=== PATIENT | male | born 1955 | race Caucasian/White ===

== ENCOUNTER 2016-08-16 13:54 | Inpatient (IN) | payer OTHER, BC ==
[~2016-08-16] VITALS: Ht 177.8 cm; Wt 93.9 kg
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
--- NOTE | ~2016-08-16 | HC ---
[facility] [place] [address] CONSULTATION Name: PATRICIA FLYNN Room #: 421-P ADM IN M.R.#: [id number] Admission: 08/16/16 Attend Phys: Arian Mcgowan MD Discharge: Date of : 57 Report #: [id number] THIS REPORT FOR: //name// CC: Arian Mcgowan DATE OF SERVICE: 08/17/2016 INFECTIOUS DISEASE CONSULTATION HISTORY OF PRESENT ILLNESS: A 61-year-old white man recently discharged from [facility] after an hospitalization for possible UTI. The patient did receive treatment with broad spectrum antibiotics and subsequently discharged on Bactrim and Augmentin orally. The patient relates that once IV antibiotics were off, the patient started feeling unwell with chills, headaches, nausea, abdominal pain, muscle aches and pains. I checked the patient's laboratory information on computer yesterday and started the patient back on combination antibiotics consistent of Unasyn and gentamicin. I also ordered a set of ESR and CRP to assess possibility of these symptoms not being associated to infectious process, but possibly due to withdrawal from narcotics. As it turns how the patient tells me he haste to be on the narcotics and he had been using some "100 mg" possible oxycodone, but he elected to discontinue those. We discussed about findings of fairly normal white blood cell count, absolutely normal CRP and ESR that goes against the possibility of infection and I bring to the patient the fact that withdrawal from narcotics may manifest itself with the symptoms he is relating to us. PAST MEDICAL HISTORY: Chronic back pain. Cauda equina. Suprapubic cystostomy. History of sacral osteomyelitis requiring extensive surgical interventions of his back. Hypertension. DVT. Pulmonary embolism. History of sacral decubitus, complicated, but osteomyelitis requiring prolonged parenteral antibiotic treatment and extensive surgical intervention. DRUG ALLERGIES: Intolerant has included Zosyn, morphine, hydrocodone, fentanyl, and meropenem. MEDICATIONS: Currently the patient on treatment with gentamicin 400 mg IV daily, Unasyn 1.5 grams IV every 8 hours, docusate, pantoprazole, duloxetine 30 mg daily, amlodipine, metoprolol, fluticasone propionate, promethazine, hydromorphone 2 mg IV every 3 hours if needed, Benadryl p.r.n., acetaminophen p.r.n., ondansetron p.r.n. SOCIAL HISTORY: See H and P, old records, and as above. FAMILY HISTORY: See H and P, old records, and as above. REVIEW OF SYSTEMS: See H and P, old records, and as above. [address] [address] CONSULTATION Name: PATRICIA FLYNN Room #: 421-P [facility] IN M.R.#: [id number] Admission: 08/16/16 Attend Phys: Arian Mcgowan MD Discharge: Date of : 57 Report #: [id number] PHYSICAL EXAMINATION: GENERAL: A well-developed, overweight man, not toxic-looking, no distress, afebrile since admission. VITAL SIGNS: Presenting following vital signs, temperature 97.7, pulse 67, respirations 18, BP 112/69. HEENMT: Within range. NECK: Supple, no thyromegaly or lymphadenopathy. CHEST: Revealed right-sided Port-A-Cath. LUNGS: Clear. HEART: S1, S2. ABDOMEN: Soft, no masses or megaly. Suprapubic cystostomy in place. Right hip decubitus dressings intact. EXTREMITIES: Atrophy of muscle group. NEUROLOGIC: Paraplegia. BACK: Extensive scar from previous surgery. LABORATORY DATA: BMP normal. Liver function tests normal. CRP 2.6 mg/L, the lowest ever on this patient. WBC 11.5, hemoglobin 15.7, platelets 273,000 with a fairly normal differential. The sedimentation rate only 10 mm per hour. Urinalysis revealed trace ketones, 1+ leukocyte esterase, as well as squamous epithelial cells and bacteriuria. Not an unusual finding in patients with suprapubic cystostomy. ASSESSMENT: 1. Malaise, body aches, and pains, nausea, question withdrawal from narcotics since the patient volunteer he haste to be on the high dose of narcotics he had been using before. 2. Suprapubic cystostomy. 3. Cauda equina. SUGGESTIONS: Recommend discontinuation of antibiotics. Discussed with Dr. Mcgowan. We will address the issue of possibility of withdrawal from narcotics. Recommend tapering down narcotics and discussed at length with the patient the possibility of suffering withdrawal not only from narcotics but from any psychoactive medications the patient might be using. Dr. Mcgowan, thank you for requesting my suggestion. <ELECTRONICALLY SIGNED> By: Kenny Mckenna MD 08/18/16 1108 [id number] 1807 Kenny Mckenna MD /nt
[~2016-08-16 13:54] MED LIST: ALLEGRA-D 12 H1 EAC1 PO; ALPRAZOLAM PO; ALPRAZOLAM1 M1 PO; AMBIEN 10 MG TA10 MG PO; AMITRIPTYLINE H10 M3 PO; AMOXICILLIN 50500 M1 PO; ANTIVERT25 MG PO; ASCRIPTIN 325325 MG PO; ASPIRIN325 PO; AUGMENTIN 875-1 EACH PO; AUGMENTIN 875875 M1; Alprazolam PO; B12INJ IM; BACLOFEN 10MG T10 MG PO; BACTRIM DS TAB1 EACH PO; BENADRYL25 MG PO; BISACODYL SUPP10 MG RECTAL; CEFDINIR; CEFDINIR PO; CEFDINIR300 MG PO; CEFPODOXIME PR200 M1 PO; CEFTIN 250 MG250 MG PO; CEFTIN PO; CEFUROXIME500 MG PO; CEPHALEXIN 500500 M1 PO; CIPRO500 MG PO; CIPROFLOXACIN500 M1 PO; CIPROFLOXACIN500 M3 PO; CIPROFLOXACIN750 MG PO; CYMBALTA30 MG PO; CYMBALTA60 MG PO; DEPO-TESTO100 MG/1 M IM; DEPO-TESTO200 MG/1 M IM; DEXILANT30 MG PO; DILAUDID 2 MG TA2 MG PO; DILAUDID2 M1 PO; DIPHENHIST25 M2 PO; DITROPAN XL10 M1 PO; DOLOPHINE HCL10 MG PO; EFFEXOR XR PO; FISH OIL 1,0001 EAC7 PO; FISH OIL 500 M1 EACH PO; FLAGYL500 MG PO; FLONASE 0.05%50 MCG NASAL; FLORANEX TABLE1 EACH PO; FLUCONAZOLE 10100 MG PO; HYDROCODON-ACE1 EAC5 PO; KEFLEX500 MG PO; LEVAQUIN 500 M500 M2 PO; LIORESAL 10 MG10 MG PO; LOPRESSOR 50 MG50 M1 PO; LOPRESSOR50 PO; MACROBID 100 M100 M1 PO; MACROBID 100 M100 MG PO; MERREM 500500 MG/12 IV; METHADONE HCL 110 M1 PO; METOPROLOL SUCC50 MG PO; MIRALAX255 GM PO; MUCINEX TA600 MG/TA1 PO; MULTIVITAMINS PO; NEXIUM40 MG PO; NORVASC 5 MG TAB5 MG PO; NORVASC10 MG PO; OMEPRAZOLE40 MG PO; OPANA ER5 M1 PO; OXYCODONE HCL 55 MG PO; OXYCODONE HCL15 MG PO; OXYCODONE PO; OXYCODONE-ACET1 EACH PO; OXYCONTIN20 M1 PO; PAXIL10 MG; PERCOCET 10-321 EACH PO; PHENERGAN 25 MG25 M1 PO; PREDNISONE 10 M10 M1; PREVACID 30MG C30 M1 PO; PROAIR HFA8.5 GM INH; PROTONIX40 M2 PO; REMERON15 MG PO; ROXICODONE15 M1 PO; ROXICODONE5 M1 PO; SENNA PO; SENOKOT-S1 TA1 PO; SLOW FE 160MG160 MG PO; STRESSTABS1 EACH PO; TAB-A-VITE1 EACH PO; TOPROL XL50 MG PO; TRIMETHOBENZAM300 M1 PO; TYLENOL325 MG PO; VALIUM10 MG PO; VALIUM5 MG PO; VITAMIN B PO; VITAMIN B12 IM; VITAMIN C1000 MG PO; VITAMIN D-32000 UNIT PO; VITAMIN D1000 UNI2 PO; VITAMIN D1000 UNIT PO; VITAMIN D32000 UNIT PO; VITAMIN D35000 UNI1 PO; WELLBUTRIN XL300 M1 PO; XANAX 0.5 MG0.5 M1 PO; XANAX 0.5 MG0.5 MG PO; XANAX XR1 MG PO; XANAX1 MG PO; ZINC SULFATE 2220 MG PO; ZOFRAN ODT4 MG PO; ZOLOFT100 MG PO; [UNRECOGNIZED DRUG - OTHER]; [UNRECOGNIZED DRUG - OTHER]; [UNRECOGNIZED DRUG - OTHER] PO; [UNRECOGNIZED DRUG - REMARK]
[2016-08-16 13:57] VITALS: BP 148/93
[2016-08-16] MEDS ORDERED: PREVACID30 MG PO (14:28)
[2016-08-16] MEDS ORDERED: ZYRTEC10 M5 PO (14:28)
[2016-08-16 15:03] LABS: ABSOLUTE NEUTROPHILS 8.3 thou/uL (1.4-8.2); BASOPHILS 0.6 % (0.0-2.0); EOSINOPHILS 4.7 % (0.0-3.0); HEMATOCRIT 45.7 % (42.0-52.0); HEMOGLOBIN 15.7 gm/dL (14.0-18.0); LYMPHOCYTES 16.1 % (24.0-44.0); MCH 30.3 pg (26.0-34.0); MCHC 34.4 % (28.0-37.0); MCV 88.2 fL (80.0-100.0); MONOCYTES 6.8 % (1.0-8.0); PLATELET COUNT 273 thou/uL (150-400); POLYS 71.8 % (36.0-66.0); RBC 5.18 mil/uL (4.50-6.00); WBC 11.5 thou/uL (4.0-11.0)
[2016-08-16 15:05] LABS: URINE BILIRUBIN NEGATIVE (Negative); URINE BLOOD NEGATIVE (Negative); URINE COLOR YELLOW; URINE GLUCOSE-RANDOM* NEGATIVE (Negative); URINE KETONES TRACE (Negative); URINE LEUKOCYTES-REFLEX 1+ (Negative); URINE PROTEIN (DIPSTICK) NEGATIVE (Negative); URINE SPECIFIC GRAVITY 1.015 (1.003-1.035); URINE UROBILINOGEN 0.2 E.U./dl (0.2-1.0)
[2016-08-16 15:08] LABS: MANUAL DIFF NO
[2016-08-16 15:13] LABS: CASTS None Seen /LPF (None Seen); CRYSTALS None Seen /LPF (None Seen); SQUAMOUS 4-10 Moderate /LPF (0-3); URINE RBC 0-2 Rare /HPF (0-2); URINE WBC-REFLEX 0-5 Rare /HPF (0-5)
[2016-08-16 15:14] LABS: CALCIUM 9.1 mg/dL (8.5-10.1); CREATININE 0.8 mg/dL (0.6-1.3)
[2016-08-16 15:31] LABS: ALBUMIN 3.4 g/dL (3.4-5.0); TOTAL BILIRUBIN 0.4 mg/dL (<0.1-1.0); TOTAL PROTEIN 7.2 g/dL (6.4-8.2)
[2016-08-16 17:03] VITALS: BP 124/88
[2016-08-16 17:15] VITALS: BP 148/82
[2016-08-16 20:00] VITALS: BP 112/69
[2016-08-17 07:23] VITALS: BP 112/69
[2016-08-17 18:53] LABS: MAGNESIUM 1.6 mg/dL (1.8-2.4); PHOSPHORUS 4.8 mg/dL (2.5-4.9)
[2016-08-17 20:00] VITALS: BP 113/81
[2016-08-18 04:00] VITALS: BP 135/73
[2016-08-18 08:00] VITALS: BP 136/71
[2016-08-18] MEDS ORDERED: METHADONE HCL 110 M1 PO (08:43)
[2016-08-18 11:01] VITALS: BP 136/71
[2016-08-18 12:31] VITALS: BP 136/71
== END 2016-08-18 13:15 | disposition home health service (06) | DRG 854 ==
LOC: ER 13:54 → EROBS 16:03 → 4E 16:03
PROVIDERS: Internal Medicine Infectious Disease; Physician Assistant
PROC: 0JBL0ZZ Excision of Right Upper Leg Subcutaneous Tissue and Fascia, Open Approach (ICD-10-PCS; principal; 2016-08-18)
DX: A41.9 Sepsis, unspecified organism (principal); N39.0 Urinary tract infection, site not specified; G82.20 Paraplegia, unspecified; F11.23 Opioid dependence with withdrawal; K21.9 Gastro-esophageal reflux disease without esophagitis; S70.211A Abrasion, right hip, initial encounter; F41.9 Anxiety disorder, unspecified; I10 Essential (primary) hypertension; G89.4 Chronic pain syndrome; Z96.698 Presence of other orthopedic joint implants; R53.81 Other malaise; Z79.899 Other long term (current) drug therapy; Z86.718 Personal history of other venous thrombosis and embolism; Z86.711 Personal history of pulmonary embolism; Z86.14 Personal history of Methicillin resistant Staphylococcus aureus infection; Z87.891 Personal history of nicotine dependence; Z98.890 Other specified postprocedural states; Z88.6 Allergy status to analgesic agent; Z88.1 Allergy status to other antibiotic agents; Z93.50 Unspecified cystostomy status
CPT/HCPCS: 10084

== ENCOUNTER → 2016-11-15 | Outpatient (CLI) | payer OTHER ==
[~2016-11-15] MED LIST changes: +PREVACID30 MG PO; +ZYRTEC10 M5 PO
[2016-11-15 12:13] LABS: ABSOLUTE NEUTROPHILS 10.1 thou/uL (1.4-8.2); BASOPHILS 0.8 % (0.0-2.0); EOSINOPHILS 5.2 % (0.0-3.0); HEMATOCRIT 50.5 % (42.0-52.0); HEMOGLOBIN 16.9 gm/dL (14.0-18.0); LYMPHOCYTES 13.7 % (24.0-44.0); MCH 29.1 pg (26.0-34.0); MCHC 33.5 g/dL (28.0-37.0); MCV 86.9 fL (80.0-100.0); PLATELET COUNT 231 thou/uL (150-400); POLYS 70.3 % (36.0-66.0); RDW 14.9 % (10.5-14.5); WBC 14.3 thou/uL (4.0-11.0)
[2016-11-15 12:19] LABS: MANUAL DIFF NO
[2016-11-15 12:30] LABS: ANION GAP 9 mmol/L (7-16); BUN 16 mg/dL (7-18); CHLORIDE 100 mmol/L (98-107); CO2 24 mmol/L (21-32); POTASSIUM 4.7 mmol/L (3.5-5.1); SODIUM 133 mmol/L (136-145)
[2016-11-15 12:31] LABS: ALBUMIN 3.5 g/dL (3.4-5.0); ALKALINE PHOSPHATASE 65 U/L (46-116); CALCIUM 9.4 mg/dL (8.5-10.1); CHOLESTEROL 173 mg/dL (<200); CREATININE 0.8 mg/dL (0.7-1.3); GLUCOSE 81 mg/dL (74-106); HDL CHOLESTEROL 32 mg/dL (>40); LDL CHOLESTEROL 110 mg/dL (<100); SGOT 18 U/L (15-37); SGPT 22 U/L (30-65); TC:HDL 5.4 Ratio (Not establshd); TOTAL BILIRUBIN 0.4 mg/dL (<0.1-1.0); TRIGLYCERIDE 156 mg/dL (<150); VLDL 31 mg/dL (<40)
[2016-11-15 22:06] LABS: PSA 1.2 ng/mL (0.0-4.0)
[2016-11-16 01:06] LABS: HEPATITIS C VIRUS AB <0.1 (0.0-0.9); TESTOSTERONE* > 1500 ng/dL (348-1197)
== END | disposition home or self-care (01) ==
LOC: OPONC 07:52
PROVIDERS: Family Medicine
DX: Z45.2 Encounter for adjustment and management of vascular access device (principal)

== ENCOUNTER 2016-11-21 20:55 | Inpatient (IN) | payer OTHER ==
[~2016-11-21] VITALS: Ht 177.8 cm; Wt 90.3 kg
--- NOTE | ~2016-11-21 | H ---
[facility] [place] [address] [place] [address] HISTORY AND PHYSICAL Name: PATRICIA FLYNN Room #: 463-P ADM IN M.R.#: [id number] Admission: 11/21/16 Attend Phys: Arian Mcgowan MD Discharge: Date of : 57 Report #: [id number] THIS REPORT FOR: //name// CC: Arian Mcgowan DATE OF SERVICE: 11/22/2016 CHIEF COMPLAINT: Weakness and fatigue. HISTORY OF PRESENT ILLNESS: The patient is a 61-year-old male well known to me with paraplegia. He has had recurrent UTIs. He states he feels like he does when he gets some bladder infections. He has also been admitted for narcotic withdrawal in the past, but he states he has not stopped his narcotics at this time. He just has general malaise, fatigue. He states that he has not had he is aware of. PAST MEDICAL HISTORY: Fairly significant. See prior documentation, includes multiple UTIs, chronic pain syndrome, prior spinal cord injury in 1985, hypertension, DVT, PE, numerous back surgeries for his wound and spinal stabilization, reflux, chronic incontinence with a suprapubic catheter. MEDICATIONS: Include methadone 10 mg b.i.d., Cymbalta 30 mg daily, Benadryl p.r.n., Valium mg q. 8 p.r.n., Prevacid 30 mg a day, Zyrtec 10 mg a day, amlodipine 5 mg a day, testosterone for 2 weeks, vitamin D daily, metoprolol 50 mg a day, B12 daily. ALLERGIES: HYDROCODONE, MEROPENEM, ZOSYN, MORPHINE and FENTANYL. REVIEW OF SYSTEMS: CONSTITUTIONAL: Positive for generalized malaise or fevers. HEENT: No headaches or visual changes. CHEST: No chest pain, tightness in chest, shortness of breath, cough or sputum production. GASTROINTESTINAL: Complains of nausea, no vomiting or diarrhea. GENITOURINARY: No urinary symptoms, but he does have suprapubic catheter and his urine looks cloudy. PHYSICAL EXAMINATION: VITAL SIGNS: In the ER, blood pressure 167/107, pulse is 90, respirations 20. He is afebrile. GENERAL: He is awake and alert. He appears weak. HEENT: His mucous membranes are dry. NECK: Supple. No adenopathy, thyromegaly or bruits. CHEST: Clear to auscultation. CARDIOVASCULAR: Regular, no murmur. ABDOMEN: Soft, no masses. He is obese. Bowel sounds are active. [address] [address] HISTORY AND PHYSICAL Name: PATRICIA FLYNN Room #: [address] [place] [address] IN M.R.#: [id number] Admission: 11/21/16 Attend Phys: Arian Mcgowan MD Discharge: Date of : 57 Report #: [id number] EXTREMITIES: No changes. He has got chronic atrophy from his prior spinal cord injury. LABORATORY DATA: Sodium 135, potassium 3.7, chloride 100, bicarbonate 26, BUN 9, creatinine 0.8, glucose 96, calcium 9.2. WBC is 9.9, hemoglobin 16.5, hematocrit 48.8, platelet count 250, 61 segs, 21 lymphs, 11 monos. Urinalysis shows specific gravity less than 1.005, 2+ blood, 3+ white cells and many bacteria. ASSESSMENT AND PLAN: Urinary tract infection, presumed. He got a dose of gentamicin in the ER. We had a culture. We will not redose until we get a culture back. He has oftentimes has had colonization, so we will make sure he has got a true infection, treat symptoms otherwise with medications. Renew his home meds as above. By: [id number] Arian Mcgowan MD /nt
[2016-11-21 20:59] VITALS: BP 167/107
[2016-11-21 21:29] LABS: URINE BILIRUBIN NEGATIVE (Negative); URINE BLOOD 2+ (Negative); URINE COLOR YELLOW; URINE GLUCOSE-RANDOM* NEGATIVE (Negative); URINE KETONES NEGATIVE (Negative); URINE NITRITE NEGATIVE (Negative); URINE PROTEIN (DIPSTICK) NEGATIVE (Negative); URINE SPECIFIC GRAVITY <= 1.005 (1.003-1.035); URINE UROBILINOGEN 0.2 E.U./dl (0.2-1.0)
[2016-11-21 21:39] LABS: ABSOLUTE NEUTROPHILS 6.1 thou/uL (1.4-8.2); BASOPHILS 1.2 % (0.0-2.0); EOSINOPHILS 4.6 % (0.0-3.0); HEMATOCRIT 48.8 % (42.0-52.0); HEMOGLOBIN 16.5 gm/dL (14.0-18.0); LYMPHOCYTES 21.6 % (24.0-44.0); MCH 29.3 pg (26.0-34.0); MCHC 33.7 g/dL (28.0-37.0); MCV 86.9 fL (80.0-100.0); MONOCYTES 11.2 % (1.0-8.0); PLATELET COUNT 250 thou/uL (150-400); POLYS 61.4 % (36.0-66.0); RBC 5.61 mil/uL (4.50-6.00); RDW 15.2 % (10.5-14.5); WBC 9.9 thou/uL (4.0-11.0)
[2016-11-21 21:40] LABS: BACTERIA >30 Many /HPF (None Seen); CASTS None Seen /LPF (None Seen); CRYSTALS None Seen /LPF (None Seen); SQUAMOUS None Seen /LPF (0-3); URINE RBC 0-2 Rare /HPF (0-2); URINE WBC >25 Many /HPF (0-5)
[2016-11-21 21:42] LABS: MANUAL DIFF NO
[2016-11-21 21:49] LABS: CALCIUM 9.2 mg/dL (8.5-10.1); CREATININE 0.8 mg/dL (0.7-1.3); POTASSIUM 3.7 mmol/L (3.5-5.1)
[2016-11-21 23:50] VITALS: BP 131/89
[2016-11-22 07:07] LABS: HEMATOCRIT 45.7 % (42.0-52.0); HEMOGLOBIN 15.5 gm/dL (14.0-18.0); MCH 29.6 pg (26.0-34.0); MCHC 33.9 g/dL (28.0-37.0); MCV 87.1 fL (80.0-100.0); RBC 5.24 mil/uL (4.50-6.00); RDW 15.3 % (10.5-14.5); WBC 8.2 thou/uL (4.0-11.0)
[2016-11-22 07:21] LABS: CALCIUM 8.9 mg/dL (8.5-10.1); CREATININE 0.8 mg/dL (0.7-1.3); POTASSIUM 4.1 mmol/L (3.5-5.1)
[2016-11-22 08:00] VITALS: BP 172/95
[2016-11-22 12:00] VITALS: BP 140/93
[2016-11-22 16:00] VITALS: BP 133/90
[2016-11-22 20:09] VITALS: BP 113/56
[2016-11-23 06:05] VITALS: BP 167/94
[2016-11-23 07:00] VITALS: BP 173/92
[2016-11-23 11:29] VITALS: BP 136/75
[2016-11-23 15:35] VITALS: BP 120/66
[2016-11-23 19:45] VITALS: BP 130/59
[2016-11-24 03:46] VITALS: BP 123/64
[2016-11-24 08:12] VITALS: BP 102/66
[2016-11-24 16:00] VITALS: BP 124/63
[2016-11-24 20:00] VITALS: BP 132/58
[2016-11-25 04:00] VITALS: BP 154/77
[2016-11-25 07:24] VITALS: BP 135/60
[2016-11-25 12:41] VITALS: BP 135/60
[2016-11-25 15:23] VITALS: BP 115/64
[2016-11-25 19:15] VITALS: BP 124/84
[2016-11-26 03:22] VITALS: BP 132/70
[2016-11-26 08:35] VITALS: BP 125/81
[2016-11-26 12:30] VITALS: BP 130/59
[2016-11-26 15:30] VITALS: BP 132/54
[2016-11-26 19:26] VITALS: BP 126/62
[2016-11-27 05:05] VITALS: BP 148/77
[2016-11-27 08:15] LABS: CALCIUM 8.9 mg/dL (8.5-10.1); CREATININE 0.8 mg/dL (0.7-1.3); POTASSIUM 4.3 mmol/L (3.5-5.1)
[2016-11-27 08:49] VITALS: BP 125/67
[2016-11-27 09:04] LABS: HEMATOCRIT 45.9 % (42.0-52.0); HEMOGLOBIN 15.2 gm/dL (14.0-18.0); MCH 29.1 pg (26.0-34.0); RBC 5.22 mil/uL (4.50-6.00); RDW 15.2 % (10.5-14.5); WBC 7.2 thou/uL (4.0-11.0)
[2016-11-27 15:16] VITALS: BP 105/54
[2016-11-27 19:42] VITALS: BP 122/63
[2016-11-28 02:54] VITALS: BP 123/64
[2016-11-28 07:26] VITALS: BP 132/74
[2016-11-28 11:27] VITALS: BP 116/60
[2016-11-28] MEDS ORDERED: CEFDINIR300 MG PO (12:51)
[2016-11-28] MEDS ORDERED: MACROBID 100 M100 M2 PO (12:52)
[2016-11-28 13:28] VITALS: BP 135/60
== END 2016-11-28 15:30 | disposition home or self-care (01) | DRG 690 ==
LOC: ER 20:55 → 4W 22:00 → ER 22:00 → EROBS 22:00 → 4W 23:56
PROVIDERS: Emergency Medicine; Family Medicine
DX: N39.0 Urinary tract infection, site not specified (principal); I10 Essential (primary) hypertension; G89.4 Chronic pain syndrome; K21.9 Gastro-esophageal reflux disease without esophagitis; F41.9 Anxiety disorder, unspecified; B96.20 Unspecified Escherichia coli [E. coli] as the cause of diseases classified elsewhere; B96.5 Pseudomonas (aeruginosa) (mallei) (pseudomallei) as the cause of diseases classified elsewhere; Z86.718 Personal history of other venous thrombosis and embolism; Z86.711 Personal history of pulmonary embolism; Z88.6 Allergy status to analgesic agent; Z88.1 Allergy status to other antibiotic agents; Z88.8 Allergy status to other drugs, medicaments and biological substances; Z87.891 Personal history of nicotine dependence
CPT/HCPCS: 10040

== ENCOUNTER 2016-12-26 21:12 | Emergency (ER) | payer OTHER, BC ==
[~2016-12-26] VITALS: Ht 177.8 cm; Wt 86.2 kg
[~2016-12-26 21:12] MED LIST changes: +MACROBID 100 M100 M2 PO
[2016-12-26 22:37] LABS: HEMATOCRIT 45.8 % (42.0-52.0); HEMOGLOBIN 15.4 gm/dL (14.0-18.0); MCH 29.6 pg (26.0-34.0); MCHC 33.6 g/dL (28.0-37.0); MCV 88.3 fL (80.0-100.0); PLATELET COUNT 210 thou/uL (150-400); RBC 5.19 mil/uL (4.50-6.00); RDW 15.3 % (10.5-14.5); WBC 8.8 thou/uL (4.0-11.0)
[2016-12-26 22:42] LABS: CALCIUM 8.9 mg/dL (8.5-10.1); CREATININE 0.8 mg/dL (0.7-1.3); POTASSIUM 4.2 mmol/L (3.5-5.1)
[2016-12-26 22:44] LABS: MANUAL DIFF YES
[2016-12-26 22:47] LABS: ALBUMIN 3.4 g/dL (3.4-5.0); TOTAL BILIRUBIN 0.3 mg/dL (<0.1-1.0); TOTAL PROTEIN 6.9 g/dL (6.4-8.2)
[2016-12-26 23:01] LABS: URINE BILIRUBIN NEGATIVE (Negative); URINE BLOOD 2+ (Negative); URINE COLOR YELLOW; URINE GLUCOSE-RANDOM* NEGATIVE (Negative); URINE KETONES NEGATIVE (Negative); URINE LEUKOCYTES-REFLEX 3+ (Negative); URINE PROTEIN (DIPSTICK) 1+ (Negative); URINE SPECIFIC GRAVITY 1.015 (1.003-1.035)
[2016-12-26 23:17] LABS: ABSOLUTE NEUTROPHILS 4.4 thou/uL (1.4-8.2); ATYPICAL LYMPHS 1 %; TOTAL CELL COUNT 100
[2016-12-26 23:21] LABS: AMORPHOUS URATES Moderate /LPF (None Seen); CASTS None Seen /LPF (None Seen); CRYSTALS None Seen /LPF (None Seen); SQUAMOUS None Seen /LPF (0-3); URINE WBC-REFLEX >25 Many /HPF (0-5); WBC CLUMPS Moderate (None Seen)
[2016-12-26] MEDS ORDERED: AUGMENTIN 875-1 EACH PO (23:31)
[2016-12-27 00:46] VITALS: BP 144/98
== END 2016-12-27 00:50 | disposition home or self-care (01) ==
LOC: ER 21:12
PROVIDERS: Emergency Medicine
DX: N39.0 Urinary tract infection, site not specified (principal); G89.29 Other chronic pain; M54.9 Dorsalgia, unspecified; G82.20 Paraplegia, unspecified; K21.9 Gastro-esophageal reflux disease without esophagitis; I10 Essential (primary) hypertension; Z96.0 Presence of urogenital implants; Z86.14 Personal history of Methicillin resistant Staphylococcus aureus infection; Z88.5 Allergy status to narcotic agent; Z88.8 Allergy status to other drugs, medicaments and biological substances; Z87.891 Personal history of nicotine dependence

== ENCOUNTER 2017-02-27 16:14 | Emergency (ER) | payer OTHER, BC ==
[~2017-02-27] VITALS: Ht 180.3 cm; Wt 86.2 kg
[2017-02-27 18:02] LABS: URINE BILIRUBIN NEGATIVE (Negative); URINE BLOOD NEGATIVE (Negative); URINE COLOR YELLOW; URINE GLUCOSE-RANDOM* NEGATIVE (Negative); URINE KETONES 1+ (Negative); URINE NITRITE POSITIVE (Negative); URINE PROTEIN (DIPSTICK) NEGATIVE (Negative); URINE SPECIFIC GRAVITY <= 1.005 (1.003-1.035); URINE UROBILINOGEN 0.2 E.U./dl (0.2-1.0)
[2017-02-27 18:07] LABS: SQUAMOUS None Seen /LPF (0-3); URINE RBC None Seen /HPF (0-2); URINE WBC 6-15 Few /HPF (0-5)
[2017-02-27 18:08] LABS: BACTERIA 1-9 Few /HPF (None Seen); CASTS None Seen /LPF (None Seen); CRYSTALS None Seen /LPF (None Seen)
[2017-02-27 18:55] LABS: ABSOLUTE NEUTROPHILS 7.5 thou/uL (1.4-8.2); BASOPHILS 0.5 % (0.0-2.0); EOSINOPHILS 2.7 % (0.0-3.0); HEMOGLOBIN 17.3 gm/dL (14.0-18.0); MCH 29.6 pg (26.0-34.0); MCHC 33.9 g/dL (28.0-37.0); MCV 87.2 fL (80.0-100.0); MONOCYTES 9.3 % (1.0-8.0); PLATELET COUNT 213 thou/uL (150-400); POLYS 73.5 % (36.0-66.0); RBC 5.85 mil/uL (4.50-6.00); RDW 15.7 % (10.5-14.5); WBC 10.2 thou/uL (4.0-11.0)
[2017-02-27 18:56] LABS: MANUAL DIFF NO
[2017-02-27 19:05] LABS: CALCIUM 9.2 mg/dL (8.5-10.1); CREATININE 0.8 mg/dL (0.7-1.3); POTASSIUM 4.4 mmol/L (3.5-5.1)
[2017-02-27 19:10] LABS: ALBUMIN 3.7 g/dL (3.4-5.0); DIRECT BILIRUBIN 0.1 mg/dL (<0.1-0.3); TOTAL BILIRUBIN 0.4 mg/dL (<0.1-1.0); TOTAL PROTEIN 7.2 g/dL (6.4-8.2)
[2017-02-27] MEDS ORDERED: PHENERGAN 25 MG25 M1 PO (20:02)
[2017-02-27] MEDS ORDERED: PROMS25 WY RECTAL (20:02)
[2017-02-27 20:29] VITALS: BP 152/88
== END 2017-02-27 20:30 | disposition home or self-care (01) ==
LOC: ER 16:14
PROVIDERS: Nurse Practitioner
DX: R10.13 Epigastric pain (principal); G89.29 Other chronic pain; I10 Essential (primary) hypertension; K21.9 Gastro-esophageal reflux disease without esophagitis; Z98.890 Other specified postprocedural states; Z86.718 Personal history of other venous thrombosis and embolism; Z88.5 Allergy status to narcotic agent; Z88.1 Allergy status to other antibiotic agents; Z88.4 Allergy status to anesthetic agent; Z88.8 Allergy status to other drugs, medicaments and biological substances; Z87.891 Personal history of nicotine dependence; R11.2 Nausea with vomiting, unspecified

== ENCOUNTER 2017-03-01 01:38 | Inpatient (IN) | payer OTHER, BC ==
[~2017-03-01] VITALS: Ht 180.3 cm; Wt 86.2 kg
[~2017-03-01 01:38] MED LIST changes: +PROMS25 WY RECTAL
[2017-03-01 01:39] VITALS: BP 153/88
[2017-03-01 03:02] LABS: ABSOLUTE NEUTROPHILS 8.2 thou/uL (1.4-8.2); BASOPHILS 0.7 % (0.0-2.0); HEMATOCRIT 45.4 % (42.0-52.0); HEMOGLOBIN 15.4 gm/dL (14.0-18.0); LYMPHOCYTES 15.8 % (24.0-44.0); MCH 28.9 pg (26.0-34.0); PLATELET COUNT 235 thou/uL (150-400); POLYS 69.5 % (36.0-66.0); RBC 5.34 mil/uL (4.50-6.00); RDW 15.3 % (10.5-14.5); WBC 11.8 thou/uL (4.0-11.0)
[2017-03-01 03:06] LABS: MANUAL DIFF NO
[2017-03-01 03:10] LABS: CALCIUM 9.5 mg/dL (8.5-10.1); CREATININE 0.9 mg/dL (0.7-1.3); POTASSIUM 4.1 mmol/L (3.5-5.1)
[2017-03-01 03:17] LABS: AMP/METHAMP Negative (Negative); BARBITURATES Negative (Negative); BENZODIAZEPINES POSITIVE (Negative); COCAINE Negative (Negative); METHADONE POSITIVE (Negative); OPIATES POSITIVE (Negative); PCP Negative (Negative); THC Negative (Negative)
[2017-03-01 05:08] VITALS: BP 140/83
[2017-03-01 05:30] VITALS: BP 138/84
[2017-03-01 07:59] VITALS: BP 153/85
[2017-03-01 17:26] VITALS: BP 128/74
[2017-03-01 20:55] VITALS: BP 141/86
[2017-03-02 06:15] VITALS: BP 129/71
[2017-03-02 06:37] LABS: HEMATOCRIT 46.3 % (42.0-52.0); HEMOGLOBIN 15.7 gm/dL (14.0-18.0); MANUAL DIFF YES; MCH 29.5 pg (26.0-34.0); MCHC 33.9 g/dL (28.0-37.0); MCV 87.2 fL (80.0-100.0); PLATELET COUNT 218 thou/uL (150-400); RBC 5.31 mil/uL (4.50-6.00); RDW 15.6 % (10.5-14.5); WBC 7.5 thou/uL (4.0-11.0)
[2017-03-02 07:37] LABS: ABSOLUTE NEUTROPHILS 4.7 thou/uL (1.4-8.2); TOTAL CELL COUNT 100
[2017-03-02 07:39] LABS: ANISOCYTOSIS SLIGHT
[2017-03-02 08:00] VITALS: BP 122/77
[2017-03-02 16:00] VITALS: BP 146/91
[2017-03-02 20:00] VITALS: BP 156/77
[2017-03-03 04:00] VITALS: BP 126/86
[2017-03-03 08:00] VITALS: BP 162/94
[2017-03-03 15:00] VITALS: BP 162/94
== END 2017-03-03 15:23 | disposition home or self-care (01) | DRG 552 ==
LOC: ER 01:38 → EROBS 04:21 → 3N 04:21
PROVIDERS: Emergency Medicine; Family Medicine
DX: M54.9 Dorsalgia, unspecified (principal); G82.20 Paraplegia, unspecified; G89.4 Chronic pain syndrome; K21.9 Gastro-esophageal reflux disease without esophagitis; F17.290 Nicotine dependence, other tobacco product, uncomplicated; D72.829 Elevated white blood cell count, unspecified; T50.905A Adverse effect of unspecified drugs, medicaments and biological substances, initial encounter; M79.1 Myalgia; I10 Essential (primary) hypertension; Z86.718 Personal history of other venous thrombosis and embolism; Z86.711 Personal history of pulmonary embolism; Z86.14 Personal history of Methicillin resistant Staphylococcus aureus infection; Z88.6 Allergy status to analgesic agent; Z88.1 Allergy status to other antibiotic agents; Z79.899 Other long term (current) drug therapy; Z79.891 Long term (current) use of opiate analgesic; Z90.79 Acquired absence of other genital organ(s)
CPT/HCPCS: 10094

== ENCOUNTER 2017-04-08 21:04 | Observation (INO) | payer OTHER, BC ==
[~2017-04-08] VITALS: Ht 177.8 cm; Wt 86.2 kg
--- NOTE | ~2017-04-08 | HC ---
[facility] [place] [address] CONSULTATION Name: PATRICIA FLYNN Room #: 409-P [facility]#: [id number] Admission: 04/08/17 Attend Phys: Emilio Hester DO Discharge: 04/12/17 Date of : 57 Report #: [id number] THIS REPORT FOR: //name// CC: Emilio Mcgowan CHIEF COMPLAINT: Right shoulder pain. HISTORY OF PRESENT ILLNESS: This 61-year-old gentleman with a previous severe spinal injury is chronically paraplegic. He is fully independent and uses a wheelchair and uses upper extremities exclusively for transfers and mobilization. He has had some mild shoulder symptoms in the past on the right side. I believe he has had a previous left shoulder injury with previous rotator cuff tear and surgical repair. He is somewhat frustrated with that process and his previous surgery and notes he would like to remain very conservative with regard to any future shoulder symptoms. Recently, he had a fall when his arm rest on the chair broke as he was transferring and twisted the right shoulder dramatically. He required assistance and has been admitted to the hospital for further assessment. He has had significant right shoulder discomfort with a rather limited strength and limited range of motion, which obviously is a major problem for this gentleman who is entirely dependent upon his upper extremities for mobilization. He has already had x-rays and CT scan, which reveals some degenerative change at both the glenohumeral joint and the acromioclavicular joint, but no evidence of fracture nor displacement. No other areas of injury were identified. At the time of my initial evaluation, the right shoulder demonstrates no significant bruising or swelling. He does have limited range of motion with complaints of discomfort on both the internal and external rotation and particularly pain with elevation above 90 degrees. The shoulder seems stable. Biceps and triceps function seemed to be normal. The forearm, wrist and hand are normal. He has no other areas of upper extremity injuries or complaints. He seems to have unchanged movement and strength in the left shoulder. At the time of my initial evaluation, he was already scheduled for an MRI study and he has continued conservative management in the interim. 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 There is evidence of some fraying and partial thickness tearing in the supraspinatus portion of the rotator cuff; however, the rest of the cuff seems to be intact and there is no evidence of a significant new injury nor displaced or retracted rotator cuff tear. The rest of the findings appear to be rather normal and consistent with only minor degenerative change. In summary, this gentleman's findings are consistent with moderate chronic [facility] [address] [place] [address] CONSULTATION Name: PATRICIA FLYNN Room #: 409-P [facility]#: [id number] Admission: 04/08/17 Attend Phys: Emilio Hesetr DO Discharge: 04/12/17 Date of : 57 Report #: [id number] overuse symptoms of the right shoulder required by his paraplegia and need to use both arms in a very aggressive repetitive fashion for transfers. I believe he does have some chronic rotator cuff tendinosis and some degenerative change at the shoulder as a result of this chronic overuse. I believe his recent fall probably resulted in a new shoulder sprain and may have aggravated the rotator cuff tendinosis and certainly have aggravated the joint itself. However, I do not see evidence of a significant large retracted rotator cuff tear. Consequently, I do not see anything which would require surgical intervention or repair at this point, which would obviously be a very difficult process for this gentleman given his requirements. I think it is reasonable to continue conservative management. I understand he will remain in the hospital today, but plans for discharge home tomorrow. I have discussed with him that he may advance his activities as comfort and strength will allow. I am happy to see him back in my office periodically for followup. If he should have ongoing shoulder symptoms, he might benefit from an occasional shoulder injection, which would be reasonable. I suspect we will both hope to avoid surgery if possible as this would be very difficult for this gentleman in terms of recovery and limited activity during the recovery period. I am okay with his discharge whenever he is medically ready and I am happy to see him back in the office for followup visit at any point if symptoms require. <ELECTRONICALLY SIGNED> By: Armando Blevins MD 04/13/17 0949 1051 1401 Armando Blevins MD /nt
[2017-04-08 21:06] VITALS: BP 157/84
[2017-04-08 23:04] VITALS: BP 162/70
[2017-04-08 23:33] VITALS: BP 149/71
[2017-04-09] MEDS ORDERED: REQUIP 1 MG TABL1 M1 PO (00:48)
[2017-04-09 04:53] VITALS: BP 125/64
[2017-04-09 10:20] VITALS: BP 134/68
[2017-04-09 16:54] VITALS: BP 134/85
[2017-04-09 20:17] VITALS: BP 101/69
[2017-04-10 07:31] LABS: HEMATOCRIT 45.3 % (42.0-52.0); HEMOGLOBIN 15.3 gm/dL (14.0-18.0); MCH 29.9 pg (26.0-34.0); MCHC 33.8 g/dL (28.0-37.0); MCV 88.4 fL (80.0-100.0); PLATELET COUNT 196 thou/uL (150-400); RBC 5.12 mil/uL (4.50-6.00); RDW 16.6 % (10.5-14.5); WBC 8.2 thou/uL (4.0-11.0)
[2017-04-10 07:32] LABS: MANUAL DIFF YES
[2017-04-10 07:37] LABS: ALBUMIN 3.1 g/dL (3.4-5.0); CALCIUM 9.4 mg/dL (8.5-10.1); CREATININE 0.8 mg/dL (0.7-1.3); POTASSIUM 4.6 mmol/L (3.5-5.1); TOTAL BILIRUBIN 0.3 mg/dL (<0.1-1.0); TOTAL PROTEIN 6.5 g/dL (6.4-8.2)
[2017-04-10 09:05] VITALS: BP 116/79
[2017-04-10 09:39] LABS: ABSOLUTE NEUTROPHILS 5.3 thou/uL (1.4-8.2); ANISOCYTOSIS 1+; TOTAL CELL COUNT 100
[2017-04-10 19:18] VITALS: BP 164/82
[2017-04-11 03:20] VITALS: BP 169/78
[2017-04-11 20:06] VITALS: BP 133/66
[2017-04-12 04:10] VITALS: BP 142/73
[2017-04-12] MEDS ORDERED: METHADONE HCL 110 M1 PO (07:55)
[2017-04-12 08:25] VITALS: BP 147/84
[2017-04-12 10:41] VITALS: BP 147/84
[2017-04-12 12:42] LABS: URINE BILIRUBIN NEGATIVE (Negative); URINE BLOOD 2+ (Negative); URINE COLOR YELLOW; URINE GLUCOSE-RANDOM* NEGATIVE (Negative); URINE KETONES NEGATIVE (Negative); URINE PROTEIN (DIPSTICK) TRACE (Negative); URINE SPECIFIC GRAVITY 1.015 (1.003-1.035); URINE UROBILINOGEN 0.2 E.U./dl (0.2-1.0)
[2017-04-12 12:43] LABS: URINE LEUKOCYTES-REFLEX 3+ (Negative)
[2017-04-12 12:57] LABS: CASTS None Seen /LPF (None Seen)
[2017-04-12 12:58] LABS: SQUAMOUS None Seen /LPF (0-3); URINE WBC-REFLEX >25 Many /HPF (0-5); WBC CLUMPS Few (None Seen)
[2017-04-12 13:00] LABS: AMORPHOUS PHOSPHATES Moderate /LPF (None Seen); URINE RBC 3-10 Few /HPF (0-2)
[2017-04-12 14:09] LABS: TESTOSTERONE* 1362 ng/dL (264-916)
== END 2017-04-12 15:04 | disposition home or self-care (01) ==
LOC: ER 21:04 → EROBS 22:09 → 4N 23:07
PROVIDERS: Family Medicine; Internal Medicine Endocrinology, Diabetes & Metabolism
DX: M25.511 Pain in right shoulder (principal); G82.20 Paraplegia, unspecified; I10 Essential (primary) hypertension; G89.4 Chronic pain syndrome; K21.9 Gastro-esophageal reflux disease without esophagitis; Z91.81 History of falling; Z79.899 Other long term (current) drug therapy; Z98.890 Other specified postprocedural states; Z86.718 Personal history of other venous thrombosis and embolism; Z86.711 Personal history of pulmonary embolism; Z87.891 Personal history of nicotine dependence

== ENCOUNTER 2017-05-11 20:27 | Observation (INO) | payer OTHER, BC ==
[~2017-05-11] VITALS: Ht 177.8 cm; Wt 84.4 kg
[~2017-05-11 20:27] MED LIST changes: +REQUIP 1 MG TABL1 M1 PO
[2017-05-11 23:25] VITALS: BP 146/82
[2017-05-12 00:08] VITALS: BP 142/91
[2017-05-12 02:30] LABS: URINE BILIRUBIN NEGATIVE (Negative); URINE BLOOD TRACE (Negative); URINE COLOR YELLOW; URINE GLUCOSE-RANDOM* NEGATIVE (Negative); URINE KETONES NEGATIVE (Negative); URINE PROTEIN (DIPSTICK) NEGATIVE (Negative); URINE SPECIFIC GRAVITY <= 1.005 (1.003-1.035); URINE UROBILINOGEN 0.2 E.U./dl (0.2-1.0)
[2017-05-12 02:38] LABS: URINE LEUKOCYTES-REFLEX 2+ (Negative)
[2017-05-12 03:03] LABS: CASTS None Seen /LPF (None Seen); SQUAMOUS None Seen /LPF (0-3)
[2017-05-12 03:04] LABS: CRYSTALS None Seen /LPF (None Seen); URINE RBC 0-2 Rare /HPF (0-2); URINE WBC-REFLEX 0-5 Rare /HPF (0-5)
[2017-05-12 04:11] VITALS: BP 117/65
[2017-05-12 08:21] VITALS: BP 120/80
[2017-05-12 17:53] VITALS: BP 130/74
[2017-05-13 03:30] VITALS: BP 106/79
[2017-05-13 08:00] VITALS: BP 105/65
[2017-05-13 11:00] VITALS: BP 105/65
== END 2017-05-13 13:22 | disposition home or self-care (01) ==
LOC: ER 20:27 → EROBS 22:38 → 4N 23:29
PROVIDERS: Family Medicine
DX: M54.2 Cervicalgia (principal); M25.519 Pain in unspecified shoulder; I10 Essential (primary) hypertension; G89.4 Chronic pain syndrome; K21.9 Gastro-esophageal reflux disease without esophagitis; F32.9 Major depressive disorder, single episode, unspecified; Z98.890 Other specified postprocedural states; Z86.718 Personal history of other venous thrombosis and embolism; Z87.891 Personal history of nicotine dependence

== ENCOUNTER 2017-05-17 14:58 | Inpatient (IN) | payer OTHER, BC ==
[~2017-05-17] VITALS: Ht 172.7 cm; Wt 86.5 kg
[2017-05-17 15:00] VITALS: BP 148/66
[2017-05-17 16:34] VITALS: BP 131/85
[2017-05-17 16:47] VITALS: BP 131/85
[2017-05-17 17:00] VITALS: BP 145/76
[2017-05-17 19:07] VITALS: BP 118/57
[2017-05-17 19:18] VITALS: BP 143/67
[2017-05-18 03:24] VITALS: BP 131/78
[2017-05-18 09:05] VITALS: BP 150/70
[2017-05-18 16:00] VITALS: BP 124/64
[2017-05-18 20:10] VITALS: BP 140/68
[2017-05-19 04:50] VITALS: BP 141/68
[2017-05-19 08:05] VITALS: BP 135/71
[2017-05-19] MEDS ORDERED: OXYCODONE HCL15 MG PO (14:06)
[2017-05-19] MEDS ORDERED: METHADONE HCL 110 M1 PO (14:06)
[2017-05-19] MEDS ORDERED: VALIUM5 MG PO (14:07)
[2017-05-19 16:53] VITALS: BP 129/58
[2017-05-19 20:20] VITALS: BP 142/71
[2017-05-20 03:45] VITALS: BP 112/64
[2017-05-20 08:03] VITALS: BP 143/73
== END 2017-05-20 13:06 | DRG 914 ==
LOC: ER 14:58 → 4S 15:46 → EROBS 15:46 → 4S 16:48
DX: S09.90XA Unspecified injury of head, initial encounter (principal); G82.20 Paraplegia, unspecified; S16.1XXA Strain of muscle, fascia and tendon at neck level, initial encounter; F07.81 Postconcussional syndrome; F41.9 Anxiety disorder, unspecified; G83.9 Paralytic syndrome, unspecified; K21.9 Gastro-esophageal reflux disease without esophagitis; G89.4 Chronic pain syndrome; I10 Essential (primary) hypertension; Z86.718 Personal history of other venous thrombosis and embolism; Z86.711 Personal history of pulmonary embolism; Z86.14 Personal history of Methicillin resistant Staphylococcus aureus infection; Z88.6 Allergy status to analgesic agent; Z88.1 Allergy status to other antibiotic agents; Z88.8 Allergy status to other drugs, medicaments and biological substances; Z87.891 Personal history of nicotine dependence; Z79.899 Other long term (current) drug therapy; Z28.21 Immunization not carried out because of patient refusal; V49.88XA Car occupant (driver) (passenger) injured in other specified transport accidents, initial encounter; Y93.89 Activity, other specified; Y92.89 Other specified places as the place of occurrence of the external cause; Y99.8 Other external cause status
CPT/HCPCS: 10100

== ENCOUNTER → 2017-08-18 | Outpatient (CLI) | payer OTHER, BC ==
[~2017-08-18] MED LIST changes: +ALPRAZOLAM 0.50.5 M1 PO; +KEFLEX500 M1 PO; +METHADONE HCL 110 MG PO; +MIRAPEX0.25 MG PO; +PROZAC20 MG PO; +REGLAN 10 MG TA10 MG PO; +ROPINIROLE HCL3 MG PO; +VIBRAMYCIN 100100 MG PO
[2017-08-18 13:28] LABS: HEMATOCRIT 49.7 % (42.0-52.0); HEMOGLOBIN 17.2 gm/dL (14.0-18.0); MCH 31.9 pg (26.0-34.0); MCHC 34.7 g/dL (28.0-37.0); MCV 91.9 fL (80.0-100.0); RBC 5.41 mil/uL (4.50-6.00); RDW 14.8 % (10.5-14.5); WBC 10.7 thou/uL (4.0-11.0)
[2017-08-18 13:40] LABS: ALBUMIN 3.6 g/dL (3.4-5.0); CALCIUM 9.3 mg/dL (8.5-10.1); CREATININE 0.8 mg/dL (0.7-1.3); POTASSIUM 4.1 mmol/L (3.5-5.1); TOTAL BILIRUBIN 0.6 mg/dL (<0.1-1.0); TOTAL PROTEIN 6.7 g/dL (6.4-8.2)
== END ==
LOC: OPONC 08:36
PROVIDERS: Family Medicine
DX: M54.12 Radiculopathy, cervical region (principal); M25.511 Pain in right shoulder; Z87.891 Personal history of nicotine dependence

== ENCOUNTER → 2017-11-21 | Outpatient (CLI) | payer OTHER, BC ==
[~2017-11-21] MED LIST changes: -ALPRAZOLAM 0.50.5 M1 PO; -PROZAC20 MG PO; -VIBRAMYCIN 100100 MG PO
[2017-11-21 12:12] LABS: ABSOLUTE NEUTROPHILS 11.4 thou/uL (1.4-8.2); BASOPHILS 0.6 % (0.0-2.0); EOSINOPHILS 2.6 % (0.0-3.0); HEMOGLOBIN 15.8 gm/dL (14.0-18.0); MCH 30.3 pg (26.0-34.0); MCHC 33.6 g/dL (28.0-37.0); MCV 90.1 fL (80.0-100.0); MONOCYTES 6.1 % (1.0-8.0); PLATELET COUNT 298 thou/uL (150-400); POLYS 80.7 % (36.0-66.0); RBC 5.22 mil/uL (4.50-6.00); RDW 13.4 % (10.5-14.5); WBC 14.1 thou/uL (4.0-11.0)
[2017-11-21 12:27] LABS: ALBUMIN 3.5 g/dL (3.4-5.0); CALCIUM 9.7 mg/dL (8.5-10.1); CREATININE 0.8 mg/dL (0.7-1.3); TOTAL BILIRUBIN 0.3 mg/dL (<0.1-1.0); TOTAL PROTEIN 7.4 g/dL (6.4-8.2)
== END ==
LOC: OPONC 07:54
PROVIDERS: Family Medicine
DX: N30.01 Acute cystitis with hematuria (principal)

== ENCOUNTER 2017-11-23 08:58 | Inpatient (IN) | payer OTHER, BC ==
[~2017-11-23] VITALS: Ht 177.8 cm; Wt 82.6 kg
--- NOTE | ~2017-11-23 | HC ---
[facility] [place] [address] CONSULTATION Name: PATRICIA FLYNN Room #: 449-I [facility] IN M.R.#: [id number] Admission: 11/23/17 Attend Phys: Arian Mcgowan MD Discharge: 11/25/17 Date of : 57 Report #: [id number] THIS REPORT FOR: //name// CC: Arian Mcgowan DATE OF SERVICE: 11/24/2017 WOUND CARE CONSULTATION PERSONAL PHYSICIAN: Arian Mcgowan M.D. CHIEF COMPLAINT: Right flank wound. HISTORY OF PRESENT ILLNESS: This is a 62-year-old white male who has had a history of multiple decubitus ulcers in the past, who states that several days ago, he had a scab over his right superior iliac crest, which he says he was concerned about because it was bleeding. The patient states that he is currently in the hospital for flank pain and UTI. The patient denies any other associated ulcerations at this time. PAST MEDICAL HISTORY: Significant for multiple decubitus ulcers, chronic pain syndrome, recurrent UTIs and paraplegia. DRUG ALLERGIES: ZOSYN. CURRENT MEDICATIONS: Multiple. Reviewed the patient's medication list. SOCIAL HISTORY: The patient has a remote history of smoking. FAMILY HISTORY: Not pertinent to current medical condition. REVIEW OF SYSTEMS: CONSTITUTIONAL: The patient denies fever or chills. NEUROLOGIC: The patient has overall malaise, but no isolated weakness in the arms or legs. The patient is paralyzed in his lower extremities. EYES: No complaints. ENT: No complaints. CARDIAC: The patient denies chest pain, palpitations or peripheral edema. RESPIRATORY: The patient denies shortness of breath, cough or wheezes. GASTROINTESTINAL: The patient denies nausea, vomiting or abdominal pain. GENITOURINARY: The patient is currently being treated for UTI. MUSCULOSKELETAL: The patient has generalized myalgias. SKIN: There is a decubitus ulcer over the right superior iliac crest, on the posterior aspect near his flank. PHYSICAL EXAMINATION: [facility] [address] [place] [address] CONSULTATION Name: PATRICIA FLYNN Room #: 449-I [facility] IN [facility].#: [id number] Admission: 11/23/17 Attend Phys: Arian Mcgowan MD Discharge: 11/25/17 Date of : 57 Report #: [id number] VITAL SIGNS: Stable. The patient is afebrile. GENERAL: This is alert and oriented x 3, pleasant white male who is in absolutely no distress. HEENT: Normocephalic, atraumatic. Mucous membranes are dry. Pupils are round. Sclerae white. LUNGS: Clear. HEART: Regular. ABDOMEN: Soft, nontender. EXTREMITIES: Evaluation of the right posterior superior iliac crest reveals a stage 3 decubitus ulcer, which is fairly clean and granulating, without signs of infection. Lupe-ulcer is otherwise intact without erythema, warmth or signs of cellulitis. There is no tunneling, tracking or undermining. There is minimal bloody drainage without odor. EXTREMITIES: The patient has movement of the upper extremities, with no spontaneous movement in the lower extremities. His bilateral heels are intact. NEUROLOGIC: Cranial nerves 2-12 grossly intact. Motor and sensory grossly intact. LABORATORY DATA: White count 14.1, hemoglobin 15.8. Albumin 3.3. IMPRESSION: 1. Chronic decubitus ulceration, right posterior superior iliac crest, stage 3. 2. Paraplegia. 3. Protein-calorie malnutrition - mild, with an albumin of 3.3. 4. History of urinary tract infection. PLAN: At this time, we will use a foam dressing over the ulceration to be changed Monday, Monday and Monday. The patient's plan is possibly to discharge home. The patient has a water bed at home that he uses for offloading. The patient states he will eat a protein-rich diet for healing. We will continue to follow the patient while he is here in the hospital. Otherwise, the patient will follow up in my clinic in 2 weeks. By: [id number] Maciej Russell MD /justin
[~2017-11-23 08:58] MED LIST changes: -KEFLEX500 M1 PO
[2017-11-23 11:56] LABS: HEMATOCRIT 44.7 % (42.0-52.0); HEMOGLOBIN 15.6 gm/dL (14.0-18.0); MCH 31.2 pg (26.0-34.0); MCHC 34.8 g/dL (28.0-37.0); MCV 89.5 fL (80.0-100.0); RBC 4.99 mil/uL (4.50-6.00); RDW 13.7 % (10.5-14.5); WBC 9.8 thou/uL (4.0-11.0)
[2017-11-23 12:10] LABS: ALBUMIN 3.3 g/dL (3.4-5.0); CALCIUM 9.7 mg/dL (8.5-10.1); CREATININE 0.9 mg/dL (0.7-1.3); POTASSIUM 4.1 mmol/L (3.5-5.1); TOTAL BILIRUBIN 0.3 mg/dL (<0.1-1.0); TOTAL PROTEIN 7.3 g/dL (6.4-8.2)
[2017-11-23 16:00] VITALS: BP 131/83
[2017-11-23 16:05] VITALS: BP 120/75
[2017-11-23 20:36] VITALS: BP 125/71
[2017-11-24 03:53] VITALS: BP 132/62
[2017-11-24 09:14] VITALS: BP 134/74
[2017-11-24 15:50] VITALS: BP 146/80
[2017-11-24 20:28] VITALS: BP 135/77
[2017-11-25 03:30] VITALS: BP 138/76
[2017-11-25 07:17] VITALS: BP 128/76
[2017-11-25] MEDS ORDERED: ZOFRAN ODT4 MG PO (09:05)
[2017-11-25] MEDS ORDERED: KEFLEX500 M1 PO (09:05)
[2017-11-25 13:30] VITALS: BP 128/76
== END 2017-11-25 14:12 | disposition home or self-care (01) | DRG 689 ==
LOC: 4W 08:58
PROVIDERS: Family Medicine
DX: N39.0 Urinary tract infection, site not specified (principal); L89.153 Pressure ulcer of sacral region, stage 3; G82.20 Paraplegia, unspecified; E44.1 Mild protein-calorie malnutrition; M79.1 Myalgia; G89.4 Chronic pain syndrome; I10 Essential (primary) hypertension; K21.9 Gastro-esophageal reflux disease without esophagitis; Z68.26 Body mass index [BMI] 26.0-26.9, adult; Z86.718 Personal history of other venous thrombosis and embolism; Z86.711 Personal history of pulmonary embolism; Z87.891 Personal history of nicotine dependence; Z86.14 Personal history of Methicillin resistant Staphylococcus aureus infection; Z79.899 Other long term (current) drug therapy; Z88.5 Allergy status to narcotic agent; Z88.8 Allergy status to other drugs, medicaments and biological substances
CPT/HCPCS: 10047

== ENCOUNTER → 2017-11-29 | Outpatient (CLI) | payer OTHER, BC ==
[~2017-11-29] MED LIST changes: +KEFLEX500 M1 PO
== END ==
LOC: HYPER 07:48
DX: L89.132 Pressure ulcer of right lower back, stage 2 (principal); E78.5 Hyperlipidemia, unspecified; M86.8X8 Other osteomyelitis, other site; K21.9 Gastro-esophageal reflux disease without esophagitis; G82.21 Paraplegia, complete; F41.9 Anxiety disorder, unspecified; F32.9 Major depressive disorder, single episode, unspecified; Z87.891 Personal history of nicotine dependence

== ENCOUNTER → 2017-12-13 | Outpatient (CLI) | payer OTHER, BC | LOC: HYPER 09:48 | DX: L89.132 Pressure ulcer of right lower back, stage 2 (principal); G82.21 Paraplegia, complete; F41.9 Anxiety disorder, unspecified; F32.9 Major depressive disorder, single episode, unspecified; K21.9 Gastro-esophageal reflux disease without esophagitis; E78.5 Hyperlipidemia, unspecified; I10 Essential (primary) hypertension; M86.68 Other chronic osteomyelitis, other site; Z87.891 Personal history of nicotine dependence ==

== ENCOUNTER 2017-12-27 21:36 | Inpatient (IN) | payer OTHER, BC ==
[~2017-12-27] VITALS: Ht 182.9 cm; Wt 83.9 kg
--- NOTE | ~2017-12-27 | HC ---
[facility] [place] [address] CONSULTATION Name: PATRICIA FLYNN Room #: 416-P [facility] IN M.R.#: [id number] Admission: 12/27/17 Attend Phys: Arian Mcgowan MD Discharge: Date of : 57 Report #: [id number] THIS REPORT FOR: //name// CC: Arian Mcgowan DATE OF SERVICE: 12/28/2017 CHIEF COMPLAINT: Right iliac crest pressure ulceration and paraplegia. HISTORY OF PRESENT ILLNESS: This is a 62-year-old white male patient who is very familiar to our service, who was admitted to the hospital with ongoing urinary tract infection. The patient is noted to have a pressure ulcer to his right iliac crest. I have been asked to see him with regard to wound care. PAST MEDICAL HISTORY: Positive for history of multiple decubitus ulcers and chronic pain syndrome, paraplegia secondary to spinal cord injury and multiple recurrent urinary tract infections. ALLERGIES: ZOSYN. MEDICATIONS: Reviewed. SOCIAL HISTORY: Remote history of smoking. FAMILY HISTORY: Not pertinent to his current medical condition. REVIEW OF SYSTEMS: CONSTITUTIONAL: The patient denies fever, chills or weight loss. ENT: The patient denies earache, nasal drainage or sore throat. CARDIOVASCULAR: The patient denies chest pain, palpitation or diaphoresis. PULMONARY: The patient denies cough or shortness of breath. GASTROINTESTINAL: The patient denies nausea, vomiting, diarrhea or abdominal pain. ORTHOPEDIC: The patient denies pain, swelling and limitation in both extremities, other than his usual paraplegia secondary to spinal cord injury. Other systems in a 14-point review of systems are negative. PHYSICAL EXAMINATION: VITAL SIGNS: At this time include temperature 36.4, pulse rate 60, respiratory rate of 20 and blood pressure 132/76. GENERAL: This is a chronically ill-appearing male patient who appears to be in no distress. HEENT: Head normocephalic. Nose and throat clear. NECK: Supple. LUNGS: Clear. ABDOMEN: Soft, nontender. [facility] [address] [place] [address] CONSULTATION Name: PATRICIA FLYNN Room #: 416-[facility] IN .R.#: [id number] Admission: 12/27/17 Attend Phys: Arian Mcgowan MD Discharge: Date of : 57 Report #: [id number] EXTREMITIES: The pelvic region demonstrates a stage 3 pressure ulcer in the right iliac crest. It is quite small, superficial, clean and granulating, not infected, with no exposed deep structures. The patient is a paraplegic and no changes noted. LABORATORY DATA: Sodium is 129, potassium 4.1, chloride 95, CO2 of 28, BUN 19 and creatinine 0.9. White blood cell count 10.4 with a hemoglobin of 15.6. Prealbumin is 27. Sed rate 12. CLINICAL IMPRESSION: 1. Stage 3 pressure ulcer in the right iliac crest, which is much improved. 2. Urinary tract infection. 3. Paraplegia secondary to spinal cord injury. RECOMMENDATIONS: At this point in time, we will continue with a bordered foam to the iliac crest. Turning and repositioning would be appropriate, antibiotics for his urinary tract infection and aggressive nutritional support for ongoing wound healing. Overall, this is doing quite well and well on the way to healing. I appreciate being asked to see the patient in consultation. <ELECTRONICALLY SIGNED> By: Bakari Contreras MD 12/29/17 0831 1738 [id number] Bakari Contreras MD /nt
[2017-12-27 21:37] VITALS: BP 131/78
[2017-12-27] MEDS ORDERED: CEFDINIR300 MG PO (21:45)
[2017-12-27 22:34] LABS: ABSOLUTE NEUTROPHILS 6.9 thou/uL (1.4-8.2); BASOPHILS 0.9 % (0.0-2.0); EOSINOPHILS 6.6 % (0.0-3.0); HEMATOCRIT 45.3 % (42.0-52.0); HEMOGLOBIN 15.6 gm/dL (14.0-18.0); LYMPHOCYTES 17.4 % (24.0-44.0); MCH 30.8 pg (26.0-34.0); MCHC 34.5 g/dL (28.0-37.0); MCV 89.4 fL (80.0-100.0); MONOCYTES 8.3 % (1.0-8.0); PLATELET COUNT 232 thou/uL (150-400); POLYS 66.8 % (36.0-66.0); RBC 5.07 mil/uL (4.50-6.00); RDW 14.1 % (10.5-14.5); WBC 10.4 thou/uL (4.0-11.0)
[2017-12-27 22:39] LABS: CALCIUM 9.6 mg/dL (8.5-10.1); CREATININE 0.9 mg/dL (0.7-1.3); POTASSIUM 4.1 mmol/L (3.5-5.1)
[2017-12-27 22:46] LABS: URINE BILIRUBIN NEGATIVE (Negative); URINE BLOOD NEGATIVE (Negative); URINE CLARITY CLEAR; URINE COLOR YELLOW; URINE GLUCOSE-RANDOM* NEGATIVE (Negative); URINE KETONES NEGATIVE (Negative); URINE PROTEIN (DIPSTICK) NEGATIVE (Negative); URINE SPECIFIC GRAVITY <= 1.005 (1.005-1.035); URINE UROBILINOGEN 0.2 E.U./dl (0.2-1.0)
[2017-12-27 23:05] LABS: URINE LEUKOCYTES-REFLEX TRACE (Negative); URINE NITRITE-REFLEX POSITIVE (Negative)
[2017-12-27 23:06] LABS: CASTS None Seen /LPF (None Seen); MUCUS None Seen strn/LPF (None Seen); SQUAMOUS None Seen /LPF (0-3); URINE RBC None Seen /HPF (0-2); URINE WBC-REFLEX None Seen /HPF (0-5)
[2017-12-27 23:07] LABS: BACTERIA-REFLEX 1-9 Few /HPF (None Seen); CRYSTALS None Seen /LPF (None Seen)
[2017-12-28 00:02] VITALS: BP 139/83
[2017-12-28 00:24] VITALS: BP 149/87
[2017-12-28 05:17] VITALS: BP 136/72
[2017-12-28 07:40] VITALS: BP 132/76
[2017-12-28 16:36] VITALS: BP 143/83
[2017-12-28 20:31] VITALS: BP 126/70
[2017-12-29 04:00] VITALS: BP 119/54
[2017-12-29 09:02] VITALS: BP 140/77
[2017-12-29 17:43] VITALS: BP 113/71
[2017-12-29 19:51] VITALS: BP 132/71
[2017-12-30 04:01] VITALS: BP 111/60
[2017-12-30 07:54] VITALS: BP 129/78
[2017-12-30 11:00] VITALS: BP 114/66
[2017-12-30 11:25] VITALS: BP 165/76
[2017-12-30 20:00] VITALS: BP 118/37
[2017-12-31 04:25] VITALS: BP 124/69
[2017-12-31 07:00] VITALS: BP 120/71
[2017-12-31 15:00] VITALS: BP 120/56
[2017-12-31 20:00] VITALS: BP 146/65
[2018-01-01 04:30] VITALS: BP 121/62
[2018-01-01] MEDS ORDERED: LEVAQUIN 500 M500 M2 PO (07:34)
[2018-01-01] MEDS ORDERED: METHADONE HCL 110 M1 PO (07:35)
[2018-01-01] MEDS ORDERED: OXYCODONE HCL15 MG PO (07:35)
[2018-01-01 10:31] VITALS: BP 121/62
[2018-01-01 10:39] VITALS: BP 121/62
[2018-01-01 11:02] VITALS: BP 121/62
== END 2018-01-01 11:43 | disposition home health service (06) | DRG 689 ==
LOC: ER 21:36 → 4N 23:27 → EROBS 23:27 → 4N 12-28 00:12 → 4E 12-30 16:34
PROVIDERS: Emergency Medicine; Physician Assistant
DX: N39.0 Urinary tract infection, site not specified (principal); L89.213 Pressure ulcer of right hip, stage 3; G82.20 Paraplegia, unspecified; E46 Unspecified protein-calorie malnutrition; I10 Essential (primary) hypertension; G89.4 Chronic pain syndrome; K21.9 Gastro-esophageal reflux disease without esophagitis; M54.9 Dorsalgia, unspecified; T14.8XXA Other injury of unspecified body region, initial encounter; L89.159 Pressure ulcer of sacral region, unspecified stage; F41.9 Anxiety disorder, unspecified; K59.09 Other constipation; R33.9 Retention of urine, unspecified; E78.5 Hyperlipidemia, unspecified; B96.4 Proteus (mirabilis) (morganii) as the cause of diseases classified elsewhere; Z68.25 Body mass index [BMI] 25.0-25.9, adult; Z86.718 Personal history of other venous thrombosis and embolism; Z86.711 Personal history of pulmonary embolism; Z88.6 Allergy status to analgesic agent; Z88.8 Allergy status to other drugs, medicaments and biological substances; Z87.891 Personal history of nicotine dependence; Z79.899 Other long term (current) drug therapy; X58.XXXA Exposure to other specified factors, initial encounter; Y93.89 Activity, other specified; Y92.89 Other specified places as the place of occurrence of the external cause; Y99.8 Other external cause status
CPT/HCPCS: 10084; 10091

== ENCOUNTER 2018-01-17 12:22 | Inpatient (IN) | payer OTHER, BC ==
[~2018-01-17] VITALS: Ht 182.9 cm; Wt 80.7 kg
[2018-01-17 12:50] VITALS: BP 143/67
[2018-01-17 16:06] VITALS: BP 157/82
[2018-01-17 21:45] VITALS: BP 146/70
[2018-01-18 01:03] VITALS: BP 142/59
[2018-01-18 07:22] VITALS: BP 145/63
[2018-01-18 07:32] VITALS: BP 144/69
[2018-01-18 14:49] VITALS: BP 149/69
[2018-01-18 19:03] VITALS: BP 142/17
[2018-01-19 04:11] VITALS: BP 126/60
[2018-01-19] MEDS ORDERED: MACROBID 100 M100 M1 PO (07:15)
[2018-01-19] MEDS ORDERED: OXYCODONE HCL15 MG PO (07:16)
[2018-01-19 07:18] VITALS: BP 152/83
[2018-01-19 15:41] VITALS: BP 151/75
[2018-01-19 16:11] VITALS: BP 151/75
== END 2018-01-19 18:17 | disposition home health service (06) | DRG 690 ==
LOC: 4W 12:22
DX: N39.0 Urinary tract infection, site not specified (principal); G82.20 Paraplegia, unspecified; I10 Essential (primary) hypertension; G89.4 Chronic pain syndrome; K21.9 Gastro-esophageal reflux disease without esophagitis; B96.20 Unspecified Escherichia coli [E. coli] as the cause of diseases classified elsewhere; B95.2 Enterococcus as the cause of diseases classified elsewhere; F41.9 Anxiety disorder, unspecified; L89.159 Pressure ulcer of sacral region, unspecified stage; Z88.6 Allergy status to analgesic agent; Z88.8 Allergy status to other drugs, medicaments and biological substances; Z86.718 Personal history of other venous thrombosis and embolism; Z86.711 Personal history of pulmonary embolism; Z87.891 Personal history of nicotine dependence
CPT/HCPCS: 10047

== ENCOUNTER → 2018-02-15 | Outpatient (CLI) | payer OTHER, BC | LOC: CAT 08:35 | DX: J32.8 Other chronic sinusitis (principal); G44.221 Chronic tension-type headache, intractable; R53.82 Chronic fatigue, unspecified ==

== ENCOUNTER → 2018-03-23 | Outpatient (CLI) | payer OTHER, BC ==
[~2018-03-23] MED LIST changes: +ALPRAZOLAM 0.50.5 M1 PO; +PROZAC20 MG PO; +VIBRAMYCIN 100100 MG PO
[2018-03-23 13:57] LABS: ABSOLUTE NEUTROPHILS 7.9 thou/uL (1.4-8.2); BASOPHILS 1.1 % (0.0-2.0); EOSINOPHILS 6.4 % (0.0-3.0); HEMATOCRIT 50.2 % (42.0-52.0); HEMOGLOBIN 17.4 gm/dL (14.0-18.0); LYMPHOCYTES 13.9 % (24.0-44.0); MCH 31.3 pg (26.0-34.0); MCHC 34.7 g/dL (28.0-37.0); MONOCYTES 9.4 % (1.0-8.0); PLATELET COUNT 307 thou/uL (150-400); POLYS 69.2 % (36.0-66.0); RBC 5.58 mil/uL (4.50-6.00); RDW 13.5 % (10.5-14.5); WBC 11.4 thou/uL (4.0-11.0)
[2018-03-23 14:05] LABS: CALCIUM 9.1 mg/dL (8.5-10.1); CREATININE 0.8 mg/dL (0.7-1.3); POTASSIUM 4.1 mmol/L (3.5-5.1)
== END ==
LOC: OPONC 00:17
PROVIDERS: Family Medicine
DX: Z45.2 Encounter for adjustment and management of vascular access device (principal); E86.0 Dehydration

== ENCOUNTER → 2018-04-03 | Outpatient (CLI) | payer OTHER, BC ==
[~2018-04-03] MED LIST changes: -ALPRAZOLAM 0.50.5 M1 PO; -PROZAC20 MG PO; -VIBRAMYCIN 100100 MG PO
== END ==
LOC: HYPER 07:00
DX: L89.133 Pressure ulcer of right lower back, stage 3 (principal); I10 Essential (primary) hypertension; M86.8X8 Other osteomyelitis, other site; E78.5 Hyperlipidemia, unspecified; K21.9 Gastro-esophageal reflux disease without esophagitis; G82.21 Paraplegia, complete; F41.9 Anxiety disorder, unspecified; F32.9 Major depressive disorder, single episode, unspecified; Z87.891 Personal history of nicotine dependence

== ENCOUNTER → 2018-05-08 | Outpatient (CLI) | payer OTHER, BC ==
[2018-04-26 12:23] LABS: HEMATOCRIT 48.1 % (42.0-52.0); MCH 32.3 pg (26.0-34.0); MCHC 35.4 g/dL (28.0-37.0); MCV 91.3 fL (80.0-100.0); RBC 5.26 mil/uL (4.50-6.00); RDW 13.6 % (10.5-14.5); WBC 10.3 thou/uL (4.0-11.0)
[2018-04-26 12:25] LABS: CALCIUM 9.6 mg/dL (8.5-10.1); CREATININE 0.8 mg/dL (0.7-1.3); POTASSIUM 4.3 mmol/L (3.5-5.1)
[2018-04-26 18:10] LABS: TESTOSTERONE* > 1500 ng/dL (264-916)
[~2018-05-08] MED LIST changes: +PROZAC20 MG PO; +VIBRAMYCIN 100100 MG PO
== END ==
LOC: HYPER 01-10 08:44
PROVIDERS: Family Medicine
DX: L89.153 Pressure ulcer of sacral region, stage 3 (principal); L89.132 Pressure ulcer of right lower back, stage 2; M86.8X8 Other osteomyelitis, other site; E78.5 Hyperlipidemia, unspecified; G82.21 Paraplegia, complete; I10 Essential (primary) hypertension; K21.9 Gastro-esophageal reflux disease without esophagitis; F41.9 Anxiety disorder, unspecified; F32.9 Major depressive disorder, single episode, unspecified; Z87.891 Personal history of nicotine dependence

== ENCOUNTER 2018-05-18 14:47 | Emergency (ER) | payer OTHER, BC ==
[~2018-05-18] VITALS: Ht 177.8 cm; Wt 79.4 kg
[~2018-05-18 14:47] MED LIST changes: -PROZAC20 MG PO; -VIBRAMYCIN 100100 MG PO
[2018-05-18 15:55] LABS: ABSOLUTE NEUTROPHILS 10.3 thou/uL (1.4-8.2); BASOPHILS 0.8 % (0.0-2.0); EOSINOPHILS 3.7 % (0.0-3.0); HEMATOCRIT 49.8 % (42.0-52.0); HEMOGLOBIN 17.5 gm/dL (14.0-18.0); LYMPHOCYTES 9.1 % (24.0-44.0); MCH 32.2 pg (26.0-34.0); MCHC 35.1 g/dL (28.0-37.0); MCV 91.9 fL (80.0-100.0); MONOCYTES 8.3 % (1.0-8.0); PLATELET COUNT 239 thou/uL (150-400); POLYS 78.1 % (36.0-66.0); RBC 5.42 mil/uL (4.50-6.00); RDW 14.1 % (10.5-14.5); WBC 13.2 thou/uL (4.0-11.0)
[2018-05-18 16:06] LABS: URINE BILIRUBIN NEGATIVE (Negative); URINE BLOOD 2+ (Negative); URINE CLARITY CLEAR; URINE COLOR YELLOW; URINE GLUCOSE-RANDOM* NEGATIVE (Negative); URINE KETONES NEGATIVE (Negative); URINE NITRITE-REFLEX NEGATIVE (Negative); URINE PROTEIN (DIPSTICK) NEGATIVE (Negative); URINE SPECIFIC GRAVITY <= 1.005 (1.005-1.035); URINE UROBILINOGEN 0.2 E.U./dl (0.2-1.0)
[2018-05-18 16:07] LABS: CALCIUM 9.6 mg/dL (8.5-10.1); CREATININE 0.7 mg/dL (0.7-1.3); POTASSIUM 4.8 mmol/L (3.5-5.1)
[2018-05-18 16:09] LABS: URINE LEUKOCYTES-REFLEX 2+ (Negative)
[2018-05-18 16:21] LABS: SQUAMOUS None Seen /LPF (0-3); URINE RBC 3-10 Few /HPF (0-2); URINE WBC-REFLEX 6-15 Few /HPF (0-5)
[2018-05-18 16:22] LABS: BACTERIA-REFLEX 1-9 Few /HPF (None Seen); CASTS None Seen /LPF (None Seen); CRYSTALS None Seen /LPF (None Seen)
[2018-05-18] MEDS ORDERED: VIBRAMYCIN 100100 MG PO (18:16)
[2018-05-18 19:14] VITALS: BP 153/75
== END 2018-05-18 19:15 | disposition home or self-care (01) ==
LOC: ER 14:47
PROVIDERS: Emergency Medicine
DX: S31.000A Unspecified open wound of lower back and pelvis without penetration into retroperitoneum, initial encounter (principal); D72.829 Elevated white blood cell count, unspecified; I10 Essential (primary) hypertension; G89.4 Chronic pain syndrome; K21.9 Gastro-esophageal reflux disease without esophagitis; Z86.718 Personal history of other venous thrombosis and embolism; Z87.891 Personal history of nicotine dependence; Z88.8 Allergy status to other drugs, medicaments and biological substances; Z88.5 Allergy status to narcotic agent; Z88.4 Allergy status to anesthetic agent; Z90.89 Acquired absence of other organs; Z87.442 Personal history of urinary calculi; Z86.14 Personal history of Methicillin resistant Staphylococcus aureus infection; X58.XXXA Exposure to other specified factors, initial encounter; Y92.89 Other specified places as the place of occurrence of the external cause; Y93.89 Activity, other specified; Y99.8 Other external cause status

== ENCOUNTER 2018-05-28 06:57 | Inpatient (IN) | payer OTHER, BC ==
[~2018-05-28] VITALS: Ht 180.3 cm; Wt 69.1 kg
--- NOTE | ~2018-05-28 | HC ---
[facility] [place] [address] CONSULTATION Name: PATRICIA FLYNN Room #: 423-1 ADM IN M.R.#: [id number] Admission: 05/28/18 Attend Phys: Maciej Russell MD Discharge: Date of : 57 Report #: [id number] THIS REPORT FOR: //name// CC: Arian Russell DATE OF SERVICE: 05/29/2018 CHIEF COMPLAINT: Sacral and iliac crest pressure ulcerations. HISTORY OF PRESENT ILLNESS: This is a 63-year-old male patient with a history of paraplegia, well known to the wound care service. He is admitted to the hospital with general debility and recent significant weight loss and some symptoms of depression. He has developed increasing pressure ulcers over the last several months, increasing pain, believes that he also has a urinary tract infection. He is admitted and I have been asked to see him with regard to wound care. PAST MEDICAL HISTORY: Significant for multiple back surgeries for spinal stabilization, history of paraplegia secondary to spinal cord injury in 1985, hypertension, DVT, pulmonary emboli, neurogenic bladder with suprapubic catheter, previous smoker, recurrent urinary tract infections. SOCIAL HISTORY: Negative for current alcohol or tobacco use. FAMILY HISTORY: Noncontributory. REVIEW OF SYSTEMS: CONSTITUTIONAL: The patient does complain of recent weight loss. Denies fever or chills. EYES: The patient denies visual changes, redness, or drainage. ENT: The patient denies earache, nasal drainage or sore throat. CARDIOVASCULAR: The patient denies chest pain, palpitations or diaphoresis. PULMONARY: The patient denies cough or shortness of breath. GASTROINTESTINAL: The patient denies nausea, vomiting or abdominal pain. ORTHOPEDIC: The patient does note pressure ulcerations detailed above. NEUROLOGIC: The patient has paraplegia. No new focal weakness, numbness or tingling. Other systems in a 14-point review of systems are negative. PHYSICAL EXAMINATION: VITAL SIGNS: At this time include, pulse 63, respiratory rate 18, blood pressure 151/72, temperature 97.8. GENERAL: This is a chronically ill-appearing male patient who appears to be in minimal distress. HEENT: Head normocephalic. Nose and throat are clear. [address] [address] CONSULTATION Name: PATRICIA FLYNN Room #: 423-1 ADM IN M.R.#: [id number] Admission: 05/28/18 Attend Phys: Maciej Russell MD Discharge: Date of : 57 Report #: [id number] NECK: Supple. LUNGS: Clear. HEART: . ABDOMEN: Soft. Bowel sounds present. Examination of the abdomen demonstrated suprapubic catheter is in place. EXTREMITIES: The sacral gluteal region demonstrates stage 3 pressure ulcerations to the right posterior iliac crest as well as the sacral region. There is a tunnel of approximately 1 cm over the sacrococcygeal ulceration. NEUROLOGIC: The patient is paraplegic. No new weakness noted. LABORATORY DATA: Sodium 133, potassium 3.8, chloride 99, CO2 of 29, BUN 20, creatinine is 0.9, glucose 133. Albumin is low at 3.1. CT scan demonstrates chronic changes, no acute abscess or bony destructive change, previous L5-S1 listhesis. CLINICAL IMPRESSION: 1. Stage 3 pressure ulcerations to the sacrococcygeal region as well as right posterior iliac crest. 2. Recent ongoing weight loss. 3. Paraplegia secondary to spinal cord injury in 1985. 4. Moderate protein-calorie malnutrition. 5. Hypertension. 6. Recurrent urinary tract infection. RECOMMENDATIONS: At this point in time, I think we will consult Surgery for surgical debridement of the ulcerations and then definitive wound care, either wound VAC or other dressings pending outcome of that debridement. Recommend empiric antibiotic therapy at present. A culture has been taken from the sacrococcygeal ulceration. I have reviewed extensively with the patient current circumstances and he is agreeable at this time and does wish to proceed along the lines of surgical debridement. I appreciate being asked to see the patient in consultation. <ELECTRONICALLY SIGNED> By: Bakari Contreras MD 05/31/182038 27 1437 Bakari Contreras MD /nt
--- NOTE | ~2018-05-28 | PATH ---
[facility] [place] [address] PATHOLOGY RPT PROCEDURE Name: PATRICIA FLYNN Room #: 423-1 ADM IN M.R.#: [id number] Admission: 05/28/18 Date of : 57 Discharge: Report #: [id number] Path Case #: [id number] [facility] Accession Number: [id number] . 01 Material submitted: . PART A: BX INFLAMED PYLORUS, R/O H. PYLORI PART B: BX PROXIMAL STOMACH, R/O H. PYLORI . 01 Clinical history: . Pre-OP DX: Weight loss, early satiety Post-OP DX: Gastritis, inflamed pylorus . 02 Diagnosis: A. "BX inflamed pylorus R/O H. pylori", biopsy: - Gastric antral-type mucosa with mild reactive changes and mild chronic inflammation. - Negative H. pylori immunohistochemical stain (block A1); control reacted appropriately. . B. "BX proximal stomach R/O H. pylori", biopsy: - Gastric body-type mucosa with mild reactive changes and mild chronic inflammation. - Negative H. pylori immunohistochemical stain (block B1); control reacted appropriately. (CLW:ty; 06/01/2018) QMS/06/01/2018 . 02 Comment: Due to some of the focal reactive changes within specimen B, an additional immunohistochemical stain is pending and will be reported as an addendum. (CLW:ty; 06/01/2018) . 02 Addendum: . An additional properly controlled immunohistochemical stain is performed. . AE1/AE3 (block B1): No abnormal staining. . . The final diagnosis remains unchanged. . (CLW:ty; 06/04/2018) . . . Professional services performed by [facility] at [address] [place] [address]. Technical services performed by [facility] at [address] [place] [address], [facility] [address], [place] [address]. [place] [address] PATHOLOGY RPT PROCEDURE Name: FLYNN,PATRICIA RAMSES Room #: 423-1 ADM IN M.R.#: [id number] Admission: 05/28/18 Date of : 57 Discharge: Report #: [id number] Path Case #: [id number] QTP/06/04/2018 Addendum Electronically Signed by Laura Linda MD, Pathologist . 02 Electronically signed: . Laura Linda MD, Pathologist NPI- [id number] . 01 Gross description: . A. Received in formalin labeled "Patricia Flynn BX inflamed pylorus, " are 3 segments of pugh soft tissue measuring 1.1 x 0.9 x 0.3 cm in aggregate dimensions and ranging from 0.4 to 0.6 cm in maximum dimension. The specimen is submitted entirely in cassette A1. . B. Received in formalin labeled "Patricia Flynn, HERRERA proximal stomach," is a single segment of of pugh soft tissue measuring 0.5 cm in maximum dimension. The specimen is submitted entirely in cassette B1. (TSD; 05/31/2018) TOB/TOB . 02 Pathologist provided ICD-10: K29.50, R63.4 . 02 CPT . 769565, 877362, T96293, L46169 Specimen Comment: A courtesy copy of this report has been sent to Specimen Comment: [phone], , . Specimen Comment: Report sent to ,DR JUNG / DR EDWARD Performed at: [address] [facility], [place], [place] [id number] MD Chito Betts MD Phone: [phone] Performed at: [address] [facility] [id number] MD Kate De Los Santos MD Phone: [phone]
--- NOTE | ~2018-05-28 | HC ---
[facility] [place] [address] CONSULTATION Name: PATRICIA FLYNN Room #: 423-1 ADM IN M.R.#: [id number] Admission: 05/28/18 Attend Phys: Maciej Russell MD Discharge: Date of : 57 Report #: [id number] THIS REPORT FOR: //name// CC: Arian Russell MD DATE OF SERVICE: 05/30/[address] Maciej Russell and Dr. Arian Mcgowan. CHIEF COMPLAINT: This is a very pleasant 63-year-old male who I am asked to evaluate for possible etiologies of a stabbing midepigastric pain that radiates straight through to his back. He has had a loss of appetite and he has been losing weight. He says he has been feeling poorly since November of this year when he had a urinary tract infection. He again has a urinary tract infection with Staph aureus, I believe. He is currently on a third generation cephalosporin and this may need to be changed. The patient in addition complains of early satiety and dysphagia to bread and red meat and sometimes liquids. PAST MEDICAL HISTORY: Quite extensive and it involves an accident that left him paraplegic. He had post-concussion syndrome. He has a suprapubic catheter. He has a history of arthralgias, back pain that has been chronic. He fell from a wheelchair recently. He has had nausea without vomiting. He has history of a sacral decubitus ulcer, stage 4. He lives alone. He takes care of himself. He experiences vertigo occasionally. ALLERGIES: SEVERAL THINGS. HYDROCODONE, MEROPENEM, ZOSYN, MORPHINE AND FENTANYL. MEDICATIONS: Prior to admission included acetaminophen, Norvasc, vitamin C, vitamin D3, Valium, Diphenhist, Vibramycin, Prozac, Prevacid, methadone, Lopressor, multiple vitamins, Zofran, OxyIR, Depo testosterone and vitamin B12. SOCIAL HISTORY: He smokes about 4-5 cigarettes per day. He does not drink alcohol. He had a blood transfusion in 1985 when his original spinal injury occurred. FAMILY HISTORY: Significant for colon polyps in his sister. Several family members have had gallbladder disease. There is no history of Crohn's disease or ulcerative colitis. There is no history of colon cancer. REVIEW OF SYSTEMS: He denies any odynophagia, but he has been having dysphagia to both solids and liquids and feels as if he gets food bolus impactions that temporarily lodge and then eventually move on. He also complains of [facility] [address] [address] CONSULTATION Name: PATRICIA FLYNN Room #: [address] [place] [address] IN M.R.#: [id number] Admission: 05/28/18 Attend Phys: Maciej Russell MD Discharge: Date of : 56 Report #: [id number] gastroesophageal reflux and takes Prilosec for this he says. He has no history of a hiatal hernia or peptic ulcer disease, says his weight has gone down approximately 20 pounds. He denies any hematemesis, hematochezia or melena. He has had no vomiting. He does have occasional constipation and he manages that with medication. He complains of a knife-like stabbing pain in the mid epigastrium that radiates straight through to his back. The patient states he still has his gallbladder and in fact had a PIPIDA scan this morning that was normal. He says he feels exhausted all the time. His fatigue is quite severe. He is listless and this is a huge change from the way he usually is. He thinks it may be related to his urinary tract infection. He denies any history of jaundice, hepatitis, cholelithiasis, cholecystitis or pancreatitis. PHYSICAL EXAMINATION: GENERAL: Reveals a well-developed, well-nourished 63-year-old white male in no apparent distress at the time of the examination, he is awake, alert, oriented x 4 and cooperative and very pleasant to converse with. VITAL SIGNS: Blood pressure 126/62, temperature 97.4, pulse 63, respirations are 14. His weight today on admission was 152.3 pounds and his height is 5 feet 11 inches. HEENT: He is normocephalic and atraumatic and anicteric. HEART: Rate and rhythm are regular with a normal S1 and S2. LUNGS: Clear bilaterally. ABDOMEN: Soft, bowel sounds present in all 4 quadrants. There is no palpable organomegaly or mass. There is tenderness in the mid epigastrium, but no rebound or guarding. EXTREMITIES: Warm and dry. I did not test him neurologically. SIGNIFICANT LABORATORY DATA: Sodium 133, BUN 20, glucose was 133 on admission. Albumin 3.1. CBC was normal. Urinalysis done on the shows no abnormalities, but urine cultures on the showed Pseudomonas aeruginosa in the urine. Repeat culture on the showed no growth, so I think it has been successfully treated. CT scan of the abdomen done 05/29/2018 showed the gallbladder appeared normal. There was stable destruction of the lower lumbar spine at the lumbosacral junction where there was advanced anterolisthesis of the sacrum in relation to the lumbar spine. There is diffuse thickening of the soft tissues in the gluteal fold extending to the level of the anus. There was associated subcutaneous edema and skin thickening more inferiorly and on the left. This probably is a result of chronic inflammation and cellulitis. This is unchanged compared to the previous study. IMPRESSION: 1. Stabbing epigastric pain radiating through to the back. 2. Early satiety. [facility] [address] [place] [address] CONSULTATION Name: PATRICIA FLYNN Room #: 423-1 [facility] IN .R.#: [id number] Admission: 05/28/18 Attend Phys: Maciej Russell MD Discharge: Date of : 57 Report #: [id number] 3. Dysphagia to liquids and solids. 4. Gastroesophageal reflux. 5. Nausea. 6. Paraplegia. 7. Urinary tract infection, resolved. RECOMMENDATIONS: For him to have a PIPIDA scan, which he has had this morning already. He is going to have an EGD to follow that to evaluate for possible peptic ulcer disease. I will continue his proton pump inhibitors at this time. Thank you very much once again for allowing me to participate in his care. <ELECTRONICALLY SIGNED> By: Nancy Vargas DO 06/01/18 0711 1310 0112 Nancy Vargas DO /nt
--- NOTE | ~2018-05-28 | PATH ---
[facility] [address] [place] [address] PATHOLOGY RPT PROCEDURE Name: PATRICIA FLYNN Room #: 423-1 ADM IN M.R.#: [id number] Admission: 05/28/18 Date of : 57 Discharge: Report #: [id number] Path Case #: [id number] [facility] Accession Number: [id number] . 01 Material submitted: . SACRAL WOUND TISSUE . 01 Clinical history: . UTI recurrent, sacral and lower back decubitus . 02 Diagnosis: Skin, sacrum and lower back decubitus: - Verruciform hyperkeratotic skin revealing changes consistent with a verruca. - A wound is not identified. . (SHA:[facility]; 06/06/2018) MBR/06/06/2018 . 02 Comment: Suggest clinical correlation. This case was discussed with Dr. Sonia Chong on 06/06/2018 at 1pm. There is no evidence of atypia or malignancy. . (SHA:epic director; 06/06/2018) . 02 Electronically signed: . Attila Garcia MD, Pathologist NPI- [id number] . 01 Gross description: . The specimen is received in formalin, labeled "Patricia Flynn, sacral wound tissue", is a roughly oval mcduffie-white rubbery tissue measuring 1.8 x 1.0 x 0.2 cm, longitudinally serially section and entirely submitted in A1. ([facility]; 06/05/2018) SHS/SHS . 02 Pathologist provided ICD-10: B07.9 . 02 CPT . 957511 Specimen Comment: A courtesy copy of this report has been sent to Specimen Comment: [phone], , . Specimen Comment: Report sent to ,DR JUNG / DR EDWARD Performed at: [address] [address] PATHOLOGY RPT PROCEDURE Name: PATRICIA FLYNN Room #: [facility] ADM IN M.R.#: [id number] Admission: 05/28/18 Date of : 57 Discharge: Report #: [id number] Path Case #: [id number] [address] [address], [place], [place] [id number] MD Chito Betts MD Phone: [phone] Performed at: [address] [facility] [address] [id number] MD Kate De Los Santos MD Phone: [phone]
[~2018-05-28 06:57] MED LIST changes: +VIBRAMYCIN 100100 MG PO
[2018-05-28 16:28] VITALS: BP 120/69
[2018-05-28] MEDS ORDERED: PROZAC20 MG PO (16:41)
[2018-05-28 17:15] LABS: URINE BILIRUBIN NEGATIVE (Negative); URINE BLOOD NEGATIVE (Negative); URINE CLARITY CLEAR; URINE COLOR YELLOW; URINE GLUCOSE-RANDOM* NEGATIVE (Negative); URINE KETONES NEGATIVE (Negative); URINE NITRITE-REFLEX NEGATIVE (Negative); URINE PROTEIN (DIPSTICK) NEGATIVE (Negative); URINE SPECIFIC GRAVITY 1.025 (1.005-1.035); URINE UROBILINOGEN 0.2 E.U./dl (0.2-1.0)
[2018-05-28 17:23] LABS: URINE LEUKOCYTES-REFLEX 1+ (Negative)
[2018-05-28 17:24] LABS: BACTERIA-REFLEX 1-9 Few /HPF (None Seen); CASTS None Seen /LPF (None Seen); CRYSTALS None Seen /LPF (None Seen); SQUAMOUS None Seen /LPF (0-3); URINE RBC None Seen /HPF (0-2); URINE WBC-REFLEX 0-5 Rare /HPF (0-5)
[2018-05-28 18:42] LABS: HEMATOCRIT 49.1 % (42.0-52.0); HEMOGLOBIN 16.9 gm/dL (14.0-18.0); MCH 31.3 pg (26.0-34.0); MCHC 34.5 g/dL (28.0-37.0); MCV 90.8 fL (80.0-100.0); RBC 5.41 mil/uL (4.50-6.00); RDW 13.6 % (10.5-14.5); WBC 10.2 thou/uL (4.0-11.0)
[2018-05-28 18:58] LABS: ALBUMIN 3.1 g/dL (3.4-5.0); CREATININE 0.9 mg/dL (0.7-1.3); POTASSIUM 3.8 mmol/L (3.5-5.1); TOTAL BILIRUBIN 0.7 mg/dL (<0.1-1.0)
[2018-05-28 20:48] VITALS: BP 140/67
[2018-05-29 05:39] VITALS: BP 120/58
[2018-05-29 07:36] VITALS: BP 106/48
[2018-05-29 17:22] VITALS: BP 117/64
[2018-05-29 19:38] VITALS: BP 151/72
[2018-05-30 06:00] VITALS: BP 148/77
[2018-05-30 07:45] VITALS: BP 122/66
[2018-05-30 16:51] VITALS: BP 142/75
[2018-05-30 19:27] VITALS: BP 149/63
[2018-05-31 03:40] VITALS: BP 108/58
[2018-05-31 07:23] VITALS: BP 126/62
[2018-05-31 19:30] VITALS: BP 125/66
[2018-06-01 04:23] VITALS: BP 125/51
[2018-06-01 07:56] VITALS: BP 148/70
[2018-06-01 20:00] VITALS: BP 136/67
[2018-06-02 09:12] VITALS: BP 127/65
[2018-06-02 10:42] VITALS: BP 127/65
[2018-06-02 17:42] VITALS: BP 128/74
[2018-06-02 19:53] VITALS: BP 109/57
[2018-06-03 03:20] VITALS: BP 133/66
[2018-06-03 08:20] VITALS: BP 134/61
[2018-06-03 10:13] LABS: HEMATOCRIT 46.1 % (42.0-52.0); HEMOGLOBIN 15.8 gm/dL (14.0-18.0); MCH 31.6 pg (26.0-34.0); MCHC 34.3 g/dL (28.0-37.0); MCV 92.1 fL (80.0-100.0); RDW 13.4 % (10.5-14.5); WBC 8.1 thou/uL (4.0-11.0)
[2018-06-03 10:23] LABS: ALBUMIN 2.8 g/dL (3.4-5.0); CALCIUM 9.3 mg/dL (8.5-10.1); POTASSIUM 4.5 mmol/L (3.5-5.1); TOTAL BILIRUBIN 0.4 mg/dL (<0.1-1.0); TOTAL PROTEIN 6.7 g/dL (6.4-8.2)
[2018-06-03 11:45] VITALS: BP 134/61
[2018-06-03 20:03] VITALS: BP 113/68
[2018-06-03 20:21] VITALS: BP 143/58
[2018-06-04 03:56] VITALS: BP 126/72
[2018-06-04 07:28] VITALS: BP 126/70
[2018-06-04 15:57] VITALS: BP 125/72
[2018-06-04 20:58] VITALS: BP 109/55
[2018-06-05 05:25] VITALS: BP 109/59
[2018-06-05 07:37] VITALS: BP 133/64
[2018-06-05 08:57] VITALS: BP 116/64
[2018-06-05 16:31] VITALS: BP 134/61
[2018-06-05 19:53] VITALS: BP 143/63
[2018-06-06 07:32] VITALS: BP 130/67
[2018-06-06 16:43] VITALS: BP 148/64
[2018-06-06 20:03] VITALS: BP 136/80
[2018-06-07 04:38] VITALS: BP 153/80
[2018-06-07] MEDS ORDERED: ALPRAZOLAM 0.50.5 M1 PO (07:25)
[2018-06-07] MEDS ORDERED: LEVAQUIN 500 M500 M2 PO (07:26)
[2018-06-07 08:23] VITALS: BP 138/82
[2018-06-07 10:08] VITALS: BP 138/82
== END 2018-06-07 13:51 | DRG 570 ==
LOC: HYPER 06:57 → 4E 15:34
PROVIDERS: Family Medicine
PROC: 0D737ZZ Dilation of Lower Esophagus, Via Natural or Artificial Opening (ICD-10-PCS; 2018-05-28)
PROC: 0JB70ZZ Excision of Back Subcutaneous Tissue and Fascia, Open Approach (ICD-10-PCS; principal; 2018-06-05)
PROC: 0DB78ZX Excision of Stomach, Pylorus, Via Natural or Artificial Opening Endoscopic, Diagnostic (ICD-10-PCS; 2018-06-05)
DX: L89.153 Pressure ulcer of sacral region, stage 3 (principal); E43 Unspecified severe protein-calorie malnutrition; N39.0 Urinary tract infection, site not specified; G82.20 Paraplegia, unspecified; I10 Essential (primary) hypertension; M54.9 Dorsalgia, unspecified; F17.210 Nicotine dependence, cigarettes, uncomplicated; R68.81 Early satiety; R13.10 Dysphagia, unspecified; K21.9 Gastro-esophageal reflux disease without esophagitis; G89.4 Chronic pain syndrome; K29.90 Gastroduodenitis, unspecified, without bleeding; K29.70 Gastritis, unspecified, without bleeding; Z87.828 Personal history of other (healed) physical injury and trauma; Z79.899 Other long term (current) drug therapy; Z86.718 Personal history of other venous thrombosis and embolism; Z86.711 Personal history of pulmonary embolism; Z83.71 Family history of colonic polyps; Z83.79 Family history of other diseases of the digestive system; Z68.21 Body mass index [BMI] 21.0-21.9, adult; Z88.6 Allergy status to analgesic agent; Z88.8 Allergy status to other drugs, medicaments and biological substances; Z23 Encounter for immunization
CPT/HCPCS: 10783; 50010; 50101; 50386; 50403; 62110; 62900; 70005

== ENCOUNTER → 2018-07-19 | Outpatient (CLI) | payer OTHER, BC ==
[~2018-07-19] MED LIST changes: +ALPRAZOLAM 0.50.5 M1 PO; +PROZAC20 MG PO
== END ==
LOC: HYPER 07:10
DX: L89.133 Pressure ulcer of right lower back, stage 3 (principal); L89.153 Pressure ulcer of sacral region, stage 3; G82.21 Paraplegia, complete; M86.8X8 Other osteomyelitis, other site; E78.5 Hyperlipidemia, unspecified; I10 Essential (primary) hypertension; K21.9 Gastro-esophageal reflux disease without esophagitis; F41.9 Anxiety disorder, unspecified; F32.9 Major depressive disorder, single episode, unspecified; Z87.891 Personal history of nicotine dependence

== ENCOUNTER → 2018-08-23 | Outpatient (CLI) | payer OTHER, BC | LOC: HYPER 08-08 06:58 | DX: L89.153 Pressure ulcer of sacral region, stage 3 (principal); L89.133 Pressure ulcer of right lower back, stage 3; E78.5 Hyperlipidemia, unspecified; I10 Essential (primary) hypertension; M86.8X8 Other osteomyelitis, other site; K21.9 Gastro-esophageal reflux disease without esophagitis; G82.21 Paraplegia, complete; F41.9 Anxiety disorder, unspecified; F32.9 Major depressive disorder, single episode, unspecified; Z87.891 Personal history of nicotine dependence ==

== ENCOUNTER 2018-09-04 12:03 | Inpatient (IN) | payer OTHER, BC ==
[~2018-09-04] VITALS: Ht 182.9 cm; Wt 79.4 kg
[~2018-09-04 12:03] MED LIST changes: -NORVASC 5 MG TAB5 MG PO; +NORVASC5 MG PO
[2018-09-04 12:39] VITALS: BP 125/88
[2018-09-04] MEDS ORDERED: VALIUM5 MG PO (14:16)
[2018-09-04] MEDS ORDERED: PROTONIX40 M1 PO (14:18)
[2018-09-04] MEDS ORDERED: ZINC SULFATE 2220 M1 PO (14:22)
[2018-09-04] MEDS ORDERED: OXYCODONE HCL10 MG PO (14:24)
[2018-09-04] MEDS ORDERED: [UNRECOGNIZED DRUG - OTHER] (14:43)
--- NOTE | 2018-09-04 17:04 | NUR ---
WOUND CONSULT: PT. WAS SEEN TODAY BY DR. LUNDBERG AND MYSELF. PT. IS WELL KNOWN TO THE WOUND CARE TEAM. PT. HAS RESOLVING STAGE 3 PRESSURE ULCERS TO HIS LOWER BACK AND SACRUM. RECOMMENDATIONS: WOUND CARE TO ALL SITES: GENTLY CLEANSE AREA WITH WOUND CLEANSER OR NORMAL SALINE, APPLY PURACOL AG TO WOUND BED, COVER WITH OPTIFOAM, COMPLETE CARES DAILY AND PRN. PT. AND STAFF NURSE WERE INSTRUCTED ON PLAN OF CARE.
[2018-09-04 17:14] LABS: HEMATOCRIT 38.5 % (42.0-52.0); MCH 30.2 pg (26.0-34.0); MCHC 33.8 g/dL (28.0-37.0); MCV 89.2 fL (80.0-100.0); RBC 4.31 mil/uL (4.50-6.00); RDW 15.8 % (10.5-14.5); WBC 13.1 thou/uL (4.0-11.0)
[2018-09-04 17:28] LABS: ALBUMIN 2.2 g/dL (3.4-5.0); CALCIUM 9.5 mg/dL (8.5-10.1); CREATININE 0.7 mg/dL (0.7-1.3); POTASSIUM 4.2 mmol/L (3.5-5.1); TOTAL BILIRUBIN 0.3 mg/dL (<0.1-1.0); TOTAL PROTEIN 7.3 g/dL (6.4-8.2)
[2018-09-04 19:20] VITALS: BP 134/75
--- NOTE | 2018-09-04 19:46 | NUR ---
PT ADMITTED TO 422 BY DIRECT ADMIT. POTRTA CATH IN L CHEST ACCESSED BY VASCULAR TEAM, WOUND CARE PICTURES TAKEN, CULTURE OF WOUND AND LABS SENT TO LAB. PT ORIENTED TO ROOM*/CALL LIGHT, ANTIBIOTICS STARTED.
--- NOTE | 2018-09-04 23:59 | NUR ---
ASSUMED PT CARE 1900. ALERT AND ORIENTED X4. VSS. CHEST PORT DRESSING C/D/I. LLE RED, SWOLLEN, WARM TO TOUCH. CONTINUING Q2 TURNS. PT REPORTS MODERATE PAIN. DRESSINGS TO SACRAL WOUNDS C/D/I. WILL CONTINUE POC UNTIL EOS.
[2018-09-05 05:19] VITALS: BP 137/78
--- NOTE | 2018-09-05 06:15 | NUR ---
Assumed pt care at approx 0130.Pt A&Ox4, able to make needs known. Q2hr turn and reposition, specialty mattress and offloading as much as possible. DRSGs to sacrum C/D/I. Medicated per orders for c/o joint pain with some relief verbalized. Continues on IV abx. LLE continues to be warm, red and swollen. Pt currently resting in bed, call light within reach, will continue to be monitored.
[2018-09-05 08:00] VITALS: BP 134/79
--- NOTE | 2018-09-05 10:26 | HC ---
[facility] [place] [address] CONSULTATION Name: PATRICIA FLYNN Room #: 422-P [facility] IN M.R.#: [id number] Admission: 09/04/18 Attend Phys: Arian Mcgowan MD Discharge: Date of : 57 Report #: [id number] THIS REPORT FOR: //name// CC: Arian Mcgowan DATE OF SERVICE: 09/04/2018 ATTENDING PHYSICIAN: Dr. Mcgowan. REASON FOR CONSULTATION: Left leg cellulitis. HISTORY OF PRESENT ILLNESS: The patient is a 63-year-old white man, known to me for many years, admitted with painful swelling and redness in left leg of several days' duration. No obvious fevers. He comes directly from Dr. Mcgowan's office. PAST MEDICAL HISTORY:. History of paraplegia secondary to cauda equina. History of sacral osteomyelitis, extensive back surgery, debridement and flap closure, open wound for several months. Chronic pain syndrome. Asymptomatic bacteriuria secondary to suprapubic cystostomy. Chronic pain syndrome, on supposedly methadone. DRUG ALLERGIES: MEROPENEM, ZOSYN, MORPHINE, FENTANYL, HYDROCODONE. MEDICATIONS: The patient on treatment with duloxetine, diazepam, cetirizine, testosterone supplementation, metoprolol, methadone, which he tells me he is just using every now and then. SOCIAL HISTORY: See H and P, old records. FAMILY HISTORY: See H and P, old records. REVIEW OF SYSTEMS: Painful swelling and redness left leg. No associated fever. For remainder see H and P. PHYSICAL EXAMINATION: GENERAL: A well-developed, overweight man. VITAL SIGNS: Height 6 feet, weight 174, BP 125/88. Temperature 98.1, respirations 19, O2 saturation 100% on room air. HEENMT: Within range. NECK: Supple, no thyromegaly. LUNGS: Clear to auscultation. Left-sided Port-A-Cath site looks okay. HEART: S1, S2. No gallop or murmur. ABDOMEN: Suprapubic cystostomy surgical scars, midline soft, no masses or megaly. BACK: Multiple surgical scars on this lumbosacral area. Small area of skin [facility] [address] [place] [address] CONSULTATION Name: PATRICIA FLYNN Room #: 422-P ADM IN M.R.#: [id number] Admission: 09/04/18 Attend Phys: Arian Mcgowan MD Discharge: Date of : 57 Report #: [id number] breakdown, stage 2-3. No exposed deep structures. NEUROLOGIC: Paraplegia. EXTREMITIES: Redness, swelling in left leg and foot compatible with cellulitis, increased temperature, left lower extremity as compared to right. LABORATORY DATA: None available so far. ASSESSMENT: 1. Cellulitis, left leg and foot, likely streptococcus, Staphylococcus. No open wounds. 2. Paraplegia secondary to cauda equina. 3. History of sacral osteomyelitis, Pseudomonas aeruginosa infection, status post debridement and flap closure some 10-15 years ago. 4. Multiple drug allergies. 5. Chronic pain syndrome. SUGGESTIONS: Recommend proceed with CBC, CMP, ESR, CRP and blood cultures, start vancomycin intravenously. Dr. Mcgowan, thank you for requesting my suggestions. <ELECTRONICALLY SIGNED> By: Kenny Mckenna MD 09/05/18 1026 1413 1628 Kenny Mckenna MD /nt
--- NOTE | 2018-09-05 15:37 | NUR ---
PT ADMITTED RELATED TO UTI, CELLULITIS. CM REVEIWED CHART. PT IS FAMILIAR FOR CM FROM PREVIOUS ADMISSION. PT RESIDES IN A HOUSE ALONE WITH RAMP ACCESS. PT HAD SUPPORTIVE CHILDREN AND SIBLINGS. PT IS PARAPLEGIC AND HAS ALL NEEDED DME. PT HAS BEEN ON SERVICE WITH [facility] IN THE PAST AND HAD MOST RECENTLY GONE TO [facility]. CM TO FOLLOW INDICATED WITH DC PLANNING.
[2018-09-05 17:08] VITALS: BP 125/66
[2018-09-05 19:21] VITALS: BP 121/61
--- NOTE | 2018-09-06 02:45 | NUR ---
Pt A&Ox4, able to make needs known. Turn and reposition Q2hrs and offloading as tolerated. Wounds tx per orders d/t old drsg falling off. Pt requests medication as often as ordered for pain, reports joint and LLE pain, some relief verbalized. LLE remains edematous, red and warm to touch. Pt currently resting in bed, call light within reach, will continue to be monitored.
[2018-09-06 03:16] VITALS: BP 143/81
[2018-09-06 07:20] VITALS: BP 131/77
--- NOTE | 2018-09-06 11:27 | HC ---
[facility] [place] [address] CONSULTATION Name: PATRICIA FLYNN Room #: 422-P [facility] IN M.R.#: [id number] Admission: 09/04/18 Attend Phys: Arian Mcgowan MD Discharge: Date of : 57 Report #: [id number] THIS REPORT FOR: //name// CC: Arian Mcgowan DATE OF SERVICE: 09/04/2018 CHIEF COMPLAINT: Left iliac crest and sacral pressure ulcerations. HISTORY OF PRESENT ILLNESS: This is a 63-year-old male patient with whom I am familiar. He has a history of paraplegia following a spinal cord injury. He was admitted to the hospital with a urinary tract infection. He also has persistent pressure ulcerations to his left iliac crest and sacral region. I have been asked to see him in regard to ongoing wound care. In discussion with the patient, he is generally compliant; he is eating lots of protein, including 90 grams of protein supplementation per day. He, however, is not offloading very well at home stating that it is difficult for him or uncomfortable for him to lay on his side or stomach. We did have a long discussion regarding the need for offloading. CURRENT ALLERGIES: INCLUDE HYDROCODONE, MEROPENEM, ZOSYN, MORPHINE, FENTANYL. MEDICATIONS: Include methadone, oxycodone, alprazolam, ondansetron, Prozac, cyanocobalamin, multivitamin, vitamin C, Prevacid, Norvasc, cholecalciferol, Tylenol. PAST MEDICAL HISTORY: Positive for paraplegia secondary to spinal cord injury from 1985. He has history of hypertension, previous DVT and pulmonary emboli. He has chronic pain syndrome, neurogenic bladder with a suprapubic catheter. He is a previous smoker. He has had surgical debridement of his sacral and iliac crest ulcers. He has had no evidence of any bone infection thus far. SOCIAL HISTORY: The patient is a former smoker, currently denies alcohol or drug use. FAMILY HISTORY: Noncontributory. REVIEW OF SYSTEMS: CONSTITUTIONAL: The patient does complain of chills, denies fever. ENT: The patient denies earache, nasal drainage, sore throat. CARDIOVASCULAR: The patient denies chest pain or palpitations or diaphoresis. PULMONARY: The patient denies cough or shortness of breath. GASTROINTESTINAL: The patient denies nausea, vomiting, diarrhea or abdominal pain. ORTHOPEDIC: The patient is aware of the ulcerations on the sacrum and left iliac crest. [facility] [address] [place] [address] CONSULTATION Name: PATRICIA FLYNN Room #: 422-P [facility] IN [facility].#: [id number] Admission: 09/04/18 Attend Phys: Arian Mcgowan MD Discharge: Date of : 57 Report #: [id number] PSYCHIATRIC: The patient does complain of some anxiety and depression that has improved since he was last here. Other systems in a 14-point review of systems are negative. PHYSICAL EXAMINATION: VITAL SIGNS: At this time include pulse 82, respiratory rate of 18, blood pressure 134/70, temperature 97.7. GENERAL: This is a chronically ill-appearing male patient who appears to be in minimal distress. HEENT: Head normocephalic. Nose and throat clear. NECK: Supple. LUNGS: Clear. HEART: Regular. ABDOMEN: Soft. Bowel sounds present. Suprapubic catheter is noted. PELVIC REGION: Demonstrates stage 3 pressure ulcerations to the sacrum and left iliac crest. These appear similar to when he left the hospital last time. They are clean, granulating. There is no exposure of deep structures and these do not appear clinically to be infected. NEUROLOGIC: He is alert and oriented. Has a flaccid paraplegia with no new changes. LABORATORY DATA: At this time includes sodium 135, potassium 4.2, chloride 100, CO2 of 30, BUN 18, creatinine 0.7, glucose of 84, total protein is 7.2, albumin is a little bit low at 2.2. CRP is markedly elevated at 337. White blood cell count is 13.1, hemoglobin 13.0, hematocrit 38.5. MRI of the foot demonstrates no evidence of osteomyelitis or focal abscess. MRI of the sacrum demonstrates red marrow replacement consistent with paraplegia. No focal fluid collection, no evidence to suggest osteomyelitis or stress fracture. CLINICAL IMPRESSION: 1. Stage 3 pressure ulceration of the sacrum. 2. Stage 3 pressure of the left posterior iliac crest. 3. Moderate protein calorie malnutrition. 4. Paraplegia secondary to spinal cord injury in 1985. 5. Chronic pain syndrome. RECOMMENDATIONS: At this point in time, the patient will be placed on a low air loss mattress. He will need q.2 hour turning and positioning. Myself and the wound nurse have demonstrated to him proper positioning in bed. It is imperative that he offload these areas, otherwise we do not expect him to heal. We have discussed sleeping on his stomach both here in the hospital and once he returns home. At this point in time, the patient is agreeable to it and will comply as much as possible. He will need additional nutritional support as well to enhance wound healing. We will recommend a topical dressing to consist of [facility] [address] [place] [address] CONSULTATION Name: PATRICIA FLYNN Room #: 422-P ADM IN M.R.#: [id number] Admission: 09/04/18 Attend Phys: Arian Mcgowan MD Discharge: Date of : 57 Report #: [id number] Fibracol and bordered foam. We will change it daily for now. We will recommend continuing his antibiotics for his UTI and other medications. I appreciate being asked to see him in consultation. <ELECTRONICALLY SIGNED> By: Bakari Contreras MD 09/06/18 1127 [id number] [id number] Bakari Contreras MD /nt
[2018-09-06 12:16] VITALS: BP 136/73
--- NOTE | 2018-09-06 13:26 | NUR ---
WOUND FOLLOW UP: PT. WAS SEEN TODAY BY DR. LUNDBERG AND MYSELF. PT. WOUNDS ARE RESPONDING WELL TO CURRENT THERPY. SPENT TIME RE-EDUCATING PT. ON THE IMPORTANCE OF TURNING. PT. STATES THAT HE UNDERSTANDS. RECOMMENDATIONS: CONTINUE WITH CURRENT PLAN OF CARE. PT. AND STAFF NURSE WERE INSTRUCTED ON PLAN OF CARE.
[2018-09-06 16:13] VITALS: BP 125/69
[2018-09-06 19:19] VITALS: BP 119/70
--- NOTE | 2018-09-06 20:44 | NUR ---
ASSUMED CARE OF PT AT 11:00. AGREE WITH PREVIOUS ASSESSMENT. A&O,X4. C/O GENERALIZED PAIN AND LEFT LOWER EXTREMITY PAIN, PAIN MEDS GIVEN ORDERED. PT REFUSED HOME MED METHADONE. LEFT LOWER EXTREMITY EDEMATOUS, PINK, WARM, AND TENDER. WOUND ON BOTTOM NOTED, DRESSING CHANGED TODAY BY WOUND CARE TEAM ORDERED. LEFT CHEST PORT, CATH FLOW ADMINISTERED BY IV TEAM TODAY, BLOOD RETURNED NOTED. SUPRAPUBIC CATHETER IN PLACE, GOOD LIGHT CLEAR YELLOW OUTPUT NOTED. DIGITAL DISIMPACTION PERFORMED PER BOWEL REGIMEN, LARGE AMOUNT HARD BROWN STOOL REMOVED. ANTIANXIETY MEDS GIVEN ORDERED. PT STATES NO CONCERNS. PT IN STABLE CONDITION. END OF SHIFT.
[2018-09-07 03:28] VITALS: BP 128/66
--- NOTE | 2018-09-07 04:32 | NUR ---
Assumed care of pt at 1900. Pt a&o x4. Q2h reposition. Pt requests pain meds q3h. Left LE is red and warm to touch. Suprapubic catheter in place. Blood cultures came back gram negative rods. Infectious DrNeha and admitting DrNeha notified. Onetime dose of Levaquin administered. Levaquin showed interaction with metadone. Pt refuses methadone. Pharmacists states it is ok to give dose of Levaquin since pt is not taking methadone regularly 3 times a day. Provider aware. Pt calls appropriately. Will continue to monitor.
[2018-09-07 07:20] VITALS: BP 141/64
--- NOTE | 2018-09-07 16:48 | NUR ---
IT PT IS TO DISCHARGE HOME OVER THE WEEKEND NOTIFY [facility] AND FAX ORDERS TO .
[2018-09-07 20:18] VITALS: BP 135/66
[2018-09-08 05:00] VITALS: BP 140/69
--- NOTE | 2018-09-08 05:27 | NUR ---
A/O, calm and pleasant. C/o pain generalized, pain medication given and pain relieved. Patient refused Methdone in the evening but asked for it in the morning of 09/08; urine leaking, bed changed; VSS, afebrile; no n/v. Will keep monitoring.
[2018-09-08 07:20] VITALS: BP 136/54
--- NOTE | 2018-09-08 13:05 | NUR ---
PT A&OX4, NON AMB. IS A PARAPLEGIC. FORD CATH INTACT IN L CHEST, L FT IS RED, WARM TO TOUCH AND EDEMATOUS, DRSG TO SACRAL AREA X2 HAV BEEN CHANGED. PT HAD MED SOFT BM WITH ASSIST. C/O GENERALIZED PAIN AND L LOWER EXTREM. PAIN. SUPRAPUBIC CATH IS LEAKING, 22F ORDERED.
[2018-09-08 16:25] VITALS: BP 120/57
[2018-09-08 19:27] VITALS: BP 130/68
--- NOTE | 2018-09-09 01:13 | NUR ---
Assumed care of pt at 1900. Pt alert and oriented x4. Prn pain meds administered q3h per pt request. Suprapubic catheter changed. Dressing on pressure wounds clean and intact. Lt lower extremity edematous but not as red as previous days. Bowel movement with digital stimulation. Large formed stool removed. Pt calls appropriately. Will continue to monitor.
[2018-09-09 05:14] VITALS: BP 156/68
[2018-09-09 07:10] VITALS: BP 129/57
--- NOTE | 2018-09-09 07:30 | NUR ---
ASSUMED CARE OF PT AT APPROX 0345.PT ASLEEP IN BED AT THE TIME.PT REFUSED HIS METHADONE THIS AM.
[2018-09-09 09:40] LABS: HEMATOCRIT 40.4 % (42.0-52.0); MCH 29.1 pg (26.0-34.0); MCHC 32.3 g/dL (28.0-37.0); MCV 90.2 fL (80.0-100.0); RBC 4.48 mil/uL (4.50-6.00); RDW 15.5 % (10.5-14.5); WBC 8.4 thou/uL (4.0-11.0)
[2018-09-09 09:51] LABS: ALBUMIN 2.4 g/dL (3.4-5.0); CALCIUM 9.2 mg/dL (8.5-10.1); CREATININE 0.9 mg/dL (0.7-1.3); POTASSIUM 3.9 mmol/L (3.5-5.1); TOTAL BILIRUBIN 0.3 mg/dL (<0.1-1.0); TOTAL PROTEIN 7.1 g/dL (6.4-8.2)
--- NOTE | 2018-09-09 12:44 | NUR ---
PT A&OX4, L CHEST FORD CATH INTAC, PT IS A PARA TURNS SELF IN BED. SACRAL WOUNDS CHANGED, BOWEL PROGRAM PERFORMED WITH MED FORMED STOOL. ECHO AND ECG COMPLETE NOTIFIED OF ABNORMALITY. L LE IS WARM TO TOUCH, RED AND EDEMA.
--- NOTE | 2018-09-09 12:50 | NUR ---
PT A&OX4, L CHEST FORD CATH INTACT, PT IS A PARA NON AMB., SACRAL WOUND DRSG'S CHANGED, BOWEL PROGRAM PERFORMED WITH RESULT OF MED BROWN FORMED STOOL. ECHO AND ECG COMPLETE NOTIFIED OF ABNORMAL FINDINGS.
--- NOTE | 2018-09-09 12:54 | NUR ---
L FOOT IS RED WARM TO TOUCH WITH GROSS NON PITTING EDEMA. LLE ELEVATED WITH PILLOW FOOT OF BED RAISED.
[2018-09-09 16:10] VITALS: BP 129/64
[2018-09-09 19:25] VITALS: BP 129/49
--- NOTE | 2018-09-10 01:39 | NUR ---
PT C/O GEN PAIN,MANAGED WITH PO AND IV MED.L FOOT SWOLLEN,RED AND WARM TO TOUCH.SUPRAPUBIC CATH TO DD.PT WITH GOOD UPPER BODY STRENGTH ABLE TO REPOSITION SELF IN BED.PT CONT ON IV ABX ORDERED.PT ABLE TO MAKE HIS NEEDS KNOWN.CALL LIGHT WITHIN REACH.
[2018-09-10 03:37] VITALS: BP 136/61
[2018-09-10 07:15] VITALS: BP 135/62
--- NOTE | 2018-09-10 08:45 | EKG ---
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: : [id number] Requested By: Slime Vicente Order Number: [id number] MD: Carter Dykes Measurements Intervals [place] Rate: 63 P: 45 WI: 217 QRS: 82 QRSD: 95 T: 36 QT: 364 QTc: 373 Interpretive Statements Sinus rhythm Borderline prolonged WI interval Borderline right axis deviation Compared to ECG 02/02/2016 13:11:53 T-wave abnormality no longer present Electronically Signed On 09-10-2018 8:45:50 [employer]TLE [employer]UCK [employer] by Carter Dykes [email or web address] <ELECTRONICALLY SIGNED> By: Carter Dykes MD, [facility] 09/10/18 0845 Carter Dykes MD, [facility] /EPI
--- NOTE | 2018-09-10 09:33 | NUR ---
Followup: wound care continues to follow. PAD left leg, pending angiography. Has pietro ordered which he will drink. Also has zinc sulfate and vitamin C. Change nutrition status to low risk with nutrition interventions in place.
--- NOTE | 2018-09-10 11:38 | 2DMMODE ---
[facility] [employer] [place] [address] 2 D/M-MODE ECHOCARDIOGRAM Name: RINAPATRICIA PEARCE Room #: 422-P [facility] IN M.R.#: [id number] Admission: 09/04/18 Attend Phys: Arian Mcgowan, Discharge: Date of : 57 Date of Service: 09/10/18 1137 Report #: [id number] THIS REPORT FOR: //name// APPROVED REPORT Study performed: 09/10/2018 09:33:28 EXAM: Comprehensive 2D, Doppler, and color-flow Echocardiogram Patient Location: Bedside Room #: [facility] Status: routine BSA: 2.01 HR: 61 bpm BP: 135/62 mmHg Rhythm: NSR Other Information Study Quality: Fair Indications Hypertension/HDD Hx. Endocarditis. Family Hx. CAD 2D Dimensions RVDd: 44.83 mm IVSd: 15.90 (7-11mm) LVOT Diam: 25.29 (18-24mm) LVDd: 49.65 mm PWd: 13.42 (7-11mm) Ascending Ao: 34.81 (22-36mm) LVDs: 37.76 (25-40mm) Aortic Root: 45.39 mm IVC: 17.00 mm Volumes Left Atrial Volume (Systole) Single Plane 4CH: 60.85 mL Single Plane 2CH: 69.40 mL LA ESV Index: 33.67 mL/m2 Aortic Valve AoV Peak Andrea.: 1.10 m/s AO Peak Gr.: 4.84 mmHg LVOT Max P.52 mmHg LVOT Max V: 0.79 m/s SMILEY Vmax: 3.61 cm2 Mitral Valve E/A Ratio: 1.5 MV Decel. Time: 251.51 ms MV E Max Andrea.: 0.96 m/s [facility] [employer] [place] [address] 2 D/M-MODE ECHOCARDIOGRAM Name: PATRICIA FLYNN RAMSES Room #: 422-P [facility] IN M.R.#: [id number] Admission: 09/04/18 Attend Phys: Arian Mcgowan, Discharge: Date of : 57 Date of Service: 09/10/18 1137 Report #: [id number] MV A Andrea.: 0.63 m/s MV PHT: 72.94 ms IVRT: 124.57 ms Pulmonary Valve PV Peak Andrea.: 0.84 m/s PV Peak Gr.: 2.85 mmHg Pulmonary Vein P Vein S: 0.42 m/s P Vein A: 0.20 m/s P Vein D: 0.63 m/s P Vein A Dur.: 179.9 msec P Vein S/D Ratio: 0.67 Tricuspid Valve TR Peak Andrea.: 2.22 m/s RAP Estimate: 5.00 mmHg TR Peak Gr.: 19.66 mmHg PA Pressure: 25.00 mmHg Left Ventricle The left ventricle is normal size. There is normal LV segmental wall motion. Moderate concentric left ventricular hypertrophy. The left ventricular systolic function is normal. The left ventricular ejection fraction is within the normal range. LVEF is 55-60%. Moderate diastolic dysfunction is present (pseudonormal filling). Right Ventricle The right ventricle is normal size. The right ventricular systolic function is normal. Atria The left atrium size is normal. The right atrium size is normal. Aortic Valve The aortic valve is normal in structure. No aortic regurgitation is present. There is no aortic valvular stenosis. Mitral Valve The mitral valve is normal in structure. Trace mitral regurgitation. No evidence of mitral valve stenosis. Tricuspid Valve The tricuspid valve is normal in structure. Trace tricuspid regurgitation. Estimated PAP [facility] [address] [place] [address] 2 D/M-MODE ECHOCARDIOGRAM Name: RINAPATRICIA PEARCE Room #: 422-P [facility] IN ..#: [id number] Admission: 09/04/18 Attend Phys: Arian Mcgowan, Discharge: Date of : 57 Date of Service: 09/10/18 1137 Report #: [id number] of 25 mmHg. Pulmonic Valve Pulmonic valve is not well visualized. Trace to mild pulmonic regurgitation. Great Vessels Aortic root is severely dilated. The ascending aorta is normal in size. IVC is normal in size and collapses >50% with inspiration. Pericardium There is no pericardial effusion. <Conclusion> The left ventricular systolic function is normal. There is normal LV segmental wall motion. LVEF is 55-60%. Moderate diastolic dysfunction The aortic valve is normal in structure. No aortic regurgitation or stenosis The mitral valve is normal in structure. Trace mitral regurgitation. Trace tricuspid regurgitation. Estimated pulmonary artery pressure of 25 mmHg. There is no pericardial effusion. <ELECTRONICALLY SIGNED> By: Carter Dykes MD, [facility] 09/10/18 1137 1137 113 Carter Dykes MD, FACC /INF
--- NOTE | 2018-09-10 14:17 | NUR ---
WOUND FOLLOW UP: PT. WAS SEEN TODAY BY DR. JUNG AND MYSELF. PT. WOUNDS TO HIS SACRUM AND LOWER BACK ARE RESPONDING WELL TO CURRENT THERAPY. CELLULITIS TO LEFT LEG IS CLINICALLY BETTER AT THIS TIME. RECOMMENDATIONS: CONTINUE WITH CURRENT PLAN OF CARE. PT. AND STAFF NURSE WERE INSTRUCTED ON PLAN OF CARE.
[2018-09-10 16:42] VITALS: BP 138/61
--- NOTE | 2018-09-10 17:10 | NUR ---
PT PROGRESSING WELL. LT LOWER LEG MUCH LESS EDEMATOUS AND REDDNESS GONE. DISCOLORED AREA ON LT PLANTAR MUCH BETTER. PLAN FOR IR TO DO ANGIO W/ POSSIBLE STENT ON MONDAY. MEDS FOR PAIN Q 3HRS PER REQUEST. RECTUM DIGITALLY DISIMPACTED THIS AFTERNOON W/ LARGE AMT OF HARD BROWN STOOL. PT EATING AND DRINKING VERY WELL.
[2018-09-10 19:58] VITALS: BP 130/65
[2018-09-11 04:10] VITALS: BP 117/54
--- NOTE | 2018-09-11 05:18 | NUR ---
Assumed care of pt at 1900. Q2h turn. Pt requests prn pain meds q3h. Call light within reach. Dressings on wounds clean and intact. Pt calls appropriately.
--- NOTE | 2018-09-11 09:36 | NUR ---
WOUND FOLLOW UP: PT. WAS SEEN TODAY BY DR. BURNS AND MYSELF. PT. WOUNDS ARE RESOLVING WELL. RECOMMENDATIONS: CONTINUE WITH CURRENT PLAN OF CARE. PT. AND STAFF NURSE WERE INSTRUCTED ON PLAN OF CARE.
--- NOTE | 2018-09-11 14:42 | NUR ---
PT ASSESSED AT START OF SHIFT. PT SEEN BY DRS. RICHARDSON AM. CAREPLAN REVIEWED W/ PT. TRYING TO STRETCH TIME OUT BETWEEN IV MED PER DR. EDWARD RECOMMENDATION. EATING AND DRINKING WELL. URINE CLEAR, YELLOW. PLAN FOR HEART CATH AND AND POSSIBLE LLE STENT ON MONDAY BY DRS. STANLEY AND JOSLYN.
[2018-09-11 20:05] VITALS: BP 151/75
--- NOTE | 2018-09-12 04:12 | NUR ---
A/O, calm and cooperative, patient concentratd on pain control. Pain medication given according to the order and to the patient's request. Patient was cleaned and encouraged to turn every two hours for the well-being of the bottom pressure ulcer. VSS, afebrile. Lab reviewed, patient bed rest now, will keep monitoring.
[2018-09-12 04:39] VITALS: BP 125/69
[2018-09-12 07:40] VITALS: BP 139/54
--- NOTE | 2018-09-12 13:46 | NUR ---
WOUND FOLLOW UP: PT. WAS SEEN TODAY BY DR. JUNG AND MYSELF. PT. WOUNDS ARE CLINICALLY BETTER TODAY. RECOMMENDATIONS: CONTINUE WITH CURRENT PLAN OF CARE. PT. AND STAFF NURSE WERE INSTRUCTED ON PLAN OF CARE.
[2018-09-12 14:25] VITALS: BP 116/63
--- NOTE | 2018-09-12 14:54 | NUR ---
PT TO HAVE ANGIOGRAM TOMORROW AND ALSO HEART CATH WITH PROBABLE NEED FOR STENT PLACEMENTS. FOLLOWING.
[2018-09-12 20:17] VITALS: BP 117/57
--- NOTE | 2018-09-13 02:18 | NUR ---
PT ASSESSED AT START OF SHIFT.L FOOT CELLULITIS STIL RED,SHINY & WARM TO TOUCH.C/O PAIN ON HIS BACK,MANAGED WITH IV AND PO MED.WOUND DRSG C/D/I.PT NPO AT THIS TIME FOR A PROCEDURE IN THE AM.REPOSITIONED OER PT'S REQUEST.IV ABX ORDERED.PT RESTING ON HIS BED AT THIS TIME.CALL LIGHT WITHIN REACH.
[2018-09-13 04:27] VITALS: BP 120/57
[2018-09-13 07:25] VITALS: BP 123/70
[2018-09-13 07:27] LABS: HEMATOCRIT 39.7 % (42.0-52.0); HEMOGLOBIN 12.8 gm/dL (14.0-18.0); MCHC 32.2 g/dL (28.0-37.0); RBC 4.4 mil/uL (4.50-6.00); RDW 15.6 % (10.5-14.5)
[2018-09-13 07:51] LABS: CALCIUM 9.2 mg/dL (8.5-10.1); CREATININE 0.7 mg/dL (0.7-1.3); POTASSIUM 4.3 mmol/L (3.5-5.1)
--- NOTE | 2018-09-13 12:43 | CATHLAB ---
[facility] [place] [address] INVASIVE PROCEDURE REPORT Name: PATRICIA FLYNN Room #: 422-P [facility] IN M.R.#: [id number] Admission: 09/04/18 Attend Phys: Arian Mcgowan, Discharge: Date of : 57 Date of Service: 09/13/18 1242 Report #: [id number] THIS REPORT FOR: //name// APPROVED REPORT Study performed: 09/13/2018 10:14:00 Patient Details Patient Status: In-Patient Room #: The patient is a 63 year-old male Event Personnel Cristopher Edge Reed Polisher, Natalio Herrera RN RN, Armando Fernandez Monitor, Molly Kincaid RTR, PLUG MAKING OPERATOR Scrub Procedures Performed Left Heart Cath w/or w/o Coronaries [id number] [facility] Indication Chest pain Procedure Narrative A PINNACLE 6FR Sheath #[id number] sheath was inserted into the RFA^. Coronary angiography was performed using coronary diagnostic catheters. The right coronary system was accessed and visualized with a JR4 catheter. The left coronary system was accessed and visualized with a JL4 catheter. The left ventricle was accessed and visualized with a PIGTAIL catheter. Left ventriculogram was performed in 30 degree projection. Closure device was deployed with a 6 Fr [id number] 6/7F [id number]. The patient tolerated the procedure well and there were no complications associated with the procedure. There was no hematoma. Intraoperative Conscious Sedation Sedation start time: 10.46 Case end Time: 11.00 Fentanyl mcg Versed mg Fluoro Time: 1.40 minutes Dose: DAP 2143 cGycm2 252 mGy Contrast Type and Amount: Omnipaque 60 ml [facility] [place] [address] INVASIVE PROCEDURE REPORT Name: RINAPATRICIA PEARCE Room #: 422-P [facility] IN [facility].#: [id number] Admission: 09/04/18 Attend Phys: Arian Mcgowan, Discharge: Date of : 57 Date of Service: 09/13/18 1242 Report #: [id number] Hemodynamics The aortic pressure is 162/75 mmHg with a mean of 107 mmHg. The left ventricular pressure is 202/10 mmHg with a mean of mmHg. PCI Technique Lesion Percutaneous coronary intervention was performed on the Unspecified. Conclusion #1 normal left ventricular size and systolic function EF 60-65% #2 left main is free of disease giving rise to LAD and circumflex #3 LAD is mildly disease in the proximal segment 40 and 50% irregularities in the and a preserved distal to thirds of the LAD and diagonal system are widely patent. #4 small nondominant circumflex no occlusive disease #5 there is a large dominant right coronary artery eccentric proximal lesion of 50% the remainder of the vessel within the PDA and MICHAEL are large and well-preserved. Recommendations and plan: We'll continue aggressive risk factor modification. Aggressive hypertensive and lipid control. We'll follow the LAD and RCA lesions. Follow post peripheral stent protocol. See Dr. Hebert's dictation regarding the peripheral intervention. <ELECTRONICALLY SIGNED> By: Cristopher Edge MD, FACC 09/13/18 1242 1242 1242 Cristopher Edge MD, FACC /INF
--- NOTE | 2018-09-13 13:22 | NUR ---
WOUND FOLLOW UP: PT. WAS SEEN TODAY BY DR. JUNG AND MYSELF. PT. HAD JUST RETURNED FROM HAVING HIS ANGIOGRAM COMPLETED. UNABLE TO TURN PT. AT THIS TIME. PT. WAS IN GOOD SPIRITS TODAY. WILL FOLLOW UP TOMORROW. RECOMMENDATIONS: CONTINUE WITH CURRENT PLAN OF CARE. PT. AND STAFF NURSE WERE INSTRUCTED ON PLAN OF CARE.
--- NOTE | 2018-09-13 15:02 | NUR ---
PT RETURNED FROM IR AT APPROX. 1215, A&OX4, DRSG TO R GROIN C/D/I. FORD CATH IN LEFT CHEST, ORDERS FOR PT TO LIE STRAIGHT FOR [address] CATH IN PL[address].PT C/O PAIN AT 02/20. IV PAIN MED GIVEN, PERFOMED BOWEL PROGRAM, DRSGS TO SACRUM CHANGED.
[2018-09-13 16:26] VITALS: BP 136/59
[2018-09-13 19:40] VITALS: BP 131/63
--- NOTE | 2018-09-14 04:36 | NUR ---
REQUIRED Q3HRS PRN IV DILAUDID FOR LEFT LE PAIN. ABLE TO REST,SLEEP AFTER PAIN MED GIVEN. STENT PLACED IN IR TODAY. NO S/S BLEEDING, GROIN DRESSING INTACT. ABLE TO ASSIST SELF WITH REPOSITIONING. TO BE DISCHARGED HOME TODAY.
[2018-09-14 05:31] VITALS: BP 129/55
[2018-09-14] MEDS ORDERED: ATORVASTATIN CA40 MG PO (09:37)
[2018-09-14] MEDS ORDERED: ASPIRIN325 PO (09:37)
[2018-09-14] MEDS ORDERED: PLAVIX 75 MG TA75 M1 PO (09:37)
--- NOTE | 2018-09-14 09:46 | NUR ---
WOUND FOLLOW UP: PT. WAS SEEN TODAY BY DR. JUNG AND MYSELF. PT. WOUNDS ARE CLINICALLY BETTER THIS VISIT. PT. IS IN GOOD SPIRITS AND PLAN IS FOR DISCHARGE HOME TODAY. DISCHARGE PLANNING WAS DISCUSSED AT THIS TIME. RECOMMENDAITONS: CONTINUE WITH CURRENT PLAN OF CARE. PT. AND STAFF NURSE WERE INSTRUCTED ON PLAN OF CARE.
[2018-09-14] MEDS ORDERED: ASA5UEC PO (11:54)
[2018-09-14] MEDS ORDERED: OXYCODONE HCL10 MG PO (11:55)
[2018-09-14] MEDS ORDERED: DOXYCYCLINE 10100 MG PO (11:56)
[2018-09-14 12:59] VITALS: BP 120/55
--- NOTE | 2018-09-14 13:03 | NUR ---
PT. DISCHARGING TODAY TO HOME WITH [facility]. FAXED DC ORDERS/SUMMARY TO [facility] AND SPOKE WITH SAQIB IN ADM. SHE RECEIVED DC ORDERS AND WILL NOTIFY PT OF TIME OF VISITS.
--- NOTE | 2018-09-14 16:38 | NUR ---
DC ORDERS RECEIVED, DC INSTRUCTIONS, SCRIPTS AND F/U APPOINT. REVIEWED WITH PT. PERFORMED BOWEL REMOVAL THIS AM, HARD STOOL REMOVED, MIRALAX WAS GIVEN PRN. L CHEST PORT CATH WAS DEACCESSED. PT WHELLED HIMSELF WITH OWN W/C, SON IN LAW IN FOR HIS TRANSPORTATION.
== END 2018-09-14 15:45 | disposition home health service (06) | DRG 853 ==
LOC: 4E 12:03
PROVIDERS: Nurse Practitioner Gerontology; ADMIT Family Medicine
PROC: 4A023N7 Measurement of Cardiac Sampling and Pressure, Left Heart, Percutaneous Approach (ICD-10-PCS; principal; 2018-09-13)
PROC: 04CL3ZZ Extirpation of Matter from Left Femoral Artery, Percutaneous Approach (ICD-10-PCS; principal; 2018-09-13)
PROC: B41D1ZZ Fluoroscopy of Aorta and Bilateral Lower Extremity Arteries using Low Osmolar Contrast (ICD-10-PCS; principal; 2018-09-13)
PROC: 047L3Z1 Dilation of Left Femoral Artery using Drug-Coated Balloon, Percutaneous Approach (ICD-10-PCS; principal; 2018-09-13)
PROC: B2111ZZ Fluoroscopy of Multiple Coronary Arteries using Low Osmolar Contrast (ICD-10-PCS; principal; 2018-09-13)
PROC: B2151ZZ Fluoroscopy of Left Heart using Low Osmolar Contrast (ICD-10-PCS; principal; 2018-09-13)
PROC: 047N3Z1 Dilation of Left Popliteal Artery using Drug-Coated Balloon, Percutaneous Approach (ICD-10-PCS; principal; 2018-09-13)
PROC: B4181ZZ Fluoroscopy of Bilateral Renal Arteries using Low Osmolar Contrast (ICD-10-PCS; principal; 2018-09-13)
PROC: 04CN3ZZ Extirpation of Matter from Left Popliteal Artery, Percutaneous Approach (ICD-10-PCS; principal; 2018-09-13)
DX: A41.50 Gram-negative sepsis, unspecified (principal); L89.223 Pressure ulcer of left hip, stage 3; E43 Unspecified severe protein-calorie malnutrition; L89.153 Pressure ulcer of sacral region, stage 3; G82.20 Paraplegia, unspecified; N39.0 Urinary tract infection, site not specified; L03.116 Cellulitis of left lower limb; K21.9 Gastro-esophageal reflux disease without esophagitis; I10 Essential (primary) hypertension; N31.9 Neuromuscular dysfunction of bladder, unspecified; I73.9 Peripheral vascular disease, unspecified; G89.4 Chronic pain syndrome; Z88.6 Allergy status to analgesic agent; Z88.8 Allergy status to other drugs, medicaments and biological substances; Z86.718 Personal history of other venous thrombosis and embolism; Z87.891 Personal history of nicotine dependence; Z82.49 Family history of ischemic heart disease and other diseases of the circulatory system; Z68.23 Body mass index [BMI] 23.0-23.9, adult
CPT/HCPCS: 10783

== ENCOUNTER → 2018-10-04 | Outpatient (CLI) | payer OTHER, BC ==
[~2018-10-04] MED LIST changes: +ASA5UEC PO; +ATORVASTATIN CA40 MG PO; +DOXYCYCLINE 10100 MG PO; +OXYCODONE HCL10 MG PO; +PLAVIX 75 MG TA75 M1 PO; +PROTONIX40 M1 PO; +ZINC SULFATE 2220 M1 PO; +[UNRECOGNIZED DRUG - OTHER]
== END ==
LOC: HYPER 07:02
DX: L89.133 Pressure ulcer of right lower back, stage 3 (principal); L89.153 Pressure ulcer of sacral region, stage 3; L84 Corns and callosities; M86.8X8 Other osteomyelitis, other site; E78.5 Hyperlipidemia, unspecified; G82.21 Paraplegia, complete; I10 Essential (primary) hypertension; K21.9 Gastro-esophageal reflux disease without esophagitis; F41.9 Anxiety disorder, unspecified; F32.9 Major depressive disorder, single episode, unspecified; Z87.891 Personal history of nicotine dependence

== ENCOUNTER 2018-10-09 12:15 | Inpatient (IN) | payer OTHER, BC ==
[~2018-10-09] VITALS: Ht 185.4 cm; Wt 88.3 kg
[2018-10-09 12:19] VITALS: BP 152/83
[2018-10-09 12:54] LABS: ABSOLUTE NEUTROPHILS 9.6 thou/uL (1.4-8.2); BASOPHILS 0.7 % (0.0-2.0); EOSINOPHILS 5.7 % (0.0-3.0); HEMATOCRIT 45.6 % (42.0-52.0); HEMOGLOBIN 15.2 gm/dL (14.0-18.0); LYMPHOCYTES 16.1 % (24.0-44.0); MCH 29.2 pg (26.0-34.0); MCHC 33.3 g/dL (28.0-37.0); MCV 87.6 fL (80.0-100.0); MONOCYTES 8.1 % (1.0-8.0); PLATELET COUNT 279 thou/uL (150-400); POLYS 69.4 % (36.0-66.0); RDW 14.9 % (10.5-14.5); WBC 13.9 thou/uL (4.0-11.0)
[2018-10-09 13:02] LABS: CALCIUM 9.2 mg/dL (8.5-10.1); CREATININE 0.7 mg/dL (0.7-1.3); POTASSIUM 4.5 mmol/L (3.5-5.1)
[2018-10-09 13:08] LABS: ALBUMIN 3.3 g/dL (3.4-5.0); TOTAL BILIRUBIN 0.4 mg/dL (<0.1-1.0); TOTAL PROTEIN 7.8 g/dL (6.4-8.2)
[2018-10-09 13:21] LABS: URINE BILIRUBIN NEGATIVE (Negative); URINE BLOOD NEGATIVE (Negative); URINE CLARITY CLEAR; URINE COLOR YELLOW; URINE GLUCOSE-RANDOM* NEGATIVE (Negative); URINE KETONES NEGATIVE (Negative); URINE NITRITE-REFLEX NEGATIVE (Negative); URINE PROTEIN (DIPSTICK) NEGATIVE (Negative); URINE UROBILINOGEN 0.2 E.U./dl (0.2-1.0)
[2018-10-09 13:23] LABS: URINE LEUKOCYTES-REFLEX 3+ (Negative)
[2018-10-09 13:32] LABS: BACTERIA-REFLEX None Seen /HPF (None Seen); CASTS None Seen /LPF (None Seen); CRYSTALS None Seen /LPF (None Seen); SQUAMOUS 0-3 Few /LPF (0-3); URINE RBC 0-2 Rare /HPF (0-2)
[2018-10-09 13:39] LABS: URINE WBC-REFLEX 6-15 Few /HPF (0-5)
[2018-10-09] MEDS ORDERED: TESTOSTERO200 MG/11 IM (14:32)
[2018-10-10 00:38] VITALS: BP 149/65
[2018-10-10 05:49] LABS: HEMATOCRIT 43.8 % (42.0-52.0); HEMOGLOBIN 14.9 gm/dL (14.0-18.0); MCH 29.5 pg (26.0-34.0); MCHC 33.9 g/dL (28.0-37.0); MCV 86.9 fL (80.0-100.0); RBC 5.04 mil/uL (4.50-6.00); RDW 15.2 % (10.5-14.5)
[2018-10-10 06:03] LABS: CALCIUM 9.4 mg/dL (8.5-10.1); CREATININE 0.8 mg/dL (0.7-1.3); MAGNESIUM 1.9 mg/dL (1.8-2.4); POTASSIUM 4.4 mmol/L (3.5-5.1)
--- NOTE | 2018-10-10 06:35 | NUR ---
PT IN ED HOLDING AREA. ASSESSMENT CHARTED. PT'S PAIN IS PARTIAL RELEIVED BY HYDROMORPHONE & OXYCODONE. PT IS SELF TURNING FOR COMFORT. PLANS ARE CASEMANAGMENT TO HELP PLACE IN NURSING FACILITY PER PATIENT UNTIL NEXT FOLLOW UP VISIT WITH KENDELL. ALL NEEDS ADDRESSED. CONTINUE WITH PLAN OF CARE.
--- NOTE | 2018-10-10 13:39 | NUR ---
WOUND CONSULT: PT. WAS SEEN TODAY BY DR. LUNDBERG AND MYSELF. PT. IS WELL KNOWN TO THE WOUND CARE TEAM. PT. HAS RESOLVING STAGE 3 PRESSURE ULCERS TO HIS MID LOWER BACK AND SACRUM. SKIN SUBS WERE APPLIED TO THESE WOUNDS ON MONDAY IN CLINIC. SILAS WERE REMOVED AT TODAYS VISIT. WOUNDS BEDS ARE HEALTHY IN APPEARENCE. RECOMMENDATIONS: WOUND CARE TO MID LOWER BACK AND SACRUM: GENTLY CLEANSE AREA WITH WOUND CLEANSER OR NORMAL SALINE, APPLY PURACOL AG TO WOUND BED, COVER WITH OPTIFOAM, COMPLETE CARES M/W/F AND PRN. PT. AND STAFF NURSE WERE INSTRUCTED ON PLAN OF CARE.
[2018-10-10 13:56] VITALS: BP 168/72
[2018-10-10 14:25] VITALS: BP 120/68
[2018-10-10 14:36] VITALS: BP 168/78
--- NOTE | 2018-10-10 14:37 | NUR ---
DISCHAGED TO ICU POD 3 VIA BED. REPORT CALLED TO ICU NURSE JULIE. HAYNES
[2018-10-10 19:30] VITALS: BP 126/62
[2018-10-10 21:54] VITALS: BP 126/62
[2018-10-11 00:06] VITALS: BP 117/76
[2018-10-11 04:02] VITALS: BP 118/57
--- NOTE | 2018-10-11 04:45 | NUR ---
PT IS STILL IN ALOT OF PAIN AND IS HAVING FREQUENT PAIN MEDICATION FOR TOLERANCE. ASSESSMENT CHARTED. WAITING FOR POSSIBLE PLACEMENT TO NURSING FACILITY PER PATIENT BUT NO WORD YET FROM PROVIDERS OR CASEWORKERS. WOUND PICTURES TAKEN TODAY AND PLACED IN CHART. CALL LIGHT IN REACH. CONTINUE WITH PLAN OF CARE.
[2018-10-11 05:55] LABS: HEMATOCRIT 43.4 % (42.0-52.0); HEMOGLOBIN 14.1 gm/dL (14.0-18.0); MCH 28.4 pg (26.0-34.0); MCHC 32.4 g/dL (28.0-37.0); MCV 87.7 fL (80.0-100.0); RBC 4.96 mil/uL (4.50-6.00); RDW 15.4 % (10.5-14.5); WBC 8.9 thou/uL (4.0-11.0)
[2018-10-11 06:05] LABS: CALCIUM 8.5 mg/dL (8.5-10.1); CREATININE 0.7 mg/dL (0.7-1.3); MAGNESIUM 1.5 mg/dL (1.8-2.4)
[2018-10-11 08:00] VITALS: BP 128/68
--- NOTE | 2018-10-11 08:47 | NUR ---
Assess due to notification of wounds. Pt with multiple admissions. Hx spinal cord injury, paralysis. Chronic wounds, followed by wound care-stage III to lower back and sacrum which were noted to have healthy wound beds. Wts typically stable around 185 lb. On zinc sulfate. Prefers pietro for oral supplement. Low nutrition risk.
--- NOTE | 2018-10-11 10:16 | HC ---
[facility] [place] [address] CONSULTATION Name: PATRICIA FLYNN Room #: 248-P [facility] Chanell#: [id number] Admission: 10/09/18 ������������������ Attend Phys: Bryan Foote MD Discharge: ������������������ Date of : 57 Report #: [id number] THIS REPORT FOR: //name// CC: Bryan Mcgowan DATE OF SERVICE: 10/10/2018 CHIEF COMPLAINT: Right posterior superior iliac crest ulceration and sacral ulceration. HISTORY OF PRESENT ILLNESS: This is a 63-year-old male patient with a history of paraplegia following a spinal cord injury. He has had multiple urinary tract infections and persistent ulcerations to his left iliac crest and sacral region. He is having ongoing urinary leakage and increasing weakness at home and is admitted for further evaluation and treatment. The patient has limited ability to offload at home and was having increasing difficulty caring for himself. ALLERGIES: INCLUDE HYDROCODONE, MEROPENEM, ZOSYN, MORPHINE AND FENTANYL. MEDICATIONS: Include methadone, oxycodone, alprazolam, ondansetron, Prozac, cyanocobalamin, multivitamin, vitamin C, Prevacid, Norvasc, cholecalciferol and Tylenol. PAST MEDICAL HISTORY: Positive for paraplegia secondary to spinal cord injury in 1985. He has a history of hypertension, previous DVT and pulmonary emboli, chronic pain syndrome, neurogenic bladder with both suprapubic catheter and Gaxiola catheter in place. He is a previous smoker. He has had surgical debridement of his sacral and iliac crest ulcerations. SOCIAL HISTORY: The patient is a former smoker and currently he denies alcohol or tobacco use. FAMILY HISTORY: Noncontributory. REVIEW OF SYSTEMS: CONSTITUTIONAL: The patient denies fever, chills or weight loss. Does complain of some generalized weakness. NEUROLOGICAL: The patient denies new focal weakness. He does have paraplegia. ENT: The patient denies earache, nasal drainage or sore throat. CARDIOVASCULAR: The patient denies chest pain, palpitations or diaphoresis. PULMONARY: No cough, shortness of breath. GASTROINTESTINAL: The patient denies nausea, vomiting, diarrhea or abdominal pain. GENITOURINARY: The patient does complain of urinary leakage and persistent moisture on the sacral region. [address] [address] CONSULTATION Name: PATRICIA FLYNN Room #: [address] [place] [address] Chanell#: [id number] Admission: 10/09/18 ������������������ Attend Phys: Bryan Foote MD Discharge: ������������������ Date of : 56 Report #: [id number] ORTHOPEDIC: The patient is aware of the ulcerations of the sacrum and left iliac crest. Other systems in a 14-point review of systems are negative. PHYSICAL EXAMINATION: VITAL SIGNS: At this time include temperature 36.6, pulse 62, respiratory rate of 18, blood pressure 168/78. GENERAL: This is a chronically ill-appearing male patient who appears to be in minimal distress. HEENT: Head normocephalic. Nose and throat are clear. NECK: Supple. LUNGS: Clear. HEART: ____. ABDOMEN: Bowel sounds are present. Suprapubic catheter is noted. Examination of the sacral gluteal region demonstrates stage 4 pressure ulceration of the right posterior superior iliac crest and sacral ulceration. These are clean and granulating. There is evidence for recent PriMatrix skin substitute in place. The ulcers are improved since I last saw him. There are anita that are in place. These are removed. NEUROLOGIC: The patient is paraplegic. No new changes. LABORATORY DATA: Includes white blood cell count 13.9 with hemoglobin 15.2, hematocrit of 45.6 and platelet count 279,000. Sodium 134, potassium 4.5, chloride 98, CO2 of 28, BUN 29 and creatinine 0.7. Albumin is 3.3. CLINICAL IMPRESSION: 1. Stage 4 pressure ulcerations to the right posterior superior iliac crest, status post previous debridement and placement of skin substitute. 2. Stage 4 pressure ulceration of the sacrum, status post surgical debridement and placement of skin substitute 3. Paraplegia secondary to spinal cord injury. 4. Persistent urinary leakage with suprapubic catheter and Gaxiola catheter in place. RECOMMENDATIONS: At this point in time, the patient is admitted to the hospital. I recommend a Fibracol collagen dressing to both of the pressure ulcerations followed by bordered foam dressings to be changed on a Monday, Monday and Monday basis and as needed. He will need a low air loss mattress, q. 2 hour turning and positioning. He may need placement for longer term care I appreciate being asked to see him in consultation. ��������������������������������������������� <ELECTRONICALLY SIGNED> ���������������������������������������� By: Bakari Contreras MD ��������������������������������������������� 10/11/18 1016 [id number] Bakari Contreras MD /nt
--- NOTE | 2018-10-11 12:47 | NUR ---
INITIAL ASSESSMENT: JOHN reviewed chart and spoke with nursing and attending physician. Pt was admitted as observation status. Pt with hx of paraplegia and chronic wounds. Pt has a suprapubic catheter in place. Pt uses his w/c and is able to use his upper body strength to transfer and do ADLs. Pt was recently discharged home with [facility] on 09/14. Pt requesting placement due to inability to take care of himself at this time. [facility] came to evaluate pt yesterday while pt was in the ER. Director of Case Mgmt contacted [facility] as pt has been there in the past. [facility] is unable to accept pt. Director of also contacted [facility] liaison, who states they will not have a bed available until at least Monday, 10/15. JOHN met with pt at bedside. Introduced role of JOHN. Pt is alert/orientated x 4. Pt reports he has been able to take care of himself until recently. Pt states he is urinating constantly and is unable to do anything for himself, and his wounds are becoming saturated with urine. Pt's HH RN comes M-W-. JOHN discussed options for post-acute placement. Pt states that he would prefer to go to [facility]. SW explained that there are not any beds available until next Monday. JOHN provided pt with list of alternate SNFs for review. Pt requests referral to be sent to [facility] for review. Pt's wound care doctor goes to [facility], and pt may be able to move to [facility] when a bed is available. community planner faxed referral to [facility] and [facility] for review. Awaiting input from [facility] at this time. JOHN is following to assist as needed with discharge planning.
--- NOTE | 2018-10-11 12:53 | NUR ---
DISCHARGE PLANNING. PATIENT IS READY FOR DISCHARGE TODAY. POST ACUTE CARE RECOMMENDED. REFERRAL FAXED TO [facility] AND [facility]. REFERRAL FAXED TO BOTH ADMISSIONS COORDINATORS. CALL PLACED TO THEM. [facility] WILL NOT HAVE BED AVAILABLE UNTIL MONDAY. [facility] WILL NOT HAVE BED AVAILABLE TODAY, POSSIBLY TOMORROW. UNIT SW NOTIFIED. FOLLOWING TO ASSIST WITH DISCHARGE NEEDS.
[2018-10-11 16:00] VITALS: BP 115/62
--- NOTE | 2018-10-11 16:02 | NUR ---
WOUND FOLLOW UP: PT. WAS SEEN TODAY BY DR. LUNDBERG AND MYSELF. PT. WOUNDS ARE STABLE AT THIS TIME AND FREE OF ANY SIGNS OR SYMPTOMS OF INFECTION. RECOMMENDAITONS: CONTINUE WITH CURRENT PLAN OF CARE. PT. AND STAFF NURSE WERE INSTRUCTED ON PLAN OF CARE.
[2018-10-11 19:39] VITALS: BP 124/69
--- NOTE | 2018-10-11 20:32 | NUR ---
PT LEFT ICU VIA W/C WITH STABLE CONDITIONS . HE IS ACCOMPANIED WITH NDT INSPECTOR TO ROOM 422. [facility] HAS BEEN SENT WITH PT. REPORT CALLED TO [facility].
[2018-10-11 20:49] VITALS: BP 138/69
--- NOTE | 2018-10-12 03:08 | NUR ---
PT WAS TRANSFERRED FROM ICU AT [facility] IN A STABLE CONDITION.PT C/O PAIN ON HIA BACK,MANGED WITH PRN PO AND IV MEDS.PT WITH GOOD UPPER BODY STRENGTH,ABLE TO REPOSITION SELF IN BED.DRSG ON HIS LOWER BACK REINFORCED,OTHER BLANK C/D.EDEMA TO BLE.SUPRAPUBIC CATH IN PLACE.PT ABLE TO MAKE HIS NEEDS KNOWN.CALL LIGHT WITHIN REACH.
[2018-10-12 04:00] VITALS: BP 121/65
[2018-10-12 07:06] LABS: HEMATOCRIT 43.8 % (42.0-52.0); HEMOGLOBIN 14.6 gm/dL (14.0-18.0); MCH 29.2 pg (26.0-34.0); MCHC 33.2 g/dL (28.0-37.0); MCV 87.7 fL (80.0-100.0); RBC 4.99 mil/uL (4.50-6.00); RDW 15.2 % (10.5-14.5); WBC 7.3 thou/uL (4.0-11.0)
[2018-10-12 07:10] LABS: CALCIUM 9.5 mg/dL (8.5-10.1); CREATININE 0.8 mg/dL (0.7-1.3); MAGNESIUM 1.7 mg/dL (1.8-2.4); POTASSIUM 4.3 mmol/L (3.5-5.1)
[2018-10-12 09:25] VITALS: BP 128/69
--- NOTE | 2018-10-12 13:47 | NUR ---
Assessment completed.vss.Pt in bed c/o back and generalized pain. Pain med given as ordered with relief.Pt wanted digital deimpaction prior to dc [place] today.radiology services manager arranged for transport and pt notified about merchandise pickup/receiving associate time.Will continue to monitor.
--- NOTE | 2018-10-12 15:14 | NUR ---
WOUND FOLLOW UP: PT. WAS SEEN TODAY BY DR. JUNG AND MYSELF. PT. WOUNDS ARE CLINICALLY BETTER WITH EACH VISIT. RECOMMENDATIONS: CONTINUE WITH CURRENT PLAN OF CARE. PT. AND STAFF NURSE WERE INSTRUCTED ON PLAN OF CARE.
--- NOTE | 2018-10-12 16:01 | NUR ---
PT. DISCHARGEING TODAY TO [facility]. SPOKE WITH ALEKSANDAR IN ADM. AND SHE RECEIVED DC ORDERS AND ARRANGED TRANSPORTATION VIA [facility] AT 1730 TODAY. PT. NOTIFIED HIS FAMILY OF DC AND TIME OF TRANSPORT. UNIT NOTIFIED AND CHART COPY PER US. RN TO CALL REPORT TO [phone].
--- NOTE | 2018-10-12 16:21 | NUR ---
CM SPOKE WITH ALEKSANDAR IN ADMISSIONS AT [facility] AND THEY ARE ABLE TO ACCEPT PT FOR ADMISSION THIS DAY. ORDERS WERE FAXED. CHART COPY MADE. REPORT TO BE CALLED TO [phone]. [facility] TRANSPORT SET FOR 1730. PT IS AWARE AND AGREEABLE. NO OTHER CM INTERVENTION INDICATED AT THIS TIME. CASE CLOSED.
== END 2018-10-12 18:57 | DRG 593 ==
LOC: ER 12:15 → EROBS 14:25 → ICU 10-10 15:22 → 4E 10-11 11:29
PROVIDERS: Nurse Practitioner Family; ADMIT Internal Medicine
DX: L89.214 Pressure ulcer of right hip, stage 4 (principal); G82.20 Paraplegia, unspecified; E44.0 Moderate protein-calorie malnutrition; L89.153 Pressure ulcer of sacral region, stage 3; I10 Essential (primary) hypertension; G89.4 Chronic pain syndrome; D72.829 Elevated white blood cell count, unspecified; T14.8XXA Other injury of unspecified body region, initial encounter; K59.00 Constipation, unspecified; K21.9 Gastro-esophageal reflux disease without esophagitis; Z86.718 Personal history of other venous thrombosis and embolism; Z86.711 Personal history of pulmonary embolism; Z88.6 Allergy status to analgesic agent; Z88.8 Allergy status to other drugs, medicaments and biological substances; Z87.891 Personal history of nicotine dependence; Z86.14 Personal history of Methicillin resistant Staphylococcus aureus infection; Z82.49 Family history of ischemic heart disease and other diseases of the circulatory system; Z79.899 Other long term (current) drug therapy; X58.XXXA Exposure to other specified factors, initial encounter; Y93.89 Activity, other specified; Y92.89 Other specified places as the place of occurrence of the external cause; Y99.8 Other external cause status
CPT/HCPCS: 10084

== ENCOUNTER 2018-11-24 17:24 | Emergency (ER) | payer OTHER, BC ==
[~2018-11-24] VITALS: Ht 177.8 cm; Wt 86.2 kg
[~2018-11-24 17:24] MED LIST changes: +TESTOSTERO200 MG/11 IM
[2018-11-24 18:57] LABS: ABSOLUTE NEUTROPHILS 6.7 thou/uL (1.4-8.2); BASOPHILS 0.7 % (0.0-2.0); EOSINOPHILS 5.1 % (0.0-3.0); HEMOGLOBIN 15.6 gm/dL (14.0-18.0); LYMPHOCYTES 16.6 % (24.0-44.0); MCH 28.3 pg (26.0-34.0); MCHC 33.9 g/dL (28.0-37.0); MCV 83.6 fL (80.0-100.0); MONOCYTES 9.8 % (1.0-8.0); PLATELET COUNT 216 thou/uL (150-400); POLYS 67.8 % (36.0-66.0); RDW 15.5 % (10.5-14.5); WBC 9.8 thou/uL (4.0-11.0)
[2018-11-24 19:06] LABS: CALCIUM 9.7 mg/dL (8.5-10.1); CREATININE 0.7 mg/dL (0.7-1.3); POTASSIUM 4.5 mmol/L (3.5-5.1)
[2018-11-24 19:12] LABS: ALBUMIN 3.5 g/dL (3.4-5.0); TOTAL BILIRUBIN 0.2 mg/dL (<0.1-1.0); TOTAL PROTEIN 7.4 g/dL (6.4-8.2)
[2018-11-24] MEDS ORDERED: BACTRIM DS TAB1 EACH PO (20:53)
[2018-11-24 21:46] VITALS: BP 141/75
== END 2018-11-24 21:47 | disposition home or self-care (01) ==
LOC: ER 17:24
PROVIDERS: Physician Assistant
DX: T81.30XA Disruption of wound, unspecified, initial encounter (principal); I10 Essential (primary) hypertension; K21.9 Gastro-esophageal reflux disease without esophagitis; Z87.891 Personal history of nicotine dependence; Z88.5 Allergy status to narcotic agent; Z88.8 Allergy status to other drugs, medicaments and biological substances

== ENCOUNTER 2018-12-17 13:11 | Inpatient (IN) | payer OTHER, BC ==
[~2018-12-17] VITALS: Ht 175.3 cm; Wt 90.7 kg
[2018-12-17 13:15] VITALS: BP 146/93
[2018-12-17 14:13] LABS: ABSOLUTE NEUTROPHILS 6.1 thou/uL (1.4-8.2); BASOPHILS 0.7 % (0.0-2.0); EOSINOPHILS 3.8 % (0.0-3.0); HEMATOCRIT 48.5 % (42.0-52.0); HEMOGLOBIN 16.3 gm/dL (14.0-18.0); LYMPHOCYTES 16.7 % (24.0-44.0); MCH 28.8 pg (26.0-34.0); MCHC 33.6 g/dL (28.0-37.0); MCV 85.6 fL (80.0-100.0); MONOCYTES 10.3 % (1.0-8.0); PLATELET COUNT 198 thou/uL (150-400); POLYS 68.5 % (36.0-66.0); RBC 5.67 mil/uL (4.50-6.00); RDW 17.5 % (10.5-14.5); WBC 8.9 thou/uL (4.0-11.0)
[2018-12-17 14:22] LABS: URINE BILIRUBIN NEGATIVE (Negative); URINE BLOOD NEGATIVE (Negative); URINE CLARITY CLEAR; URINE COLOR YELLOW; URINE GLUCOSE-RANDOM* NEGATIVE (Negative); URINE KETONES NEGATIVE (Negative); URINE LEUKOCYTES-REFLEX NEGATIVE (Negative); URINE NITRITE-REFLEX NEGATIVE (Negative); URINE PROTEIN (DIPSTICK) NEGATIVE (Negative); URINE SPECIFIC GRAVITY <= 1.005 (1.005-1.035); URINE UROBILINOGEN 0.2 E.U./dl (0.2-1.0)
[2018-12-17 14:23] LABS: ANION GAP 8 mmol/L (7-16); BUN 28 mg/dL (7-18); CALCIUM 9.5 mg/dL (8.5-10.1); CHLORIDE 98 mmol/L (98-107); CO2 27 mmol/L (21-32); CREATININE 0.8 mg/dL (0.7-1.3); GLUCOSE 103 mg/dL (74-106); POTASSIUM 4.5 mmol/L (3.5-5.1); SODIUM 133 mmol/L (136-145)
[2018-12-17 14:33] LABS: ALBUMIN 3.6 g/dL (3.4-5.0); LIPASE 107 U/L (73-393); SGOT 19 U/L (15-37); SGPT 30 U/L (30-65); TOTAL BILIRUBIN 0.5 mg/dL (<0.1-1.0); TOTAL PROTEIN 7.6 g/dL (6.4-8.2); TROPONIN-I <0.06 ng/mL (<0.06)
[2018-12-17 15:43] LABS: AMP/METHAMP Negative (Negative); BARBITURATES Negative (Negative); BENZODIAZEPINES POSITIVE (Negative); COCAINE Negative (Negative); METHADONE POSITIVE (Negative); OPIATES Negative (Negative); PCP Negative (Negative)
[2018-12-17 16:08] VITALS: BP 150/84
--- NOTE | 2018-12-17 16:13 | NUR ---
ATTEMPTED TO CALL REPORT; ADVISED THAT NURSE IS BUSY DISCHARGING PEOPLE SO CAN SHE CALL YOU BACK?"
[2018-12-17 16:37] VITALS: BP 146/86
[2018-12-17 17:20] VITALS: BP 161/92
[2018-12-17 19:35] VITALS: BP 126/78
--- NOTE | 2018-12-17 20:19 | NUR ---
Admitted in Rm 461, patient came in via bed complaining of weakness, N + V. transfered to bed safely. With port at L chest. Patient complained of pain, due medication given thru port. ED staff handed over that patient came in with pressure sores at buttocks, wound nurse put in for consult. Pt seen by Dr. Mcgowan; PT/OT consult ordered. Pt requested to have Tylenol, Xanax instead of valium and for laxatives as he has not opened his bowels for [address] Mcgowan informed and put in orders. With Gaxiola catheter- draining well. Patient paraplegic, no movement on both legs but with 90% sensation. Patient came in with Home health.
[2018-12-18 03:06] VITALS: BP 113/77
[2018-12-18 03:07] VITALS: BP 113/77
[2018-12-18 07:35] VITALS: BP 115/77
--- NOTE | 2018-12-18 08:13 | EKG ---
[place] [address] [facility] [facility] [place] [address] ELECTROCARDIOGRAM REPORT Name: PATRICIA FLYNN Room #: 463-P ADM IN M.R.#: [id number] ������������������ Admission: 12/17/18 ������������������ Attend Phys: Arian Mcgowan MD Discharge: ������������������ Date of : 57 Report #: [id number] ����������������������������������������������������������������� [id number] THIS REPORT FOR: //name// [facility] ED Test Date: 2018-12-17 Test Time: 14:08:06 Pat Name: PATRICIA FLYNN Department: Room: 463 Gender: M Media Analytics Manager: Amie RODRIGUEZ RN : [id number] Requested By: Yisel Mcgee Order Number: [id number] MD: Carter Dykes Measurements Intervals [place] Rate: 74 P: 56 OR: 206 QRS: 105 QRSD: 97 T: 35 QT: 353 QTc: 392 Interpretive Statements Sinus rhythm Abnormal R-wave progression, late transition Minimal diffuse ST segment elevation, consider early repolarization Compared to ECG 09/09/2018 09:04:48 No significant change was found Electronically Signed On 12-18-2018 8:13:38 CDT by Carter Dykes [email or web address] ��������������������������������������������� <ELECTRONICALLY SIGNED> ���������������������������������������� By: Carter Dykes MD, [facility] ��������������������������������������������� 12/18/18 0813 1408 1408 Carter Dykes MD, [facility] /EPI
[2018-12-18 13:58] VITALS: BP 122/72
--- NOTE | 2018-12-18 16:43 | NUR ---
PT ADMITTED RELATED TO UTI, WEAKNESS, NV. CM REVIEWED CHART AND SPOKE WITH CARE TEAM. CM MET WITH PT AT BEDSIDE THIS DAY. PT IS A&O X4. CM ROLE INTRODUCED. PT INDICATED HE LIVES IN A HOUSE ALONE WITH A RAMP TO ENTER. PT USES A WHEELCHAIR TO ASSIST WITH MOBILITY. PT HAS MOST RECENTLY HAD [facility] . PT INDICATED THAT HE IS INTERESTED IN POST ACUTE CARE STAY AT [facility] CHOICE AND THEN [facility]. CM REQUESTED THAT [facility] [employer] [facility] SEND RERFERRAL. CM TO FOLLOW INDICATED WITH DC PLANNING.
[2018-12-18 20:25] VITALS: BP 159/72
--- NOTE | 2018-12-18 20:32 | NUR ---
ASSUMED CARE 0700. A/OX4 FROM HOME AND HH. PAIN MANAGED WITH MEDICATIONS. WOUND CARE ROUNDED NO ORDERS DUE TO HEALED WOUNDS.COMPLAIN SO BLADDER SPASMS [id number] SPONGE DRESSING AROUND CATHETER. PARAPELIGIC/ ABLE TO TURN AND READJUST HIMSELF IN BED. CALLS APPROPRIATLY. FALL PRECAUTIONS IN PLACE
[2018-12-18] MEDS ORDERED: PLAVIX 75 MG TA75 M1 PO (23:05)
[2018-12-19 04:25] VITALS: BP 145/67
--- NOTE | 2018-12-19 07:36 | NUR ---
progress pt reports pain of a 6 to 8 taking dilaudid 2 mg q3hrs and zofran q3hrs with some effect pt stated pain got down to a 6 which is the lowest hes been in awhile. assists in repositioning self, had 1 small soft stool and 1 hard small stool. suprapubic catheter intact draining yellow urine still leaking dressing changed twice. continue to monitor.
[2018-12-19 07:38] VITALS: BP 133/75
--- NOTE | 2018-12-19 08:41 | NUR ---
WOUND CONSULT: PT. WAS SEEN ON 12/18/[address] LUNDBERG AND MYSELF. PT. IS WELL KNOWN TO THE WOUND CARE TEAM. PT. HAS A HEALING STAGE 3 PRESSURE ULCER TO HIS LOWER BACK. ALL OTHER WOUNDS HAVE RESOLVED AT THIS TIME. RECOMMENDATIONS: WOUND CARE TO LOWER BACK: GENTLY CLEANSE AREA WITH WOUND CLEANSER OR NORMAL SALINE, APPLY PURACOL AG TO WOUND BED, COVER WITH OPTIFOAM, COMPLETE CARES DAILY AND PRN. PT. AND STAFF NURSE WERE INSTRUCTED ON PLAN OF CARE.
--- NOTE | 2018-12-19 09:58 | NUR ---
DISCHARGE PLANNING. ANTICIPATED DISCHARGE PLANNED FOR MONDAY. POST ACUTE CARE RECOMMENDED AT DISCHARGE. PATIENT AGREEABLE AND REQUESTS REFERRAL SENT TO [facility], FOR DISCHARGE NEEDS. PATIENT HAS BEEN TO [facility] IN THE PAST. REFERRAL FAXED TO [facility] AD[facility]. CALL PLACED TO BOTH TO NOTIFY OF REFERRAL AND PATIENTS DISCHARGE NEEDS. ALE[facility] TO REVIEW REFERRAL AND NOTIFY CM ONCE COMPLETE. FOLLOWING TO ASSIST WITH DISCHARGE NEEDS.
--- NOTE | 2018-12-19 13:19 | NUR ---
TOWARDS POC PT A/O X4, VSS, AFEBRILE, PAIN MANAGED BY MEDS. PT PENDING DC AWAITING FOR PLACEMENT. WILL CONTINUE TO MONITOR.
[2018-12-19 14:10] VITALS: BP 129/69
--- NOTE | 2018-12-19 16:56 | NUR ---
WOUND FOLLOW UP: PT. WAS SEEN TODAY BY DR. LUNDBERG AND MYSELF. PT. WOUND IS CLINICALLY BETTER TODAY. RECOMMENDATIONS: CONTINUE WITH CURRENT PLAN OF CARE. PT. AND STAFF NURSE WERE INSTRUCTED ON PLAN OF CARE.
[2018-12-19 19:16] VITALS: BP 146/60
[2018-12-20 03:31] VITALS: BP 122/62
--- NOTE | 2018-12-20 07:46 | NUR ---
PROGRESS PT RATING PAIN A 9 AT START OF SHIFT TAKING 2 MG DILAUDID Q3HRS IV PUSH, ZOFRAN GIVING WITH DILAUDID. 2 DOSES OF OXYCODONE GIVEN TO GET PT'S PAIN UNDER CONTROL. DRANK A VERY LARGE AMOUNT OF WATER AND HAD OVER 4000CC'S OUT IN CATHETER. ASSISTS IN REPOSITIONING SELF IN BED, DRESSING TO MID BACK C/D/I WOUND UNDERNEATH NOT VISUALIZED. CONTINUE POC.
[2018-12-20 08:13] VITALS: BP 140/65
[2018-12-20 14:16] VITALS: BP 141/67
--- NOTE | 2018-12-20 15:16 | NUR ---
WOUND FOLLOW UP: PT. WAS SEEN TODAY BY DR. LUNDBERG AND MYSELF. PT. WOUND CONTINUES TO SHOW SIGNS OF CLINICALL IMPROVEMENT WITH EACH VISIT. RECOMMENDATIONS: CONTINUE WITH CURRENT PLAN OF CARE. PT. AND STAFF NURSE WERE INSTRUCTED ON PLAN OF CARE.
--- NOTE | 2018-12-20 16:51 | NUR ---
[facility] CAN ACCEPT PT ONCE MEDICALLY STABLE IT IS ANTICPATED THAT PT WILL LIKELY DC TOMORROW. CM TO FOLLOW INDICATED WITH DC PLANNING.
[2018-12-20 19:49] VITALS: BP 151/72
--- NOTE | 2018-12-20 20:13 | NUR ---
Received awake on bed. Due medications given as prescribed. On room air. With kiara-cath at left chest, patent, dressing intact. With healing pressure wounds at back and sacrum, patient turned regularly every 2 hours, wound nurse came today to change dressing and assess wound. Patient complained of pain, medications given as prescibed with partial to adequate pain control. Vital signs stable. patient complained unable to open bowels, glycerin supp given, able to open bowels afterwards. With suprapubic catheter in situ, bag changed as it was leaking, draining well. Patient had KUB xray today d/t constipation.
[2018-12-21 07:45] VITALS: BP 163/71
[2018-12-21 08:22] VITALS: BP 163/71
--- NOTE | 2018-12-21 10:43 | NUR ---
progress pt a/o x4 repositioned q2 with pt's assistance. taking 2 mg dilaudid and 4 mg zofran q3hrs for pain and nausea prevention one dose of oxycodone given to get pain under control. tolerating diet had a medium soft bm passed a large amount of flatus stated he doesn't feel as bloated as he had. continue to monitor.
--- NOTE | 2018-12-21 16:09 | NUR ---
WOUND FOLLOW UP: PT. WAS SEEN TODAY BY DR. LUNDBERG AND MYSELF. PT. WOUND IS CLINICALLY BETTER AND ALMOST RESOLVED. RECOMMENDATIONS: CONTINUE WITH CURRENT PLAN OF CARE. PT. AND STAFF NURSE WERE INSTRUCTED ON PLAN OF CARE.
--- NOTE | 2018-12-22 10:13 | HC ---
[facility] [place] [address] CONSULTATION Name: PATRICIA FLYNN Room #: 463-P [facility] IN M.R.#: [id number] Admission: 12/17/18 ������������������ Attend Phys: Arian Mcgowan MD Discharge: 12/21/18 ������������������ Date of : 57 Report #: [id number] THIS REPORT FOR: //name// CC: Arian Mcgowan DATE OF SERVICE: 12/18/2018 CHIEF COMPLAINT: Iliac crest and sacral pressure ulcerations. HISTORY OF PRESENT ILLNESS: The patient is a 63-year-old patient with whom I am familiar due to prior hospitalizations who was admitted to the hospital with urinary tract infection. He is noted to have recurrent or persistent pressure ulcerations to the sacral region as well as to the right posterior iliac crest and I have been asked to see him with regard to wound care. The patient states he feels sick as he typically will do when he has a urinary tract infection. He is concerned about the pressure ulcerations. He states he has done better when he is hospitalized and cared for in a care facility, but seems to not have much success and repositioning himself in the home setting. Once again, we have had a lengthy discussion during this evaluation regarding appropriate offloading. CURRENT ALLERGIES: INCLUDE HYDROCODONE, MEROPENEM, ZOSYN, MORPHINE, AND FENTANYL. CURRENT MEDICATIONS: Include methadone, oxycodone, alprazolam, ondansetron, Prozac, cyanocobalamin, multivitamin, vitamin C, Pepcid, Norvasc, cholecalciferol, and Tylenol. PAST MEDICAL HISTORY: Positive for history of paraplegia secondary to spinal cord injury in 1985. He has history of hypertension, previous DVT and pulmonary emboli, chronic pain syndrome, neurogenic bladder. He has a suprapubic catheter. SOCIAL HISTORY: The patient is a previous smoker, currently denies alcohol or tobacco use. FAMILY HISTORY: Noncontributory. REVIEW OF SYSTEMS: CONSTITUTIONAL: The patient does complain of chills. Denies fever or weight loss. ENT: The patient denies earache, nasal drainage, sore throat. CARDIOVASCULAR: The patient denies chest pain, palpitations or diaphoresis. PULMONARY: The patient denies cough or shortness of breath. GASTROINTESTINAL: The patient denies nausea, vomiting, diarrhea, or abdominal pain. ORTHOPEDIC: The patient is aware of the ulcerations to the sacrum and the right [facility] [address] [place] [address] CONSULTATION Name: PATRICIA FLYNN Room #: 463-P [facility] IN [facility]#: [id number] Admission: 12/17/18 ������������������ Attend Phys: Arian Mcgowan MD Discharge: 12/21/18 ������������������ Date of : 57 Report #: [id number] posterior iliac crest. PSYCHIATRIC: The patient does complain of some anxiety. Other systems in a 14-point review of systems are negative. PHYSICAL EXAMINATION: VITAL SIGNS: At this time include temperature 36.7, pulse 66, respiratory rate 18, blood pressure 122/72. GENERAL: This is a chronically ill-appearing male patient who appears to be in minimal discomfort. HEENT: Head normocephalic. Nose and throat clear. NECK: Supple. LUNGS: Clear. HEART: Regular rhythm. ABDOMEN: Soft. Bowel sounds present. Suprapubic catheter is noted. He has a surgical incision in the perineal region that appears to be now epithelialized. The sacral region demonstrates what appears to be a hard callus. I have pared this back with a #15 blade scalpel revealing intact soft epithelium. The right posterior iliac crest ulceration is clean, granulating and about the size of a pencil eraser approximately 0.4 cm in diameter. There is no exposure of deep structures. NEUROLOGIC: The patient has paraplegia. He is otherwise awake, alert and oriented. LABORATORY DATA: Include sodium 133, potassium 4.5, chloride 98, CO2 27, BUN 28, creatinine 0.8. White blood cell count 8.9 with a hemoglobin of 16.3, hematocrit of 48.5. CLINICAL IMPRESSION: 1. Stage 3 pressure ulceration of the right posterior iliac crest. 2. Prior coccygeal pressure ulcer, which is closed. 3. Perineal surgical wound, which is closed. 4. Paraplegia secondary to spinal cord injury. 5. Urinary tract infection. RECOMMENDATIONS: At this point in time, we will recommend Fibracol and border foam to the iliac crest ulcer b.i.d. He will need a low air loss mattress and q. 2 hour turning and repositioning, aggressive nutritional support, continuation of current medications. I appreciate being asked to see him in consultation. ��������������������������������������������� <ELECTRONICALLY SIGNED> ���������������������������������������� By: Bakari Contreras MD ��������������������������������������������� 12/22/18 1013 0747 28 Bakari Contreras MD /nt
== END 2018-12-21 16:44 | DRG 593 ==
LOC: ER 13:11 → EROBS 15:26 → 4W 15:26
PROVIDERS: Physician Assistant; ADMIT Family Medicine
DX: L89.213 Pressure ulcer of right hip, stage 3 (principal); G82.20 Paraplegia, unspecified; N39.0 Urinary tract infection, site not specified; I10 Essential (primary) hypertension; G89.4 Chronic pain syndrome; K21.9 Gastro-esophageal reflux disease without esophagitis; T14.8XXA Other injury of unspecified body region, initial encounter; K59.00 Constipation, unspecified; Z88.6 Allergy status to analgesic agent; Z88.8 Allergy status to other drugs, medicaments and biological substances; Z86.718 Personal history of other venous thrombosis and embolism; Z86.711 Personal history of pulmonary embolism; Z86.14 Personal history of Methicillin resistant Staphylococcus aureus infection; Z82.49 Family history of ischemic heart disease and other diseases of the circulatory system; Z80.9 Family history of malignant neoplasm, unspecified; X58.XXXA Exposure to other specified factors, initial encounter; Y93.89 Activity, other specified; Y92.89 Other specified places as the place of occurrence of the external cause; Y99.8 Other external cause status
CPT/HCPCS: 10047; 55322

== ENCOUNTER → 2019-02-06 | Outpatient (CLI) | payer OTHER, BC ==
--- NOTE | 2019-02-06 12:35 | NUR ---
PT IN FOR ROUTINE PORT FLUSH. PORT ACCESSED AND FLUSHED WITH EASE. GREAT BLOOD FLOW WHEN PT TURNS HEAD TO R. LABS ORDERED BY DR. EDWARD [facility] AND SENT TO [facility] PER THE REQUISITION SLIP PT HAD. PORT FLUSHED PER PROTOCOL AND DEACCESSED. PT REPORTS DOING WELL OTHER THAN LOW ENERGY LEVEL. DISMISSED IN STABLE CONDITION. WILL CALL WHEN READY TO RETURN.
== END ==
LOC: OPONC 04:58
DX: Z45.2 Encounter for adjustment and management of vascular access device (principal)

== ENCOUNTER → 2019-04-09 | Outpatient (CLI) | payer OTHER, BC | LOC: HYPER 06:49 | DX: L89.153 Pressure ulcer of sacral region, stage 3 (principal); L89.132 Pressure ulcer of right lower back, stage 2; L84 Corns and callosities; M86.8X8 Other osteomyelitis, other site; E78.5 Hyperlipidemia, unspecified; G82.20 Paraplegia, unspecified; R26.2 Difficulty in walking, not elsewhere classified; I10 Essential (primary) hypertension; K59.2 Neurogenic bowel, not elsewhere classified; K21.9 Gastro-esophageal reflux disease without esophagitis; F41.9 Anxiety disorder, unspecified; F32.9 Major depressive disorder, single episode, unspecified; Z87.891 Personal history of nicotine dependence ==

== ENCOUNTER → 2019-04-18 | Outpatient (CLI) | payer OTHER, BC | LOC: HYPER | DX: L89.153 Pressure ulcer of sacral region, stage 3 (principal); L89.103 Pressure ulcer of unspecified part of back, stage 3; M86.8X8 Other osteomyelitis, other site; E78.5 Hyperlipidemia, unspecified; G82.20 Paraplegia, unspecified; R26.2 Difficulty in walking, not elsewhere classified; I10 Essential (primary) hypertension; K59.2 Neurogenic bowel, not elsewhere classified; K21.9 Gastro-esophageal reflux disease without esophagitis; F41.9 Anxiety disorder, unspecified; F32.9 Major depressive disorder, single episode, unspecified; Z87.891 Personal history of nicotine dependence ==

== ENCOUNTER → 2019-04-26 | Outpatient (CLI) | payer OTHER, BC ==
--- NOTE | 2019-04-26 14:00 | NUR ---
HERE FOR MONTHLY PORT FLUSH. REPORTS NOT FEELING GREAT, THINKS HE MAY HAVE A UTI. ADDITIONALLY STATES HE IS GOING TO BE SCHEDULED FOR SURGERY SOON FOR NONHEALING COCCYX WOUND. ON HIS WAY TO DR. EDWARD'S FOR EVAL. THINKS HE MAY NEED LABS RUN TO [facility], MARKED AND SENT WITH PT TO TAKE WITH HIM TO DR. EDWARD'S OFFICE IN THE EVENT HE WANTS TO ORDER SOMEHTING. PORT ACCESSED AND DEACCESSED WITH EASE, BRISK BLOOD RETURN. DISMISSED IN STABLE CONDITION. WILL CALL WHEN READY TO RETURN.
== END ==
LOC: OPONC 01:32
DX: Z45.2 Encounter for adjustment and management of vascular access device (principal)

== ENCOUNTER 2019-05-08 06:48 | Inpatient (IN) | payer OTHER, BC ==
[~2019-05-08] VITALS: Ht 182.9 cm; Wt 91.2 kg
--- NOTE | 2019-05-08 13:55 | NUR ---
INITIAL ASSESSMENT: Pt evaluated for d/c planning needs. Reviewed chart and spoke with nurse and pt. Pt is alert and oriented. Pt is well know to CM from previous admissions. Pt has history of paraplegia and lives alone in house. Pt uses w/c for ambulation and was independent with ADL's prior to admission. Pt has had [facility] in the past. On previous admissions, pt has discharged to [facility] and [facility]. Pt plans on returning home on d/c from hospital. Will remain available to assist as needed.
[2019-05-08 16:20] LABS: ABSOLUTE NEUTROPHILS 7.1 thou/uL (1.4-8.2); BASOPHILS 0.8 % (0.0-2.0); EOSINOPHILS 4.6 % (0.0-3.0); HEMOGLOBIN 15.9 gm/dL (14.0-18.0); LYMPHOCYTES 16.4 % (24.0-44.0); MCH 30.4 pg (26.0-34.0); MCHC 33.9 g/dL (28.0-37.0); MCV 89.8 fL (80.0-100.0); MONOCYTES 10.8 % (1.0-8.0); PLATELET COUNT 289 thou/uL (150-400); POLYS 67.4 % (36.0-66.0); RBC 5.23 mil/uL (4.50-6.00); RDW 14.4 % (10.5-14.5); WBC 10.5 thou/uL (4.0-11.0)
[2019-05-08 16:33] LABS: ALBUMIN 2.9 g/dL (3.4-5.0); CALCIUM 9.3 mg/dL (8.5-10.1); CREATININE 0.9 mg/dL (0.7-1.3); POTASSIUM 4.4 mmol/L (3.5-5.1); TOTAL BILIRUBIN 0.2 mg/dL (<0.1-1.0)
--- NOTE | 2019-05-08 18:30 | NUR ---
PT RECEIVED FROM THE WOUND CLINIC DIRECT ADMIT TO RM 418. PT ALERT AND IN NO ACUTE DISTRESS. ADMISSION ORDERS RECEIVED. CONSULTS NOTIFIED. PT NOT FEELING WELL FOR SEVERAL DAYS. UA SENT TO LAB. EATING AND DRINKING WELL.
[2019-05-08 19:01] VITALS: BP 120/67
--- NOTE | 2019-05-09 03:11 | NUR ---
ASSUMED CARE OF PT @1900 PT ASSESSED AT START OF SHIFT WITH C/O OF GENERALIZED PAIN. PAIN MEDS GIVEN SEE EMAR. ABX AND FLUIDS INFUSING. SACRAL WOUND NOTED, PICTURE TAKEN AND CULTURE SENT TO THE LAB. PT PARAPALEGIC, FOLLEY CATHETHER INATCT AND YELLOW URINE NOTED. WILL CONT WITH POC TILL EOS.
[2019-05-09 03:45] VITALS: BP 127/68
[2019-05-09 07:11] VITALS: BP 124/78
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
--- NOTE | 2019-05-09 13:00 | NUR ---
FAXED REFERRAL TO [facility] SPOKE WITH PATTI IN ADM SHE RECEIVED REFERRAL AND WILL REVIEW. DCP TO FOLLOW.
--- NOTE | 2019-05-09 14:02 | NUR ---
ASSUMED PATIENT CARE AT 7 AM. THE CLIENT IS AWAKE AND ORIENTED X 4, CALM, COOPERATIVE, AND PLEASANT. CLIENT REPORTED PAIN A 9 AND RECEIVED DILAUDID FOR PAIN AND OXYCODONE. CLIENT STATED THE PAIN WAS PARTIALLY RELIEVED WITH THE MEDICATION. THE PATIENT WAS ABLE TO GIVE HIMSELF A BATH EXCEPT FOR HIS BACK AND LOWER EXTREMITIES IN WHICH HE REQUIRED ASSISTANCE. THE PATIENT WAS SET UP TO SHAVE AND WAS ABLE TO SHAVE HIMSELF. THE PATIENT REPORTED POOR REST AND INABILITY TO SLEEP SINCE ADMISSION. THE PATIENT'S OUTPUT IS VERY HIGH AND CLEAR LIGHT YELLOW URINE IS DRAINED FROM HIS SUPRAPUBIC CATHETER. EMPTIED PATIENT BOWELS THROUGH DIGITAL STIMULATION AROUND 10 AM. CLIENT REQUESTED PUDDING AND APPLESAUCE AFTER DISCUSSING THE NEED TO HAVE AN ADEQUATE DIET THIS MORNING WITH ANOTHER MEMBER OF THE HEALTHCARE TEAM. THE CLIENT IS ABLE TO TURN HIMSELF IN BED AND IS ABLE TO SHIFT HIS WEIGHT OCCASSIONALLY. ANTIBIOTICS WERE ADMINISTERED. THE CLIENT IS WEARING SCD'S WHEN IN HIS ROOM. THE CLIENT IS CURRENTLY GETTING A MRI. WILL CONTINUE TO MONITOR.
[2019-05-09 16:38] VITALS: BP 131/78
[2019-05-09 18:15] VITALS: BP 92/40
[2019-05-09 19:35] VITALS: BP 137/55
[2019-05-10 00:31] LABS: URINE BILIRUBIN NEGATIVE (Negative); URINE BLOOD 3+ (Negative); URINE CLARITY CLEAR; URINE COLOR YELLOW; URINE GLUCOSE-RANDOM* NEGATIVE (Negative); URINE KETONES NEGATIVE (Negative); URINE LEUKOCYTES 2+ (Negative); URINE NITRITE NEGATIVE (Negative); URINE PROTEIN (DIPSTICK) NEGATIVE (Negative); URINE UROBILINOGEN 0.2 E.U./dl (0.2-1.0)
[2019-05-10 00:48] LABS: BACTERIA 1-9 Few /HPF (None Seen); CASTS None Seen /LPF (None Seen); CRYSTALS None Seen /LPF (None Seen); MUCUS 0-3 Light strn/LPF (None Seen); SQUAMOUS 0-3 Few /LPF (0-3); URINE WBC 6-15 Few /HPF (0-5)
--- NOTE | 2019-05-10 02:19 | NUR ---
ASSESSMENT COMPLETED.PT C/O GEN PAIN,MANAGED WITH MED.PT'S SUPRAPUBIC CATH WAS CHANGED THIS SHIFT,UA SENT TO THE LAB.IVF AND ABX INFUSINE ORDERED.PT WITH ADEQUATE URINE OUTPUT.PT ABLE TO TURN SELF IN BED.WOUND DRSG DONE TO HIS COCCYX.PT RESTING ON HIS BED AT THIS TIME.FALL PRECAUTIONS IN PLACE,CALL LIGHT WITHIN REACH.
[2019-05-10 02:50] VITALS: BP 115/62
[2019-05-10 07:58] VITALS: BP 155/73
--- NOTE | 2019-05-10 11:43 | NUR ---
Assumed pt care at 7am.Pt in bed sound asleep till 830 am.Assessment completed.vss.Pt c/o generalized body ache and requested for pain med.Dilaudid iv and zofran ivp given with relief.Garcia here,no new order noted. Received call from operating room, updates given.Pt will be leaving at 1300 for surgery.Will continue to monitor.
--- NOTE | 2019-05-10 15:11 | HC ---
[facility] [place] [address] CONSULTATION Name: PATRICIA FLYNN Room #: 418-P [facility] IN M.R.#: [id number] Admission: 05/08/19 Attend Phys: Arian Mcgowan MD Discharge: Date of : 57 Report #: [id number] THIS REPORT FOR: //name// CC: Arian Jesushens DATE OF SERVICE: 05/08/2019 GENERAL SURGERY CONSULTATION REFERRING PROVIDER: Arian Mcgowan MD REASON FOR CONSULTATION: Sacral ischial decubitus wounds. HISTORY OF PRESENT ILLNESS: The patient is a 64-year-old paraplegic male with a history of sacral osteomyelitis and ongoing stage 4 sacral ischial decubitus wound. The patient underwent a prior myocutaneous flap coverage with subsequent wound breakdown and has been admitted for nearly 2 weeks of malaise and low-grade fevers. The patient does have a suprapubic catheter and states his urine has been cloudy and foul smelling and he is therefore admitted for suspected urinary tract infection and ongoing sacral decubitus wound. PAST MEDICAL HISTORY: Paraplegia due to cauda equina syndrome, sacral osteomyelitis, multiple back surgeries, chronic pain syndrome, bacteriuria with a suprapubic catheter in place, stroke with spinal cord injury, hypertension, DVT, GERD, tonsillectomy, and rotator cuff surgery. MEDICATIONS: Medications are currently Tylenol, aztreonam, Benadryl, Dilaudid, methadone, Flagyl, Zofran, oxycodone IR, and Valium. ALLERGIES: Numerous and include PENICILLIN, MEROPENEM, MORPHINE, FENTANYL, AND HYDROCODONE. FAMILY HISTORY: Reviewed and noncontributory. SOCIAL HISTORY: The patient does not currently utilize tobacco, alcohol, or illicit drugs. REVIEW OF SYSTEMS: The patient denies nocturnal fevers, but does have some chills, malaise. HEENT: No change in vision, change in hearing. NECK: No swelling or difficulty swallowing. HEART: No chest pain or palpitations. LUNGS: No cough or shortness of breath. ABDOMEN: No nausea, no vomiting. GENITOURINARY: No dysuria or hematuria. [facility] [address] [place] [address] CONSULTATION Name: PATRICIA FLYNN Room #: 418-P [facility] IN M.R.#: [id number] Admission: 05/08/19 Attend Phys: Arian Mcgowan MD Discharge: Date of : 57 Report #: [id number] ENDOCRINE: No polyuria or polydipsia. HEMATOLOGIC: No history of bleeding or easy bruising. EXTREMITIES: No history of DVTs. Does have a history of paraplegia. NEUROLOGIC: No history of syncope or near syncopal episodes. SKIN AND INTEGUMENT: Longstanding history of a sacral ischial decubitus wounds. PSYCHIATRIC: No history of anxiety or depression. PHYSICAL EXAMINATION: VITAL SIGNS: Temperature 97.6, pulse 66, respirations 18, blood pressure 120/67. He is 6 feet 0 inches tall and weighs 201 pounds. GENERAL: He is alert, in no acute distress. HEENT: Normocephalic, atraumatic. Pupils are equal, round, reactive to light. NECK: Supple, without lymphadenopathy. Trachea midline. HEART: Regular rate and rhythm. LUNGS: Clear to auscultation bilaterally. ABDOMEN: Soft, nontender, nondistended. GENITOURINARY: Normal external male genitalia with suprapubic catheter in place. EXTREMITIES: No clubbing, cyanosis, or edema. NEUROLOGIC: Cranial nerves 2-12 are grossly intact with paraplegia. PSYCHIATRIC: Normal mood and affect. SKIN AND INTEGUMENT: Sacral ischial decubitus wounds are seen. No gross infection identified. LABORATORY AND X-RAY DATA: CBC shows white blood cell count of 10.5 thousand, hemoglobin 15.9, platelets 289,000. Creatinine is 0.9. Liver function enzymes are normal. Albumin is low at 2.9. Chest x-ray shows no acute cardiopulmonary abnormality. ASSESSMENT AND PLAN: A 64-year-old male with paraplegia and a longstanding history of sacral ischial decubitus wounds with an ongoing stage 4 wound and sacral osteomyelitis who was admitted for likely urinary tract infection. The patient also has severe protein-calorie malnutrition and is currently undergoing antibiotic therapy under the direction of Infectious Disease. The patient will necessitate repeat debridement of his wound as it does have rolled edges and a significant amount of biofilm in the bed of the wound and as such, we will attempt to proceed with debridement and possible placement of an extracellular matrix tissue graft at the first available opportunity. I sincerely appreciate this consult and I will follow along and leave any further recommendations in the patient's chart as appropriate. <ELECTRONICALLY SIGNED> By: Sonia Chong MD, FACS 05/10/19 1511 [id number] Sonia Chong MD, FACS /nt
[2019-05-10 16:14] VITALS: BP 177/88
[2019-05-10 17:25] VITALS: BP 163/85
--- NOTE | 2019-05-10 19:18 | HC ---
[facility] [place] [address] CONSULTATION Name: PATRICIA FLYNN Room #: 418-P [facility] IN M.R.#: [id number] Admission: 05/08/19 Attend Phys: Arian Mcgowan MD Discharge: Date of : 56 Report #: [id number] THIS REPORT FOR: //name// CC: Arian Russell DATE OF SERVICE: 05/09/2019 HISTORY OF PRESENT ILLNESS: The patient is a 64-year-old male patient with whom I am familiar from multiple previous hospitalizations with a history of paraplegia. He has had recurring pressure ulcerations. He was admitted to the hospital yesterday from the wound clinic with concerns of fever, chills, possible urinary tract infection and failure of his sacral pressure ulceration to progress. PAST MEDICAL HISTORY: Positive for history of sacral pressure ulceration as well as an iliac crest pressure ulceration which is subsequently closed, recurrent urinary tract infections, suprapubic catheter, chronic pain syndrome, allergic rhinitis, leukocytosis, history of paraplegia secondary to spinal cord injury. ALLERGIES: PIPERACILLIN, TAZOBACTAM, MORPHINE, HYDROCODONE, FENTANYL, KETOROLAC AND MEROPENEM. MEDICATIONS: Include Tylenol, amlodipine, Azactam, diazepam, diphenhydramine, hydromorphone, methadone, metoprolol, metronidazole, ondansetron, oxycodone, pantoprazole. FAMILY HISTORY: Noncontributory. REVIEW OF SYSTEMS: CONSTITUTIONAL: The patient does complain of fever and chills. Denies recent weight loss. NEUROLOGICAL: The patient has paraplegia. No changes. ENT: The patient denies earache, nasal drainage, sore throat. CARDIOVASCULAR: The patient denies chest pain or palpitations or diaphoresis. PULMONARY: The patient denies cough or shortness of breath. GASTROINTESTINAL: The patient denies nausea, vomiting, diarrhea or abdominal pain. ORTHOPEDIC: The patient is aware of the ulceration to the sacral region and denies other orthopedic complaints. Other systems in a 14-point review of systems are negative. PHYSICAL EXAMINATION: VITAL SIGNS: Include temperature 35.8, pulse 68, respiratory rate of 18, blood pressure 92/40. [facility] [address] [place] [address] CONSULTATION Name: PATRICIA FLYNN Room #: 418-P [facility] IN .R.#: [id number] Admission: 05/08/19 Attend Phys: Arian Mcgowan MD Discharge: Date of : 56 Report #: [id number] GENERAL: This is a somewhat chronically ill-appearing male patient who appears to be in good spirits and smiling. HEENT: Head normocephalic. Nose and throat are clear. NECK: Supple. LUNGS: Clear. HEART: Regular. ABDOMEN: Soft, bowel sounds present. EXTREMITIES: Examination of the pelvic region demonstrates suprapubic catheter. Sacral region demonstrates pressure ulceration with rolled edges and some fibrin in the base, does not appear to be overtly infected, but appears to be in a chronic phase. NEUROLOGIC: The patient is alert and does move his upper extremities. He is paraplegic, otherwise. LABORATORY DATA: Include white blood cell count 10.5, hemoglobin 15.9. Sodium 137, potassium 4.4, chloride 101, CO2 of 33, BUN 18, creatinine 0.9, glucose 111. C-reactive protein is 22.1, albumin 2.9. CLINICAL IMPRESSION: 1. Stage 3 sacral pressure ulceration that has failed to progress. 2. Probable urinary tract infection, recurrent. 3. Paraplegia secondary to spinal cord injury. 4. Moderate protein-calorie malnutrition. RECOMMENDATIONS: At this point in time, we will recommend a Border foam dressing to the sacral ulceration. We have consulted Dr. Clark to see him for surgical debridement and placement of skin substitute. The patient will be on a low air loss mattress. He will need q. 2 hour turning and repositioning, aggressive nutritional support. Likely require a rehab stay following his acute hospitalization. The patient is agreeable to current plan of care. I appreciate being asked to see him in consultation. <ELECTRONICALLY SIGNED> By: Bakari Contreras MD 05/10/19 [id number] Bakari Contreras MD /nt
[2019-05-10 20:20] VITALS: BP 135/69
--- NOTE | 2019-05-11 00:44 | NUR ---
PT REQUESTED FOR PAIN MED X2 DIFFERENT TIMES NOW AND EACH TIME THE NURSE GETS TO THE PT'S ROOM, PT IS OBSERVED SLEEPING(SNORING).PAIN MED NOT ADMINISTERED AT THAT TIME.AT OTHER TIMES, HE IS AWAKE AND MED IS ADMINISTERED.SUPRAPUBIC CATH IN PLACE WITH ADQUATE OUTPUT.PT SLEEPING ON HIS BED AT THIS TIME.CALL LIGHT WITHIN REACH.
[2019-05-11 02:55] VITALS: BP 144/73
[2019-05-11 08:20] VITALS: BP 145/78
--- NOTE | 2019-05-11 11:18 | NUR ---
Assumed pt care at 7am.Pt in bed resting but ablr to repositioned self as needed.Assessment completed.vss.Pt c/o generalized pain.Dilaudid ivp given but called out for more pain med before the scheduled time.Pt encouraged to wait till med due time.Air loss pump attached to pt bed .Dr Green here,order noted.Pt has adequate u/o.Will continue to monitor.
[2019-05-11 16:58] VITALS: BP 162/84
[2019-05-11 20:30] VITALS: BP 124/71
--- NOTE | 2019-05-12 02:24 | NUR ---
ALERT AND ORIENTED.PLEASANT AND COOPERATIVE.AFEBRILE. CONTINUES TO GET ORAL AND IV ABTS. FIGUEROA WITH GOOD U/O. PT TURNS SELF IN BED. BLE ELEVATED ON PILLOWS.CALLS WITH NEEDS.WILL CONTINUE WITH POC TILL EOS.
[2019-05-12 04:00] VITALS: BP 147/71
[2019-05-12 08:20] VITALS: BP 144/70
[2019-05-12 08:24] VITALS: BP 144/70
--- NOTE | 2019-05-12 13:48 | NUR ---
ASSUMED PATIENT CARE AT 7 AM. CLIENT WAS SLEEPING SOUNDLY AT 7 AM. ONCE PATIENT AWOKE AROUND 8 AM PAIN MEDICATIONS WERE GIVEN, DIGITAL STIMULATION ALLOWED A BOWEL MOVEMENT, URINARY CATHETER WAS DRAINED, AND THE CLIENT WAS ASSISTED IN GETTING CLEANED UP. PATIENT ATE ALL OF HIS BREAKFAST AND IS ENCOURAGED TO INCREASE HIS NUTRITIONAL INTAKE. THE NURSE HAS COMPLETED HOURLY ROUNDING TO ENSURE PATIENT PAIN IS UNDER CONTROL. THE CLIENT IS ALSO ENCOURAGE TO CHANGE POSITION DUE TO THE PRESSURE INJURY ON HIS LOWER BACK AND TO PREVENT FURTHER GROWTH OR FURTHER INJURIES. THE LOWER BACK PRESSURE WOUND DRESSING WAS CHANGED. THERE WAS A MODERATE AMOUNT OF SANGUIENOUS DRAINAGE. PATIENT TOLERATED IT WELL AND THE WOUND APPEARS TO BE HEALING. PATIENT IS CURRENTLY SLEEPING. WILL CONTINUE TO MONITOR.
[2019-05-12 18:15] VITALS: BP 131/58
[2019-05-12 20:23] VITALS: BP 137/66
[2019-05-13 04:49] VITALS: BP 133/55
--- NOTE | 2019-05-13 04:55 | NUR ---
PT LYING IN BED. DILAUDID AND OXY PROVIDING PAIN RELIEF. POSSIBLE PLAN FOR DISCHARGE TO SNF 05/13. RESTING COMFORTABLY. NO NEEDS VOICED. CALL LIGHT WITHIN REACH. WILL CONTINUE TO PROVIDE FREQUENT OBSERVATION.
[2019-05-13 07:30] VITALS: BP 128/55
--- NOTE | 2019-05-13 10:32 | NUR ---
PT IN BED WATCHING TV, GIVEN PRN PAIN MED IV PUSH. TOOK AM MEDS. PT HAS SUPRA PUBIC CATH WITH 1000 CLEAR YELLOW URINE IN FIGUEROA BAG. AWAITING ACCEPTANCE TO SKILLED FACILITY.
--- NOTE | 2019-05-13 10:34 | NUR ---
FAXED REFERRAL TO [facility] SPOKE WITH MEGAN IN ADM SHE RECEIVED REFERRAL AND WILL REVIEW. FAXED REFERRAL [facility] RECEIVED CONFIRMATION AND SPOKE WITH ALEKSANDAR IN ADM SHE WILL REVIEW. DCP TO FOLLOW.
[2019-05-13 16:00] VITALS: BP 130/66
[2019-05-13] MEDS ORDERED: CEFEPIME 1 GM VI1 G2 INJECTION (16:47)
--- NOTE | 2019-05-13 16:49 | NUR ---
PT DISCHARGING TODAY TO [facility] FAXED DC ORDERS/SUMMARY TO FACILITY SPOKE WITH DALJIT IN ADM SHE RECEIVED DC ORDERS AND ARRANGED TRANSPORT BY [facility] FOR 1800. PT WILL NOTIFY FAMILY OF DC AND TIME OF TRANSPORT. UNIT NOTIFIED AND CHART COPY PER US. RN TO CALL REPORT TO [phone].
--- NOTE | 2019-05-13 18:52 | NUR ---
PT DISCHARGED AT 1800 TRANSPORTATION HERE TO [facility] PATIENT. LEFT IV CHEST PORT DEACTIVATED GABRIEL NEEDLE OUT. ALL BELONGINGS PACKED AND SENT WITH PATIENT
--- NOTE | 2019-05-22 09:04 | O ---
[facility] [place] [address] OPERATIVE REPORT Name: PATRICIA FLYNN Room #: 418-P [facility] IN M.R.#: [id number] Admission: 05/08/19 Attend Phys: Arian Mcgowan MD Discharge: 05/13/19 Date of : 57 Report #: [id number] THIS REPORT FOR: //name// CC: Arian Russell DATE OF SERVICE: 05/10/2019 PREOPERATIVE DIAGNOSES: 1. Stage 4 sacral decubitus wound. 2. Generalized debility and immobility. 3. Paraplegia. 4. Urinary tract infection. POSTOPERATIVE DIAGNOSES: 1. Stage 4 sacral decubitus wound. 2. Generalized debility and immobility. 3. Paraplegia. 4. Urinary tract infection. PROCEDURES PERFORMED: 1. Excisional debridement of skin, subcutaneous tissue and muscle/fascia of a grossly infected stage IV sacral decubitus wound ultimately measuring 6.5 x 6.5 cm in dimension (42.25 square cm). Preoperative and postoperative wound measurements did not differ substantially as the overall dimensions of the wound did not change overall. 2. Application of an extracellular matrix tissue graft to the entire 42.25 square cm of the wound. SURGEON: Sonia Chong M.D. LIGHTING FIXTURES DECORATOR: None. ANESTHESIA: General endotracheal anesthesia. ESTIMATED BLOOD LOSS: Minimal (less than 10 mL). COMPLICATIONS: None appreciated. SPECIMENS: All debrided tissue to pathology. INDICATIONS: The patient is a 64-year-old male with paraplegia who has had a longstanding history of a sacral decubitus wound, has undergone flap closure in the past. Unfortunately, the patient has developed rolled edges and gross purulent drainage from the wound and as such required debridement today. I did elect to place an extracellular matrix tissue graft to the bed of the [address] [address] OPERATIVE REPORT Name: FLYNN,PATRICIA RAMSES Room #: 418-P [facility] IN .R.#: [id number] Admission: 05/08/19 Attend Phys: Arian Mcgwoan MD Discharge: 05/13/19 Date of : 57 Report #: [id number] wound after a thorough debridement in hopes of regenerating appropriate wound healing. DESCRIPTION OF PROCEDURE: After explaining the risks, benefits and alternatives of the procedure and obtaining consent, the patient was brought to the operating room and placed supine on his hospital bed. After conducting a thorough timeout procedure verifying correct patient and procedure, the patient was given general endotracheal anesthesia. Once adequate anesthesia was obtained, his SCDs were hooked up to pneumatic compression device and he was given a preoperative dose of antibiotics in line with the SCIP protocol as he was ready for his regularly scheduled dose as prescribed by Infectious Disease Service. The patient was now positioned on the operating room table in the prone position with all pressure points appropriately padded and his wounds were prepped and draped in standard surgical sterile fashion. Electrocautery was used to circumferentially debride all nonviable skin, subcutaneous tissue and muscle/fascia from the periphery of the wound, carried down to the bed of the wound. There was no evidence of bony exposure luckily for him. The AcadiaSoftonix ultrasonic debridement tool was now used to debride all remaining nonviable tissue as well as biofilm from the entirety of the wound. Hemostasis was assured with electrocautery. There was evidence of gross purulent drainage at the outset with debridement and as such, I copiously irrigated the wound with normal saline at this juncture. There was no ongoing evidence of infection. As such, I did elect to apply a piece of 6 x 6 cm PriMatrix fenestrated extracellular matrix tissue graft to the wound. This was anchored to the wound using anita around the periphery as well as one in the mid portion of the wound. This was covered with Adaptic as well as 4 x 4s, fluffs, ABDs and Medipore tape completing the procedure. At the end of the procedure, all instrument, needle and sponge counts were correct. The patient tolerated the procedure without incident, was awakened in the operating room, transitioned to the recovery room in stable condition with no apparent complications. <ELECTRONICALLY SIGNED> By: Sonia Chong MD, FACS 05/22/19 0904 [id number] Sonia Chong MD, FACS /nt
== END 2019-05-13 18:00 | DRG 580 ==
LOC: HYPER 06:48 → 4E 12:28
PROVIDERS: Specialist; ADMIT Family Medicine
DX: L89.154 Pressure ulcer of sacral region, stage 4 (principal); T83.510A Infection and inflammatory reaction due to cystostomy catheter, initial encounter; N39.0 Urinary tract infection, site not specified; E44.0 Moderate protein-calorie malnutrition; G82.20 Paraplegia, unspecified; G83.4 Cauda equina syndrome; I10 Essential (primary) hypertension; G89.4 Chronic pain syndrome; K21.9 Gastro-esophageal reflux disease without esophagitis; M54.9 Dorsalgia, unspecified; B96.20 Unspecified Escherichia coli [E. coli] as the cause of diseases classified elsewhere; B95.61 Methicillin susceptible Staphylococcus aureus infection as the cause of diseases classified elsewhere; K56.41 Fecal impaction; Y83.8 Other surgical procedures as the cause of abnormal reaction of the patient, or of later complication, without mention of misadventure at the time of the procedure; B96.5 Pseudomonas (aeruginosa) (mallei) (pseudomallei) as the cause of diseases classified elsewhere; Z88.0 Allergy status to penicillin; Z88.6 Allergy status to analgesic agent; Z88.8 Allergy status to other drugs, medicaments and biological substances; Z79.899 Other long term (current) drug therapy; Z86.718 Personal history of other venous thrombosis and embolism; Z87.891 Personal history of nicotine dependence; Z90.89 Acquired absence of other organs; Z86.73 Personal history of transient ischemic attack (TIA), and cerebral infarction without residual deficits; Z87.440 Personal history of urinary (tract) infections; Z86.711 Personal history of pulmonary embolism; Z86.14 Personal history of Methicillin resistant Staphylococcus aureus infection; Z82.49 Family history of ischemic heart disease and other diseases of the circulatory system; Z80.8 Family history of malignant neoplasm of other organs or systems; Y92.89 Other specified places as the place of occurrence of the external cause; Z90.49 Acquired absence of other specified parts of digestive tract; Z68.27 Body mass index [BMI] 27.0-27.9, adult
CPT/HCPCS: 10783; 50101; 50386; 50403; 51412; 57119; 57137; 57192; 62110; 62900; 70005

== ENCOUNTER → 2019-07-04 | Outpatient (CLI) | payer OTHER, BC ==
[~2019-07-04] MED LIST changes: +ASPIR-TRIN325 MG PO; +CEFEPIME 1 GM VI1 G2 INJECTION; +HYOSCYAMINE0.125 MG SUBLING; +LOPERAMIDE2 MG PO; +METHADONE HCL5 MG PO; +RAYOS5 MG PO
== END ==
LOC: HYPER 07:44
DX: L89.153 Pressure ulcer of sacral region, stage 3 (principal); L89.103 Pressure ulcer of unspecified part of back, stage 3; S24.109D Unspecified injury at unspecified level of thoracic spinal cord, subsequent encounter; E78.5 Hyperlipidemia, unspecified; G82.20 Paraplegia, unspecified; R26.2 Difficulty in walking, not elsewhere classified; I10 Essential (primary) hypertension; M86.8X8 Other osteomyelitis, other site; K59.2 Neurogenic bowel, not elsewhere classified; K21.9 Gastro-esophageal reflux disease without esophagitis; F41.9 Anxiety disorder, unspecified; F32.9 Major depressive disorder, single episode, unspecified; Z87.891 Personal history of nicotine dependence; X58.XXXD Exposure to other specified factors, subsequent encounter

== ENCOUNTER 2019-07-13 10:46 | Inpatient (IN) | payer OTHER, BC ==
[~2019-07-13] VITALS: Ht 182.9 cm; Wt 105.2 kg
[~2019-07-13 10:46] MED LIST changes: -ASPIR-TRIN325 MG PO; -HYOSCYAMINE0.125 MG SUBLING; -LOPERAMIDE2 MG PO; -METHADONE HCL5 MG PO; -RAYOS5 MG PO
[2019-07-13 10:47] VITALS: BP 152/92
[2019-07-13 11:25] LABS: ABSOLUTE NEUTROPHILS 6.7 thou/uL (1.4-8.2); BASOPHILS 0.7 % (0.0-2.0); EOSINOPHILS 4.8 % (0.0-3.0); HEMATOCRIT 48.7 % (42.0-52.0); HEMOGLOBIN 16.3 gm/dL (14.0-18.0); LYMPHOCYTES 13.5 % (24.0-44.0); MCH 30.1 pg (26.0-34.0); MCHC 33.5 g/dL (28.0-37.0); MONOCYTES 8.9 % (1.0-8.0); PLATELET COUNT 221 thou/uL (150-400); POLYS 72.1 % (36.0-66.0); RBC 5.41 mil/uL (4.50-6.00); WBC 9.3 thou/uL (4.0-11.0)
[2019-07-13 11:33] LABS: URINE BILIRUBIN NEGATIVE (Negative); URINE BLOOD TRACE (Negative); URINE CLARITY CLEAR; URINE COLOR YELLOW; URINE GLUCOSE-RANDOM* NEGATIVE (Negative); URINE KETONES NEGATIVE (Negative); URINE LEUKOCYTES-REFLEX NEGATIVE (Negative); URINE NITRITE-REFLEX NEGATIVE (Negative); URINE PROTEIN (DIPSTICK) NEGATIVE (Negative); URINE SPECIFIC GRAVITY <= 1.005 (1.005-1.035); URINE UROBILINOGEN 0.2 E.U./dl (0.2-1.0)
[2019-07-13] MEDS ORDERED: ASPIR-TRIN325 MG PO (11:38)
[2019-07-13 11:39] LABS: ALBUMIN 3.4 g/dL (3.4-5.0); CREATININE 0.8 mg/dL (0.7-1.3); POTASSIUM 4.2 mmol/L (3.5-5.1); TOTAL BILIRUBIN 0.5 mg/dL (<0.1-1.0); TOTAL PROTEIN 7.2 g/dL (6.4-8.2)
[2019-07-13] MEDS ORDERED: HYOSCYAMINE0.125 MG SUBLING (11:39)
[2019-07-13] MEDS ORDERED: CEFDINIR300 MG PO (11:39)
[2019-07-13] MEDS ORDERED: LOPERAMIDE2 MG PO (11:40)
[2019-07-13 11:45] LABS: CALCIUM 9.4 mg/dL (8.5-10.1)
[2019-07-13 12:37] VITALS: BP 144/86
[2019-07-13 13:03] VITALS: BP 136/95
[2019-07-13 13:30] VITALS: BP 180/74
[2019-07-13] MEDS ORDERED: METHADONE HCL5 MG PO (15:29)
--- NOTE | 2019-07-13 16:13 | NUR ---
Patient arrived on unit from ER at approximately 1340. Vital signs are staqble, LSCTA, BS x's 4, abdomen is soft and non-tender. Patient is here for diagnosis of weakness and increased falls. Patient informed this nurse that for the last week, he has had increased pain in his shoulders, arms and hands which in turn has affected his ability to transfer himself. Patient reports that he has noted drainage at his suprapubic catheter site as well. Patient states "I feel like I usually do when I get Septic." Patient has a Decubitis Ulcer on his sacral area; it is draining serosanguineous fluid that is without odor (moderate amount). A picture was taken of this wound. Patient was given Oxycodone 20mg po and Valium 5mg po at 1555 for "level nine" generalized upper body pain. Will continue to monitor this patient.
[2019-07-13 16:36] LABS: ALBUMIN 3.6 g/dL (3.4-5.0)
[2019-07-13 16:59] LABS: TSH 0.793 uIU/mL (0.358-3.740)
[2019-07-13 19:25] VITALS: BP 103/77
[2019-07-14 07:41] VITALS: BP 137/72
--- NOTE | 2019-07-14 08:00 | NUR ---
PROGRESS PT NOT PROGRESSING RATING PAIN TO ARMS AND TORSO AND SACRUM AT AN 8 TO 10 TAKING 20 MG OXYCODONE Q4HRS WITH SOME EFFECT PT SLEEPS FOR AWHILE AFTER. SUPRA PUBIC CATHETER INTACT DRAINING LARGE AMOUNTS OF CLEAR YELLOW URINE, NO LEAKAGE NOTED AT INSERTION SITE. PT ATE MANY SNACKS LAST NIGHT LEFT CHEST PORT FLUSHES WITHOUT DIFFICULTY AND HAS A GOOD BLOOD RETURN.
--- NOTE | 2019-07-14 14:37 | NUR ---
Assumed patient care at 0715. Patient has continued to have unrelieved generalized pain which stays at a level eight or nine. Patient has been given his Oxycodone 20mg po every 2 hours as ordered as well as Tylenol 650mg po. Patient has also been given his prn Valium order q 8 hours, as this helps relieve his anxiety. His vital signs have been stable. Dr Burden was here to assess sacral wound. He ordered "Maxzorb AG with Silver dressings" daily and prn. These dressings are not available in the formulary, therefore this nurse ordered AquaCel Ag Dressings. Will consult with Lead Wound Care Nurse tomorrow about dressings and care. Patient had a large, soft formed BM during this shift. He is pleasant and is compliant with all of his medications. Will continue to monitor.
[2019-07-14 15:38] VITALS: BP 125/64
--- NOTE | 2019-07-15 07:41 | NUR ---
progress pt not progressing with pain control, taking 20 mg oxycodone every 4 hours rating pain a 7 to 10 and after medication rates it a 7. Requested I call for an order for iv dilaudid and ordered a onetime extra dose of oxycodone 20 mg which was given with some effect pt slept for a long period of time, gave next available dose at 3 am and slept a little more. woken up at shift change rating pain a 7 but stated his pain was even worse. I gave him a dose of oxycodone and advised him to request valium with his morning meds and to talk to about pain control options. vss, agrawal intact draining large amount of urine. continue poc.
--- NOTE | 2019-07-15 13:54 | NUR ---
PT ADMITTED RELATED TO PNEUMONIA. CM REVIEWED CHART AND SPOKE WITH CARE TEAM. CM MET WITH PT AT BEDSIDE THIS DAY. PT IS A&O X4. CM ROLE INTRODUCED. PT INDICATED HE LIVES ALONE IN A HOUSE WITH A RAMP TO ENTER. PT INDICATED HE IS PARAPLEGIC AND HAD ALL NEEDED DME IN THE HOME ENVIRONMENT. HE INDICATED HE HAD BEEN ON SERVICE WITH [facility] AND THAT THEY WERE SUPPOSD TO SEE HIM TODAY AT 4 HIS NURSE IS FABIANO. CM CALLED AND NOTIFIED [facility] THAT PT WAS CURRENTLY HOSPITALIZED. PT INDICATED HE HOPES TO RETURN HOME WITH [facility] ONCE MEDICALLY STABLE. CM TO FOLLOW INDICATED WITH DC PLANNING.
--- NOTE | 2019-07-15 14:15 | NUR ---
WOUND CARE F/U; FOLLOWING UP WITH THIS PATIENT PER HERVE POTRERN TODAY. SHE REQUESTED A PURACOL AG, FOAM DRESSING TO BE APPLIED. THE WOUND LOOKS STALLED AT THIS MOMENT, A PALE RED COLORED WOUND BED AND MACERATED PERIWOUND. NO ODOR. THE PATIENT IS WEAK BUT ABLE TO TURN AND COMMUNICATIVE. RN WAS PRESENT.
--- NOTE | 2019-07-15 15:02 | NUR ---
Nutrition: Pt here for weakness, frequent falls. Assessed due to pressure wounds. Paraplegia, hx spinal cord injury and hx chronic sacral/back ulcers. EMR notes stage 4 sacral pressure ulcer. Wound care seeing. On a regular diet. RD familiar to pt from recent visit, has seen numerous RDs over the years. Prefers Mak for nutrition supplements (orange flavor). Add BID, separate out at breakfast and dinner. Dislikes Ensure products, but agrees to Beneprotein modular daily. Will send at Am meal so pt has all 3 meals to decide how to use based on what food he receives. States he's been eating "way too much". Wt is up from 185# in 09/2018 to either 213.9# vs 231.9# per 07/13 - discrepancies in wt entry. Understands goal is still to prioritize protein. Low nutrition risk with added interventions and extensive past nutrition education.
--- NOTE | 2019-07-15 18:47 | NUR ---
Assumed patient care at 0715. Patient continues to complain of unrelieved pain. He has been given Oxycodone po, Tylenol po and Valium po as ordered. His Supra Pubic Catheter became clogged and was leaking around the insertion site. This nurse flushed catheter out getting a moderate amount of mucous as well as 1650cc of urine in return. This was causing patient additional abdominal pain. Dr Mcgowan notified. He ordered a Urine Culture to be drawn. Patient's vital signs have been stable throughout this shift. POC followed. Will report to on-coming nurse.
[2019-07-15 19:19] VITALS: BP 128/76
--- NOTE | 2019-07-16 02:29 | NUR ---
PT CARE ASSUMED AT 1900 .PT IS A/O X4.PT HAS A SUPRAPUBIC CATHETER .PT C/O OF GENERAL BODY PAIN AND JOINTS PAIN.PAIN MGT WITH OXYCODONE AND TYLENOL WITH PARTIAL RELIEF.PT HAS A SACRUM WOUND AND DRESSING IN TACT AND CLEAN.PT HAD A BM LAST NIGHT.CONTINUE POC TILL EOS
[2019-07-16 02:46] LABS: URINE BILIRUBIN NEGATIVE (Negative); URINE BLOOD 1+ (Negative); URINE CLARITY SL CLOUDY; URINE COLOR YELLOW; URINE GLUCOSE-RANDOM* NEGATIVE (Negative); URINE KETONES NEGATIVE (Negative); URINE NITRITE-REFLEX NEGATIVE (Negative); URINE PROTEIN (DIPSTICK) NEGATIVE (Negative); URINE SPECIFIC GRAVITY <= 1.005 (1.005-1.035); URINE UROBILINOGEN 0.2 E.U./dl (0.2-1.0)
[2019-07-16 02:53] LABS: SQUAMOUS 4-10 Moderate /LPF (0-3); URINE LEUKOCYTES-REFLEX 3+ (Negative); WBC CLUMPS Moderate (None Seen)
[2019-07-16 02:54] LABS: CASTS None Seen /LPF (None Seen); CRYSTALS None Seen /LPF (None Seen); MUCUS 0-3 Light strn/LPF (None Seen); URINE RBC 3-10 Few /HPF (0-2)
[2019-07-16 07:57] VITALS: BP 144/81
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
[2019-07-16 15:49] VITALS: BP 142/69
--- NOTE | 2019-07-16 17:12 | NUR ---
PT A&OX4, VSS, GENERALIZED PAIN. PATIENT STATES PAIN REMAINS UNCONTROLLED AND HAS REQUESTED PAIN MEDICATION AROUND THE CLOCK ORDERED. WOUND DRESSING TO COCCYX CHANGED. PATIENT HAD BM TODAY. NO SIGNS OF DISTRESS. WILL CONTINUE TO MONITOR.
[2019-07-16 20:24] VITALS: BP 153/98
[2019-07-17 08:35] VITALS: BP 152/70
--- NOTE | 2019-07-17 08:49 | NUR ---
progress pt pain increased and spread to arms and shoulders with PT today stated he feels wek d/t soreness concerned about being able to transfer self with increased pain. taking oxycodone 20 mg q4hrs, tylenol q6hrs, dilaudid ivp 2 mg q3hrs taking pretty regular sleeps some after meds but is mostly awake due to discomfort per pt. continue to encourage pt to move and reposition self continue PT/OT continue medications weaning off as tolerated.
[2019-07-17 15:02] VITALS: BP 134/64
--- NOTE | 2019-07-17 16:10 | NUR ---
CM FOLLOWED UP WITH PT THIS AM AND HE INDICATED THAT HE STILL PREFERRED TO RETURN HOME WITH [facility] ONCE MEDICALLY STABLE. CM TO FOLLOW INDICATED WITH DC PLANNING.
--- NOTE | 2019-07-17 18:14 | NUR ---
Assumed patient care at 0715. Patient's vital signs have been stable throughout this shift. His face continues to be red in color; he has went back and forth with cold chills and "burning up" while sweating. The temperature has been adjusted several times in his room. Pain medications and Valium have been given for uncontrollable pain throughout this shift. Patient started on IV Antibiotics this evening; he is tolerating this well. Output has been good per catheter; he is drinking plenty of water. Will report to on-coming nurse and continue to monitor.
[2019-07-17 20:20] VITALS: BP 150/80
[2019-07-18 07:05] VITALS: BP 149/76
--- NOTE | 2019-07-18 08:52 | NUR ---
PROGRESS PT A/O X 4 ABLE TO REPOSITION SELF IN BED, SACRAL DRSG IN PLACE WOUND WITH BEEFY RED WOUND BED MINIMAL DRAINAGE NOTED NO ODOR DETECTED. STILL HAVING DIFFICULTY MAINTAINING PAIN CONTROL TAKING OXYCODONE 20 MG Q4H, DILAUDID 2 MG IVP Q3 HRS, VALIUM AND TYLENOL PRN FOR PAIN TO ALL JOINTS ESPECIALLY SHOULDERS AND LOWER RIGHT QUAD. ROCEPHIN INITIATED FOR UTI YESTERDAY, TO STAY FOR CONTINUED IV ANTIBIOTICS AND BETTER PAIN CONTROL.
--- NOTE | 2019-07-18 16:42 | NUR ---
PHYSICIAN INDICATED PROBABLE DC HOME TOMORROW WITH [facility]. CM TO FOLLOW INDICATED WITH DC PLANNING.
[2019-07-18 17:11] VITALS: BP 137/66
--- NOTE | 2019-07-18 20:10 | NUR ---
QUIET UNEVENTFUL DAY. MAIN COMPLAINT GENERALIZED PAIN. ALTERNATED MEDICATIONS FOR PAIN. OXYCODONE 20 MG PO Q4H. HYDROMORPHONE 2 MG IV Q3H. METHADONE 20 MG PO SCHEDULED. PATIENT STATED THIS IS KEEPING HIS PAIN BETWEEN A 6-7 AND THIS IS TOLERABLE FOR HIM. TOLERATING DIET WELL. WOUND CARE CHANGED DRESSING TO SACRAL WOUND. VERY PLEASANT AND COOPERATIVE. FALL PRECAUTIONS IN PLACE.
[2019-07-18 21:16] VITALS: BP 120/65
--- NOTE | 2019-07-19 04:17 | NUR ---
ASSUMED CARE OF PT AT 1900HRS. PT IS AOX4 AND LETS NEEDS BE KNOWN. FALL PRECAUTION IN PLACE. PT IS PARAPLEGIC. PT REPORTTED PAIN AND WAS TREATED WITH PRN PAIN MEDS. PT WAS ABLE TO GET COMFORTABLE AND SLEEP PART OF THE SHIFT. VSS AND NO S/S OF ACUTE DISTRESS. WILL CONTINUE TO MONITOR.
[2019-07-19 08:50] VITALS: BP 154/86
[2019-07-19] MEDS ORDERED: OXYCODONE HCL10 MG PO (08:57)
[2019-07-19] MEDS ORDERED: CEFDINIR300 MG PO (08:58)
[2019-07-19] MEDS ORDERED: RAYOS5 MG PO (08:59)
[2019-07-19 09:54] VITALS: BP 154/86
[2019-07-19 11:03] VITALS: BP 154/86
--- NOTE | 2019-07-19 12:36 | NUR ---
CARE TEAM INDICATED THAT PT IS MEDICALLY STABLE TO [facility] THIS DAY. ORDERS WERE SENT TO [facility]. PT HAS ALL RECOMMENDED DME. NO OTHER CM INTERVENTION INDICATED. CASE CLOSED.
--- NOTE | 2019-07-19 14:19 | NUR ---
DISCHARGE ORDERS COMPLETED. PATIENT DISCHARGING TO HOME WITH [facility]. DISCHARGE/HOME HEALTH ORDERS FAXED TO [facility]. VERIFIED RECEIVED.
--- NOTE | 2019-07-19 21:23 | NUR ---
PT REQUESTED MIKE DISIMPACTION OF BOWELS AND LARGE AMOUNT OF HARD STOOL REMOVED FROM RECTAL VAULT-CHEST PORT FLUSHED WITH HEPERIN AND DEACCESSED PER PROTOCOL-DISCHARGE INSTRUCTIONS INCLUDING MEDICATIONS DOSING AND TIMES WELL FOLLOW UP RECCOMENDATIONS REVIEWE WITH PT HE STATES UNDERSTADING AND DENIES QUESTIONS CONCERNS-DISCHARGED AT APPROX 1215 ACCOMNIED BY BROTHER VIA WC TO PRIVATE VEHICLE-ALERT AND ORIENTED AT TIME OF DC-EXPRESSING APPRECIATION OF HELP AND DENIES COMPLAINTS UPON LEANING
--- NOTE | 2019-07-19 21:32 | NUR ---
PT. REFUSED PHOTOGRAPH OF WOUND to yonas at stating-"i just got all dressed and my brother is her-its fine-the nurse just changed the dressing"
== END 2019-07-19 12:25 | disposition home health service (06) | DRG 91 ==
LOC: ER 10:46 → 4W 12:31 → EROBS 12:31 → 4W 13:03
PROVIDERS: Emergency Medicine; Internal Medicine; ADMIT Family Medicine
DX: G72.0 Drug-induced myopathy (principal); L89.154 Pressure ulcer of sacral region, stage 4; G82.20 Paraplegia, unspecified; E44.0 Moderate protein-calorie malnutrition; N39.0 Urinary tract infection, site not specified; G89.4 Chronic pain syndrome; K21.9 Gastro-esophageal reflux disease without esophagitis; N31.9 Neuromuscular dysfunction of bladder, unspecified; K59.00 Constipation, unspecified; T36.8X5A Adverse effect of other systemic antibiotics, initial encounter; I10 Essential (primary) hypertension; Z79.899 Other long term (current) drug therapy; Z88.8 Allergy status to other drugs, medicaments and biological substances; Z79.82 Long term (current) use of aspirin; Z86.718 Personal history of other venous thrombosis and embolism; Z86.711 Personal history of pulmonary embolism; Z86.14 Personal history of Methicillin resistant Staphylococcus aureus infection; Z87.891 Personal history of nicotine dependence; Z82.49 Family history of ischemic heart disease and other diseases of the circulatory system; Z80.9 Family history of malignant neoplasm, unspecified; Z68.31 Body mass index [BMI] 31.0-31.9, adult; Y92.89 Other specified places as the place of occurrence of the external cause; Z90.89 Acquired absence of other organs
CPT/HCPCS: 10040

== ENCOUNTER 2019-08-19 06:07 | Emergency (ER) | payer OTHER, BC ==
[~2019-08-19] VITALS: Ht 182.9 cm; Wt 90.7 kg
[2019-08-19 07:24] VITALS: BP 107/74
== END 2019-08-19 07:25 | disposition home or self-care (01) ==
LOC: ER 06:07
DX: M25.512 Pain in left shoulder (principal); I10 Essential (primary) hypertension; G89.4 Chronic pain syndrome; K21.9 Gastro-esophageal reflux disease without esophagitis; Z86.718 Personal history of other venous thrombosis and embolism; Z86.711 Personal history of pulmonary embolism; Z88.6 Allergy status to analgesic agent; Z88.1 Allergy status to other antibiotic agents; Z88.5 Allergy status to narcotic agent; Z88.8 Allergy status to other drugs, medicaments and biological substances

== ENCOUNTER → 2019-08-19 | Outpatient (CLI) | payer OTHER, BC ==
[~2019-08-19] MED LIST changes: +ASPIR-TRIN325 MG PO; +HYOSCYAMINE0.125 MG SUBLING; +LOPERAMIDE2 MG PO; +METHADONE HCL5 MG PO; +RAYOS5 MG PO
== END ==
LOC: MRI 09:44
DX: S46.212A Strain of muscle, fascia and tendon of other parts of biceps, left arm, initial encounter (principal); M25.812 Other specified joint disorders, left shoulder; M19.012 Primary osteoarthritis, left shoulder; M25.712 Osteophyte, left shoulder; M65.812 Other synovitis and tenosynovitis, left shoulder; Z98.890 Other specified postprocedural states; X58.XXXA Exposure to other specified factors, initial encounter; Y93.89 Activity, other specified; Y92.89 Other specified places as the place of occurrence of the external cause; Y99.8 Other external cause status

== ENCOUNTER → 2019-10-14 | Outpatient (CLI) | payer OTHER, BC ==
--- NOTE | 2019-10-14 16:39 | NUR ---
IN FOR PORTACATH FLUSH. ACCESSED PORTACATH WITHOUT DIFFICULTY. RECEIVED GOOD BLOOD RETURN AND FLUSHED EASILY. FLUSHED WITH 20 ML NS FOLLOWED BY HEPARIN 500U/5ML. DEACCESSED AND DISMISSED IN STABLE CONDITION.
== END ==
LOC: OPONC 08:47
DX: Z45.2 Encounter for adjustment and management of vascular access device (principal)

== ENCOUNTER → 2020-01-07 | Outpatient (CLI) | payer OTHER, BC ==
--- NOTE | 2020-01-07 12:42 | NUR ---
IN FOR PORTACATH FLUSH. RECEIVED GOOD BLOOD RETURN FROM PORTACATH. FLUSHED PER PROTOCOL. DEACCESSED AND DISMISSED IN GOOD CONDITION.
[2020-01-07 14:55] LABS: ABSOLUTE NEUTROPHILS 6.7 thou/uL (1.4-8.2); BASOPHILS 0.6 % (0.0-2.0); EOSINOPHILS 3.5 % (0.0-3.0); HEMATOCRIT 47.5 % (42.0-52.0); HEMOGLOBIN 16.8 gm/dL (14.0-18.0); LYMPHOCYTES 17.6 % (24.0-44.0); MCH 32.4 pg (26.0-34.0); MCHC 35.4 g/dL (28.0-37.0); MCV 91.5 fL (80.0-100.0); MONOCYTES 7.7 % (1.0-8.0); PLATELET COUNT 243 thou/uL (150-400); POLYS 70.6 % (36.0-66.0); RBC 5.19 mil/uL (4.50-6.00); RDW 12.5 % (10.5-14.5); WBC 9.5 thou/uL (4.0-11.0)
[2020-01-07 15:10] LABS: CALCIUM 9.9 mg/dL (8.5-10.1); CREATININE 0.8 mg/dL (0.7-1.3); TOTAL BILIRUBIN 0.4 mg/dL (0.2-1.0)
[2020-01-08 01:08] LABS: TESTOSTERONE* 185 ng/dL (264-916)
== END ==
LOC: OPONC 09:10
PROVIDERS: Family Medicine
DX: Z45.2 Encounter for adjustment and management of vascular access device (principal)

== ENCOUNTER → 2020-03-02 | Outpatient (CLI) | payer OTHER, BC | LOC: HYPER 08:28 | PROVIDERS: ATTEND Emergency Medicine | DX: L89.153 Pressure ulcer of sacral region, stage 3 (principal); S24.109D Unspecified injury at unspecified level of thoracic spinal cord, subsequent encounter; K21.9 Gastro-esophageal reflux disease without esophagitis; G82.20 Paraplegia, unspecified; E78.5 Hyperlipidemia, unspecified; I10 Essential (primary) hypertension; M86.9 Osteomyelitis, unspecified; F41.9 Anxiety disorder, unspecified; F32.9 Major depressive disorder, single episode, unspecified; Z87.891 Personal history of nicotine dependence; X58.XXXD Exposure to other specified factors, subsequent encounter ==

== ENCOUNTER → 2020-03-23 | Outpatient (CLI) | payer OTHER, BC | LOC: HYPER 10:34 | PROVIDERS: ATTEND Emergency Medicine Emergency Medical Services | DX: L89.153 Pressure ulcer of sacral region, stage 3 (principal); S24.109D Unspecified injury at unspecified level of thoracic spinal cord, subsequent encounter; G82.20 Paraplegia, unspecified; K21.9 Gastro-esophageal reflux disease without esophagitis; E78.5 Hyperlipidemia, unspecified; I10 Essential (primary) hypertension; M86.9 Osteomyelitis, unspecified; F41.9 Anxiety disorder, unspecified; F32.9 Major depressive disorder, single episode, unspecified; Z87.891 Personal history of nicotine dependence; X58.XXXD Exposure to other specified factors, subsequent encounter ==

== ENCOUNTER 2020-04-19 03:56 | Emergency (ER) | payer OTHER, BC ==
[~2020-04-19] VITALS: Ht 182.9 cm; Wt 83.9 kg
--- NOTE | ~2020-04-19 | EMS ---
[address] [address] EMS Patient Care Report Name: PATRICIA FLYNN Room #: PRE M.R.#: [id number] Admission: Attend Phys: Discharge: Date of : 57 Report #: [id number] THIS REPORT FOR: //name// Report Transmitted: 04/19/2020 03:27 EMS Care Summary [facility] MED-ACT Incident [id number] @ 04/19/2020 03:24 Incident Location [address] [place] [address] Patient PATRICIA FLYNN Male, 64 Years 1955 Patient Address [address] [place] [address] Patient History Hypertension (HTN),Urinary Tract Infection (UTI),Paraplegia, Patient Allergies Other drug allergy, Patient Medications Metoprolol, Norvasc, Zofran, Vitamin D, Chief Complaint ABD pain Disposition Transported No Lights/[place] Dispatch Reason Sick Person Transported To [facility] Narrative Dispatched to a C1 sick subject. On arrival patient reports the following: Since Monday (5 days) he has been feeling weak, body aches, lower abd pain, nausea and vomiting. He states all these things haven't changed in but he feels something else could be going on. He is a paraplegic and has a agrawal [facility] [address] [place] [address] EMS Patient Care Report Name: PATRICIA FLYNN Room #: PRE [facility]#: [id number] Admission: Attend Phys: Discharge: Date of : 57 Report #: [id number] cath. He has recently changed the catheter but doesn't feel like anything is wrong with the placement. He has experienced UTIs in the past along with sepsis that presents atypical. Patient has vomiting 3 times in the past 24 hours. He c/o persistent nausea. Patient denies: diarrhea, chest pain, shortness of breath, fever. Patient found sitting in his wheelchair at the front door of his home. A open, B non labored, C s/r radial. HPI, PE. Patient wheels outside and is lifted to the cot. Secure to cot. Move to MICU. Transport to [facility]. Monitor V/ S and ECG. 12 lead. Biocom to [facility]. On arrival at [facility] sheet drag procedure used to move patient to ED bed 6. Report given to ED RN. Patient condition unchanged. Initial Vitals @03:34P: 83,SpO2: 97, @03:47P: 80,SpO2: 99, @03:32P: 99,R: 16,BP: 146/95,GCS: 15,SpO2: 98,Revised Trauma: 12, @03:44P: 80,R: 16,BP: 151/85,SpO2: 98, @03:50P: 80,R: 16,BP: 154/89,GCS: 15,SpO2: 98,Revised Trauma: 12, Assessments @03:35MENTAL:Person Oriented,Time Oriented,Place Oriented,Event Oriented,SKIN:HEENT:Head/Face: No Abnormalities,Neck/Airway: No Abnormalities,LUNG SOUNDS:General: Vomiting,General: Nausea,ABDOMEN:General: Vomiting,General: Nausea,PELVIS//GI:Pelvis GUOther,EXTREMITIES:Left Arm: Weakness,Left Leg: Paralysis,Right Leg: Paralysis,PULSE:NEURO: Impression Abdominal Pain Procedures @03:37Ondansetron - 4 Milligrams (mg) - OralResponse: Unchanged@03:4712-Lead ECG Timeline 03:22,Call Received 03:22,Psap Call 03:24,Dispatched 03:25,En Route 03:26,On Scene 03:28,At Patient 03:32,BP: 146/95 M,PULSE: 99,RR: 16 R,SPO2: 98 Ox,ETCO2: ,BG: ,PAIN: ,GCS: 15, 03:34,BP: / M,PULSE: 83,RR: R,SPO2: 97 Ox,ETCO2: ,BG: ,PAIN: ,GCS: , 03:35,Depart Scene [address] [address] EMS Patient Care Report Name: PATRICIA FLYNN Room #: [facility].R.#: [id number] Admission: Attend Phys: Discharge: Date of : 57 Report #: [id number] 03:37,Ondansetron - 4 Milligrams (mg) - Oral,Response: Unchanged 03:44,BP: 151/85 M,PULSE: 80,RR: 16 R,SPO2: 98 Ox,ETCO2: ,BG: ,PAIN: ,GCS: , 03:47,12-Lead ECG, 03:47,BP: / M,PULSE: 80,RR: R,SPO2: 99 Ox,ETCO2: ,BG: ,PAIN: ,GCS: , 03:50,BP: 154/89 M,PULSE: 80,RR: 16 R,SPO2: 98 Ox,ETCO2: ,BG: ,PAIN: ,GCS: 15, 03:54,At Destination 04:08,Call Closed Disclaimer v1.1 Copyright 2020 [employer] This EMS Care Summary contains data elements from the applicable legal record (which may be displayed differently). It is designed to provide pertinent information for the following purposes: continuity of care, clinical quality, and state data reporting. The complete legal record is available to ED staff and administrators of the receiving hospital in [facility]'s Patient Tracker. All data is provided "as is."
[~2020-04-19 03:56] MED LIST changes: -PROTONIX40 M1 PO; +PROTONIX40 M4 PO
[2020-04-19 04:19] LABS: ABSOLUTE NEUTROPHILS 14.7 thou/uL (1.4-8.2); BASOPHILS 0.4 % (0.0-2.0); EOSINOPHILS 0.5 % (0.0-3.0); HEMATOCRIT 42.9 % (42.0-52.0); HEMOGLOBIN 14.7 gm/dL (14.0-18.0); LYMPHOCYTES 3.3 % (24.0-44.0); MCH 30.7 pg (26.0-34.0); MCHC 34.3 g/dL (28.0-37.0); MCV 89.5 fL (80.0-100.0); MONOCYTES 11.9 % (1.0-8.0); PLATELET COUNT 191 thou/uL (150-400); POLYS 83.9 % (36.0-66.0); RBC 4.79 mil/uL (4.50-6.00); RDW 15.2 % (10.5-14.5); WBC 17.5 thou/uL (4.0-11.0)
[2020-04-19 04:27] LABS: CALCIUM 8.8 mg/dL (8.5-10.1); CREATININE 0.8 mg/dL (0.7-1.3); POTASSIUM 3.2 mmol/L (3.5-5.1)
[2020-04-19 04:28] LABS: URINE BILIRUBIN NEGATIVE (Negative); URINE BLOOD 3+ (Negative); URINE CLARITY SL CLOUDY; URINE COLOR YELLOW; URINE GLUCOSE-RANDOM* NEGATIVE (Negative); URINE KETONES NEGATIVE (Negative); URINE NITRITE-REFLEX NEGATIVE (Negative); URINE PROTEIN (DIPSTICK) NEGATIVE (Negative); URINE SPECIFIC GRAVITY <= 1.005 (1.005-1.035); URINE UROBILINOGEN 0.2 E.U./dl (0.2-1.0)
[2020-04-19 04:33] LABS: ALBUMIN 2.7 g/dL (3.4-5.0); MAGNESIUM 1.7 mg/dL (1.8-2.4); TOTAL BILIRUBIN 0.5 mg/dL (0.2-1.0); TOTAL PROTEIN 6.8 g/dL (6.4-8.2)
[2020-04-19 04:49] LABS: URINE LEUKOCYTES-REFLEX 3+ (Negative)
[2020-04-19 04:50] LABS: BACTERIA-REFLEX >30 Many /HPF (None Seen); CASTS None Seen /LPF (None Seen); CRYSTALS None Seen /LPF (None Seen); SQUAMOUS 0-3 Few /LPF (0-3); URINE RBC 0-2 Rare /HPF (0-2); URINE WBC-REFLEX >25 Many /HPF (0-5)
[2020-04-19] MEDS ORDERED: BACTRIM DS TAB1 EACH PO (07:42)
[2020-04-19 08:08] VITALS: BP 157/74
--- NOTE | 2020-04-19 11:55 | EKG ---
[facility] [place] [address] [place] [address] ELECTROCARDIOGRAM REPORT Name: PATRICIA FLYNN Room #: DEP [facility]..#: [id number] Admission: 04/19/20 Attend Phys: Discharge: 04/19/20 Date of : 57 Report #: [id number] THIS REPORT FOR: cc: Arian Mcgowan MD, Neal A. MD Lundgren,Carter Beverly MD FAC ~ THIS REPORT FOR: //name// [facility] ED Test Date: 2020-04-19 Test Time: 04:02:58 Pat Name: PATRICIA FLYNN Department: Room: Gender: Early Childhood Director: [facility] : 1955 Requested By: Jayson Hollingsworth Order Number: [id number] MD: Carter Dykes Measurements Intervals [place] Rate: 79 P: 40 DE: 206 QRS: 85 QRSD: 98 T: 40 QT: 357 QTc: 410 Interpretive Statements Sinus rhythm Borderline right axis deviation Nonspecific T abnormalities, anterior leads Compared to ECG 12/17/2018 14:08:06 No significant change was found Electronically Signed On 04-19-2020 11:55:13 CDT by Carter Dykes [email or web address] <ELECTRONICALLY SIGNED> By: Carter Dykes MD, [facility] 04/19/20 [id number] Carter Dykes MD, [facility] /EPI
== END 2020-04-19 08:15 | disposition home or self-care (01) ==
LOC: ER 03:56
PROVIDERS: Emergency Medicine
DX: N39.0 Urinary tract infection, site not specified (principal); I10 Essential (primary) hypertension; K21.9 Gastro-esophageal reflux disease without esophagitis; Z90.89 Acquired absence of other organs; Z79.899 Other long term (current) drug therapy; Z79.82 Long term (current) use of aspirin; Z88.5 Allergy status to narcotic agent; Z88.8 Allergy status to other drugs, medicaments and biological substances; Z88.1 Allergy status to other antibiotic agents

== ENCOUNTER 2020-04-20 14:42 | Inpatient (IN) | payer OTHER, BC ==
[~2020-04-20] VITALS: Ht 182.9 cm; Wt 86.6 kg
--- NOTE | ~2020-04-20 | EMS ---
[address] [address] EMS Patient Care Report Name: PATRICIA FLYNN Room #: 455-P ADM IN M.R.#: [id number] Admission: 04/20/20 Attend Phys: Orlando Sahu MD, FAAF Discharge: Date of : 57 Report #: [id number] THIS REPORT FOR: //name// Report Transmitted: 04/20/2020 22:41 EMS Care Summary [facility] MED-ACT Incident [id number] @ 04/20/2020 14:03 Incident Location [address] [place] [address] Patient PATRICIA FLYNN Male, 64 Years 1955 Patient Address [address] [place] [address] Patient History Hypertension (HTN),Urinary Tract Infection (UTI),Paraplegia, Patient Allergies Other drug allergy, Patient Medications Zofran, Metoprolol, Vitamin D, Norvasc, Chief Complaint "black stool Disposition Transported No Lights/[place] Dispatch Reason Abdominal Pain/Problems Transported To [facility] Narrative Upon arrival to the scene, found the pt in the care of E54. Pt appeared in no distress. Pt informed crews that he had been passing black stool for the past week. Pt told crews "I went to the hospital yesterday and they send me home telling me I was fine." Pt informed crews that he called his doctor and the [address] [address] EMS Patient Care Report Name: PATRICIA FLYNN Room #: 455- ADM IN M.R.#: [id number] Admission: 04/20/20 Attend Phys: Orlando Sahu MD, FAAF Discharge: Date of : 57 Report #: [id number] doctor told him to go back to the hospital to get further evaluated. PT told crews that he had lower abdominal pain since the black stools were noted and that has been getting worse. PT c/o some dizziness. Pt denied any chest pain or difficulty breathing. Pt also told crews that he is being treated right know with a UTI. Verbal report and v/s were obtained from E54 crew. PT was lifted from his chair on to the stretcher. PT was secured in position of comfort via safety belts. stretcher was secured in ambulance. 12 lead, blood glucose reading obtained. No IV was obtained because pt told crews that he had a port. BIOCOM to [facility] with pt information only. Upon arrival to [facility] pt was taken to room 1. pt was transferred rom stretcher to hospital bed via sheet drag method. Verbal report was given to RN and transfer of care was completed. Initial Vitals @14:21P: 107,SpO2: 96, @14:28P: 108,SpO2: 97, @14:33P: 103,BP: 119/57,SpO2: 96, @14:26P: 106,BP: 109/68, @14:24P: 109,SpO2: 95,VA Suspected: false @14:19P: 109,BP: 109/76, @PTAP: 103,R: 16,BP: 151/82,GCS: 15,SpO2: 95,Revised Trauma: 12, @14:23P: 108,R: 16,BP: 106/73,Pain: 6/10,GCS: 15,SpO2: 96,Revised Trauma: 12, Assessments @14:15MENTAL:No Abnormalities,SKIN:HEENT:Head/Face: No Abnormalities,LUNG SOUNDS:ABDOMEN:PELVIS//GI:EXTREMITIES:Left Leg: Paralysis,Right Leg: Paralysis,Left Arm: No Abnormalities,Right Arm: No Abnormalities,PULSE:NEURO:No Abnormalities, Impression Abdominal Pain Procedures @14:2412-Lead ECGResponse: UnchangedSucceeded@14:28Ondansetron - 4 Milligrams (mg) - Intravenous (IV)Response: Improved Timeline SECURITIES ADVISER,BP: 151/82 M,PULSE: 103,RR: 16 R,SPO2: 95 Ox,ETCO2: ,BG: ,PAIN: ,GCS: 15, 14:02,Call Received 14:02,Psap Call 14:03,Dispatched 14:04,En Route 14:09,On Scene 14:11,At Patient 14:17,Depart Scene [address] [address] EMS Patient Care Report Name: PATRICIA FLYNN Room #: 455-P ADM IN M.R.#: [id number] Admission: 04/20/20 Attend Phys: Orlando Sahu MD, FAAF Discharge: Date of : 57 Report #: [id number] 14:19,BP: 109/76 M,PULSE: 109,RR: R,SPO2: Ox,ETCO2: ,BG: ,PAIN: ,GCS: , 14:21,BP: / M,PULSE: 107,RR: R,SPO2: 96 Ox,ETCO2: ,BG: ,PAIN: ,GCS: , 14:23,BP: 106/73 M,PULSE: 108,RR: 16 R,SPO2: 96 Ox,ETCO2: ,BG: ,PAIN: 6,GCS: 15, 14:24,12-Lead ECG,Response: UnchangedSucceeded, 14:24,BP: / M,PULSE: 109,RR: R,SPO2: 95 Ox,ETCO2: ,BG: ,PAIN: ,GCS: , 14:26,BP: 109/68 M,PULSE: 106,RR: R,SPO2: Ox,ETCO2: ,BG: ,PAIN: ,GCS: , 14:28,Ondansetron - 4 Milligrams (mg) - Intravenous (IV),Response: Improved 14:28,BP: / M,PULSE: 108,RR: R,SPO2: 97 Ox,ETCO2: ,BG: ,PAIN: ,GCS: , 14:33,BP: 119/57 M,PULSE: 103,RR: R,SPO2: 96 Ox,ETCO2: ,BG: ,PAIN: ,GCS: , 14:43,At Destination 14:55,Call Closed Disclaimer v1.1 Copyright 2020 [employer] This EMS Care Summary contains data elements from the applicable legal record (which may be displayed differently). It is designed to provide pertinent information for the following purposes: continuity of care, clinical quality, and state data reporting. The complete legal record is available to ED staff and administrators of the receiving hospital in [employer]'s Patient Tracker. All data is provided "as is."
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
--- NOTE | ~2020-04-20 | HC ---
[facility] [address] [place] [address] CONSULTATION Name: PATRICIA FLYNN Room #: 455-P [facility] IN M.R.#: [id number] Admission: 04/20/20 Attend Phys: [facility]ahu [facility] Dis[facility]: Date of : 56 Report #: [id number] THIS REPORT FOR: cc: Arian Mcgowan MD, Neal A. MD Smithson, David G. MD ~ CC: Orlando Mcgowan DATE OF SERVICE: 04/22/2020 HISTORY OF PRESENT ILLNESS: The patient is a 64-year-old white male with history of premorbid T12-L1 paraplegia, who nevertheless cares for himself, independently in the community. He was admitted with increasing black stool, noted to have an upper GI bleed. He underwent endoscopy, diagnosed with multiple duodenal ulcers. He also has urinary tract infection. He also has a stage 3 pressure ulcer over his buttock, which wound care is involved. He has significant weakness with a functional decline and we are seeing him in rehabilitation medicine consultation. Has history of chronic back pain, GERD, paraplegia. He has a neurogenic bladder with suprapubic tube. MEDICATIONS: Please see the full medication listing. SOCIAL HISTORY: He lives in an apartment alone. He uses a wheelchair, drives, has a ramp. He has a [id number] that will help on occasion. He also has a daughter that is involved. REVIEW OF SYSTEMS: No current complaints of chest pain, shortness of breath or abdominal discomfort. PHYSICAL EXAMINATION: GENERAL: A 64-year-old pleasant, white male, in no obvious distress. VITAL SIGNS: Last recorded temperature 36.6, pulse 83, respirations 18, blood pressure 147/78. NEUROMUSCULOSKELETAL: He notes he has had some prior shoulder problems in the past and has had surgery on his left shoulder by ____. On examination, he has functional range of motion of both upper extremities. I could not detect any obvious focal weakness including with external rotation with the arms adducted. He has a port in the left anterior chest. He does have a suprapubic tube. He has a sensory level at the belt site. Lower extremities tone is decreased. No focal calf swelling. He does have some sensation to deep pressure. No volitional movement below the level of injury. ASSESSMENT: A 64-year-old white male with the following problem list: 1. Upper gastrointestinal bleed with melena and generalized weakness. 2. Multiple duodenal ulcers. [facility] [address] [place] [address] CONSULTATION Name: PATRICIA FLYNN Room #: 455-P [facility] IN [facility].#: [id number] Admission: 04/20/20 Attend Phys: Orlando Sahu MD, FAAF Discharge: Date of : 57 Report #: [id number] 3. Stage 3 sacral pressure ulcer. 4. Premorbid chronic T12-L1 paraplegia; nevertheless, living independently in the community. 5. Urinary tract infection. 6. Chronic back pain. 7. Gastroesophageal reflux disease. 8. Neurogenic bladder with suprapubic tube. 9. Neurogenic bowel. He premorbidly perform digital stimulation, but needs to have a low lying 24-inch commode in order to do this. PLAN: The patient is a candidate for an acute in-hospital inpatient rehabilitation stay. We can plan on transfer to the acute in-hospital inpatient rehabilitation [place] when medically cleared. Thank you for asking us to assist in this patient's care. By: 1323 0210 Armando Wynn MD /nt
[2020-04-20 14:47] VITALS: BP 131/101
[2020-04-20 15:59] LABS: CALCIUM 8.8 mg/dL (8.5-10.1); CREATININE 0.7 mg/dL (0.7-1.3); POTASSIUM 3.4 mmol/L (3.5-5.1)
[2020-04-20 16:02] LABS: HEMATOCRIT 40.8 % (42.0-52.0); MCH 30.8 pg (26.0-34.0); MCHC 34.3 g/dL (28.0-37.0); MCV 89.5 fL (80.0-100.0); RBC 4.56 mil/uL (4.50-6.00); RDW 15.1 % (10.5-14.5); WBC 18.1 thou/uL (4.0-11.0)
[2020-04-20 16:05] LABS: ALBUMIN 2.4 g/dL (3.4-5.0); TOTAL BILIRUBIN 0.4 mg/dL (0.2-1.0); TOTAL PROTEIN 6.4 g/dL (6.4-8.2)
[2020-04-20 16:06] LABS: PLATELET COUNT 311 thou/uL (150-400)
[2020-04-20 16:53] LABS: APTT 35.5 Seconds (24.5-32.8); INR 1.1
[2020-04-20 17:01] VITALS: BP 131/101
--- NOTE | 2020-04-20 17:05 | NUR ---
ATTMEPTED TO CALL REPORT. WAS ADVISED NURSE WAS BUSY AND WILL HAVE TO CALL BACK
[2020-04-20 17:14] LABS: ABSOLUTE NEUTROPHILS 15.2 thou/uL (1.4-8.2); METAMYELOCYTES 2 %
[2020-04-20 17:15] LABS: PLATELET ESTIMATE NORMAL
[2020-04-20 17:21] VITALS: BP 119/67
[2020-04-20 19:57] VITALS: BP 137/96
[2020-04-21 05:56] VITALS: BP 124/67
[2020-04-21 07:01] LABS: HEMATOCRIT 35.4 % (42.0-52.0); MCHC 33.1 g/dL (28.0-37.0); MCV 90.8 fL (80.0-100.0); RBC 3.9 mil/uL (4.50-6.00); RDW 15.7 % (10.5-14.5); WBC 12.9 thou/uL (4.0-11.0)
[2020-04-21 07:03] VITALS: BP 135/65
[2020-04-21 07:30] LABS: HEMOGLOBIN 11.7 gm/dL (14.0-18.0)
--- NOTE | 2020-04-21 08:14 | NUR ---
admit pt admitted from home via ed to room 455 for uti and ugi bleed. a/o x4. vss left chest port accessed and has good blood return. labs drawn this am and hgb dropped from 14 to 11.7 notified. stated he will continue to monitor after egd today. pressure wound present on coccyx on arrival picture taken per protocol wound cleansed with saline and covered with mepilex. suprapubic catheter in place draining light yellow slightly cloudy urine. protonic gtt running at 25cc/hr and ns@100cc's/hr. pain controlled with iv hydromorphone taking q3hrs. continue to monitor.
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
--- NOTE | 2020-04-21 18:23 | NUR ---
Assumed patient care at 0715. Vital signs stable, LSCTA, ABD slightly distended and tender. Patient NPO since midnight due to EGD. alert and oriented x's 4, he has a left chest port with 1 lumen that is patent. Patient has had no reactions R/T IV ABT Therapy. Patient left for EGD at 1345, returned at 1510. Diagnosis : Esophagitis, Duodenal Ulcers. Patient started on a Heart Healthy Diet for Dinner. He has requested and received Alprazolam 1mg po as needed for anxiety with full effectiveness twice during this shift. Patient has also has requested and received Hydromorphone IV push for generalized abdominal pain; this medication has been partially effective in controlling his pain.Will report to on-coming nurse.
[2020-04-21 20:06] VITALS: BP 119/60
--- NOTE | 2020-04-22 02:12 | NUR ---
ASSUMED CARE OF PT AT 1900HRS. PT AOX4 AND LRTS NEEDS BE KNOWN. FALL PRECAUTION IN PLACE FOR SFETY. SUPRAPUBIC CATH IN PLACE AND IS PATIENT. PT REPORTED PAIN AND WAS TREATED AROUND THE CLOCK. PT REFUSED TELE MONITOR. AROUND 0200HRS. PT COMPLAINED OF CONGESTION AND COUGH. PT'S LUNGS SOUND COURSE AND IVF WAS PUT ON HOLD. PT DENIES NAUSEA OR SOA AT THIS TIME. VSS AND NO S/S OF ACUTE DISTRESS. WILL CONTINUE TO MONITOR FOR CHANGES.
[2020-04-22 05:57] LABS: CALCIUM 8.4 mg/dL (8.5-10.1); CREATININE 0.8 mg/dL (0.7-1.3)
[2020-04-22 07:26] VITALS: BP 147/78
[2020-04-22 07:58] LABS: HEMATOCRIT 33.4 % (42.0-52.0); HEMOGLOBIN 11.3 gm/dL (14.0-18.0); MCH 30.8 pg (26.0-34.0); MCHC 33.9 g/dL (28.0-37.0); MCV 90.8 fL (80.0-100.0); RBC 3.68 mil/uL (4.50-6.00); RDW 15.9 % (10.5-14.5); WBC 12.2 thou/uL (4.0-11.0)
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
--- NOTE | 2020-04-22 09:16 | NUR ---
Urine culture faxed to the unit per Brandy RN's request at this time.
--- NOTE | 2020-04-22 10:04 | NUR ---
CARE TEAM RECOMMENDING POST ACUTE CARE STAY INDICATING THAT PT IS CURRENTLY TOO WEAK TO CARE FOR SELF IN HOME ENVIRONEMENT AND WOULD BENEFIT FROM REHAB SERVICES. CM CALLED AND SPOKE WITH PT THIS AM AND HE INDICATED HE WOULD PREFER TO GO TO [facility]N ACUTE INPATIENT REHAB HERE AT [facility]. CM NOTIFIED 5N LIAISON AND THEY ARE TO ASSESS PT FOR POSSIBLE ADMISSION. CM TO FOLLOW INDICATED WITH DC PLANNING.
[2020-04-22 16:20] VITALS: BP 111/53
--- NOTE | 2020-04-22 18:06 | PATH ---
[facility] [address] [place] [address] PATHOLOGY RPT PROCEDURE Name: PATRICIA FLYNN Suzanna Room #: 455-P [facility] IN M.R.#: [id number] Admission: 04/20/20 Date of : 57 Discharge: Report #: [id number] Path Case #: [id number] [facility] Accession Number: [id number] . 01 Material submitted: . stomach - GASTRIC BIOPSY R/O H. PYLORI . 01 Clinician provided ICD-10: K92.0 N39.0 . 01 Clinical history: . MELENA, ABD PAIN, EROSIVE ESOPHAGITIS, DUODENAL ULCERS . 02 Diagnosis: Gastric mucosa, gastritis R/O H. pylori, endoscopic biopsy: - Mild chronic gastritis. - Negative for intestinal metaplasia or atrophy. - Negative for Helicobacter pylori (properly controlled immunohistochemical stain performed). (IUV:ty; 04/22/2020) S 04/22/2020 1420 Local . 02 Electronically signed: . Kate De Los Santos MD, Pathologist NPI- [id number] . 01 Gross description: . The specimen is received in formalin, labeled "Patricia Flynn, gastric biopsy, R/O H. pylori". Received are four segments of pale pugh soft tissue ranging in size from 0.3 to 0.4 cm in maximum dimensions. The specimen is submitted entirely in cassette A1. (CAA; 04/21/2020) QAC/QA 04/21/2020 1747 Local . 02 Pathologist provided ICD-10: K29.50 . 02 CPT . 706554, K23190 Specimen Comment: A courtesy copy of this report has been sent to [phone] Specimen Comment: [id number], Specimen Comment: Report sent to ,DR EDWARD / DR NEWTON Performed at: [address], [place] [id number] [address] [address] PATHOLOGY RPT PROCEDURE Name: FLYNNPATRICIA Lewis Room #: 455-P [facility] IN M.R.#: [id number] Admission: 04/20/20 Date of : 57 Discharge: Report #: [id number] Path Case #: [id number] MD Chito Betts MD Phone: [phone] Performed at: [address] [facility] [address] [id number] MD Kate De Los Santos MD Phone: [phone]
--- NOTE | 2020-04-22 19:52 | NUR ---
ASSUMED PT CARE THIS AM. VITAL SIGNS STABLE, PATIENT A&OX4. PT HAD BACK PAIN THAT WAS MANAGED ADEQUATELY BY MEDICATION. DR DISCONTINUED FLUIDS AND TELEMETRY THIS AM. PT US RESULTS CAME BACK POSITIVE FOR E COLI, DR MADE AWARE. PT HYDRATED ADEQUATELY AND HAD A GOOD APPETITE. LUNG SOUNDS WERE CLEAR. MANUAL DISIMPACTION TOOK PLACE THIS AM AT 0815 BY CLINICAL INSTRUCTER SEBAS. WOUND PICTURES WERE TAKEN AND A NEW DRESSING WAS PLACED. PT HEELS WERE FLOATED OFF BED, SCDS ON, AND PT TURNED INDEPENDENTLY Q2H. PATIENTS LEFT CHEST PORT WAS PATENT, AND NO DISCOMFORT WAS NOTED. NIGHT NURSE WAS ENDORSED.
[2020-04-22 20:18] VITALS: BP 105/60
--- NOTE | 2020-04-23 06:41 | NUR ---
PROGRESS PT A/O X4 REPOSITIONED Q2HRS DRESSING TO COCCYX IS INTACT. BS POSITIVE SUPRA-PUBIC CATHETER DRAINING LARGE AMOUNT OF CLEAR YELLOW URINEREPORTS PAIN AT A LEVEL OF 6 TO 8 TAKING HYDROMORPHONE 1 MG Q3HRS PRN, XANAX GIVEN X 2 FOR REPORTS OF ANXIETY. PT NERVOUS ABOUT TRANSFERRING TO REHAB. CONTINUE TO MONITOR.
[2020-04-23 07:24] VITALS: BP 128/75
[2020-04-23] MEDS ORDERED: CARAFATE 11 GM/10 M1 PO (07:44)
[2020-04-23] MEDS ORDERED: DOLOPHINE HCL5 MG PO (07:46)
[2020-04-23 08:20] VITALS: BP 128/75
--- NOTE | 2020-04-23 11:03 | NUR ---
CM SAW THAT DR. EDWARD PUT IN ORDERS TO DC 5N THIS DAY. CM CALLED AND SPOKE WITH PT. HE IS AGREEABLE WITH DC TO 5N TODAY. NO OTHER CM INTERVENTION INDICATED. CASE CLOSED.
[2020-04-23 13:13] LABS: HEMATOCRIT 33.2 % (42.0-52.0); HEMOGLOBIN 11.3 gm/dL (14.0-18.0)
[2020-04-24] MEDS ORDERED: CARAFATE 11 GM/10 M1 PO (11:50)
[2020-04-24] MEDS ORDERED: BACTRIM DS TAB1 EACH PO (11:50)
[2020-04-24] MEDS ORDERED: PROTONIX40 M4 PO (11:50)
[2020-04-24] MEDS ORDERED: MACRODANTIN100 MG PO (15:01)
[2020-04-24] MEDS ORDERED: CIPRO250 M2 PO (15:01)
[2020-04-24] MEDS ORDERED: PROBIOTIC1 EAC2 PO (15:02)
== END 2020-04-23 14:34 | DRG 380 ==
LOC: ER 14:42 → EROBS 16:45 → 4W 16:45
PROVIDERS: Emergency Medicine; Family Medicine; Nurse Practitioner; ADMIT Family Medicine; ATTEND Family Medicine
PROC: 0DB68ZX Excision of Stomach, Via Natural or Artificial Opening Endoscopic, Diagnostic (ICD-10-PCS; principal; 2020-04-21)
DX: K22.11 Ulcer of esophagus with bleeding (principal); S34.139A Unspecified injury to sacral spinal cord, initial encounter; L89.153 Pressure ulcer of sacral region, stage 3; E43 Unspecified severe protein-calorie malnutrition; N39.0 Urinary tract infection, site not specified; G82.20 Paraplegia, unspecified; K59.2 Neurogenic bowel, not elsewhere classified; K26.4 Chronic or unspecified duodenal ulcer with hemorrhage; Z20.828 Contact with and (suspected) exposure to other viral communicable diseases; I10 Essential (primary) hypertension; G89.4 Chronic pain syndrome; M54.9 Dorsalgia, unspecified; N31.9 Neuromuscular dysfunction of bladder, unspecified; F32.9 Major depressive disorder, single episode, unspecified; R13.10 Dysphagia, unspecified; D64.9 Anemia, unspecified; M19.012 Primary osteoarthritis, left shoulder; M19.011 Primary osteoarthritis, right shoulder; K21.9 Gastro-esophageal reflux disease without esophagitis; Z88.8 Allergy status to other drugs, medicaments and biological substances; Z86.718 Personal history of other venous thrombosis and embolism; Z86.711 Personal history of pulmonary embolism; Z86.14 Personal history of Methicillin resistant Staphylococcus aureus infection; Z88.6 Allergy status to analgesic agent; Z88.1 Allergy status to other antibiotic agents; X58.XXXA Exposure to other specified factors, initial encounter; Y93.89 Activity, other specified; Y92.89 Other specified places as the place of occurrence of the external cause; Y99.8 Other external cause status; Z82.49 Family history of ischemic heart disease and other diseases of the circulatory system; Z68.25 Body mass index [BMI] 25.0-25.9, adult; Z79.899 Other long term (current) drug therapy
CPT/HCPCS: 10045; 62110; 62900; 70005

== ENCOUNTER 2020-04-23 11:00 | Inpatient (IN) | payer OTHER, BC ==
[~2020-04-23] VITALS: Ht 182.9 cm; Wt 78.9 kg
--- NOTE | ~2020-04-23 | H ---
[facility] [place] [address] HISTORY AND PHYSICAL Name: PATRICIA FLYNN Room #: 505-P ADM IN M.R.#: [id number] Admission: 04/23/20 Attend Phys: Armando Wynn MD Discharge: Date of : 57 Report #: [id number] THIS REPORT FOR: cc: Arian Mcgowan MD,Arian Wynn,Armando Powers MD ~ CC: Armando Mcgowan DATE OF SERVICE: 04/23/2020 HISTORY AND PHYSICAL/POST-ADMISSION PHYSICIAN EVALUATION HISTORY OF PRESENT ILLNESS: Please see my prior consultation and the documented history and physical. Agree with the findings as noted. The patient has premorbid paraplegia since 1985 involving T12-L1. He lives very independently in his own home, driving with his manual wheelchair. He was hospitalized with melena and noted to have multiple duodenal ulcers per EGD. He was originally quite weak and debilitated, especially when I saw him in consultation. He has been admitted now for acute in-hospital inpatient rehabilitation. Upon admission, please see the prior medical history, social history, allergies, habits as noted. MEDICATIONS: See the MAR. REVIEW OF SYSTEMS: No complaints of chest pain, shortness of breath or abdominal discomfort. Please see the listing. PHYSICAL EXAMINATION: GENERAL: He has excellent upper body strength, 5/5. He has a suprapubic catheter. CHEST: Clear. CARDIOVASCULAR: Regular rate and rhythm. ABDOMEN: Bowel sounds positive, nontender. Functionally, he actually did extremely well with basic transfers. He feels much stronger than when seen in consultation and the preadmission screen. PLAN: Thus to have him be discharged directly home as he really is functioning at his premorbid status and has had a nice return as far as his overall functional independence. He does have a stage 3 sacral pressure ulcer, which is not new and he will be following up with Wound Care in that regard. Agree with the history and physical documentation. Please see the discharge summary as well. [address] [address] HISTORY AND PHYSICAL Name: RINAPATRICIA Briseno Room #: 505-P ADM IN .R.#: [id number] Admission: 04/23/20 Attend Phys: Armando Wynn MD Discharge: Date of : 57 Report #: [id number] From a postadmission physician evaluation perspective, there are relevant changes since the preadmission screening. The patient has made marked improvement as far as his overall functional independence. Plan is thus to be discharging directly home as noted above. By: [id number] Armando Wynn MD /nt
[~2020-04-23 11:00] MED LIST changes: +CARAFATE 11 GM/10 M1 PO; +DOLOPHINE HCL5 MG PO
[2020-04-23 14:30] VITALS: BP 112/59
--- NOTE | 2020-04-23 15:54 | NUR ---
PATIENT ARRIVED AT 1400 FROM 4W. ALERT AND ORIENTED*4. VITALS ARE STABLE. C/O HELEN SHOULDER AND BACK PAIN, PAIN MEDICATION ADMINISTERED PRIOR TO TRANSFER. PORTAL CATH REMAINS INTACT AND PATENT. PT HAS A SACRAL WOUND, SITE CLEANED AND DRESSING CHANGED, PICTURE TAKEN. PT INCONTINENT OF BOWEL *1. SUPRAPUBIC CATHETER REMAINS INTACT AND PATENT, URINE IS LIGHT YELLOW AND CLEAR WITH NO FOUL ODOR. PT REPOSITIONED Q2H. Q1H VISUAL CHECK. CALL LIGHT WITHIN REACH.
--- NOTE | 2020-04-23 16:16 | NUR ---
chart review. pt new to rehab today. he is a & o x 4, pleasant and able to make his needs know. been to skilled rehab in past, ie [facility] and had [facility] in past [facility] and [facility]. he lives alone, has ramp to enter. uses wheel chair, manage own medication. drives vehicle. will cont following as needed for dc needs. has daughters and siblings.
[2020-04-23 19:14] VITALS: BP 123/52
--- NOTE | 2020-04-24 03:54 | NUR ---
assumed care approx 1900 evening 04/23. pt alert and oriented x4, appropriate and cooperative. suprapubic catheter in place with large amt yellow urine drained from bag (1700 ml). pt took hs meds with water tolerating well. pt appears to be sleeping off and on. bed alarm on and call light in reach. will continue to monitor.
[2020-04-24 05:20] LABS: HEMATOCRIT 33.3 % (42.0-52.0); MCHC 33.1 g/dL (28.0-37.0); MCV 90.5 fL (80.0-100.0); RBC 3.68 mil/uL (4.50-6.00); RDW 15.6 % (10.5-14.5); WBC 11.9 thou/uL (4.0-11.0)
[2020-04-24 05:26] LABS: CREATININE 0.9 mg/dL (0.7-1.3)
[2020-04-24 08:00] VITALS: BP 133/61
[2020-04-24 11:39] VITALS: BP 133/61
--- NOTE | 2020-04-24 11:41 | NUR ---
cm notified by safety lamp keeper that pt going dc home today with [facility]. referral sent to [facility]. dc order to be sent to [facility].
[2020-04-24] MEDS ORDERED: PROTONIX40 M4 PO (11:50)
[2020-04-24] MEDS ORDERED: CARAFATE 11 GM/10 M1 PO (11:50)
[2020-04-24] MEDS ORDERED: BACTRIM DS TAB1 EACH PO (11:50)
--- NOTE | 2020-04-24 11:59 | NUR ---
ASSUMED CARES AT 0700. PT AWAKE, ALERT AND ORIENTED*4. C/O HELEN LOWER EXTREMITY PAIN, 8/10, METHADONE ADMINISTERED ORDERED. VITALS REMAIN STABLE. SACRAL WOUND CLEANED AND DRESSING CHANGED. PT COMPLETED OWN BOWEL PROGRAM (DIGITAL STIMULATION), SUPRAPUBIC SITE CARE COMPLETED. CATHETER REMAINS INTACT AND PATENT, URINE IS LIGHT YELLOW AND CLEAR WITH NO FOUL ODOR. PT TRANSFERED WITH SBA, W/C AND UTILIZING GRAB BARS AND TOLERATED WELL. PT TO DC THIS AFTERNOON TO HOME WITH [facility], DC INSTRUCTIONS TO BE COMPLETED WITH PT AT THE BEDSIDE PRIOR TO DC. Q1H VISUAL CHECKS. CALL LIGHT WITHIN REACH. FALL PRECAUTIONS IN PLACE
[2020-04-24] MEDS ORDERED: MACRODANTIN100 MG PO (15:01)
[2020-04-24] MEDS ORDERED: CIPRO250 M2 PO (15:01)
[2020-04-24] MEDS ORDERED: PROBIOTIC1 EAC2 PO (15:02)
--- NOTE | 2020-04-24 16:12 | NUR ---
I have reviewed the documentation by ÓSCAR GAITAN from 04/24/2020 to 04/24/20 and I concur with it. DELIA ALEJO, PT, DPT
--- NOTE | 2020-04-24 16:41 | NUR ---
PT DISCHARGING TODAY TO HOME WITH [facility] FAXED DC ORDERS/SUMMARY RECEIVED CONFIRMATION AND THEY WILL NOTIFY PT TO RESUME CARE AND SET UP VISITS.
== END 2020-04-24 15:15 | disposition home health service (06) | DRG 947 ==
PROVIDERS: Nurse Practitioner Family; ADMIT Physical Medicine & Rehabilitation; ATTEND Physical Medicine & Rehabilitation
DX: R53.81 Other malaise (principal); L89.153 Pressure ulcer of sacral region, stage 3; K26.4 Chronic or unspecified duodenal ulcer with hemorrhage; K22.11 Ulcer of esophagus with bleeding; E43 Unspecified severe protein-calorie malnutrition; G82.20 Paraplegia, unspecified; N39.0 Urinary tract infection, site not specified; D64.9 Anemia, unspecified; R13.10 Dysphagia, unspecified; K21.9 Gastro-esophageal reflux disease without esophagitis; G89.4 Chronic pain syndrome; N31.9 Neuromuscular dysfunction of bladder, unspecified; I10 Essential (primary) hypertension; Z68.23 Body mass index [BMI] 23.0-23.9, adult; Z88.6 Allergy status to analgesic agent; Z88.1 Allergy status to other antibiotic agents; Z88.8 Allergy status to other drugs, medicaments and biological substances; Z90.49 Acquired absence of other specified parts of digestive tract; Z82.49 Family history of ischemic heart disease and other diseases of the circulatory system; Z79.899 Other long term (current) drug therapy
CPT/HCPCS: 10112

== ENCOUNTER → 2020-06-26 | Emergency (ER) | payer OTHER, BC ==
[~2020-06-26] VITALS: Ht 182.9 cm; Wt 88.5 kg
[~2020-06-26] MED LIST changes: +CIPRO250 M2 PO; +MACRODANTIN100 MG PO; +PROBIOTIC1 EAC2 PO
[2020-06-26 14:17] VITALS: BP 127/80
== END ==
LOC: ER 14:15
DX: R53.83 Other fatigue (principal); N39.0 Urinary tract infection, site not specified; I10 Essential (primary) hypertension; K21.9 Gastro-esophageal reflux disease without esophagitis; F17.210 Nicotine dependence, cigarettes, uncomplicated; Z86.73 Personal history of transient ischemic attack (TIA), and cerebral infarction without residual deficits; Z90.89 Acquired absence of other organs; Z79.899 Other long term (current) drug therapy; Z88.8 Allergy status to other drugs, medicaments and biological substances; Z88.1 Allergy status to other antibiotic agents; Z88.5 Allergy status to narcotic agent

== ENCOUNTER 2020-07-29 10:33 | Inpatient (IN) | payer OTHER, BC ==
[~2020-07-29] VITALS: Ht 180.3 cm; Wt 85.0 kg
[2020-07-29 10:54] VITALS: BP 133/85
[2020-07-29 13:40] LABS: URINE BILIRUBIN NEGATIVE (Negative); URINE BLOOD 2+ (Negative); URINE COLOR YELLOW; URINE GLUCOSE-RANDOM* NEGATIVE (Negative); URINE KETONES NEGATIVE (Negative); URINE NITRITE-REFLEX NEGATIVE (Negative); URINE PROTEIN (DIPSTICK) 1+ (Negative); URINE UROBILINOGEN 0.2 E.U./dl (0.2-1.0)
[2020-07-29 13:42] LABS: URINE CLARITY HAZY; URINE LEUKOCYTES-REFLEX 3+ (Negative)
[2020-07-29 13:55] LABS: BACTERIA-REFLEX >30 Many /HPF (None Seen); CASTS None Seen /LPF (None Seen); SQUAMOUS 4-10 Moderate /LPF (0-3); URINE RBC 3-10 Few /HPF (0-2); URINE WBC-REFLEX >25 Many /HPF (0-5)
[2020-07-29 14:00] LABS: TRIPLE PHOSPHATE CRYSTALS >10 Many /LPF (None Seen)
[2020-07-29 14:29] LABS: ABSOLUTE NEUTROPHILS 5.1 thou/uL (1.4-8.2); BASOPHILS 0.8 % (0.0-2.0); EOSINOPHILS 6.7 % (0.0-3.0); HEMATOCRIT 46.6 % (42.0-52.0); HEMOGLOBIN 15.3 gm/dL (14.0-18.0); LYMPHOCYTES 16.7 % (24.0-44.0); MCHC 32.8 g/dL (28.0-37.0); MCV 85.5 fL (80.0-100.0); MONOCYTES 9.6 % (1.0-8.0); POLYS 66.2 % (36.0-66.0); RBC 5.45 mil/uL (4.50-6.00); RDW 17.3 % (10.5-14.5); WBC 8.9 thou/uL (4.0-11.0)
[2020-07-29 14:40] LABS: CREATININE 0.8 mg/dL (0.7-1.3); POTASSIUM 4.2 mmol/L (3.5-5.1)
[2020-07-29 14:47] LABS: ALBUMIN 3.3 g/dL (3.4-5.0); TOTAL BILIRUBIN 0.3 mg/dL (0.2-1.0); TOTAL PROTEIN 6.8 g/dL (6.4-8.2)
[2020-07-29 15:03] LABS: PLATELET COUNT 164 thou/uL (150-400)
[2020-07-29 18:24] VITALS: BP 167/90
[2020-07-29 22:20] VITALS: BP 160/98
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
[2020-07-30 08:36] VITALS: BP 133/87
--- NOTE | 2020-07-30 11:15 | NUR ---
Assumed care of pt at 0700. Pt a&ox4. C/o generalized pain. Prn pain meds administered. Suprapubic catheter in place. IV antibiotic infusing. Left chest port in place. Room air. Call light within reach. Fall precautions in place. Will continue to monitor.
[2020-07-30 17:28] VITALS: BP 123/88
[2020-07-30 21:45] VITALS: BP 137/82
--- NOTE | 2020-07-31 03:15 | NUR ---
ASSUMED CARE OF PT AT 1900. PT IS A/O X4 AND IS UP WITH ASSIST TO W/C. SUPRAPUBIC CATHETER IN PLACE AND IS DRAINING LIGHT YELLOW URINE. PT C/O SEVERE GENERALIZED PAIN ALL OVER. PRN PAIN MEDICATION GIVEN PER OCT. AT THIS TIME PT IS LYING IN HIS BED AND APPEARS TO BE SLEEPING. FALL PRECAUTIONS HAVE BEEN IMPLEMENTED, CALL LIGHT IS WITHIN REACH. WILL CONTINUE TO MONITOR.
[2020-07-31 03:35] VITALS: BP 123/85
[2020-07-31 07:50] VITALS: BP 125/77
--- NOTE | 2020-07-31 11:42 | NUR ---
Assumed care of pt at 0700. Pt a&ox4. Pain controlled with prn pain meds. Covid test pending. Pt likely d/c to home today. Digitally disimpacted bowels. Suprapubic catheter in place. Call light within reach. Fall precautions in place. Will continue to monitor.
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
[2020-07-31 16:25] VITALS: BP 142/88
[2020-07-31 19:37] VITALS: BP 122/73
--- NOTE | 2020-08-01 02:45 | NUR ---
ASSUMED CARE OF PT AT 1900. PT IS A/O X4 AND IS UP WITH ASSIST TO THE W/C. PT HAD SOFT IMPACTED STOOL. WHILE CLEANING UP PT HE SCRATCHED ABOVE HIS RECTUM ON HIS SACRUM WHERE A PREVIOUS WOUND HAD BEEN AND CAUSED A SMALL PORTION TO REOPEN. PICTURES TAKEN AND PUT IN THE CHART. CLEANED WOUND AND APPLIED BARRIER CREAM. C/O SEVERE GENERALIZED PAIN. PRN PAIN MEDICATION GIVEN PER OCT. SUPRAPUBIC IN PLACE AND DRAINING LIGHT YELLOW URINE INTO THE FIGUEROA BAG AND IS ALSO DRAINING AT THE SITE ON THE LOWER ABDOMEN WHERE THE SUPRAPUBIC CATHETER IS INSERTED. FALL PRECAUTIONS ARE IN PLACE, CALL LIGHT IS WITHIN REACH. WILL CONTINUE TO MONITOR.
[2020-08-01 07:30] VITALS: BP 115/83
--- NOTE | 2020-08-01 10:19 | NUR ---
Assumed care of pt at 0700. Pt a&ox4. Prn pain meds administered at pt's request for generalized pain. CT abd ordered. Awaiting covid test results. Likey discharge to home once results are back. Suprapubic catheter in place. Call light within reach. Will continue to monitor.
[2020-08-01 16:21] VITALS: BP 115/83
== END 2020-08-01 17:25 | disposition home or self-care (01) | DRG 872 ==
LOC: ER 10:33 → 4S 17:54 → EROBS 17:54 → 4S 20:04
PROVIDERS: Emergency Medicine; ADMIT Family Medicine; ATTEND Family Medicine
DX: A41.9 Sepsis, unspecified organism (principal); N39.0 Urinary tract infection, site not specified; G82.20 Paraplegia, unspecified; I10 Essential (primary) hypertension; G89.4 Chronic pain syndrome; K21.9 Gastro-esophageal reflux disease without esophagitis; R31.9 Hematuria, unspecified; F17.210 Nicotine dependence, cigarettes, uncomplicated; Z20.828 Contact with and (suspected) exposure to other viral communicable diseases; Z86.718 Personal history of other venous thrombosis and embolism; Z86.711 Personal history of pulmonary embolism; Z79.899 Other long term (current) drug therapy; Z88.1 Allergy status to other antibiotic agents; Z88.5 Allergy status to narcotic agent; Z88.8 Allergy status to other drugs, medicaments and biological substances; Z90.49 Acquired absence of other specified parts of digestive tract
CPT/HCPCS: 10195

== ENCOUNTER 2020-09-05 14:47 | Inpatient (IN) | payer OTHER, BC ==
[~2020-09-05] VITALS: Ht 182.9 cm; Wt 86.2 kg
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
[2020-09-05 14:47] VITALS: BP 142/79
[2020-09-05 15:53] LABS: ABSOLUTE NEUTROPHILS 6.7 thou/uL (1.4-8.2); BASOPHILS 0.4 % (0.0-2.0); EOSINOPHILS 6.3 % (0.0-3.0); HEMATOCRIT 46.7 % (42.0-52.0); HEMOGLOBIN 15.6 gm/dL (14.0-18.0); LYMPHOCYTES 17.7 % (24.0-44.0); MCH 28.7 pg (26.0-34.0); MCHC 33.5 g/dL (28.0-37.0); MCV 85.8 fL (80.0-100.0); MONOCYTES 11.1 % (1.0-8.0); PLATELET COUNT 233 thou/uL (150-400); POLYS 64.5 % (36.0-66.0); RBC 5.44 mil/uL (4.50-6.00); RDW 17.9 % (10.5-14.5); WBC 10.3 thou/uL (4.0-11.0)
[2020-09-05 16:03] LABS: CALCIUM 9.7 mg/dL (8.5-10.1); CREATININE 0.8 mg/dL (0.7-1.3); POTASSIUM 3.8 mmol/L (3.5-5.1)
[2020-09-05 16:09] LABS: ALBUMIN 3.6 g/dL (3.4-5.0); TOTAL BILIRUBIN 0.4 mg/dL (0.2-1.0); TOTAL PROTEIN 7.2 g/dL (6.4-8.2)
[2020-09-05 16:50] LABS: URINE BILIRUBIN NEGATIVE (Negative); URINE BLOOD TRACE (Negative); URINE CLARITY CLEAR; URINE COLOR YELLOW; URINE GLUCOSE-RANDOM* NEGATIVE (Negative); URINE KETONES NEGATIVE (Negative); URINE PROTEIN (DIPSTICK) NEGATIVE (Negative); URINE SPECIFIC GRAVITY <= 1.005 (1.005-1.035); URINE UROBILINOGEN 0.2 E.U./dl (0.2-1.0)
[2020-09-05 17:07] LABS: URINE LEUKOCYTES-REFLEX 2+ (Negative); URINE NITRITE-REFLEX POSITIVE (Negative)
[2020-09-05 17:11] LABS: BACTERIA-REFLEX None Seen /HPF (None Seen); CASTS None Seen /LPF (None Seen); CRYSTALS None Seen /LPF (None Seen); SQUAMOUS None Seen /LPF (0-3); URINE RBC 0-2 Rare /HPF (0-2); URINE WBC-REFLEX 0-5 Rare /HPF (0-5)
[2020-09-05 18:53] VITALS: BP 142/79
[2020-09-05 19:00] VITALS: BP 120/62
[2020-09-05 19:07] VITALS: BP 142/79
[2020-09-05 20:15] VITALS: BP 142/83
--- NOTE | 2020-09-06 03:32 | NUR ---
PT WAS ADMITTED TO THE UNIT FROM THE ER IN A STABLE CONDITION.PT C/O PAIN,DR EDWARD NOTIFIED,ORDER NOTED AND CARRIED OUT.WOUND CARE TO HIS SACRUM.LUNCH BOX PROVIDED TO PATIENT.CALL LIGHT WITHIN REACH.
[2020-09-06 04:34] LABS: CALCIUM 9.1 mg/dL (8.5-10.1); CREATININE 0.9 mg/dL (0.7-1.3)
[2020-09-06 04:36] LABS: POTASSIUM 3.9 mmol/L (3.5-5.1)
[2020-09-06 04:47] LABS: HEMATOCRIT 45.8 % (42.0-52.0); HEMOGLOBIN 15.4 gm/dL (14.0-18.0); MCH 28.8 pg (26.0-34.0); MCHC 33.6 g/dL (28.0-37.0); MCV 85.9 fL (80.0-100.0); RBC 5.33 mil/uL (4.50-6.00); RDW 17.9 % (10.5-14.5); WBC 8.2 thou/uL (4.0-11.0)
[2020-09-06 07:33] VITALS: BP 128/69
[2020-09-06 15:28] VITALS: BP 122/54
--- NOTE | 2020-09-06 15:39 | NUR ---
CARE ASSUMED AT 0700, PT ALERT AND ORIENTED X4. PT DENIES NAUSEA AND VOMITTING. COMPLAINS OF ABDOMINAL PAIN, PAIN MED GIVEN PER ORDER. PT SUPAPUBIC CATHETER IN PLACE, PATENT AND SECURED. PT DENIES ANY NEEDS LAYA, WILL CONTINUE TO MONITOR.
[2020-09-06 19:02] VITALS: BP 128/58
[2020-09-07 04:27] VITALS: BP 118/61
--- NOTE | 2020-09-07 07:55 | NUR ---
PT LYING IN BED. OXY IR PROVIDING PAIN RELIEF. RESTING COMFORTABLY. NO NEEDS VOICED. CALL LIGHT WITHIN REACH. FREQUENT OBSERVATION.
--- NOTE | 2020-09-07 17:37 | NUR ---
PATIENT ALERT AND ORIENTED. VERY COOPERATIVE WITH CARES AND PLEASANT ATTITUDE. PATIENT CONSUMES A LOT OF WATER. C/O PAIN X1 THIS SHIFT. PAIN MEDICATION ADMINISTERED. PATIENT ON BEDREST. PATIENT DID COMPLAIN OF ITCHING THIS SHIFT. PHYSICIAN ORDERED NEW MEDICATION. PATIENT ON BED REST. LOW AIR LOSS MATTRESS. WILL CONTINUE TO MONITOR.
[2020-09-07 19:09] VITALS: BP 138/67
--- NOTE | 2020-09-08 00:45 | NUR ---
ASSUMED PT CARE AT SHIFT CHANGE. PT IS A&OX4. PT HAS A LEFT CHEST PORT. PT IS COMPLIANT WITH HEALTH NEEDS. TAKES MEDICATION WHOLE. PT HAS A SUPRAPUBIC CATHETER THAT HE KEEPS A TOWEL ON TO KEEP HIM DRY BECAUSE IT LEAKS. PT STATES THAT HIS ABDOMINAL PAIN CAUSES HIS BACK PAIN TO INCREASE. ORAL PAIN MEDICATION IS ADMINISTERED. PT DRINKS A LOT OF WATER. URINE IS LIGHT YELLOW. PT IS ON A LOW AIR LOSS MATTRESS, FEET ELEVATED ON TWO PILLOWS. PT HAS COMPLAINTS OF ITCHING ON HIS HANDS AND BACK SO I APPLIED THE TOPICAL OINTMENT. HOURLY ROUNDING DONE. WILL CONTINUE TO MONITOR.
[2020-09-08 07:25] VITALS: BP 118/55
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
[2020-09-08 16:55] VITALS: BP 126/68
--- NOTE | 2020-09-08 19:27 | NUR ---
A/O, calm, cooperative and pleasant. Complains of pain in stomache, back and head, pain medication given and worked; complains nausea during the evening, zofran given and worked.
[2020-09-08 20:39] VITALS: BP 99/59
--- NOTE | 2020-09-09 03:03 | NUR ---
ASSUMED PT CARE AT SHIFT CHANGE. PT STATUS HAS NOT CHANGED.PT IS A&OX4. PT HAS A LEF RAUL CHEST PORT. PT IS ON ROOM AIR. PT IS COMPLIANT. PT CALLS OUT APPROPRIATELY. DAY AID TOLD ME THAT SHE DIGITALLY REMOVED HIS BM 09/08/20. PT STATES THAT HE HAS ABDOMINAL CRAMPS THAT CAUSES HIS BACK PAIN TO HURT MORE. ORAL PAIN TOLERATED. HOURLY ROUNDING ON PT. WILL CONTINUE TO MONITOR.
[2020-09-09 05:54] VITALS: BP 96/49
--- NOTE | 2020-09-09 06:20 | NUR ---
ASSUMED CARE OF PT AT 0300. RESTING COMFORTABLY. FREQUENT OBSERVATION.
[2020-09-09 07:50] VITALS: BP 113/72
--- NOTE | 2020-09-09 11:39 | NUR ---
ASSUMED CARE AT 0700. PT IS A&O X4. RA. IV ON LEFT CHEST IS FLUSHED, CLEAN , DRY , INTACT. NO SIGNS OF REDNES OR SWELLING. SUPRAPUBIC CATHETHER. SACRAL WOUND AND ZGUARD WAS APPLIED TO SACRAL WOUND. PT COMPLAINS OF PAIN AND WAS GIVEN OXYCODONE. WILL CONTINUE TO MONITOR. FALL PRECAUTION. CALL LIGHT WITHIN REACH.
[2020-09-09] MEDS ORDERED: FLAGYL500 M1 PO (12:20)
--- NOTE | 2020-09-09 15:02 | NUR ---
CARE TEAM INDICATED THAT PT IS MEDICALLY STABLE TO DC HOME THIS DAY. PT IS TO DC HOME TO SELF CARE. NO OTHER CM INTERVENTION INDICATED. CASE CLOSED.
[2020-09-09 16:30] VITALS: BP 118/63
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
== END 2020-09-09 18:29 | disposition home or self-care (01) | DRG 391 ==
LOC: ER 14:47 → 4S 19:41
PROVIDERS: Emergency Medicine; ADMIT Family Medicine; ATTEND Family Medicine
DX: K52.9 Noninfective gastroenteritis and colitis, unspecified (principal); L89.153 Pressure ulcer of sacral region, stage 3; G82.20 Paraplegia, unspecified; N39.0 Urinary tract infection, site not specified; G89.4 Chronic pain syndrome; K21.9 Gastro-esophageal reflux disease without esophagitis; F17.210 Nicotine dependence, cigarettes, uncomplicated; N31.9 Neuromuscular dysfunction of bladder, unspecified; I10 Essential (primary) hypertension; Z86.718 Personal history of other venous thrombosis and embolism; Z86.711 Personal history of pulmonary embolism; Z86.14 Personal history of Methicillin resistant Staphylococcus aureus infection; Z88.6 Allergy status to analgesic agent; Z88.1 Allergy status to other antibiotic agents; Z88.8 Allergy status to other drugs, medicaments and biological substances; Z79.899 Other long term (current) drug therapy
CPT/HCPCS: 10195

== ENCOUNTER 2020-10-31 13:37 | Inpatient (IN) | payer OTHER, BC ==
[~2020-10-31] VITALS: Ht 180.3 cm; Wt 79.4 kg
--- NOTE | ~2020-10-31 | EMS ---
[address] [address] EMS Patient Care Report Name: PATRICIA FLYNN Room #: REG PITO Lua#: [id number] Admission: 10/31/20 Attend Phys: Discharge: Date of : 57 Report #: [id number] THIS REPORT FOR: //name// Report Transmitted: 10/31/2020 15:00 EMS Care Summary [facility] MED-ACT Incident [id number] @ 10/31/2020 12:53 Incident Location [address] [place] [address] Patient PATRICIA FLYNN Male, 65 Years 1955 Patient Address [address] [place] [address] Patient History Hypertension (HTN),Paraplegia, Patient Allergies No known allergies, Patient Medications Fentanyl, Morphine, Metoprolol, Chief Complaint "I think I hurt my leg." Disposition Transported No Lights/[place] Dispatch Reason Traumatic Injury Transported To [facility] Narrative History: Pt reports he his a paraplegic. Pt reports he was transferring from his vehicle to his wheel chair two days ago. Pt reports that while he was transferring, his wheel chair slid out from behind him, causing him to fall onto his buttocks on the concrete floor with his leg caught awkwardly beneath [address] [address] EMS Patient Care Report Name: PATRICIA FLYNN Room #: REG PITO Lua#: [id number] Admission: 10/31/20 Attend Phys: Discharge: Date of : 57 Report #: [id number] him. Pt reports he heard a "pop" sound come from his R leg. Pt reports that since then, he has notice increased swelling to his R leg, and has felt weaker. Pt denies any head, neck, or back pain. Pt denies any pain in his leg as he is laying supine. No other complaints noted at this time. Assessment: Pt was found laying supine in bed in the company of OFD responders. Pt ABCs intact. Pt A&Ox4. Pt did not appear to be in any acute distress. See assessment tab for detailed physical exam findings and pertinent negatives. Treatment: Primary. VS. HPI. PMH. Physical exam. Pt rolled onto to tarp. Pt moved via tarp to EMS stretcher in home. Pt moved via stretcher to ambulance. Transport: En route, continue with on-going assessment. Pt VS and condition remained stable and unchanged during reassessment. Biocom to [place], the pt's preferred destination. Destination: Pt was brought via stretcher to ED room 3. Pt moved via lateral tarp drag to hospital bed. Report provided to attending staff nurse icu resource team. Patient signed. Care transferred. Initial Vitals @13:27P: 89,BP: 146/91,SpO2: 100, @13:11P: 94,BP: 138/88, @PTAP: 93,R: 18,BP: 156/75,Pain: 0/10,GCS: 15,Temp: 98.9F,SpO2: 98,Revised Trauma: 12, Assessments @13:04MENTAL:Time Oriented,Person Oriented,Event Oriented,Place Oriented,SKIN:HEENT:Head/Face: No Abnormalities,LUNG SOUNDS:ABDOMEN:PELVIS//GI:No Abnormalities,EXTREMITIES:Right Leg: Paralysis,Left Leg: Paralysis,Right Leg: Edema,Right Leg: [place],PULSE:NEURO:No Abnormalities, Impression Injury of Thigh (Upper Leg) Procedures @PTASurgical Mask on PatientResponse: Unchanged Timeline UNDERWRITING INTERN,Surgical Mask on Patient,Response: Unchanged UNDERWRITING INTERN,BP: 156/75 M,PULSE: 93,RR: 18 R,SPO2: 98 Ox,ETCO2: ,BG: ,PAIN: 0,GCS: 15, 12:52,Call Received 12:52,Psap Call 12:53,Dispatched 12:53,En Route [address] [address] EMS Patient Care Report Name: PATRICIA FLYNN Suzanna Room #: REG PITO Lua#: [id number] Admission: 10/31/20 Attend Phys: Discharge: Date of : 57 Report #: [id number] 13:03,On Scene 13:03,At Patient 13:11,BP: 138/88 M,PULSE: 94,RR: R,SPO2: Ox,ETCO2: ,BG: ,PAIN: ,GCS: , 13:13,Depart Scene 13:27,BP: 146/91 M,PULSE: 89,RR: R,SPO2: 100 Ox,ETCO2: ,BG: ,PAIN: ,GCS: , 13:31,At Destination 13:49,Call Closed Disclaimer v1.1 Copyright 2020 [employer] This EMS Care Summary contains data elements from the applicable legal record (which may be displayed differently). It is designed to provide pertinent information for the following purposes: continuity of care, clinical quality, and state data reporting. The complete legal record is available to ED staff and administrators of the receiving hospital in [employer]'s Patient Tracker. All data is provided "as is."
[~2020-10-31 13:37] MED LIST changes: +FLAGYL500 M1 PO
[2020-10-31 13:38] VITALS: BP 138/87
[2020-10-31] MEDS ORDERED: OXYCODONE HCL20 M1 PO (14:09)
[2020-10-31 16:36] LABS: HEMATOCRIT 36.3 % (42.0-52.0); HEMOGLOBIN 12.4 gm/dL (14.0-18.0); MCH 31.3 pg (26.0-34.0); MCHC 34.1 g/dL (28.0-37.0); MCV 91.7 fL (80.0-100.0); RBC 3.95 mil/uL (4.50-6.00); RDW 15.5 % (10.5-14.5); WBC 7.1 thou/uL (4.0-11.0)
[2020-10-31 16:43] LABS: CALCIUM 9.6 mg/dL (8.5-10.1); CREATININE 0.8 mg/dL (0.7-1.3); POTASSIUM 3.7 mmol/L (3.5-5.1)
[2020-10-31 17:33] VITALS: BP 147/86
[2020-10-31 18:05] VITALS: BP 147/86
[2020-10-31 18:36] VITALS: BP 153/83
[2020-11-01 03:05] VITALS: BP 113/69
--- NOTE | 2020-11-01 04:31 | NUR ---
PT ARRIVED ON UNIT FROM ER AT 1800. ADMITTED FROM HOME WITH A TIB/FIB FRACTURE. SUPRAPUBIC CATHETER IN PLACE. OXY IR PROVIDING PAIN RELIEF. RESTING COMFORTABLY. NO NEEDS VOICED. CALL LIGHT WITHIN REACH. FREQUENT OBSERVATION.
[2020-11-01 07:20] VITALS: BP 136/86
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
[2020-11-01 17:25] VITALS: BP 112/71
[2020-11-01 19:32] VITALS: BP 134/71
--- NOTE | 2020-11-01 20:28 | NUR ---
ASSUMED PT CARE AROUND 0730. PT ALERT X ORIENTED X4. ON ROOM AIR. IV PORT RT CHEST. NO FLUIDS INFUSING. PAIN CONTROLLED BY PAIN MEDS. HAS SUPRPUBIC CATHETER. ORTHO ON BOARD. FALL PREACUTION IN PLACE. CALL LIGHT IN REACH. WILL CALL APPROPRIATELY. HOURLY ROUNDING DONE. SHIFT REPORT GIVEN TO CURTIS LAY.
[2020-11-02 04:31] VITALS: BP 151/81
--- NOTE | 2020-11-02 04:35 | NUR ---
PT AOX4. PT REPORTS GENERALIZED PAIN IN ADDITION TO PAIN IN SHOULDERS, SACRUM, BACK, AND HIPS. PT RECEIVING SCHEDULED PO METHADONE AND PRN PO OXYCODONE IR Q6HR. PT TOLERATING PO INTAKE OF FLUIDS AND REGULAR DIET WITHOUT ISSUE. PT WITHOUT NAUSEA OR EMESIS. PT REQUIRING MANUAL/DIGITAL DISIMPACTION ON DAYSHIFT, VOIDING PER SUPRAPUBIC CATHETER. PT RESTING IN BED THROUGHOUT SHIFT, FREQUENT REPOSITIONING ENCOURAGED. PT OBSERVED SLIGHTLY SHIFTING INDEPENDENTLY WHILE IN BED, REPOSITIONING ASSISTANCE OFFERED AND PROVIDED. PT REPORTS NUMBNESS AND TINGLING TO BLE. CAPILLARY REFILL INTACT IN ALL EXTREMITIES. PT ENCOURAGED TO NOTIFY STAFF FOR ALL NEEDS, CALL LIGHT WITHIN REACH, BED ALARM ON, BED LOCKED IN LOWEST POSITION, FREQUENT MONITORING WILL CONTINUE.
[2020-11-02 08:40] VITALS: BP 134/64
--- NOTE | 2020-11-02 11:42 | NUR ---
ASSUMED PT CARE THIS M. PT VSS, A&OX4. PATIENT PLEASANT AND COOPERATIVE WITH STAFF. SUPRAPUBIC CATHETER IN PLACE, DRAINING WELL. PATIENT REQUIRED DIGITAL DISIMPACTION THIS AM. REPORTING NO NAUSEA OR VOMITING, BUT CHRONINC NUMBNESS AND TINGLING IN LOWER EXTREMETIES. PORTACATH TO LEFT CHEST. ENCOURAGING FLUIDS. PATIENT ABLE TO MAKE NEEDS KNOWN AND IS REPOSITIONING SELF IN BED. RIGHT LEG WRAPPED. FALL RPECAUTIONS ARE IN PLACE. REPORTS PAIN IN BACK THAT IS WELL MANAGED WITH MEDS GIVEN PER EMAR.
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
[2020-11-02 16:12] VITALS: BP 118/75
[2020-11-02 19:53] VITALS: BP 116/65
[2020-11-03 04:54] VITALS: BP 117/68
--- NOTE | 2020-11-03 05:48 | NUR ---
RECEIVED CARE OF THIS PATIENT AT 1900. PATIENT ALERT AND ORIENTED X4. REMAINS ON BEDREST D/T BEING A PARAPLEGIC. HAS A SPLINT ON R LOWER EXT. C/O PAIN, MED GIVEN. HAS L CHEST PORT THAT IS ACCESSED. SLEPT OFF AND ON DURING NIGHT.
[2020-11-03 07:58] VITALS: BP 95/66
[2020-11-03] MEDS ORDERED: ENOXAPARIN40 MG/0.1 SUBQ (08:16)
--- NOTE | 2020-11-03 10:02 | NUR ---
ON-GOING ASSESSMENT: CM REVIEWED CHART AND SPOKE WITH ATTENDING WHO REPORTS PT IS STABLE TO DISCHARGE TO SNF TODAY. CHART COPY WAS ORDERED. CM SPOKE WITH LIASON FROM [facility] WHO REPORTS THEY CAN ACCEPT PT TODAY AND HAVE ARRANGED TRANSPORTATION FOR 1130. CM NOTIFIED BEDSIDE RN WHO HAS THE NUMBER FOR REPORT. CM FAXED DISCHARGE ORDERS TO FACILITY AND CONFIRMED THEY RECEIVED THEM. CM ALSO FAXED NEGATIVE COVID TEST. CM NOTIFIED PT AND HE IS AGREEABLE WITH PLAN. PT REPORTS NO FURTHER NEEDS FROM CM. CASE CLOSED.
[2020-11-03 10:23] VITALS: BP 95/66
--- NOTE | 2020-11-03 11:59 | NUR ---
PT A&OX4, VSS, C/O GENERAL PAIN. PATIENT ASSISTS WITH TURNS. PORT DEASSESSED, PATIENT DISCHARGED TO FACILITY VIA TRANSPORT. PATIENT HAS SUPRRA CATHETER PATENT DRESSING C/D/I. NO SIGNS OF DISTRESS AT TIME OF DISCHARGE.
== END 2020-11-03 12:45 | DRG 563 ==
LOC: ER 13:37 → EROBS 17:23 → 4S 17:23
PROVIDERS: Family Medicine; Physician Assistant; ADMIT Internal Medicine; ATTEND Internal Medicine
PROC: 2W3QX1Z Immobilization of Right Lower Leg using Splint (ICD-10-PCS; principal; 2020-10-31)
DX: S82.254A Nondisplaced comminuted fracture of shaft of right tibia, initial encounter for closed fracture (principal); G82.20 Paraplegia, unspecified; S82.434A Nondisplaced oblique fracture of shaft of right fibula, initial encounter for closed fracture; Z20.822 Contact with and (suspected) exposure to COVID-19; I10 Essential (primary) hypertension; G89.4 Chronic pain syndrome; F17.210 Nicotine dependence, cigarettes, uncomplicated; Z60.2 Problems related to living alone; M19.012 Primary osteoarthritis, left shoulder; M19.011 Primary osteoarthritis, right shoulder; K21.9 Gastro-esophageal reflux disease without esophagitis; S24.109A Unspecified injury at unspecified level of thoracic spinal cord, initial encounter; X58.XXXA Exposure to other specified factors, initial encounter; Z86.718 Personal history of other venous thrombosis and embolism; Z86.711 Personal history of pulmonary embolism; Z86.14 Personal history of Methicillin resistant Staphylococcus aureus infection; Z88.6 Allergy status to analgesic agent; Z88.1 Allergy status to other antibiotic agents; Z88.8 Allergy status to other drugs, medicaments and biological substances; W18.39XA Other fall on same level, initial encounter; Y93.89 Activity, other specified; Y92.89 Other specified places as the place of occurrence of the external cause; Y99.8 Other external cause status; Z23 Encounter for immunization
CPT/HCPCS: 10195

== ENCOUNTER 2021-01-25 19:05 | Emergency (ER) | payer OTHER, BC ==
[~2021-01-25] VITALS: Ht 180.3 cm; Wt 86.2 kg
[~2021-01-25 19:05] MED LIST changes: +ENOXAPARIN40 MG/0.1 SUBQ; +OXYCODONE HCL20 M1 PO
[2021-01-25 19:18] VITALS: BP 104/76
[2021-01-25 21:07] LABS: ABSOLUTE NEUTROPHILS 5.1 thou/uL (1.4-8.2); EOSINOPHILS 6.4 % (0.0-3.0); HEMATOCRIT 50.9 % (42.0-52.0); HEMOGLOBIN 17.2 gm/dL (14.0-18.0); MCH 29.6 pg (26.0-34.0); MCHC 33.8 g/dL (28.0-37.0); MCV 87.4 fL (80.0-100.0); MONOCYTES 11.2 % (1.0-8.0); PLATELET COUNT 264 thou/uL (150-400); POLYS 63.4 % (36.0-66.0); RBC 5.82 mil/uL (4.50-6.00); RDW 14.7 % (10.5-14.5); WBC 8.1 thou/uL (4.0-11.0)
[2021-01-25 21:17] LABS: CALCIUM 9.4 mg/dL (8.5-10.1); CREATININE 1.1 mg/dL (0.7-1.3); POTASSIUM 4.6 mmol/L (3.5-5.1)
[2021-01-25] MEDS ORDERED: DOXYCYCLINE 10100 MG PO (21:27)
== END 2021-01-25 21:42 | disposition home or self-care (01) ==
LOC: ER 19:05
PROVIDERS: Nurse Practitioner
DX: S81.001D Unspecified open wound, right knee, subsequent encounter (principal); X58.XXXD Exposure to other specified factors, subsequent encounter; F17.210 Nicotine dependence, cigarettes, uncomplicated; I10 Essential (primary) hypertension; K21.9 Gastro-esophageal reflux disease without esophagitis; Z98.890 Other specified postprocedural states

== ENCOUNTER → 2021-01-29 | Outpatient (CLI) | payer OTHER, BC | LOC: HYPER 09:00 | PROVIDERS: ATTEND Emergency Medicine Emergency Medical Services | DX: S81.001A Unspecified open wound, right knee, initial encounter (principal); S80.02XA Contusion of left knee, initial encounter; S24.109D Unspecified injury at unspecified level of thoracic spinal cord, subsequent encounter; L98.8 Other specified disorders of the skin and subcutaneous tissue; G82.20 Paraplegia, unspecified; K21.9 Gastro-esophageal reflux disease without esophagitis; E78.5 Hyperlipidemia, unspecified; I10 Essential (primary) hypertension; M86.9 Osteomyelitis, unspecified; F41.9 Anxiety disorder, unspecified; F32.9 Major depressive disorder, single episode, unspecified; Z87.891 Personal history of nicotine dependence; Z79.899 Other long term (current) drug therapy; Z98.890 Other specified postprocedural states; X58.XXXA Exposure to other specified factors, initial encounter; X58.XXXD Exposure to other specified factors, subsequent encounter; Y93.89 Activity, other specified; Y92.89 Other specified places as the place of occurrence of the external cause; Y99.8 Other external cause status ==

== ENCOUNTER → 2021-03-30 | Outpatient (CLI) | payer OTHER, BC | LOC: HYPER 08:07 | PROVIDERS: ATTEND Emergency Medicine | DX: S81.001D Unspecified open wound, right knee, subsequent encounter (principal); S24.109D Unspecified injury at unspecified level of thoracic spinal cord, subsequent encounter; S80.02XD Contusion of left knee, subsequent encounter; I70.238 Atherosclerosis of native arteries of right leg with ulceration of other part of lower leg; L97.812 Non-pressure chronic ulcer of other part of right lower leg with fat layer exposed; G82.20 Paraplegia, unspecified; R26.2 Difficulty in walking, not elsewhere classified; K21.9 Gastro-esophageal reflux disease without esophagitis; E78.5 Hyperlipidemia, unspecified; I10 Essential (primary) hypertension; M86.9 Osteomyelitis, unspecified; F41.9 Anxiety disorder, unspecified; F32.9 Major depressive disorder, single episode, unspecified; Z87.891 Personal history of nicotine dependence; Z79.899 Other long term (current) drug therapy; X58.XXXD Exposure to other specified factors, subsequent encounter ==

== ENCOUNTER → 2021-04-05 | Outpatient (CLI) | payer OTHER, BC | LOC: HYPER 10:48 | PROVIDERS: ATTEND Emergency Medicine Emergency Medical Services | DX: S81.001D Unspecified open wound, right knee, subsequent encounter (principal); S24.109D Unspecified injury at unspecified level of thoracic spinal cord, subsequent encounter; S80.02XD Contusion of left knee, subsequent encounter; I70.238 Atherosclerosis of native arteries of right leg with ulceration of other part of lower leg; L97.812 Non-pressure chronic ulcer of other part of right lower leg with fat layer exposed; G82.20 Paraplegia, unspecified; R26.2 Difficulty in walking, not elsewhere classified; K21.9 Gastro-esophageal reflux disease without esophagitis; E78.5 Hyperlipidemia, unspecified; I10 Essential (primary) hypertension; M86.9 Osteomyelitis, unspecified; F41.9 Anxiety disorder, unspecified; F32.9 Major depressive disorder, single episode, unspecified; Z87.891 Personal history of nicotine dependence; X58.XXXD Exposure to other specified factors, subsequent encounter ==

== ENCOUNTER → 2021-04-12 | Outpatient (CLI) | payer OTHER, BC | LOC: HYPER 07:52 | PROVIDERS: ATTEND Emergency Medicine Emergency Medical Services | DX: S81.001D Unspecified open wound, right knee, subsequent encounter (principal); S24.109D Unspecified injury at unspecified level of thoracic spinal cord, subsequent encounter; S80.02XD Contusion of left knee, subsequent encounter; I70.238 Atherosclerosis of native arteries of right leg with ulceration of other part of lower leg; L97.812 Non-pressure chronic ulcer of other part of right lower leg with fat layer exposed; G82.20 Paraplegia, unspecified; R26.2 Difficulty in walking, not elsewhere classified; K21.9 Gastro-esophageal reflux disease without esophagitis; E78.5 Hyperlipidemia, unspecified; I10 Essential (primary) hypertension; M86.9 Osteomyelitis, unspecified; F41.9 Anxiety disorder, unspecified; F32.9 Major depressive disorder, single episode, unspecified; Z87.891 Personal history of nicotine dependence; X58.XXXD Exposure to other specified factors, subsequent encounter ==

== ENCOUNTER 2021-04-17 10:19 | Emergency (ER) | payer OTHER, BC ==
[~2021-04-17] VITALS: Ht 180.3 cm; Wt 86.2 kg
[2021-04-17] MEDS ORDERED: ASPIRIN EC325 M1 PO (10:39)
[2021-04-17 11:24] LABS: ABSOLUTE NEUTROPHILS 4.6 thou/uL (1.4-8.2); BASOPHILS 0.9 % (0.0-2.0); EOSINOPHILS 8.2 % (0.0-3.0); HEMATOCRIT 45.2 % (42.0-52.0); HEMOGLOBIN 14.7 gm/dL (14.0-18.0); LYMPHOCYTES 14.8 % (24.0-44.0); MCH 29.5 pg (26.0-34.0); MCHC 32.6 g/dL (28.0-37.0); MCV 90.4 fL (80.0-100.0); MONOCYTES 11.4 % (1.0-8.0); PLATELET COUNT 245 thou/uL (150-400); POLYS 64.7 % (36.0-66.0); RDW 17.4 % (10.5-14.5); WBC 7.1 thou/uL (4.0-11.0)
[2021-04-17 11:30] LABS: CALCIUM 8.4 mg/dL (8.5-10.1); CREATININE 0.9 mg/dL (0.7-1.3); POTASSIUM 4.1 mmol/L (3.5-5.1)
[2021-04-17 13:23] VITALS: BP 153/77
== END 2021-04-17 13:24 | disposition home or self-care (01) ==
LOC: ER 10:19
PROVIDERS: Emergency Medicine
DX: S81.001D Unspecified open wound, right knee, subsequent encounter (principal); I10 Essential (primary) hypertension; K21.9 Gastro-esophageal reflux disease without esophagitis; F17.210 Nicotine dependence, cigarettes, uncomplicated; Z86.718 Personal history of other venous thrombosis and embolism; Z86.711 Personal history of pulmonary embolism; Z98.890 Other specified postprocedural states; Z90.89 Acquired absence of other organs; Z79.891 Long term (current) use of opiate analgesic; Z79.899 Other long term (current) drug therapy; Z79.82 Long term (current) use of aspirin; Z88.6 Allergy status to analgesic agent; Z88.5 Allergy status to narcotic agent; Z88.8 Allergy status to other drugs, medicaments and biological substances; W22.8XXD Striking against or struck by other objects, subsequent encounter

== ENCOUNTER → 2021-04-27 | Outpatient (CLI) | payer OTHER, BC ==
[~2021-04-27] MED LIST changes: +ASPIRIN EC325 M1 PO
== END ==
LOC: HYPER 07:40
PROVIDERS: ATTEND Specialist
DX: S81.001D Unspecified open wound, right knee, subsequent encounter (principal); S24.109D Unspecified injury at unspecified level of thoracic spinal cord, subsequent encounter; S80.02XD Contusion of left knee, subsequent encounter; S80.812D Abrasion, left lower leg, subsequent encounter; I70.238 Atherosclerosis of native arteries of right leg with ulceration of other part of lower leg; L97.812 Non-pressure chronic ulcer of other part of right lower leg with fat layer exposed; G82.20 Paraplegia, unspecified; R26.2 Difficulty in walking, not elsewhere classified; K21.9 Gastro-esophageal reflux disease without esophagitis; E78.5 Hyperlipidemia, unspecified; I10 Essential (primary) hypertension; M86.9 Osteomyelitis, unspecified; F41.9 Anxiety disorder, unspecified; F32.9 Major depressive disorder, single episode, unspecified; Z87.891 Personal history of nicotine dependence; X58.XXXD Exposure to other specified factors, subsequent encounter

== ENCOUNTER → 2021-05-04 | Outpatient (CLI) | payer OTHER, BC | LOC: HYPER 07:51 | PROVIDERS: ATTEND Specialist | DX: S81.001D Unspecified open wound, right knee, subsequent encounter (principal); S24.109D Unspecified injury at unspecified level of thoracic spinal cord, subsequent encounter; S80.02XD Contusion of left knee, subsequent encounter; S80.812D Abrasion, left lower leg, subsequent encounter; I70.238 Atherosclerosis of native arteries of right leg with ulceration of other part of lower leg; L97.812 Non-pressure chronic ulcer of other part of right lower leg with fat layer exposed; G82.20 Paraplegia, unspecified; R26.2 Difficulty in walking, not elsewhere classified; K21.9 Gastro-esophageal reflux disease without esophagitis; E78.5 Hyperlipidemia, unspecified; I10 Essential (primary) hypertension; M86.9 Osteomyelitis, unspecified; F41.9 Anxiety disorder, unspecified; F32.9 Major depressive disorder, single episode, unspecified; Z87.891 Personal history of nicotine dependence; X58.XXXD Exposure to other specified factors, subsequent encounter ==

== ENCOUNTER 2021-05-19 16:25 | Inpatient (IN) | payer OTHER, BC ==
[~2021-05-19] VITALS: Ht 182.9 cm; Wt 82.5 kg
--- NOTE | ~2021-05-19 | EMS ---
[address] [address] EMS Patient Care Report Name: PATRICIA FLYNN Room #: 170-4 ADM IN M.R.#: [id number] Admission: 05/19/21 Attend Phys: Arian Mcgowan MD Discharge: Date of : 57 Report #: [id number] THIS REPORT FOR: //name// Report Transmitted: 05/19/2021 20:18 EMS Care Summary [facility] MED-ACT Incident [id number] @ 05/19/2021 15:46 Incident Location [address] [place] [address] Patient PATRICIA FLYNN Male, 66 Years 1955 Patient Address [id number] [place] [address] Patient History Paraplegia,Chronic Pain, Patient Allergies Narcotic agents allergy, Patient Medications Other, Valium, Methadone, Chief Complaint abdominal pain Disposition Transported No Lights/[place] Dispatch Reason Abdominal Pain/Problems Transported To [facility] Narrative We were dispatched to the listed location for a medical call. Upon our arrival, we found the patient sitting on a wheel chair and in no obvious distress. He was alert and oriented with a GCS of 15. [address] [address] EMS Patient Care Report Name: PATRICIA FLYNN Room #: 170-4 ADM IN [place]#: [id number] Admission: 05/19/21 Attend Phys: Arian Mcgowan MD Discharge: Date of : 57 Report #: [id number] The patient is a 66 yea old male who reported having abdominal pain and nausea for the past two weeks. He was recently seen at [facility] for this complaint and treated. After a two day stay at [facility], the patient was discharged. Today, the patient stated that this pain was still persisting. Therefore, he called 911 so he could be transported to [facility] for an evaluation and treatment. The patient denied chest pain, dyspnea, dizziness, syncope, fever, cough or any other complaints. After an assessment and vitals, the patient was assisted to the cot and secured per policy. During transport, 4 mg Zofran was administered which slightly improved his nausea. There were no other changes in his condition and care was transferred without incident. Initial Vitals @16:07P: 92,R: 16,BP: 159/90,SpO2: 97, @16:16P: 96,R: 16,BP: 124/86,SpO2: 98, @16:13P: 90,R: 16,BP: 128/82,SpO2: 97, @16:00P: 102,R: 16,BP: 127/86,SpO2: 98, @15:52P: 116,R: 16,BP: 123/78,Pain: 4/10,GCS: 15,Temp: 97.6F,SpO2: 96,Revised Trauma: 12, Impression Abdominal Pain Procedures @15:50ALS AssessmentResponse: UnchangedSucceeded@15:53Surgical Mask on PatientResponse: Unchanged@16:02Ondansetron - 4 Milligrams (mg) - OralResponse: Improved Timeline 15:44,Call Received 15:44,Psap Call 15:46,Dispatched 15:47,En Route 15:48,On Scene 15:49,At Patient 15:50,ALS Assessment,Response: UnchangedSucceeded, 15:52,BP: 123/78 M,PULSE: 116,RR: 16 R,SPO2: 96 Ox,ETCO2: ,BG: ,PAIN: 4,GCS: 15, 15:53,Surgical Mask on Patient,Response: Unchanged 15:58,Depart Scene 16:00,BP: 127/86 M,PULSE: 102,RR: 16 R,SPO2: 98 Ox,ETCO2: ,BG: ,PAIN: ,GCS: , 16:02,Ondansetron - 4 Milligrams (mg) - Oral,Response: Improved 16:07,BP: 159/90 M,PULSE: 92,RR: 16 R,SPO2: 97 Ox,ETCO2: ,BG: ,PAIN: ,GCS: , 16:13,BP: 128/82 M,PULSE: 90,RR: 16 R,SPO2: 97 Ox,ETCO2: ,BG: ,PAIN: ,GCS: , [address] [address] EMS Patient Care Report Name: PATRICIA FLYNN Suzanna Room #: 170-4 ADM IN M.R.#: [id number] Admission: 05/19/21 Attend Phys: Arian Mcgowan MD Discharge: Date of : 57 Report #: [id number] 16:16,BP: 124/86 M,PULSE: 96,RR: 16 R,SPO2: 98 Ox,ETCO2: ,BG: ,PAIN: ,GCS: , 16:20,At Destination 16:38,Call Closed Disclaimer v1.1 Copyright 2020 [employer] This EMS Care Summary contains data elements from the applicable legal record (which may be displayed differently). It is designed to provide pertinent information for the following purposes: continuity of care, clinical quality, and state data reporting. The complete legal record is available to ED staff and administrators of the receiving hospital in [employer] Patient Tracker. All data is provided "as is."
[2021-05-19 16:29] VITALS: BP 129/88
[2021-05-19 17:48] LABS: ABSOLUTE NEUTROPHILS 6.7 thou/uL (1.4-8.2); HEMATOCRIT 40.3 % (42.0-52.0); HEMOGLOBIN 13.4 gm/dL (14.0-18.0); LYMPHOCYTES 10.1 % (24.0-44.0); MCH 30.1 pg (26.0-34.0); MCHC 33.3 g/dL (28.0-37.0); MCV 90.4 fL (80.0-100.0); MONOCYTES 11.6 % (1.0-8.0); PLATELET COUNT 367 thou/uL (150-400); POLYS 75.3 % (36.0-66.0); RBC 4.46 mil/uL (4.50-6.00); RDW 15.4 % (10.5-14.5); WBC 8.9 thou/uL (4.0-11.0)
[2021-05-19 18:09] LABS: CALCIUM 9.4 mg/dL (8.5-10.1); CREATININE 0.8 mg/dL (0.7-1.3)
[2021-05-19 18:16] LABS: DIRECT BILIRUBIN 0.1 mg/dL (<0.1-0.2); TOTAL BILIRUBIN 0.6 mg/dL (0.2-1.0); TOTAL PROTEIN 7.2 g/dL (6.4-8.2)
[2021-05-19 19:47] LABS: APTT 29.2 Seconds (24.5-32.8); INR 1.02; PROTIME 11.1 Seconds (10.5-12.1)
[2021-05-19 21:51] VITALS: BP 134/73
[2021-05-19 22:15] VITALS: BP 150/78
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
[2021-05-20 04:48] VITALS: BP 145/69
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
--- NOTE | 2021-05-20 12:23 | NUR ---
WOUND CARE; CLEANSED BILATERAL/LATERAL KNEE/SACRUM WOUNDS WITH SALINE, APPLIED AQUACEL AGE,COVERED WITH BORDER FOAM. NO ACUTE S/S OF INFECTION. SLOUGH IS PRESENT.
[2021-05-20 16:00] VITALS: BP 142/73
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
--- NOTE | 2021-05-20 18:39 | NUR ---
ASSESSMENT CHARTED, PT ALERT AND ORIENTED. VSS. SCHEDULED PAIN MED GIVEN WITH PARTIAL RELIEF. NO CONCERNS AT THIS TIME.
[2021-05-20 20:37] VITALS: BP 120/58
[2021-05-21 07:30] VITALS: BP 136/75
--- NOTE | 2021-05-21 07:41 | NUR ---
RECEIVED CARE OF THIS PATIENT AT 1900. PATIENT ALERT AND ORIENTED X4. PATIENT IS A PARAPLEGIC. C/O BACK PAIN. MEDS GIVEN. HAS SUPRAPUBIC. REFUSED HIS MIRALAX LAST NIGHT. SLEPT LITTLE THIS SHIFT.
--- NOTE | 2021-05-21 09:27 | NUR ---
SPOKE WITH PATIENT ABOUT RECEIVING OT AND PT DOES NOT NEED HE STATES. HE IS INDEPENDENT IN ALL ADLS, DRIVES, WITH NO OT NEEDS ONCE MEDICAL ISSUES RESOLVED
[2021-05-21 11:30] VITALS: BP 122/67
--- NOTE | 2021-05-21 14:42 | NUR ---
DR. EDWARD INDICATED THAT PT MAY BE MEDICALLY STABLE TO DC ON MONDAY BUT LIKELY DC HOME TO SELF CARE MONDAY. CM FOLLOWING SHOULD ANY DC NEEDS ARISE.
[2021-05-21 15:41] VITALS: BP 127/72
--- NOTE | 2021-05-21 17:49 | NUR ---
Pt A & O x4. Pt VS stable. Pt received fleets enemia this shift. pt has agrawal intact. Pt received medications as ordered. Pt is SR with 1st deg blk on the tele. pt is able to make to needs known. Pt is room air
[2021-05-21 20:15] VITALS: BP 138/64
[2021-05-22 03:54] VITALS: BP 124/55
--- NOTE | 2021-05-22 05:09 | NUR ---
Pt. rested quietly at intervals during the night when checked on during frequent rounds. Scheduled pain meds given (see emar) for c/o chronic back pain with some relief noted. Pt. can reposition himself most of the time. Bilateral feet elevated up on a pillows.
[2021-05-22 05:23] VITALS: BP 154/104
[2021-05-22 08:20] VITALS: BP 127/72
[2021-05-22 11:32] LABS: URINE BILIRUBIN NEGATIVE (Negative); URINE BLOOD NEGATIVE (Negative); URINE CLARITY CLEAR; URINE COLOR YELLOW; URINE GLUCOSE-RANDOM* NEGATIVE (Negative); URINE KETONES NEGATIVE (Negative); URINE NITRITE-REFLEX NEGATIVE (Negative); URINE PROTEIN (DIPSTICK) NEGATIVE (Negative); URINE SPECIFIC GRAVITY <= 1.005 (1.005-1.035); URINE UROBILINOGEN 0.2 E.U./dl (0.2-1.0)
[2021-05-22 11:34] LABS: URINE LEUKOCYTES-REFLEX 1+ (Negative)
[2021-05-22 12:00] VITALS: BP 149/86
[2021-05-22 13:48] LABS: CASTS None Seen /LPF (None Seen); CRYSTALS None Seen /LPF (None Seen); SQUAMOUS None Seen /LPF (0-3); URINE RBC None Seen /HPF (NONE SEEN); URINE WBC-REFLEX 0-5 Rare /HPF (0-5)
[2021-05-22 13:49] LABS: BACTERIA-REFLEX 1-9 Few /HPF (None Seen)
[2021-05-22 16:55] VITALS: BP 142/77
--- NOTE | 2021-05-22 18:56 | NUR ---
ASSUMED CARE OF PT AT 0700. PT IS AOX4, IS BEDBOUND DUE TO PARAPLEGIA, HAS TWO WOUNDS ON SACRUM AND KNEE, AND HAS A L CHEST PORT. THROUGHOUT THE DAY PT VITALS REMAINED STABLE BUT COMPLAINED OF UNCONTROLLED PAIN DESPITE SCHEDULED OXY. WORKED WITH MD THROUGHOUT THE DAY TO FIND A MEDCATION THAT WOULD WORK FOR PT. MD EDWARD HAS TAKEN CARE OF THE PT CHRONICALLY AND ORDERED IV MORPHINE AND EVENTUALLY PO DILAUDID TO ATTEMPT TO ALLEVIATE PTS PAIN. WILL ATTEMPT ORAL DILAUDID, WHICH PT SAYS IS THE ONLY DRUG THAT WILL GELP, DURING PM MEDS. PT RESTING IN ROOM. SUPRAPUBIC CATHETER CHANGED IN AM PER MD ORDER. 22 [address].
[2021-05-22 21:39] VITALS: BP 124/71
[2021-05-23 00:10] VITALS: BP 126/66
[2021-05-23 07:41] VITALS: BP 123/72
--- NOTE | 2021-05-23 09:47 | NUR ---
ASSUMED CARE AT 1900, PT LAYING COMFORTABLY IN BED, REPORTS ABDOMINAL PAIN, MEDICATION ADMINISTERED PER ORDERS, PARTIALLY RELIEVED, COMPLAINT TO TX, NO ADVERSE REACTION NOTED, BOWEL REGIME PLACED THIS AM BY DR. FLOWERS, NOTIFIED ONCOMING NURSE WILL CONTINUE TO THE MONITOR PT.
[2021-05-23 11:26] VITALS: BP 107/67
[2021-05-23 17:11] VITALS: BP 127/73
--- NOTE | 2021-05-23 18:09 | NUR ---
Pt is A & O x4. Pt VS stable. PT had numerous large bowel movements this shift. pt had pain this shift and received PRN pain medications. Pt is able to make needs known.
[2021-05-23 19:25] VITALS: BP 149/76
[2021-05-23 23:31] LABS: URINE BILIRUBIN NEGATIVE (Negative); URINE BLOOD 2+ (Negative); URINE CLARITY CLEAR; URINE COLOR YELLOW; URINE GLUCOSE-RANDOM* NEGATIVE (Negative); URINE KETONES NEGATIVE (Negative); URINE LEUKOCYTES 3+ (Negative); URINE NITRITE NEGATIVE (Negative); URINE PROTEIN (DIPSTICK) NEGATIVE (Negative); URINE UROBILINOGEN 0.2 E.U./dl (0.2-1.0)
[2021-05-23 23:39] LABS: CASTS None Seen /LPF (None Seen); CRYSTALS None Seen /LPF (None Seen); MUCUS None Seen strn/LPF (None Seen); SQUAMOUS None Seen /LPF (0-3); URINE RBC 3-10 Few /HPF (NONE SEEN)
--- NOTE | 2021-05-24 03:19 | NUR ---
ASSUMED CARE AT 1900, PT LAYING IN BED COMFORTABLY, UA COLLECTED FOR CULTURE, PT REMAIN ON PAIN MANAGEMENT. COMPLIANT WITH TX, NO ADVERSE REACTION, WILL CONTINUE TO MONITOR.
[2021-05-24 05:11] VITALS: BP 129/79
[2021-05-24 07:44] VITALS: BP 128/81; BP 1285/81
[2021-05-24 11:47] VITALS: BP 125/73
--- NOTE | 2021-05-24 14:08 | NUR ---
ASSUMED PT CARE THIS AM. PT A&OX4, ABLE TO MAKE NEEDS KNOWN. PATIENT REPORTING PAIN THAT IS MANAGED WITH PAIN MEDICATION GIVEN PER EMAR. CHEST PORT REMAINS PATENT, MEDICATIONS INFUSING WITHOUT ISSUE. PATIENT MANUALLY DISIMPACTED THIS SHIFT. PATIENT IS ON ROOM AIR. MEDICATIONS TAKEN WITHOUT ISSUE. FALL PRECAUTIONS ARE IN PLACE, CALL LIGHT WITHIN REACH.
[2021-05-24 16:23] VITALS: BP 137/76
--- NOTE | 2021-05-24 17:26 | NUR ---
DC held today due to need for GI consult. Scope planned for tomorrow. Dc planning visit with pt at bedside. He indicates he is still on service with [facility] and they do his wound care. He would like to continue with them [place]. Support provided.
[2021-05-24 17:28] VITALS: BP 137/76
[2021-05-24 19:28] VITALS: BP 139/67
[2021-05-25 01:11] VITALS: BP 130/69
--- NOTE | 2021-05-25 03:07 | NUR ---
ASSUMED PT CARE THIS PM. PT IS ALERT AND ORIENTED X4. DRSG CHANGE COMPLETED AND WAS WELL TOLERATED BY PT. PT IS ABLE TO REPOSITION WITHOUT HELP. PT IS INCONTINENT OF BM. PT HAS SUPRAPUBIC CATH WHICH IS PATENT. PT C/O PAIN WHICH IS MANAGED BY SCHEDULED AND PRN PAIN MEDS. PT IS CURRNETLY NPO. PT DID NOT VERBALIZE ANY CONCERN. VS ARE WITHIN NORMAL RANGE. PT ON RA. FALL PRECAUTIONS IN PLACE. WILL CONTIUE TO MONITOR.
[2021-05-25 05:37] VITALS: BP 131/72
[2021-05-25 08:07] VITALS: BP 142/80
--- NOTE | 2021-05-25 14:25 | NUR ---
ASSUMED PT CARE THIS AM. PT A&OX4 AND ABLE TO MAKE NEEDS KNOWN. PATIENT REPORTING ABDOMINAL PAIN WELL BACK PAIN, DECREASES WITH PAIN MEDICATION GIVEN PER EMAR. PATIENT ABLE TO TURN SELF IN BED WITHOUT ISSUE. PATIENT ON ROOM AIR. PATIENT HAD A COLONOSCOPY THIS SHIFT. FALL PRECAUTIONS ARE IN PLACE CALL LIGHT WITHIN REACH.
[2021-05-25 14:33] VITALS: BP 148/77
[2021-05-25 19:35] VITALS: BP 128/73
[2021-05-26 00:10] VITALS: BP 132/69
[2021-05-26 04:36] VITALS: BP 116/69
--- NOTE | 2021-05-26 07:28 | NUR ---
ASSUMED CARE OF PT AT SHIFT CHANGE. PT AOX4 AND LETS NEEDS BE KNOWN. FALL PRECAUTION IN PLACE. PT REPORTED SOME BACK PAIN AND HEADACHE; PRNS PROVIDED. ASSESSMENT CHARTED. DIGITAL DISIMPACTION ATTEMTED THIS AM. PT DENIED NAUSEA OR SOA. PT SLEPT PART OF THE SHIFT. VSS AND NO S/S OF ACUTE DISTRESS. WILL CONTINUE TO MONITOR.
[2021-05-26 07:56] VITALS: BP 136/75
[2021-05-26] MEDS ORDERED: FLAGYL500 M1 PO (08:17)
[2021-05-26] MEDS ORDERED: CEFDINIR300 MG PO (08:18)
[2021-05-26] MEDS ORDERED: ELIQUIS5 MG PO (08:18)
[2021-05-26] MEDS ORDERED: OXYCODONE HCL20 M1 PO (08:19)
--- NOTE | 2021-05-26 12:43 | NUR ---
ASSUMED PT CARE THIS AM. PT A&OX4 AND ABLE TO MAKE NEEDS KNOWN. PATIENT REPORTING BACKC PAIN, MEDICATED PER EMAR. CHEST PORT REMAINS PATENT. WOUND DRESSING CHANGED BY [employer] REP AND PICTURES WERE TAKEN. SUPRAPUBIC CATHETER DRAINING LIGHT YELLOW URINE. FALL PRECAUTIONS ARE IN PLACE, CALL LIGHT WITHIN REACH.
[2021-05-26 14:27] VITALS: BP 137/76
--- NOTE | 2021-05-26 14:34 | NUR ---
CARE TEAM INDICATED THAT PT IS MEDICALLY STABLE TO DC HOME THIS DAY. PT IS TO HAVE [facility] UPON DC. CM FAXED DC ORDERS. PT TO TRANSPORT HIMSELF HOME THIS DAY. NO OTHER CM INTERVENTION INDICATED. CASE CLOSED.
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
--- NOTE | 2021-05-27 10:06 | HC ---
[facility] [place] [address] CONSULTATION Name: PATRICIA FLYNN Room #: 464-P [facility] IN M.R.#: [id number] Admission: 05/19/21 Attend Phys: Arian Mcgowan MD Discharge: 05/26/21 Date of : 57 Report #: [id number] THIS REPORT FOR: cc: Arian Mcgowan MD, Neal A. MD Stephens, Thad A. MD ~ DATE OF SERVICE: 05/20/2021 WOUND CARE CONSULTATION PERSONAL PHYSICIAN: Dr. Arian Mcgowan. CHIEF COMPLAINT: Sacral ulcer. HISTORY OF PRESENT ILLNESS: This is a 66-year-old white male with a history of paraplegia at T12, who has been a patient of mine for several years, who was admitted for abdominal pain through the Emergency Department. Upon admission, the patient was noted to have a small sacral ulcer, which the patient said he did not even know he had. The patient has had recurrent chronic ulcers in the sacrococcygeal region. The patient has no essential pain in that region. The patient denies any other associated concerns or any other new wound care concerns. PAST MEDICAL HISTORY: T12 paraplegia, hypertension, chronic pain syndrome, gastroesophageal reflux disease, neurogenic bladder. CURRENT MEDICATIONS: Multiple, reviewed the patient's medication list. DRUG ALLERGIES: ZOSYN. SOCIAL HISTORY: The patient still lives independently. FAMILY HISTORY: Not pertinent to current medical condition. REVIEW OF SYSTEMS: CONSTITUTIONAL: The patient denies fevers or chills. NEUROLOGIC: The patient is paralyzed T12. EYES: No complaints. ENT: No complaints. CARDIAC: The patient denies chest pain, palpitations, or peripheral edema. RESPIRATORY: The patient denies shortness of breath, cough, or wheezes. GASTROINTESTINAL: The patient complains of chronic abdominal pain with decreased appetite over the past month, but no actual vomiting. GENITOURINARY: The patient has a suprapubic catheter. MUSCULOSKELETAL: The patient is paralyzed. SKIN: Stage III sacral ulcer as well as abrasions to bilateral shins, which the [facility] [address] [place] [address] CONSULTATION Name: PATRICIA FLYNN Suzanna Room #: 464-P [facility] IN M.R.#: [id number] Admission: 05/19/21 Attend Phys: Arian Mcgowan MD Discharge: 05/26/21 Date of : 57 Report #: [id number] patient states he suffered after a fall earlier in the week. PHYSICAL EXAMINATION: VITAL SIGNS: Stable. The patient is afebrile. GENERAL: This is alert and oriented x 3, pleasant white male, who is in no distress. HEENT: Normocephalic, atraumatic. Mucous membranes are somewhat dry. Pupils are round. Sclerae white. NECK: Without JVD. LUNGS: Clear. HEART: Regular. ABDOMEN: Soft, nontender. EXTREMITIES: Evaluation of sacral region reveals stage III decubitus ulcer, which is clean and granulating. Periwound is mildly macerated. There is no significant tunneling or undermining. Bilateral heels are intact. There are abrasions noted to bilateral shins and knee caps. NEUROLOGIC: The patient is T12 paraplegic. LABORATORY DATA: Albumin 3. White count 8.9, hemoglobin 13.4. IMPRESSION: 1. Stage III sacral decubitus ulcer. 2. Traumatic ulcer to the bilateral knees and shins. 3. 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 4. History of chronic pain syndrome. 5. Hypertension. 6. Neurogenic bladder. PLAN: We will start Aquacel Ag and bordered foam to the sacral ulcer daily. We will put the patient on low air loss surface, having turned every 2 hours. We will also put Aquacel Ag foam on the bilateral knees and change daily. The patient will be started on high protein diet. We will make sure to utilize physical and occupational therapy for strengthening. We will continue all other current medications. <ELECTRONICALLY SIGNED> By: Maciej Russell MD 05/27/21 1006 1151 1527 Maciej Russell MD /nt
--- NOTE | 2021-05-28 10:29 | PATH ---
[facility] [place] [address] PATHOLOGY RPT PROCEDURE Name: PATRICIA FLYNN Room #: 464-P DIS IN M.R.#: [id number] Admission: 05/19/21 Date of : 57 Discharge: 05/26/21 Report #: [id number] Path Case #: [id number] LCA Accession Number: [id number] . 01 Material submitted: . PART A: colon - RANDOM COLON BX PART B: rectum - DISTAL RECTUM COLITIS. Modifiers: distal . 01 Clinical history: . R/O MICROSCOPIC COLITIS CHANGE IN BOWEL HABITS COLITIS, EXTERNAL HEMMORHOIDS . 02 Diagnosis: A. Colonic mucosa, random colon, biopsy: - Colonic mucosa with no diagnostic abnormalities. - Negative for microscopic colitis. . B. Rectal-type mucosa, distal rectum, biopsy: - Rectal-type mucosa with acute and chronic inflammation and destruction of glands. - Negative for dysplasia or malignancy. (SCA/db; 05/27/2021) LBQ 05/27/2021 1143 Local . 02 Electronically signed: . Keaton Hanley DO, Pathologist NPI- [id number] . 01 Gross description: . A. The specimen is received in formalin, labeled "Patricia Flynn, random colon biopsy". Received are two segments of pale pugh tissue measuring 0.2 and 0.3 cm in maximum dimensions. The specimen is submitted entirely in cassette A1. . B. The specimen is received in formalin, labeled "Patricia Flynn, distal rectum colitis". Received are four segments of pale pugh tissue ranging in size from 0.1-0.2 cm in maximum dimensions. The specimen is submitted entirely in cassette B1. (CAA; 05/26/2021) QAC/QAC 05/26/2021 0943 Local . 02 Pathologist provided ICD-10: K62.89, R19.4 . 02 CPT . 369271, [id number] [address] PATHOLOGY RPT PROCEDURE Name: PATRICIA FLYNN Room #: 464-P DIS IN M.R.#: [id number] Admission: 05/19/21 Date of : 57 Discharge: 05/26/21 Report #: [id number] Path Case #: [id number] Specimen Comment: A courtesy copy of this report has been sent to [phone] Specimen Comment: [phone] Specimen Comment: Report sent to / DR NATARAJAN Specimen Comment: A duplicate report has been generated due to demographic updates. Performed at: 01 [facility] [address] [id number] MD Attila Garcia MD Phone: [phone] Performed at: 02 [facility] [address] [id number] MD Ernesto Pedraza MD Phone: [phone]
== END 2021-05-26 15:37 | disposition home health service (06) | DRG 299 ==
LOC: ER 16:25 → EROBS 19:29 → 4W 19:29
PROVIDERS: Emergency Medicine; ADMIT Family Medicine; ATTEND Family Medicine
PROC: 3E02340 Introduction of Influenza Vaccine into Muscle, Percutaneous Approach (ICD-10-PCS; 2021-05-20)
PROC: 0DBK8ZX Excision of Ascending Colon, Via Natural or Artificial Opening Endoscopic, Diagnostic (ICD-10-PCS; principal; 2021-05-25)
DX: I82.432 Acute embolism and thrombosis of left popliteal vein (principal); L89.153 Pressure ulcer of sacral region, stage 3; G82.20 Paraplegia, unspecified; E46 Unspecified protein-calorie malnutrition; I82.412 Acute embolism and thrombosis of left femoral vein; K52.9 Noninfective gastroenteritis and colitis, unspecified; N31.9 Neuromuscular dysfunction of bladder, unspecified; Z93.50 Unspecified cystostomy status; K59.00 Constipation, unspecified; Z88.8 Allergy status to other drugs, medicaments and biological substances; G89.4 Chronic pain syndrome; Z79.899 Other long term (current) drug therapy; K21.9 Gastro-esophageal reflux disease without esophagitis; I10 Essential (primary) hypertension; Z20.822 Contact with and (suspected) exposure to COVID-19; Z23 Encounter for immunization
CPT/HCPCS: 10045; 62110; 62900; 70005

== ENCOUNTER 2021-06-02 22:30 | Emergency (ER) | payer OTHER, BC ==
[~2021-06-02] VITALS: Ht 182.9 cm; Wt 86.2 kg
--- NOTE | ~2021-06-02 | EMS ---
[address] [address] EMS Patient Care Report Name: PATRICIA FLYNN Room #: DEP PITO Lua#: [id number] Admission: 06/02/21 Attend Phys: Discharge: 06/03/21 Date of : 56 Report #: [id number] THIS REPORT FOR: //name// Report Transmitted: 06/04/2021 09:56 EMS Care Summary [facility] MED-ACT Incident [id number] @ 06/02/2021 21:56 Incident Location [address] [place] [address] Patient PATRICIA FLYNN Male, 66 Years 1955 Patient Address [id number] [place] [address] Patient History Hypertension (HTN),Paraplegia,Chronic Pain, Patient Allergies Narcotic agents allergy, Patient Medications Valium, Methadone, Eliquis, Other, Chief Complaint abdominal pain and diarrhea Disposition Transported No Lights/[place] Dispatch Reason Abdominal Pain/Problems Transported To [facility] Narrative Medic 1154 dispatched to C2 Abdominal Pain. Pt states that he has been experiencing abdominal pain/cramping and diarrhea for the last week. Pt states that he was taken to the hospital "a couple of weeks ago" for the same issues. Pt states he was admitted for 3 days and received antibiotics but was unable to [address] [address] EMS Patient Care Report Name: PATRICIA FLYNN Room #: DEP [facility]#: [id number] Admission: 06/02/21 Attend Phys: Discharge: 06/03/21 Date of : 57 Report #: [id number] state what he was diagnosed with/treated for. Pt states that he contacted his PCP earlier today and that his PCP suggested he go to the ER. Pt denies any chest pain or shortness of breath. Pt states that he has been unable to sit upright due to pain in his abdomen. Upon arrival, pt found lying supine in bed. Pt alert and oriented. No respiratory distress noted. Skin warm, dry, pink. Tenderness noted upon palpation of medial abdomen from pelvis to upper abdomen. No obvious distension or rigidity. Pt is a paraplegic but did not need assistance moving to wheelchair. Pt moved to cot and taken to ambulance where V/S monitored. Pt transported in position of comfort. No changes in condition enroute to the hospital. Just prior to arrival, 4 mg of Zofran administered PO for nausea. Pt taken to triage and lifted into his wheelchair without incident. Report given to conductor freight. Medic 1154 clear. Appended: 4 mg of ODT Zofran was mistakenly omitted from the Flowchart section. Initial Vitals @22:20P: 76,R: 16,BP: 160/84,Pain: 8/10,GCS: 15,SpO2: 97,Revised Trauma: 12, @22:11P: 77,R: 16,BP: 169/87,Pain: 8/10,GCS: 15,Temp: 97.3F,SpO2: 100,Revised Trauma: 12, Impression Abdominal Pain Procedures @PTASurgical Mask on Patient Response: Unchanged Timeline CURRICULUM WRITER,Surgical Mask on Patient,Response: Unchanged 21:55,Call Received 21:55,Psap Call 21:56,Dispatched 21:57,En Route 21:59,On Scene 22:00,At Patient 22:09,Depart Scene 22:11,BP: 169/87 M,PULSE: 77,RR: 16 R,SPO2: 100 Ox,ETCO2: ,BG: ,PAIN: 8,GCS: 15, 22:20,BP: 160/84 M,PULSE: 76,RR: 16 R,SPO2: 97 Ox,ETCO2: ,BG: ,PAIN: 8,GCS: 15, 22:27,At Destination 22:55,Call Closed [facility] [address] [place] [address] EMS Patient Care Report Name: PATRICIA FLYNN [id number] Admission: 06/02/21 Attend Phys: Discharge: 06/03/21 Date of : 57 Report #: [id number] Disclaimer v1.1 Copyright 2020 [employer] This EMS Care Summary contains data elements from the applicable legal record (which may be displayed differently). It is designed to provide pertinent information for the following purposes: continuity of care, clinical quality, and state data reporting. The complete legal record is available to ED staff and administrators of the receiving hospital in [employer]'s Patient Tracker. All data is provided "as is."
--- NOTE | ~2021-06-02 | EMS ---
[address] [address] EMS Patient Care Report Name: PATRICIA FLYNN Room #: REG PITO Lua#: [id number] Admission: 06/02/21 Attend Phys: Discharge: Date of : 57 Report #: [id number] THIS REPORT FOR: //name// Report Transmitted: 06/02/2021 23:02 EMS Care Summary [facility] MED-ACT Incident [id number] @ 06/02/2021 21:56 Incident Location [address] [place] [address] Patient PATRICIA FLYNN Male, 66 Years 1955 Patient Address [address] [place] [address] Patient History Hypertension (HTN),Paraplegia,Chronic Pain, Patient Allergies Narcotic agents allergy, Patient Medications Valium, Methadone, Eliquis, Other, Chief Complaint abdominal pain and diarrhea Disposition Transported No Lights/[place] Dispatch Reason Abdominal Pain/Problems Transported To [facility] Narrative Medic 1154 dispatched to C2 Abdominal Pain. Pt states that he has been experiencing abdominal pain/cramping and diarrhea for the last week. Pt states that he was taken to the hospital "a couple of weeks ago" for the same issues. Pt states he was admitted for 3 days and received antibiotics but was unable to [address] [address] EMS Patient Care Report Name: PATRICIA FLYNN Room #: REG Chanell#: [id number] Admission: 06/02/21 Attend Phys: Discharge: Date of : 56 Report #: [id number] state what he was diagnosed with/treated for. Pt states that he contacted his PCP earlier today and that his PCP suggested he go to the ER. Pt denies any chest pain or shortness of breath. Pt states that he has been unable to sit upright due to pain in his abdomen. Upon arrival, pt found lying supine in bed. Pt alert and oriented. No respiratory distress noted. Skin warm, dry, pink. Tenderness noted upon palpation of medial abdomen from pelvis to upper abdomen. No obvious distension or rigidity. Pt is a paraplegic but did not need assistance moving to wheelchair. Pt moved to cot and taken to ambulance where V/S monitored. Pt transported in position of comfort. No changes in condition enroute to the hospital. Just prior to arrival, 4 mg of Zofran administered PO for nausea. Pt taken to triage and lifted into his wheelchair without incident. Report given to supervisor microbiology technologists. Medic 1154 clear. Initial Vitals @22:20P: 76,R: 16,BP: 160/84,Pain: 8/10,GCS: 15,SpO2: 97,Revised Trauma: 12, @22:11P: 77,R: 16,BP: 169/87,Pain: 8/10,GCS: 15,Temp: 97.3F,SpO2: 100,Revised Trauma: 12, Impression Abdominal Pain Procedures @PTASurgical Mask on Patient Response: Unchanged Timeline PARTITION SETTER,Surgical Mask on Patient,Response: Unchanged 21:55,Call Received 21:55,Psap Call 21:56,Dispatched 21:57,En Route 21:59,On Scene 22:00,At Patient 22:09,Depart Scene 22:11,BP: 169/87 M,PULSE: 77,RR: 16 R,SPO2: 100 Ox,ETCO2: ,BG: ,PAIN: 8,GCS: 15, 22:20,BP: 160/84 M,PULSE: 76,RR: 16 R,SPO2: 97 Ox,ETCO2: ,BG: ,PAIN: 8,GCS: 15, 22:27,At Destination 22:55,Call Closed Disclaimer [facility] [address] [place] [address] EMS Patient Care Report Name: PATRICIA FLYNN Room #: REG Chanell#: [id number] Admission: 06/02/21 Attend Phys: Discharge: Date of : 57 Report #: [id number] v1.1 Copyright 2020 [employer] This EMS Care Summary contains data elements from the applicable legal record (which may be displayed differently). It is designed to provide pertinent information for the following purposes: continuity of care, clinical quality, and state data reporting. The complete legal record is available to ED staff and administrators of the receiving hospital in [employer]'s Patient Tracker. All data is provided "as is."
[~2021-06-02 22:30] MED LIST changes: +ELIQUIS5 MG PO
[2021-06-03 00:52] LABS: ABSOLUTE NEUTROPHILS 5.5 thou/uL (1.4-8.2); BASOPHILS 0.7 % (0.0-2.0); EOSINOPHILS 5.2 % (0.0-3.0); HEMATOCRIT 44.1 % (42.0-52.0); HEMOGLOBIN 14.4 gm/dL (14.0-18.0); LYMPHOCYTES 13.6 % (24.0-44.0); MCH 29.2 pg (26.0-34.0); MCHC 32.7 g/dL (28.0-37.0); MCV 89.5 fL (80.0-100.0); PLATELET COUNT 267 thou/uL (150-400); POLYS 69.5 % (36.0-66.0); RBC 4.93 mil/uL (4.50-6.00); RDW 15.3 % (10.5-14.5)
[2021-06-03 00:54] LABS: ANION GAP 1 mmol/L (7-16); BUN 19 mg/dL (7-18); CALCIUM 8.6 mg/dL (8.5-10.1); CHLORIDE 106 mmol/L (98-107); CO2 30 mmol/L (21-32); CREATININE 0.6 mg/dL (0.7-1.3); GLUCOSE 89 mg/dL (74-106); POTASSIUM 3.8 mmol/L (3.5-5.1); SODIUM 137 mmol/L (136-145)
[2021-06-03 01:00] LABS: ALBUMIN 4.6 g/dL (3.4-5.0); DIRECT BILIRUBIN < 0.1 mg/dL (<0.1-0.2); LIPASE 90 U/L (73-393); SGOT 28 U/L (15-37); SGPT 33 U/L (16-63); TOTAL BILIRUBIN 0.4 mg/dL (0.2-1.0); TOTAL PROTEIN 6.5 g/dL (6.4-8.2)
[2021-06-03] MEDS ORDERED: ENULOSE10 GM/15 M PO (02:43)
[2021-06-03 03:28] VITALS: BP 147/79
--- NOTE | 2021-06-03 14:58 | EKG ---
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
== END 2021-06-03 03:11 | disposition home or self-care (01) ==
LOC: ER 22:30
PROVIDERS: Student in an Organized Health Care Education/Training Program
DX: K59.00 Constipation, unspecified (principal); I10 Essential (primary) hypertension; K21.9 Gastro-esophageal reflux disease without esophagitis; F17.210 Nicotine dependence, cigarettes, uncomplicated; Z90.89 Acquired absence of other organs; Z98.890 Other specified postprocedural states; Z79.1 Long term (current) use of non-steroidal anti-inflammatories (NSAID); Z79.891 Long term (current) use of opiate analgesic; Z79.899 Other long term (current) drug therapy; Z79.82 Long term (current) use of aspirin; Z88.6 Allergy status to analgesic agent; Z88.5 Allergy status to narcotic agent; Z88.8 Allergy status to other drugs, medicaments and biological substances; Z88.1 Allergy status to other antibiotic agents

== ENCOUNTER 2021-06-03 13:24 | Inpatient (IN) | payer OTHER, BC ==
[~2021-06-03] VITALS: Ht 182.9 cm; Wt 83.0 kg
--- NOTE | ~2021-06-03 | EMS ---
[address] [address] EMS Patient Care Report Name: PATRICIA FLYNN Room #: 453-P ADM IN M.R.#: [id number] Admission: 06/03/21 Attend Phys: Arian Mcgowan MD Discharge: Date of : 57 Report #: [id number] THIS REPORT FOR: //name// Report Transmitted: 06/03/2021 20:03 EMS Care Summary [facility] MED-ACT Incident [id number] @ 06/03/2021 12:27 Incident Location [address] [place] [address] Patient PATRICIA FLYNN Male, 66 Years 1955 Patient Address [address] [place] [address] Patient History Hypertension (HTN),Paraplegia,Chronic Pain, Patient Allergies Narcotic agents allergy, Patient Medications Valium, Eliquis, Other, Methadone, Chief Complaint Diarrhea, unable to control bowels Disposition Transported No Lights/[place] Dispatch Reason Sick Person Transported To [facility] Narrative M1152 was dispatched to a residence for a sick subject. Arrived on scene and found patient alert, lying supine in bed, being assisted by a home health nurse. OFD was on scene and assessed initial VS. The patient reports he has had diarrhea for about 5 days now, and is unable to control his bowels. He reports [facility] [address] [place] [address] EMS Patient Care Report Name: PATRICIA FLYNN Room #: 453-P ADM IN M.R.#: [id number] Admission: 06/03/21 Attend Phys: Arian Mcgowan MD Discharge: Date of : 57 Report #: [id number] that he was seen at the ER last night for the same symptoms, but was sent home without a treatment. He also reports he has had severe abdominal pain/cramping the last 5 days. Home health nurse on scene reports that the patient has just completed a series of antibiotics for a UTI, and has been on "multiple antibiotics" recently. The patient denies headache, dizziness, chest pain, or dyspnea. He denies any recent changes in diet. He denies any blood in his stool. Placed a blanket under the pt and lifted him out of bed and on to cot. Secured to cot and moved to ambulance. Reassessed VS, EKG and physical exam. See vs and assessment tab for further details. Offered to initiate venous access and administer medication for pain and nausea. Patient refused and reported that he had a port, and he would like to wait until he is at the hospital. Offered oral medication for nausea, patient refused. Offered IM medication for pain, pt refused. Gave biocom report to [facility] with pt information. VS and pt condition remained stable and unchanged. Moved pt from Initial Vitals @PTAP: 69,R: 16,BP: 171/83,SpO2: 98, @12:58P: 67,R: 16,SpO2: 100, @12:48P: 65,R: 16,SpO2: 100, @13:17P: 73,R: 16,BP: 143/82,SpO2: 99, @13:04P: 71,R: 16,BP: 163/90,SpO2: 100, @12:46P: 73,R: 16,BP: 165/113,Pain: 7/10,GCS: 15,Temp: 98.1F,SpO2: 100,Revised Trauma: 12, Impression Diarrhea Procedures @PTASurgical Mask on Patient Response: Unchanged @13:00 IV Therapy - cc () Timeline CUSTOMS EXAMINER,Surgical Mask on Patient,Response: Unchanged CUSTOMS EXAMINER,BP: 171/83 M,PULSE: 69,RR: 16 R,SPO2: 98 Ox,ETCO2: ,BG: ,PAIN: ,GCS: , 12:26,Call Received 12:26,Psap Call 12:27,Dispatched 12:27,En Route 12:33,On Scene 12:34,At Patient 12:46,BP: 165/113 M,PULSE: 73,RR: 16 R,SPO2: 100 Ox,ETCO2: ,BG: ,PAIN: 7,GCS: 15, [facility] [address] [place] [address] EMS Patient Care Report Name: PATRICIA FLYNN Room #: 453-P ADM IN M.R.#: [id number] Admission: 06/03/21 Attend Phys: Arian Mcgowan MD Discharge: Date of : 57 Report #: [id number] 12:46,Depart Scene 12:48,BP: / M,PULSE: 65,RR: 16 R,SPO2: 100 Ox,ETCO2: ,BG: ,PAIN: ,GCS: , 12:58,BP: / M,PULSE: 67,RR: 16 R,SPO2: 100 Ox,ETCO2: ,BG: ,PAIN: ,GCS: , 13:00,IV Therapy - cc Site: , 13:04,BP: 163/90 M,PULSE: 71,RR: 16 R,SPO2: 100 Ox,ETCO2: ,BG: ,PAIN: ,GCS: , 13:17,BP: 143/82 M,PULSE: 73,RR: 16 R,SPO2: 99 Ox,ETCO2: ,BG: ,PAIN: ,GCS: , 13:26,At Destination 13:39,Call Closed Disclaimer v1.1 Copyright 2020 [employer] This EMS Care Summary contains data elements from the applicable legal record (which may be displayed differently). It is designed to provide pertinent information for the following purposes: continuity of care, clinical quality, and state data reporting. The complete legal record is available to ED staff and administrators of the receiving hospital in [email or web address]'s Patient Tracker. All data is provided "as is."
[~2021-06-03 13:24] MED LIST changes: +ENULOSE10 GM/15 M PO
[2021-06-03 13:30] VITALS: BP 160/88
[2021-06-03 14:02] LABS: ABSOLUTE NEUTROPHILS 5.8 thou/uL (1.4-8.2); BASOPHILS 0.6 % (0.0-2.0); EOSINOPHILS 1.2 % (0.0-3.0); HEMATOCRIT 43.9 % (42.0-52.0); LYMPHOCYTES 11.9 % (24.0-44.0); MCH 30.5 pg (26.0-34.0); MCHC 34.2 g/dL (28.0-37.0); MCV 89.1 fL (80.0-100.0); MONOCYTES 7.6 % (1.0-8.0); PLATELET COUNT 253 thou/uL (150-400); POLYS 78.7 % (36.0-66.0); RBC 4.93 mil/uL (4.50-6.00); RDW 15.3 % (10.5-14.5); WBC 7.3 thou/uL (4.0-11.0)
[2021-06-03 14:13] LABS: CALCIUM 8.4 mg/dL (8.5-10.1); CREATININE 0.6 mg/dL (0.7-1.3); POTASSIUM 3.8 mmol/L (3.5-5.1)
[2021-06-03 14:20] LABS: TOTAL BILIRUBIN 0.4 mg/dL (0.2-1.0); TOTAL PROTEIN 6.6 g/dL (6.4-8.2)
[2021-06-03 14:31] LABS: URINE BILIRUBIN NEGATIVE (Negative); URINE BLOOD 1+ (Negative); URINE CLARITY CLEAR; URINE COLOR YELLOW; URINE GLUCOSE-RANDOM* NEGATIVE (Negative); URINE KETONES 2+ (Negative); URINE LEUKOCYTES-REFLEX 3+ (Negative); URINE NITRITE-REFLEX NEGATIVE (Negative); URINE PROTEIN (DIPSTICK) NEGATIVE (Negative); URINE SPECIFIC GRAVITY 1.015 (1.005-1.035); URINE UROBILINOGEN 0.2 E.U./dl (0.2-1.0)
[2021-06-03 14:38] LABS: SQUAMOUS None Seen /LPF (0-3)
[2021-06-03 14:39] LABS: CASTS None Seen /LPF (None Seen); CRYSTALS None Seen /LPF (None Seen); URINE RBC 3-10 Few /HPF (NONE SEEN)
--- NOTE | 2021-06-03 14:58 | NUR ---
PT REQUESTS FOR DILAUDID AT THIS TIME, PT STATES 20MG OF OXYCODONE IS NOT ENOUGH MEDICATION FOR HIS PAIN, "THAT IS WHAT I TAKE AT HOME, IF I COME TO THE HOSPITAL I BETTER GETT DILAUDID" PT WAS INFORMED THAT WITH 20MG OF OXY ON BOARD THE PHYSICIAN IS NOT GOING TO PUT IN IV NARCOTICS DUE TO RISKS BUT OFFERED A SHOT OF BENTYL. PT STATES "I WILL CALL DR EDWARD AND GET MY OWN ORER FOR IV PAIN MEDS"
--- NOTE | 2021-06-03 14:59 | EKG ---
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
[2021-06-03 18:33] VITALS: BP 145/86
[2021-06-03 19:05] VITALS: BP 152/68
--- NOTE | 2021-06-04 00:48 | NUR ---
PT WAS ADMITTED TO THIS UNIT AT APPROX 1999 ON 06/03/21. PT IS A&OX4. ON ROOM AIR. IS STABLE. REPORTS BACK PAIN & ABD PAIN THAT IS BEING MANAGED WITH ORAL MEDS & OTHER THERAPUETIC TECHNIQUES. IS ABLE TO ASSIST WITH MOVEMENT IN BED. REFUSED TO BE TURNED Q2H & TO BE MOVED OFF OF SIDE. STATED, "MY BACK HURTS TOO BAD. I CAN MOVE MYSELF IN BED". 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 WOUNDS ON BOTH LEFT & RIGHT LATERAL ASPECTS OF LOWER EXTREMITIES WITH DRSG INTACT. PT REPORTED THAT THEY WERE SCRAPPED ON W/C. PT REFUSED TO HAVE HEELS FLOATED; STATED, "I WILL LET YOU KNOW WHEN I AM READY, AND I DON'T WANT ANY OF THOSE BIG "O" BOOTS FOR MY FEET EITHER. I HAVE HAD A DVT IN MY LEG SO I WILL ASK MY DOCTOR IF I SHOULD USE THE SCD'S OR NOT TOMORROW WHEN HE COMES TO SEE ME. HE SAID HE IS COMING IN THE MORNING". PT ADMISSIONS INFORMATION & EDUCATION COMPLETED. LABS REVIEWED. VITALS ASSESSED. PT IS CURRENTLY ASLEEP. CALL LIGHT WITHIN REACH. PT WAS PLACED ON SPECIAL CONTACT ISOLATION PRECAUTIONS D/T LIQUID STOOLS & POSSIBLE C-DIFF. SPECIMEN WAS COLLECTED & SENT TO THE LAB. WILL CONTINUE TO MONITOR.
[2021-06-04 07:58] VITALS: BP 157/82
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
--- NOTE | 2021-06-04 13:54 | NUR ---
WOUND CARE CONSULT; THIS IS A KNOWN PATIENT. THE WOUNDS TO THE BILATERAL LATERAL KNEES REMAIN THE SAME SINCE THE LAST HOSPITALIZATION. THE LEFT KNEE IS 1 X 1.5 X 0.1. NO S/S OF INFECTION. THE RIGHT KNEE IS 2 X 2 X 0.1. THE WOUNDS ARE UNCHANGED SINCE LAST ADMISSION. NO ODOR OR FEVER. RECCOMMENDATIONS; -PURACOL AG,AQUACEL AG,COVER WITH A BORDER FOAM CHANGE M/W/F PRN.
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
[2021-06-04 16:40] VITALS: BP 149/81
--- NOTE | 2021-06-04 20:00 | NUR ---
Assumed pt care this am, with a chest port on the left. Came in with a suprapubic cat, paraplegic , refuses Q2 turns. Multiple wounds seen by wound care, care and dressing changes made.C-diff negatinve, isolation removed. ON low air loss mattress. Seen by GI, Mg citrate given awating bm. pain is managed with medications partial relief is noted. Medications given as per emar. POC followed, endorsed to the night nurse.
[2021-06-04 21:06] VITALS: BP 123/78
--- NOTE | 2021-06-05 03:49 | NUR ---
Pt. rested quietly during the night when checked on during frequent rounds. Po pain meds given for c/o abdominal pain (see emar) with some relief noted. No loose stools during the night. Bed alarm is on.
[2021-06-05 07:30] VITALS: BP 139/71
--- NOTE | 2021-06-05 15:47 | NUR ---
Assumed pt care this am vs stable, no BM noted and stated he is worse since after he took the Mg citrate. Requests for anxiety and pains meds to be given on the dot and at lauren same time if possible. Suppository given as ordered, awaiting bm. POC followed,
[2021-06-05 15:58] VITALS: BP 154/79
[2021-06-05 19:59] VITALS: BP 128/77
--- NOTE | 2021-06-06 06:00 | NUR ---
Pt. rested quietly at intervals during the night when checked on during frequent rounds. He did have a medium soft bowel movement. Pt. medicated for c/o pain and anxiety (see emar).
[2021-06-06 08:06] VITALS: BP 146/91
[2021-06-06] MEDS ORDERED: LEVOFLOXACIN500 MG PO (11:50)
[2021-06-06] MEDS ORDERED: MACROBID 100 M100 M1 PO (11:50)
[2021-06-06] MEDS ORDERED: METHADONE HCL 110 M1 PO (11:52)
--- NOTE | 2021-06-06 12:20 | NUR ---
Assumed pt care this am, vs stasble. Pain and anxiety meds requested on the dot, even if there are no signs of pain since pt would be asleep most of the time. Pt has had several bm through out the day. Sister Tiny Maria [phone] called and clearly stipulated she does not want pt to go back home and she cannot care for him and pt is a "mess". Agreement with Dt. Suarez is for pt to go to a facility.
[2021-06-06 16:34] VITALS: BP 136/73
[2021-06-06 19:54] VITALS: BP 146/75
--- NOTE | 2021-06-07 02:57 | NUR ---
PT CARE ASSUMED WITH PT IN BED WATCHING TV.PT IS A/O X4.PT IS ON BEDREST AND ABLE TO REPOSITION SELF.PT C/O PAIN AND PAIN MANAGED WITH OXYCODONE AND ATIVAN FOR ANXIETY.PT HAS A SUPRAPUBIC CATHETER AND A LT CHEST PORT CATH.PT IS ON ROOM AIR.WILL CONTINUE TO MONITOR PER POC
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
[2021-06-07 09:31] VITALS: BP 138/74
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
--- NOTE | 2021-06-07 12:09 | NUR ---
THERAPIES HAD BEEN ORDERED MONDAY. PT HAS REFUSED ALL ATTEMPTS AT EVALUATION OF THIS NOTE. CM HAD SENT REFERRAL TO [facility] FOR REVIEW FOR POSSIBLE ADMISSION PER PT AND DR. EDWARD'S REQUEST. [facility] INDICATING THEY AREN'T SEEING A SKILLED DX AND NEEDING THEARPY EVALS. CM FOLLOWING.
[2021-06-07 20:08] VITALS: BP 150/78
--- NOTE | 2021-06-08 03:09 | NUR ---
ASSUMED PT CARE THIS PM. PT IS ALERT AND ORIENTED X4. PT REFUSED WOUND DRSG ON THIS SHUFT. PT HAS SUPRAPUBIC CATH IN PLACE. PT DID NOT C/O DIARRHEA ON THIS SHIFT.PT HAS A PORT WHICH IS ACCESSIBLE ON THE LEFT CHEST. PT IS RA. MEDS WERE GIVEN PER EMAR ORDERS. WILL CONTINUE TO MONITOR
[2021-06-08 07:30] VITALS: BP 135/77
--- NOTE | 2021-06-08 11:41 | NUR ---
PT care assumed at shift change, in bed watching TV , comfortable, on RA, pleasant and safe, shift assessment done, labs reviewed, no new conderns on Physical examination, wound care provided, all meds given as scheduled, urostomy tube patent, collecting bag emptied, I&O's recorded, good appetite, mood appropriate, VSS, labs review, pain managed, hourly round. Will cont monitor for change.
--- NOTE | 2021-06-08 12:30 | NUR ---
PT AND OT HAVE BOTH EVALUATED PT. CM FAXED INFO TO [facility] FOR REVIEW FOR POSSIBLE ADMISSION. CM FOLLOWING REGARDING DC PLANNING.
--- NOTE | 2021-06-08 14:31 | NUR ---
CM FAXED THERAPY EVALS AND UPDATES TO [facility] THIS AM. COVID NOW COLLECTED. CM WAITING ON RESPONSE FROM PHYSICIAN TO IF PT IS MEDICALLY STABLE TO DC TO [facility] TODAY. THEY INDICATED THAT THEY ARE TIGHT ON BEDS. CM FOLLOWING REGARDING DC PLANNING.
[2021-06-08 14:54] VITALS: BP 143/65
[2021-06-08 19:27] VITALS: BP 131/77
[2021-06-09 04:09] VITALS: BP 135/83
--- NOTE | 2021-06-09 04:44 | NUR ---
Pt. c/o chronic abdominal pain and anxiety. Meds given for both (see emar) with some relief noted. Bed alarm is on.
[2021-06-09 09:04] VITALS: BP 129/79
[2021-06-09 09:05] VITALS: BP 129/79
--- NOTE | 2021-06-09 11:57 | NUR ---
ASSUMED CARE AT 0700. PATIENT IS ALERT AND ORIENTED X4. PATIENT IS PARAPLEGIC. PATIENT LUNGS ARE CLEAR. ABD IS SOFT WITH BSX4. PATIENT HAS SUPRAPUBIC CATHETER IN PLACE. DRAINING NAHUM COLORED URINE. PORTACATH DEACTIVATED BY IV TEAM. PATIENT IS COVID NEGATIVE. FALL AND SAFETY PROTOCOLS IN PLACE. C/O ABD PAIN. MEDICATED WITH PRN PAIN MED. C/O ANXIETY, MEDICATED WITH PRN ANTI-ANXIETY MED. CONTINUES TO PROGRESSS TOWARDS D/C GOALS. PLAN D/C LATER TODAY. WILL CONTINUE TO MONITER.
--- NOTE | 2021-06-09 12:01 | NUR ---
1030 TRANSPORTATION HERE TO TAKE PATIENT TO [facility] BY STRETCHER. CHART COPIED. DISCHARGE INSTRUCTIONS GIVEN TO DIE PRESSER. PATIENT COVID 19 (-) INFORMation FAXED TO [place]. PATIENT LEFT UNIT IN GOOD CONDITION WITH ALL OF HIS BELONGINGS.
--- NOTE | 2021-06-09 15:24 | NUR ---
PT DISHCARGED TO [facility] THIS AM AT 10:30 VIA [facility]AN. ORDERS FAXED. REPORT CALLED. PT AWARE AND AGREEABLE. NO OTHER CM INTERVENTION INDICATED. CASE CLOSED.
== END 2021-06-09 11:24 | DRG 391 ==
LOC: ER 13:24 → EROBS 15:22 → 4W 15:22
PROVIDERS: Nurse Practitioner Family; ADMIT Family Medicine; ATTEND Family Medicine
DX: K59.00 Constipation, unspecified (principal); L89.153 Pressure ulcer of sacral region, stage 3; N39.0 Urinary tract infection, site not specified; G82.20 Paraplegia, unspecified; L97.829 Non-pressure chronic ulcer of other part of left lower leg with unspecified severity; L97.819 Non-pressure chronic ulcer of other part of right lower leg with unspecified severity; K52.9 Noninfective gastroenteritis and colitis, unspecified; N31.9 Neuromuscular dysfunction of bladder, unspecified; I10 Essential (primary) hypertension; G89.4 Chronic pain syndrome; K21.9 Gastro-esophageal reflux disease without esophagitis; F17.210 Nicotine dependence, cigarettes, uncomplicated; S81.801A Unspecified open wound, right lower leg, initial encounter; Z20.822 Contact with and (suspected) exposure to COVID-19; B96.20 Unspecified Escherichia coli [E. coli] as the cause of diseases classified elsewhere; B96.5 Pseudomonas (aeruginosa) (mallei) (pseudomallei) as the cause of diseases classified elsewhere; R53.81 Other malaise; S81.802A Unspecified open wound, left lower leg, initial encounter; Z86.711 Personal history of pulmonary embolism; Z88.6 Allergy status to analgesic agent; Z93.50 Unspecified cystostomy status; Z86.718 Personal history of other venous thrombosis and embolism; X58.XXXA Exposure to other specified factors, initial encounter; Z88.1 Allergy status to other antibiotic agents; Z88.8 Allergy status to other drugs, medicaments and biological substances; Y93.89 Activity, other specified; Y92.89 Other specified places as the place of occurrence of the external cause; Y99.8 Other external cause status
CPT/HCPCS: 10040

== ENCOUNTER 2021-06-23 19:50 | Inpatient (IN) | payer OTHER, BC ==
[~2021-06-23] VITALS: Ht 182.9 cm; Wt 66.8 kg
--- NOTE | ~2021-06-23 | EMS ---
[address] [address] EMS Patient Care Report Name: PATRICIA FLYNN Room #: REG PITO Lua#: [id number] Admission: 06/23/21 Attend Phys: Discharge: Date of : 57 Report #: [id number] THIS REPORT FOR: //name// Report Transmitted: 06/23/2021 19:30 EMS Care Summary [facility] MED-ACT Incident [id number] @ 06/23/2021 19:11 Incident [address] [place] [address] Patient PATRICIA FLYNN Male, 66 Years 1955 Patient Address [address] [place] [address] Patient History Hypertension (HTN),Paraplegia,Chronic Pain, Patient Allergies Narcotic agents allergy, Patient Medications Valium, Other, Eliquis, Methadone, Chief Complaint Diarrhea Disposition Transported No Lights/[place] Reason Sick Person Transported To [facility] Narrative Dispatched to a residence for a C-3 Sick Patient. Upon arrival we find the patient sitting in a chair in the living room of his home in care of Amrita . The patient reports that he has been suffering from [address] [address] EMS Patient Care Report Name: PATRICIA FLYNN Room #: REG PITO Lua#: [id number] Admission: 06/23/21 Attend Phys: Discharge: Date of : 57 Report #: [id number] diarrhea for the last 3 days. The patient is a paraplegic and can usually transfer to a wheel chair to take care of himself. He reports that his shoulders are so sore that he is unable to transfer to take care of himself anymore. The patient has no other complaints of pain or symptoms at this time. Vitals Assessed, PMH, Physical Exam, the patient is moved to the cot via sheet pull and into the ambulance for transport. The patient's condition remains unchanged and his vital signs are stable during transport. Initial Vitals @19:44P: 100,R: 16,BP: 168/99,GCS: 15,SpO2: 98,Revised Trauma: 12, @19:30P: 87,R: 16,BP: 168/93,Pain: 2/10,GCS: 15,Temp: 97.4F,SpO2: 99,Revised Trauma: 12, Impression Diarrhea Procedures @19:26 Surgical Mask on Patient Response: Unchanged Timeline 19:08,Call Received 19:08,Psap Call 19:11,Dispatched 19:12,En Route 19:17,On Scene 19:20,At Patient 19:26,Surgical Mask on Patient,Response: Unchanged 19:29,Depart Scene 19:30,BP: 168/93 M,PULSE: 87,RR: 16 R,SPO2: 99 Ox,ETCO2: ,BG: ,PAIN: 2,GCS: 15, 19:44,BP: 168/99 M,PULSE: 100,RR: 16 R,SPO2: 98 Ox,ETCO2: ,BG: ,PAIN: ,GCS: 15, 19:47,At Destination 20:00,Call Closed Disclaimer v1.1 Copyright 202 [employer] This EMS Care Summary contains data elements from the applicable legal record (which may be displayed differently). It is designed to provide pertinent information for the following purposes: continuity of care, clinical quality, and state data reporting. The complete legal record is available to ED staff and administrators of the receiving hospital in [employer] Patient Tracker. All data is provided "as is."
[~2021-06-23 19:50] MED LIST changes: +LEVOFLOXACIN500 MG PO
[2021-06-23 19:51] VITALS: BP 146/101
[2021-06-23 21:05] LABS: CORRECTED WBC 9.9 thou/uL (4.0-11.0)
[2021-06-23 21:07] LABS: RBC 5.21 mil/uL (4.50-6.00); WBC 9.9 thou/uL (4.0-11.0)
[2021-06-23 21:08] LABS: HEMATOCRIT 45.2 % (42.0-52.0); HEMOGLOBIN 15.3 gm/dL (14.0-18.0); MCH 29.4 pg (26.0-34.0); MCHC 33.8 g/dL (28.0-37.0); MCV 86.8 fL (80.0-100.0); RDW 15.1 % (10.5-14.5)
[2021-06-23 21:09] LABS: BASOPHILS 0.4 % (0.0-2.0); EOSINOPHILS 2.8 % (0.0-3.0); LYMPHOCYTES 15.3 % (24.0-44.0); MONOCYTES 10.9 % (1.0-8.0); PLATELET COUNT 187 thou/uL (150-400); POLYS 70.6 % (36.0-66.0)
[2021-06-23 21:22] LABS: POTASSIUM 3.6 mmol/L (3.5-5.1)
[2021-06-23 21:23] LABS: CALCIUM 9.3 mg/dL (8.5-10.1); CREATININE 0.7 mg/dL (0.7-1.3); TOTAL BILIRUBIN 0.5 mg/dL (0.2-1.0)
[2021-06-23 21:24] LABS: ALBUMIN 3.1 g/dL (3.4-5.0)
[2021-06-23 22:20] LABS: URINE BILIRUBIN NEGATIVE (Negative); URINE BLOOD TRACE (Negative); URINE CLARITY CLEAR; URINE COLOR YELLOW; URINE GLUCOSE-RANDOM* NEGATIVE (Negative); URINE KETONES 2+ (Negative); URINE LEUKOCYTES-REFLEX NEGATIVE (Negative); URINE PROTEIN (DIPSTICK) NEGATIVE (Negative); URINE SPECIFIC GRAVITY <= 1.005 (1.005-1.035); URINE UROBILINOGEN 0.2 E.U./dl (0.2-1.0)
[2021-06-23 22:21] LABS: URINE NITRITE-REFLEX POSITIVE (Negative)
[2021-06-23 22:56] LABS: BACTERIA-REFLEX 1-9 Few /HPF (None Seen); SQUAMOUS 0-3 Few /LPF (0-3); URINE RBC 1-2 Rare /HPF (NONE SEEN); URINE WBC-REFLEX 0-5 Rare /HPF (0-5)
[2021-06-23 22:57] LABS: CASTS None Seen /LPF (None Seen); CRYSTALS None Seen /LPF (None Seen); MUCUS 0-3 Light strn/LPF (None Seen)
[2021-06-24 08:00] VITALS: BP 138/78
--- NOTE | 2021-06-24 12:17 | NUR ---
66 year old male admitted through he ED via EMS on 06-23-21 for loose stools for 3-days and overall weakness contributing to his inability to care for self with his chronic paraplegia. The patient's PCP is Dr. Mcgowan who will follow the patient for care. Noted from ED ID NOW as negative and ED Triage assessment notes unvaccinated. The patient last had CM Contact on 09-09-20 when discharged to [facility] via stretcher van. At this time the patient listed daughter Orquidea Cochran at [phone] as next of kin and DPOA as her contact. CM will reintroduce role of CM and monitor for MD recommendations with therapy evaluations for discharge planning.
[2021-06-24 16:12] VITALS: BP 127/73
[2021-06-24 17:42] VITALS: BP 127/73
[2021-06-24 20:03] VITALS: BP 117/70
[2021-06-25 07:27] VITALS: BP 135/82
--- NOTE | 2021-06-25 09:57 | NUR ---
Marcy from [facility] called for admitting diagnosis. Fax number of [phone] given, she states she will be faxing a Home health packet.
--- NOTE | 2021-06-25 14:28 | NUR ---
VAT ROUNDING ,NO BIOPATCH ON PORTACATH SO DRG CHANGED
[2021-06-25 15:47] VITALS: BP 143/79
[2021-06-25 19:17] VITALS: BP 138/86
[2021-06-26 07:06] VITALS: BP 123/82
[2021-06-26 07:26] LABS: HEMATOCRIT 42.3 % (42.0-52.0); HEMOGLOBIN 13.7 gm/dL (14.0-18.0); MCH 28.7 pg (26.0-34.0); MCHC 32.3 g/dL (28.0-37.0); MCV 88.9 fL (80.0-100.0); RBC 4.76 mil/uL (4.50-6.00); RDW 15.7 % (10.5-14.5); WBC 6.4 thou/uL (4.0-11.0)
--- NOTE | 2021-06-26 08:52 | NUR ---
ASSUMED CARES AT 1900, PT REMAINS ON PAIN MANAGEMENT, SLEPT INTERMITTENTLY, COMPLIANT TO TX, NO ADVERSE REACTION NOTED, [place] WORKING EFFECTIVELY, WILL CONTINUE TO MONITOR,
[2021-06-26 17:25] VITALS: BP 135/80
--- NOTE | 2021-06-26 18:30 | NUR ---
PT CALM AND COOPERATIVE THROUGHOUT THE SHIFT. PT ASKED FOR PAIN CONTROL MULTIPLE TIMES WITH MANY QUESTIONS ON WHEN HIS NEXT PAIN DOSE WOULD BE AVAILABLE TO HIM. AFTER PAIN CONTROL PT TOOK A NAP. PT RECEIVED INJECTIONS TO BOTH SHOULDERS FROM THE NURSE PRACTITIONER (SEE HER REPORT). PT DID NOT HAVE A BM TODAY.
[2021-06-26 19:53] VITALS: BP 139/86
[2021-06-27] VITALS: BP 121/79
--- NOTE | 2021-06-27 05:12 | NUR ---
ASSUMED CARE AT 1900, PT CONTINUES TO BE ON PAIN MANAGEMENT WITH MEDICATIONS ADMINISTERED EVERY 4 HOURS PER REQUEST, DRINKING ADEQUETLY, CATHETER WORKING EFFECTIVELY, COMPLIANT WITH TX, NO ADVERSE REACTION NOTED, WILL CONTINUE TO MONITOR.
[2021-06-27 08:17] VITALS: BP 135/79
[2021-06-27 12:04] LABS: CALCIUM 9.3 mg/dL (8.5-10.1); CREATININE 0.8 mg/dL (0.7-1.3)
[2021-06-27 17:40] VITALS: BP 146/82
--- NOTE | 2021-06-27 18:46 | NUR ---
Pt A & O x4. Pt VS stable. Pt received medications as ordered and also received PRN medications as needed. Pt has agrawal in place. Pt denies BM this shift. Pt is bedrest. pt is able to make needs known
--- NOTE | 2021-06-28 05:22 | NUR ---
PT LAYING IN BED REPORTS BILAT SHOULDER PAIN, DRINKING ADEQUETELY, COMPLIANT TO TX, NO ADVERSE REACTION NOTED, WILL CONTINUE TO MONITOR.
[2021-06-28 07:32] VITALS: BP 147/88
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
[2021-06-28 16:50] VITALS: BP 137/76
--- NOTE | 2021-06-28 19:38 | NUR ---
RN ASSUMED PT'S CARE AT 0700-1900PM, PT IS A&OX4, PT IS CONTINUING IV ABX AND PAIN MANAGEMENT, PT'S VS ARE STABLE AT DAY SHIFT.
[2021-06-28 20:15] VITALS: BP 120/58
[2021-06-28 20:33] VITALS: BP 120/58
--- NOTE | 2021-06-29 02:20 | NUR ---
Assumed care on 06/28/21 @ 1999, in bed awake alert and oriented x4, pleasant affect, cooperative [facility] care. On isolation for possible CDiff, lab results pending. VSS, IV antibiotic tx and pain management are care issues. Dressings on knees bilat are C/D/I. Patient has slept for a few hours and then woke up when his alarm goes off that he has set when open for pain medication. High Fall risk, bed alarm is set. Superpubic catheter draining clear yellow urine to gravity. IV access is right chest port, clear dressing is C/D/I with no R/S/I. Will continue to monitor for safety and comfort as per unit protocol.
[2021-06-29 03:55] VITALS: BP 123/60
[2021-06-29 07:00] VITALS: BP 140/63
--- NOTE | 2021-06-29 08:00 | EKG ---
[address] [address] ELECTROCARDIOGRAM REPORT Name: PATRICIA FLYNN Room #: 464- ADM IN M.R.#: [id number] Admission: 06/23/21 Attend Phys: Arian Mcgowan MD Discharge: Date of : 57 Report #: [id number] [facility] Test Date: 2021-06-28 Test Time: 15:17:05 Pat Name: PATRICIA FLYNN Department: Room: 464 Gender: M [employer]: FSCHWALBE : 1955 Requested By: Mignon Llamas Order Number: [id number] MD: Red Benton Measurements Intervals [place] Rate: 74 P: 47 OR: 193 QRS: 84 QRSD: 105 T: 35 QT: 380 QTc: 422 Interpretive Statements Sinus rhythm Atrial premature complex Borderline right axis deviation Baseline wander in lead(s) V3 Compared to ECG 06/03/2021 13:30:29 Atrial premature complex(es) now present ST (T wave) deviation now present Electronically Signed On 06-29-2021 7:59:59 EVENT COORDINATOR by Red Benton [email or web address] <ELECTRONICALLY SIGNED> By: Red Benton MD, FACC 06/29/21 [id number] [id number] Red Benton MD, [facility] /EPI
--- NOTE | 2021-06-29 14:23 | NUR ---
CARE TEAM INDICATED THAT PT WILL LIKELY BE MEDCIALLY STABLE TO DC TO [facility] TOMORROW. PT AND OT ASSESSED PT AND EVALS WERE FAXED TO [facility]. WAGNER INDICATED THAT PT WILL LIKELY SWITCH TO AN ORAL ABX UPON DC. COVID NOW TO BE DONE TOMORROW. CM NOTIFIED PT THAT WE ARE ANTICIPATING POSSIBLE DC TOMORROW. PT EXPRESSED CONCERN ABOUT THERAPY AND NOT BEING ABLE TO HAVE IV PAIN MEDS UPON DC. CM FOLLOWING REGARDING DC PLANNING.
[2021-06-29 18:25] VITALS: BP 166/74
[2021-06-29 19:56] VITALS: BP 145/70
[2021-06-29 20:05] VITALS: BP 145/70
--- NOTE | 2021-06-29 20:05 | NUR ---
PATIENT HAD 4000 CC OUTPUT FROM SUPAPUBIC CATHETER DURING THE DAY SHIFT. COMPLAINS OF BILATERAL SHOULDER PAIN PERIODICALLY DURING THE DAY AND GIVEN OXYCODONE AND MORPHINE TO AID WITH DISCOMFORT AT 4 HOUR INTERVALS. PATIENT ALSO REQUESTED IV ATIVAN TO HELP WITH ANXIETY. PATIENT PARAPALEGIC FOR 36 YEARS. STATES HAS DIFFICULTY AT TIMES MOVING BOWELS. PATIENT CANDIDATE FOR [facility] AND WORKING ON PLACEMENT. PLEASANT AND CONGENIAL - MAKES NEEDS KNOWN. APPEARS THAT MEDICATIONS NO EFFECTIVE TO AID WITH PAIN DISCOMFORT FOR LONG PERIODS OF TIME. GOOD APPETITE -
[2021-06-30 04:41] VITALS: BP 146/64
[2021-06-30 07:41] VITALS: BP 166/82
[2021-06-30] MEDS ORDERED: CEFDINIR300 MG PO (08:46)
--- NOTE | 2021-06-30 11:00 | NUR ---
AT 1050 WOUND NURSE IN ROOM FOR PICTURES AND DRESSING CHANGE.
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
--- NOTE | 2021-06-30 15:37 | NUR ---
PT INDICATED HE WASN'T FEELING WELL THIS DAY. DR. EDWARD AWARE. HE INDICATED DC TOMORROW. PT IS AWARE AND AGREEABLE. CM NOTIFIED [facility]. PT IS TO DC TO [facility] TOMORROW Monday07/01/21.
[2021-06-30 16:58] VITALS: BP 135/88
[2021-06-30 20:58] VITALS: BP 143/68
[2021-07-01 04:06] VITALS: BP 136/78
--- NOTE | 2021-07-01 08:04 | NUR ---
pain controlled this shift. patient encouraged to turn q 2 hours.fall precaution in place. patient in bed asleep at this time breathing regular and unlaboured.
[2021-07-01 08:19] VITALS: BP 149/85
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
--- NOTE | 2021-07-01 11:51 | NUR ---
PT IS MEDICALLY STABLE TO DC TO [facility] THIS DAY. CHART COPY MADE. ORDERS, SUMMER, - COVID, AND OT NOTES FROM YESTERDAY WERE FAXED. CHART COPY MADE. STRETCHER TRANSPORT WITH TRANSPORT WITH HIS WC ARRANGED FOR 0. PT IS AWARE AND AGREEABLE. NO OTHER CM INTERVENTION INDICATED. CASE CLOSED.
--- NOTE | 2021-07-01 13:20 | NUR ---
VAT ROUNDED TO ASSESS PT PORT DRESSING. C/D/I. DISCUSSED DUE TO HAVE NEEDLE/DRESSING CHANGE. PT ASKED TO "WAIT," HE MAY BE DISCHARGING SOON.
--- NOTE | 2021-07-01 19:35 | NUR ---
transportation here at 1900. port was heparinized and deaccessed prior to discharge. agrawal remains in place. discharge papers gone over and pt agreed with discharge at this time.
--- NOTE | 2021-07-06 16:58 | HC ---
[facility] [place] [address] CONSULTATION Name: PATRICIA FLYNN Room #: 464-P [facility] IN M.R.#: [id number] Admission: 06/23/21 Attend Phys: Arian Mcgowan MD Discharge: 07/01/21 Date of : 57 Report #: [id number] THIS REPORT FOR: cc: Arian Mcgowan MD, Neal A. MD StephenMaciej paulino MD ~ DATE OF SERVICE: 06/25/2021 WOUND CARE CONSULTATION PERSONAL PHYSICIAN: Arian Mcgowan MD CHIEF COMPLAINT: Bilateral knee wounds. HISTORY OF PRESENT ILLNESS: This is a 66-year-old white male who we have followed for several years for intermittent and various wounds, most of which have been decubitus ulcers in his sacrococcygeal region. The patient now was admitted for dehydration and persistent loose stools. Upon admission, it was noted the patient had traumatic wounds to bilateral knees. He said he got after he had to crawl on his bedroom floor. The patient denies any other associated wounds at this time. We have been asked to care for him for the wounds while he is here. PAST MEDICAL HISTORY: Significant for hypertension, previous DVT, pulmonary embolus, chronic pain syndrome, paraplegia, bilateral rotator cuff injuries, multiple decubitus ulcers, status post suprapubic catheter, multiple back surgeries. CURRENT MEDICATIONS: Multiple, I reviewed the patient's medication list. DRUG ALLERGIES: MULTIPLE, I reviewed the patient's allergies. SOCIAL HISTORY: The patient still smokes half pack of cigarettes daily. Lives independently. FAMILY HISTORY: Not pertinent to current medical condition. REVIEW OF SYSTEMS: CONSTITUTIONAL: The patient denies fevers or chills. NEUROLOGIC: The patient is paralyzed. EYES: No complaints. EARS, NOSE AND THROAT: No complaints. CARDIAC: The patient denies chest pain, palpitations, peripheral edema. RESPIRATORY: The patient denies shortness of breath, cough, wheezes. GASTROINTESTINAL: The patient has persistent loose stools for the past several days, but denies associated nausea or vomiting. [facility] [address] [place] [address] CONSULTATION Name: PATRICIA FLYNN Room #: 464-P [facility] IN M.R.#: [id number] Admission: 06/23/21 Attend Phys: Arian Mcgowan MD Discharge: 07/01/21 Date of : 57 Report #: [id number] GENITOURINARY: The patient has a suprapubic catheter. MUSCULOSKELETAL: No complaints. SKIN: The patient has traumatic wounds to bilateral knees. PHYSICAL EXAMINATION: VITAL SIGNS: Stable. The patient is afebrile. GENERAL: This is alert and oriented x3, pleasant white male who is in no acute distress. HEENT: Normocephalic, atraumatic. Mucous membranes are dry. Pupils are round. Sclerae white. NECK: Without JVD. LUNGS: Clear. HEART: Regular. ABDOMEN: Soft, nontender. Evaluation of sacrococcygeal region reveals no signs of any open wounds; however, there is significant amount of scar tissue noted. EXTREMITIES: The patient has no movement of his lower extremities. Bilateral knees have superficial abrasions, which are clean and granulating. Bilateral heels are intact. NEUROLOGIC: Cranial nerves II-XII grossly intact. The patient is paralyzed. LABORATORY DATA: CBC within normal limits with a white count of 6.4, hemoglobin 13.7, albumin 3.1. IMPRESSION: 1. Bilateral traumatic ulcers to the knees. 2. History of colitis. 3. 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 4. Neurogenic bladder. 5. Hypertension. 6. Chronic pain syndrome. PLAN: At this time, we will place Puracol Ag and Xeroform and bordered foam over the ulcerations to the knees and change 3 times weekly. We will have the patient placed on the low air loss surface, having turned every 2 hours. Antibiotics are being performed per his primary care physician. We will continue to maximize the patient's protein supplementation for healing. We will utilize physical and occupational therapy for strengthening. We will continue all other current medications. Appreciate ability to consult. <ELECTRONICALLY SIGNED> By: Maciej Russell MD 07/06/21 1658 [id number] Maciej Russell MD /nt
== END 2021-07-01 20:00 | disposition home or self-care (01) | DRG 553 ==
LOC: ER 19:50 → 4W 21:45 → EROBS 21:45 → 4W 06-24 19:14
PROVIDERS: Emergency Medicine; Nurse Practitioner; ADMIT Family Medicine; ATTEND Family Medicine
DX: M19.011 Primary osteoarthritis, right shoulder (principal); S24.104A Unspecified injury at T11-T12 level of thoracic spinal cord, initial encounter; S34.101A Unspecified injury to L1 level of lumbar spinal cord, initial encounter; G82.20 Paraplegia, unspecified; N39.0 Urinary tract infection, site not specified; L97.829 Non-pressure chronic ulcer of other part of left lower leg with unspecified severity; L97.819 Non-pressure chronic ulcer of other part of right lower leg with unspecified severity; E44.1 Mild protein-calorie malnutrition; F11.20 Opioid dependence, uncomplicated; M19.012 Primary osteoarthritis, left shoulder; K52.9 Noninfective gastroenteritis and colitis, unspecified; N31.9 Neuromuscular dysfunction of bladder, unspecified; G89.4 Chronic pain syndrome; M75.20 Bicipital tendinitis, unspecified shoulder; Z20.822 Contact with and (suspected) exposure to COVID-19; K21.9 Gastro-esophageal reflux disease without esophagitis; R53.81 Other malaise; M25.512 Pain in left shoulder; M25.511 Pain in right shoulder; B96.5 Pseudomonas (aeruginosa) (mallei) (pseudomallei) as the cause of diseases classified elsewhere; K59.00 Constipation, unspecified; S80.212A Abrasion, left knee, initial encounter; S80.211A Abrasion, right knee, initial encounter; F41.9 Anxiety disorder, unspecified; F32.9 Major depressive disorder, single episode, unspecified; X58.XXXA Exposure to other specified factors, initial encounter; Z93.50 Unspecified cystostomy status; Z86.718 Personal history of other venous thrombosis and embolism; Z86.711 Personal history of pulmonary embolism; Z86.14 Personal history of Methicillin resistant Staphylococcus aureus infection; Z88.6 Allergy status to analgesic agent; Z88.1 Allergy status to other antibiotic agents; Z88.8 Allergy status to other drugs, medicaments and biological substances; Z79.82 Long term (current) use of aspirin; Z79.899 Other long term (current) drug therapy; Z90.49 Acquired absence of other specified parts of digestive tract; Y93.89 Activity, other specified; Y92.89 Other specified places as the place of occurrence of the external cause; Y99.8 Other external cause status
CPT/HCPCS: 10040